=== PATIENT | male | born 1960 | race Caucasian/White ===

== ENCOUNTER 2017-03-15 17:45 | Inpatient (IN) | payer MEDICARE, MEDICAID ==
--- NOTE | 2017-03-15 18:29 | ED Physician Chart ---
ED Chief Complaint/HPI - Patient Information Date Seen:: 03/15/17 Time Seen:: 17:50 Chief Complaint:: abdominal pain History of Present Illness:: onset x one day of intermittent, diffuse, crampy, Abdominal Pain; no report of H /As, neck pain, C/P, SOB, cough, A/N/V/D/c, fever, chills, or urinary s/s Allergies:: Allergies Allergy/AdvReac Type Severity Reaction Status Date / Time No Known Allergies Allergy Verified 03/15/17 17:56 Vitals:: Vital Signs - 8 hr 03/15/17 03/15/17 17:57 18:03 Temp 97.9 F 97.7 F HR 78 87 RR 16 16 BP 101/72 150/86 O2 Sat % 99 100 Historian:: Patient, EMS Review:: Nurse's Note Reviewed, EMS run form Reviewed ED Review of Systems - Review of Systems General/Constitutional: No fever, No chills, No weight loss, No weakness, No diaphoresis, No edema, No loss of appetite Skin: No skin lesions, No rash, No bruising Head: No headache, No light-headedness Eyes: No loss of vision, No pain, No diplopia ENT: No earache, No nasal drainage, No sore throat, No tinnitus Neck: No neck pain, No swelling, No thyromegaly, No stiffness, No mass noted Cardio Vascular: No chest pain, No palpitations, PND, orthopnea, No edema Pulmonary: SOB, Cough, No sputum, No wheezing GI: Nausea, Vomiting, Diarrhea, Pain, No melena, No hematochezia, No constipation, No hematemesis G/U: No dysuria, No frequency, No hematuria, No nacturia Musculoskeletal: No bone or joint pain, No back pain, No muscle pain Endocrine: No polyuria, No polydipsia Psychiatric: No prior psych history, No depression, No anxiety, No suicidal ideation, No homicidal ideation, No auditory hallucination, No visual hallucination Hematopoietic: No bruising, No lymphadenopathy Allergic/Immuno: No urticaria, No angioedema Neurological: No syncope, No focal symptoms, No weakness, No paresthesia, No headache, No seizure, No dizziness, No confusion, No vertigo ED Past Medical History - Past Medical History Obtainable: Yes Past Medical History: HTN, CAD, CHF, ESRD, Seizures Family History: Diabetes Melitus, HTN Social History: Non Smoker, No Alcohol, No Drug Use, Single, Care Facility Surgical History: None Psychiatricy History: None Medication: Reviewed Family Medical History - Family Member Mother Hx Family Cancer: No Hx Family Congestive Heart Failure: No Hx Family Stroke: No Hx Family Diabetes: No Hx Family AIDS: No Hx Family HIV: No Hx Family Hepatitis: No ED Physical Exam - Physical Examination General/Constitutional: Awake, Well-developed, well-nourished, Alert, No distress, GCS 15, Non-toxic appearing, Ambulatory Head: Atraumatic Eyes: Lids, conjuctiva normal, PERRL, EOMI Skin: Nl inspection, No rash, No skin lesions, No ecchymosis, Well hydrated, No lymphadenopathy ENMT: External ears, nose nl, TM canals nl, Nasal exam nl, Lips, teeth, gums nl , Oropharynx nl, Tonsils nl Neck: Nontender, Full ROM w/o pain, No JVD, No nuchal rigidity, No bruit, No mass, No stridor Respiratory: Nl effort/Exclusion, Clear to Auscultation, No Wheeze/Rhonchi/Rales Cardio Vascular: RRR, No murmur, gallop, rubs, NL S1 S2, Carotid/Femoral/Distal pulses equal bilaterally GI: No tenderness/rebounding/guarding, No organomegaly, No hernia, Normal BS's, Nondistended, No mass/bruits, No McBurney tenderness : No CVA tenderness Extremities: No tenderness or effusion, Full ROM, normal strength in all extremities, No edema, Normal digits & nails Neuro/Psych: Alert/oriented, DTR's symmetric, Normal sensory exam, Normal motor strength, Judgement/insight normal, Mood normal, Normal gait, No focal deficits Misc: Normal back, No paraspinal tenderness ED Labs/Radiology/EKG Results - Lab Results Comments:: H/H: 9./; BUN: 50; Cr: 2.0 - EKG Interpretations EKG Time:: 20:20 Rate & Rhythm: 77; NSR Comments:: non-specific st-t changes ED Septic Shock - . Is Septic Shock (SBP<90, OR Lactate>4 mmol\L) present?: No - <6hrs of presentation: Vital Signs: Vital Signs - 8 hr 03/15/17 03/15/17 17:57 18:03 Temp 97.9 F 97.7 F HR 78 87 RR 16 16 BP 101/72 150/86 O2 Sat % 99 100 ED Reassessment (Disposition) - Reassessment Reassessment Condition:: Improved - Diagnosis Diagnosis:: Anemia; Abdominal Pain; AGE; Pre-Renal Azotemia; Renal Failure; Dehydration - Aftercare/Follow up Instructions Aftercare/Follow-Up Instructions:: Counseled pt regarding lab results/diagnosis & need follow up, Counseled pt & family regarding lab results/diagnosis & need follow up - Patient Disposition Discharge/Transfer:: Acute Care w/in this hosp Accepting Physician:: Dr. Lopez Time Called:: 1949 Time Responded:: 19:50 Admitted to:: Med/Surg Spoke to:: Dr. Lopez Admitting Medical Physician:: Dr. Lopez Condition at Disposition:: Stable, Improved
[2017-03-15] MEDS ORDERED: Sodium Chloride 0.9% 1,000 ML IV ONE (18:30)
[2017-03-15 19:19] LABS: % BASOPHILS 0.5 % (0.0-2.0); % EOSINOPHILS 2.5 % (0.0-5.0); % LYMPHOCYTES 29.3 % (20.0-50.0); % NEUTROPHILS 62.7 % (40.0-80.0); EOSINOPHILE ABSOLUTE 0.2 Th/cmm (0.1-0.4); HEMOGLOBIN 9.4 gm/dL (12-16); LYMPHOCYTE ABSOLUTE 1.8 Th/cmm (1.5-3.0); MEAN CORPUSCULAR HEMOGLOBIN 27.5 pg (26.0-30.0); MEAN CORPUSCULAR HGB CONC 32.3 pg (28.0-36.0); MONOCYTE ABSOLUTE 0.3 Th/cmm (0.3-1.0); NEUTROPHILE ABSOLUTE 3.7 Th/cmm (1.8-8.0); PLATELET COUNT 222 Th/cmm (150-400); RED BLOOD COUNT 3.41 Mil/cmm (4.30-5.70); RED CELL DISTRIBUTION WIDTH 15.8 % (11.5-20.0)
[2017-03-15 19:38] LABS: ALB/GLOB RATIO 0.8 (1.0-1.8); BILIRUBIN,TOTAL 0.2 mg/dL (0.3-1.0); CALCIUM SERUM 8.7 mg/dL (8.6-10.3); CARBON DIOXIDE 16.6 mEq/L (21.0-31.0); GFR NON AFRICAN-AMERICAN 37.2 ml/min; POTASSIUM SERUM 4.6 mEq/L (3.5-5.1); TOTAL PROTEIN,SERUM 6.8 gm/dL (6.0-8.3)
[2017-03-15 19:39] LABS: AMYLASE SERUM 39 U/L (29-103); LIPASE 34 U/L (11-82)
[2017-03-15 20:21] LABS: INR 1.01 (0.5-1.4); PROTHROMBIN TIME (TEST) 10.5 SECONDS (9.5-11.5)
[2017-03-15 21:36] LABS: URINE MICROSCOPIC INDICATED? YES; URINE SOURCE CLEAN C
[2017-03-15 21:37] LABS: URINE BILIRUBIN NEGATIVE (NEGATIVE); URINE BLOOD TRACE (NEGATIVE); URINE GLUCOSE (UA) 100 mg/dL (NEGATIVE); URINE KETONE NEGATIVE (NEGATIVE); URINE LEUKOCYTE ESTERASE NEGATIVE (NEGATIVE); URINE NITRATE NEGATIVE (NEGATIVE); URINE PROTEIN >=300 mg/dL (NEGATIVE); URINE UROBILINOGEN 0.2 E.U./dL (0.2 - 1.0)
[2017-03-15 21:41] LABS: URINE CLARITY CLOUDY (CLEAR); URINE COLOR YELLOW
[2017-03-15 21:42] LABS: URINE BACTERIA NONE SEEN /hpf (NONE SEEN); URINE EPITHELIAL CELLS NONE SEEN /lpf (FEW); URINE RBC 0-2 /hpf (0-5); URINE WBC NONE SEEN /hpf (0-5)
[2017-03-15 21:43] LABS: URINE AMORPHOUS SEDIMENT MANY URATES (NONE SEEN)
[2017-03-15 23:58] VITALS: BP 158/79
[2017-03-16] MEDS: D5-0.45NS w/20 mEq KCL 1,000 ML IV SCH ×2 (02:01→13:49)
[2017-03-16 07:27] LABS: % BASOPHILS 0.5 % (0.0-2.0); % EOSINOPHILS 2.1 % (0.0-5.0); % LYMPHOCYTES 31.6 % (20.0-50.0); % MONOCYTES 6.3 % (2.0-10.0); % NEUTROPHILS 59.5 % (40.0-80.0); EOSINOPHILE ABSOLUTE 0.1 Th/cmm (0.1-0.4); HEMATOCRIT 27.7 % (41.0-60); HEMOGLOBIN 9.2 gm/dL (12-16); LYMPHOCYTE ABSOLUTE 1.9 Th/cmm (1.5-3.0); MEAN CELL VOLUME 83.2 fl (80-99); MEAN CORPUSCULAR HEMOGLOBIN 27.7 pg (26.0-30.0); MEAN CORPUSCULAR HGB CONC 33.3 pg (28.0-36.0); MEAN PLATELET VOLUME 7.9 fl; MONOCYTE ABSOLUTE 0.4 Th/cmm (0.3-1.0); NEUTROPHILE ABSOLUTE 3.6 Th/cmm (1.8-8.0); PLATELET COUNT 201 Th/cmm (150-400); RED BLOOD COUNT 3.33 Mil/cmm (4.30-5.70); RED CELL DISTRIBUTION WIDTH 16.2 % (11.5-20.0)
[2017-03-16 07:44] LABS: ALB/GLOB RATIO 0.9 (1.0-1.8); ALBUMIN 2.8 gm/dL (4.2-5.5); ANION GAP 10.1 (7.0-16.0); BILIRUBIN,TOTAL 0.2 mg/dL (0.3-1.0); CALCIUM SERUM 8.3 mg/dL (8.6-10.3); CARBON DIOXIDE 18.4 mEq/L (21.0-31.0); CREATININE - SERUM 1.7 mg/dL (0.7-1.3); GFR AFRICAN-AMERICAN 54.3 ml/min (>90); GFR NON AFRICAN-AMERICAN 44.9 ml/min; POTASSIUM SERUM 4.5 mEq/L (3.5-5.1); TOTAL PROTEIN,SERUM 6.1 gm/dL (6.0-8.3)
--- NOTE | 2017-03-16 07:56 | Diagnostic Imaging Report ---
Portable chest x-ray Time: 1837 hours History: Chest pain Allowing for portable technique the heart size is normal. No focal pulmonary parenchymal processes. No hilar or mediastinal abnormalities. Impression: No acute abnormalities.
[2017-03-16] MEDS ORDERED: Magnesium Hydroxide (MOM) 30 mL UDC PO PRN (19:53)
--- NOTE | 2017-03-16 20:21 | History & Physical ---
ADMIT DATE: CHIEF COMPLAINT: Altered level of consciousness, confusion, possible urinary tract infection. HISTORY OF PRESENT ILLNESS: The patient is a 56-year-old male with long history of hypertension, seizure disorder, psychosis, degenerative joint disease, transferred from [facility] to the Emergency Room with altered level of consciousness, confusion. Initial workup sent for dehydration, acute kidney injury, possible urinary tract infection. The patient admitted to the hospital, started on IV fluid, antibiotic. The patient has pain on both knees and lower abdomen. No nausea, no vomiting. PAST MEDICAL HISTORY: Significant for hypertension, seizure disorder, chronic anemia, psychosis, coronary artery disease. PAST SURGICAL HISTORY: No recent surgery. ALLERGIES: None. MEDICATIONS: Follow admission reconciliation. SOCIAL HISTORY: No smoking, no alcohol, no drug. FAMILY HISTORY: Noncontributory. REVIEW OF SYSTEMS: RENAL SYSTEM: No history of chronic renal disorder. CARDIOVASCULAR SYSTEM: He has history of hypertension. ENDOCRINE SYSTEM: No diabetes or thyroid problem. GASTROINTESTINAL SYSTEM: No upper or lower gastrointestinal bleed. NEUROLOGICAL: He has history of seizure disorder with psychosis. MUSCULOSKELETAL SYSTEM: Degenerative joint disease. PHYSICAL EXAMINATION: GENERAL: He is awake, alert, mildly confused. VITAL SIGNS: Temperature is 98.2, heart rate 77, blood pressure 180/74. HEENT: Normocephalic. Pupils reacting to light and accommodation. Sclerae clear. NECK: Supple. Negative for lymphadenopathy, JVD or bruit. CHEST: Bilateral normal. No rhonchi or wheezing. HEART: S1, S2 normal. No murmur or gallop rhythm. ABDOMEN: Soft, bowel sounds positive. EXTREMITIES: No edema. NEUROLOGIC: He is awake, alert, mildly confused. He has mild weakness on the right side. LABORATORY DATA: Sodium is 141, potassium 4.5, BUN is 45, creatinine 0.7, glucose 141, albumin 2.8. White blood 6, hemoglobin 9.2, hematocrit 27.7, platelet 201. ASSESSMENT: 1. Dehydration. 2. Acute kidney injury. 3. Metabolic encephalopathy. 4. Hypertension. 5. Anemia. 6. Seizure disorder. 7. History of psychosis. 8. Possible urinary tract infection. The patient was admitted to the hospital under Dr. Lopez's service, IV fluid, antibiotic. Psych evaluation ordered. The CBC, CMP for tomorrow. Loman 5/325 one tablet q. 6 hours p.r.n. for pain ordered. JOB# [id number]
[2017-03-16] MEDS: Hydrocodone/APAP 5mg/325mg Tab PO PRN (21:21)
[2017-03-17] MEDS: D5-0.45NS w/20 mEq KCL 1,000 ML IV SCH (00:36)
[2017-03-17] MEDS: Hydrocodone/APAP 5mg/325mg Tab PO PRN ×3 (02:45→23:53)
[2017-03-17 08:25] LABS: % BASOPHILS 0.9 % (0.0-2.0); % EOSINOPHILS 3.3 % (0.0-5.0); % LYMPHOCYTES 27.8 % (20.0-50.0); % MONOCYTES 7.4 % (2.0-10.0); % NEUTROPHILS 60.6 % (40.0-80.0); BASOPHILE ABSOLUTE 0.1 Th/cumm (0-0.2); EOSINOPHILE ABSOLUTE 0.2 Th/cmm (0.1-0.4); HEMATOCRIT 28.3 % (41.0-60); HEMOGLOBIN 9.5 gm/dL (12-16); LYMPHOCYTE ABSOLUTE 1.8 Th/cmm (1.5-3.0); MEAN CELL VOLUME 84.3 fl (80-99); MEAN CORPUSCULAR HEMOGLOBIN 28.2 pg (26.0-30.0); MEAN CORPUSCULAR HGB CONC 33.5 pg (28.0-36.0); MEAN PLATELET VOLUME 8.4 fl; MONOCYTE ABSOLUTE 0.5 Th/cmm (0.3-1.0); NEUTROPHILE ABSOLUTE 3.8 Th/cmm (1.8-8.0); PLATELET COUNT 197 Th/cmm (150-400); RED BLOOD COUNT 3.35 Mil/cmm (4.30-5.70); RED CELL DISTRIBUTION WIDTH 15.7 % (11.5-20.0); WHITE BLOOD COUNT 6.4 Th/cmm (4.8-10.8)
[2017-03-17] MEDS: Ferrous Sulfate 325 MG TAB PO SCH (08:26)
[2017-03-17 08:35] LABS: ALB/GLOB RATIO 0.8 (1.0-1.8); ALBUMIN 2.7 gm/dL (4.2-5.5); ALKALINE PHOSPHATASE 48 U/L (34-104); ANION GAP 5.8 (7.0-16.0); BILIRUBIN,TOTAL 0.2 mg/dL (0.3-1.0); BUN - UREA NITROGEN 35 mg/dL (7-25); CALCIUM SERUM 8.3 mg/dL (8.6-10.3); CARBON DIOXIDE 18.8 mEq/L (21.0-31.0); CHLORIDE 116 mEq/L (98-107); CREATININE - SERUM 1.4 mg/dL (0.7-1.3); GFR AFRICAN-AMERICAN > 60.0 ml/min (>90); GFR NON AFRICAN-AMERICAN 56.1 ml/min; GLUCOSE 157 mg/dL (70-105); POTASSIUM SERUM 5.6 mEq/L (3.5-5.1); SGOT 15 U/L (13-39); SGPT/ALT 14 U/L (7-52); SODIUM SERUM 135 mEq/L (136-145)
[2017-03-17] MEDS ORDERED: D5-0.45NS 1,000 ML IV SCH (13:00)
--- NOTE | 2017-03-17 13:12 | Internal Medicine Prog Note ---
Internal Medicine Subjective - Subjective Service Date: 03/17/17 Patient seen and examined:: with staff Patient is:: awake, verbal, in bed Patient Complaints of:: other (HE HAS ABDOMINAL PAIN) Internal Medicine Objective - Results Result Diagrams: 03/17/17 07:45 03/17/17 07:45 Recent Labs: Laboratory Last Values WBC 6.4 Th/cmm (4.8-10.8) 03/17/17 07:45 RBC 3.35 Mil/cmm (4.30-5.70) L 03/17/17 07:45 Hgb 9.5 gm/dL (12-16) L 03/17/17 07:45 Hct 28.3 % (41.0-60) L 03/17/17 07:45 MCV 84.3 fl (80-99) 03/17/17 07:45 MCH 28.2 pg (26.0-30.0) 03/17/17 07:45 MCHC Differential 33.5 pg (28.0-36.0) 03/17/17 07:45 RDW 15.7 % (11.5-20.0) 03/17/17 07:45 Plt Count 197 Th/cmm (150-400) 03/17/17 07:45 MPV 8.4 fl 03/17/17 07:45 Neutrophils % 60.6 % (40.0-80.0) 03/17/17 07:45 Lymphocytes % 27.8 % (20.0-50.0) 03/17/17 07:45 Monocytes % 7.4 % (2.0-10.0) 03/17/17 07:45 Eosinophils % 3.3 % (0.0-5.0) 03/17/17 07:45 Basophils % 0.9 % (0.0-2.0) 03/17/17 07:45 PT 10.5 SECONDS (9.5-11.5) 03/15/17 19:55 INR 1.01 (0.5-1.4) 03/15/17 19:55 Sodium 135 mEq/L (136-145) L 03/17/17 07:45 Potassium 5.6 mEq/L (3.5-5.1) H 03/17/17 07:45 Chloride 116 mEq/L (98-107) H 03/17/17 07:45 Carbon Dioxide 18.8 mEq/L (21.0-31.0) L 03/17/17 07:45 Anion Gap 5.8 (7.0-16.0) L 03/17/17 07:45 BUN 35 mg/dL (7-25) H 03/17/17 07:45 Creatinine 1.4 mg/dL (0.7-1.3) H 03/17/17 07:45 Est GFR ( Amer) > 60.0 ml/min (>90) 03/17/17 07:45 Est GFR (Non-Af Amer) 56.1 ml/min 03/17/17 07:45 BUN/Creatinine Ratio 25.0 03/17/17 07:45 Glucose 157 mg/dL (70-105) H 03/17/17 07:45 Calcium 8.3 mg/dL (8.6-10.3) L 03/17/17 07:45 Total Bilirubin 0.2 mg/dL (0.3-1.0) L 03/17/17 07:45 AST 15 U/L (13-39) 03/17/17 07:45 ALT 14 U/L (7-52) 03/17/17 07:45 Alkaline Phosphatase 48 U/L (34-104) 03/17/17 07:45 Creatine Kinase 54 U/L (30-223) 03/15/17 19:10 Troponin I 0.01 ng/mL (0.01-0.05) 03/15/17 19:10 B-Natriuretic Peptide 43.3 pg/mL (5.0-100.0) 03/15/17 19:10 Total Protein 6.0 gm/dL (6.0-8.3) 03/17/17 07:45 Albumin 2.7 gm/dL (4.2-5.5) L 03/17/17 07:45 Globulin 3.3 gm/dL 03/17/17 07:45 Albumin/Globulin Ratio 0.8 (1.0-1.8) L 03/17/17 07:45 Triglycerides 262 mg/dL (<150) H 03/15/17 19:10 Cholesterol 211 mg/dL (<200) H 03/15/17 19:10 LDL Cholesterol Direct 138 mg/dL (75-193) 03/15/17 19:10 HDL Cholesterol 33 mg/dL (23-92) 03/15/17 19:10 Amylase 39 U/L (29-103) 03/15/17 19:10 Lipase 34 U/L (11-82) 03/15/17 19:10 Urine Source CLEAN C 03/15/17 20:55 Urine Color YELLOW 03/15/17 20:55 Urine Clarity CLOUDY (CLEAR) 03/15/17 20:55 Urine pH 6.0 (4.6 - 8.0) 03/15/17 20:55 Ur Specific [place] 1.020 (1.005-1.030) 03/15/17 20:55 Urine Protein >=300 mg/dL (NEGATIVE) 03/15/17 20:55 Urine Glucose (UA) 100 mg/dL (NEGATIVE) H 03/15/17 20:55 Urine Ketones NEGATIVE mg/dL (NEGATIVE) 03/15/17 20:55 Urine Blood TRACE (NEGATIVE) 03/15/17 20:55 Urine Nitrate NEGATIVE (NEGATIVE) 03/15/17 20:55 Urine Bilirubin NEGATIVE (NEGATIVE) 03/15/17 20:55 Urine Urobilinogen 0.2 E.U./dL (0.2 - 1.0) 03/15/17 20:55 Ur Leukocyte Esterase NEGATIVE (NEGATIVE) 03/15/17 20:55 Urine RBC 0-2 /hpf (0-5) H 03/15/17 20:55 Urine WBC NONE SEEN /hpf (0-5) 03/15/17 20:55 Ur Epithelial Cells NONE SEEN /lpf (FEW) 03/15/17 20:55 Amorphous Sediment MANY URATES (NONE SEEN) 03/15/17 20:55 Urine Bacteria NONE SEEN /hpf (NONE SEEN) 03/15/17 20:55 - Physical Exam Vitals and I&O: Vital Signs Temp 98.4 F 03/17/17 11:53 Pulse 69 03/17/17 11:53 Resp 17 03/17/17 11:53 BP 173/73 03/17/17 11:53 Pulse Ox 99 03/17/17 11:53 Intake & Output 03/16/17 03/17/17 03/17/17 18:59 06:59 18:59 Intake Total 572.5 1308.75 Output Total 0 Balance 572.5 1308.75 Weight (lbs) 74.389 kg 73.936 kg Intake: Intake, IV Amount 572.5 808.75 D5-0.45NS w/20 mEq KCL 1, 572.5 808.75 000 ml @ 75 mls/hr IV . [id number] [facility] Rx#:[id number] Oral 500 Output: Stool 0 Other: # Voids 3 # Bowel Movements 0 Stool Characteristics Soft Formed Active Medications: Current Medications Acetaminophen (Tylenol) 650 mg PO Q6HR PRN PRN Reason: Pain (Mild) Stop: 05/15/17 19:51 Last Admin: 03/17/17 06:02 Dose: 650 mg Acetaminophen/Hydrocodone Bitart (Prompton 5mg/325mg) 1 tab PO Q6H PRN PRN Reason: Pain (Severe) Stop: 05/15/17 20:02 Last Admin: 03/17/17 02:45 Dose: 1 tab Carbamazepine (Tegretol) 200 mg PO TID [facility] PRN Reason: Protocol Stop: 05/16/17 08:59 Last Admin: 03/17/17 08:26 Dose: 200 mg Docusate Sodium (Colace) 250 mg PO DAILY [facility] Stop: 05/16/17 08:59 Last Admin: 03/17/17 08:26 Dose: 250 mg Ferrous Sulfate (Iron) 325 mg PO DAILY [facility] Stop: 05/16/17 08:59 Last Admin: 03/17/17 08:26 Dose: 325 mg Gabapentin (Neurontin) 600 mg PO QID [facility] Stop: 05/16/17 08:59 Last Admin: 03/17/17 08:26 Dose: 600 mg Hydralazine HCl (Apresoline) 50 mg PO Q6HR PRN PRN Reason: BP MAINTENANCE (PER PROTOCOL) Stop: 05/15/17 19:52 Dextrose/Sodium Chloride (D5-0.45ns) 1,000 mls @ 75 mls/hr IV .[id number] [facility] Stop: 05/16/17 12:59 Isosorbide Mononitrate (Imdur) 30 mg PO DAILY [facility] Stop: 05/16/17 08:59 Last Admin: 03/17/17 08:26 Dose: 30 mg Levetiracetam (Keppra) 500 mg PO BID [facility] Stop: 05/15/17 19:59 Last Admin: 03/17/17 08:26 Dose: 500 mg Magnesium Hydroxide (Milk Of Magnesia) 30 ml PO DAILY PRN PRN Reason: Constipation Stop: 05/15/17 19:52 Metoprolol Tartrate (Lopressor) 100 mg PO BID [facility] Stop: 05/16/17 08:59 Last Admin: 03/17/17 08:27 Dose: 100 mg Minoxidil (Loniten) 2.5 mg PO BID [facility] Stop: 05/16/17 08:59 Last Admin: 03/17/17 08:26 Dose: 2.5 mg Valproate Sodium (Depakene) 250 mg PO QID [facility] PRN Reason: Protocol Stop: 05/16/17 08:59 Last Admin: 03/17/17 08:26 Dose: 250 mg General: weak, alert HEENT: NC/AT, PERRLA, EOMI, anicteric sclerae, throat clear Neck: Supple, No JVD, No thyromegaly, No LAD Lungs: CTAB Cardiovascular: Normal S1, Normal S2, without murmur Abdomen: tender, non-distended Extremities: clear Neurological: no change - Procedures Procedures: Procedures Procedure Code Date DRAINAGE OF SKIN ABSCESS 53917 08/15/03 ELECTROCARDIOGRAM 89.52 01/27/00 ELECTROCARDIOGRAM COMPLETE 00271 01/27/00 INSERT NON-TUNNEL CV CATH 08294 12/13/03 MAGNETIC RESONANCE IMAGING OF BRAIN AND BRAIN STEM 88.91 01/27/00 MRI BRAIN STEM W/O DYE 72412 01/27/00 OTHER SKIN & SUBQ I D 86.04 08/15/03 VENOUS CATHETERIZATION NEC 38.93 12/13/03 Internal Medicine Assmt/Plan - Assessment Assessment: 1.ACUTE ABDOMINAL PAIN. 2.POSSIBLE UTI. 3.DEHYDRATION. 4.ACUTE KIDNEY INJERY. - Plan Plan: GI CONSULTATION.CT OF ABDOMIN.
[2017-03-17] MEDS: Sodium Chloride 0.45% 1,000 ML IV SCH (13:33)
[2017-03-17] MEDS: INSULIN ASPART SLIDING SCALE 100 UNITS/ML UNIT SUBQ SCH ×2 (17:44→21:11)
--- NOTE | 2017-03-18 00:05 | Consultation ---
DATE OF CONSULTATION: 03/17/2017 Covering for: Dr. Lagunas. The patient was admitted on 03/15/2017. IDENTIFYING INFORMATION: The patient is a 56-year-old male. HISTORY OF PRESENT ILLNESS: I was asked to see this patient who has a history of psychosis. The patient himself was a poor historian, unable to participate in a meaningful conversation, make a safe plan for self-care. He does not know the date, where he is, why he is here, unable to tell me his age. 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 The patient was admitted with altered level of consciousness. Apparently, he has hypertension, seizure disorder, chronic anemia, and coronary artery disease. He was confused with multiple urinary tract infections, long history of hypertension, and degenerative joint disease. He came from [facility] Emergency Room with altered level of consciousness and confusion. The patient was somewhat confused when I talked to him, unable to tell me much about his symptoms, though he pointed to his leg and complained of abdominal pain, but when asked about depression, anxiety, and hallucination, he denied, but he is not a good historian. He denies any intent to harm himself or anyone. PAST PSYCHIATRIC HISTORY: Psychosis. The patient denies prior psychiatric treatment; however, he is a poor historian. MEDICAL HISTORY: Dehydration, acute kidney injury, metabolic encephalopathy, hypertension, anemia, seizure disorder, with a history of possible urinary tract infection. ALLERGIES: The patient has no known drug allergies. MEDICATIONS: He has been on Tegretol 200 mg 3 times a day. He is on iron, Neurontin 600 mg 4 times a day, hydralazine, hydrocodone as needed, insulin, Keppra, metoprolol, minoxidil, and Depakote 250 four times a day. FAMILY AND SOCIAL HISTORY: Unobtainable. The patient is unable to tell me much about his family history. When asked about prior psychosis, he denies. He does not know where he lives. He came from [facility], which is a [place] [facility]. MENTAL STATUS EXAMINATION: The patient is appropriately dressed in hospital gown. He spoke in an odd manner. He was alert, unable to tell me the date, where he is. He pointed to his leg and abdomen when asked if he has any complaint. He was unable to participate in a meaningful conversation or make a safe plan for self-care. Long and short term is poor, unable to tell me his age or date of . He denies any hallucinations or paranoia. Insight and judgment are impaired. IMPRESSION: AXIS I: Possible bipolar disorder. MEDICAL DIAGNOSES: As per Dr. Lopez. PLAN: I would recommend to continue his medication, Depakote would help with his symptoms and will follow up with the patient and adjust medication as needed. Thank you very much for allowing me to participate in the care of this most interesting gentleman. JOB# [id number]
[2017-03-18] MEDS: Sodium Chloride 0.45% 1,000 ML IV SCH ×2 (03:35→21:04)
[2017-03-18 05:41] LABS: % BASOPHILS 0.9 % (0.0-2.0); % EOSINOPHILS 3.2 % (0.0-5.0); % LYMPHOCYTES 20.8 % (20.0-50.0); % MONOCYTES 5.9 % (2.0-10.0); % NEUTROPHILS 69.2 % (40.0-80.0); BASOPHILE ABSOLUTE 0.1 Th/cumm (0-0.2); EOSINOPHILE ABSOLUTE 0.3 Th/cmm (0.1-0.4); HEMATOCRIT 28.8 % (41.0-60); HEMOGLOBIN 9.9 gm/dL (12-16); LYMPHOCYTE ABSOLUTE 2.1 Th/cmm (1.5-3.0); MEAN CELL VOLUME 82.8 fl (80-99); MEAN CORPUSCULAR HEMOGLOBIN 28.5 pg (26.0-30.0); MEAN CORPUSCULAR HGB CONC 34.4 pg (28.0-36.0); MEAN PLATELET VOLUME 7.9 fl; MONOCYTE ABSOLUTE 0.6 Th/cmm (0.3-1.0); NEUTROPHILE ABSOLUTE 6.8 Th/cmm (1.8-8.0); PLATELET COUNT 226 Th/cmm (150-400); RED BLOOD COUNT 3.48 Mil/cmm (4.30-5.70); RED CELL DISTRIBUTION WIDTH 15.4 % (11.5-20.0)
[2017-03-18 06:20] LABS: ALB/GLOB RATIO 0.8 (1.0-1.8); ALBUMIN 2.7 gm/dL (4.2-5.5); ALKALINE PHOSPHATASE 62 U/L (34-104); ANION GAP 8.5 (7.0-16.0); BILIRUBIN,TOTAL 0.2 mg/dL (0.3-1.0); BUN - UREA NITROGEN 30 mg/dL (7-25); CALCIUM SERUM 8.2 mg/dL (8.6-10.3); CHLORIDE 114 mEq/L (98-107); CREATININE - SERUM 1.3 mg/dL (0.7-1.3); GFR AFRICAN-AMERICAN > 60.0 ml/min (>90); GFR NON AFRICAN-AMERICAN > 60.0 ml/min; GLUCOSE 115 mg/dL (70-105); POTASSIUM SERUM 5.5 mEq/L (3.5-5.1); SGOT 18 U/L (13-39); SGPT/ALT 14 U/L (7-52); SODIUM SERUM 135 mEq/L (136-145)
[2017-03-18 06:24] LABS: WHITE BLOOD COUNT 9.9 Th/cmm (4.8-10.8)
[2017-03-18] MEDS: INSULIN ASPART SLIDING SCALE 100 UNITS/ML UNIT SUBQ SCH ×4 (06:36→22:18)
--- NOTE | 2017-03-18 09:43 | Diagnostic Imaging Report ---
Exam: KUB of the abdomen HISTORY: Abdominal pain Findings: Portable supine examination the abdomen was reviewed at 0851 hours. The study demonstrates nonspecific bowel gas pattern. Bony structures intact. No abnormal masses or calcifications are noted. IMPRESSION: Nonspecific bowel gas pattern.
[2017-03-18] MEDS: Ferrous Sulfate 325 MG TAB PO SCH (15:07)
[2017-03-18] MEDS: POLYETHYLENE GLYCOL 3350 17 GM PACK PO SCH (15:11)
[2017-03-18] MEDS ORDERED: Probiotic Screen MC PRN (15:25)
--- NOTE | 2017-03-18 15:37 | General Progress Note ---
Subjective - Review of Systems Service Date: 03/18/17 Subjective: resting in bed still c/o abdo pain Objective - Results Result Diagrams: 03/18/17 05:25 03/18/17 05:25 Recent Labs: Laboratory Last Values WBC 9.9 Th/cmm (4.8-10.8) D 03/18/17 05:25 RBC 3.48 Mil/cmm (4.30-5.70) L 03/18/17 05:25 Hgb 9.9 gm/dL (12-16) L 03/18/17 05:25 Hct 28.8 % (41.0-60) L 03/18/17 05:25 MCV 82.8 fl (80-99) 03/18/17 05:25 MCH 28.5 pg (26.0-30.0) 03/18/17 05:25 MCHC Differential 34.4 pg (28.0-36.0) 03/18/17 05:25 RDW 15.4 % (11.5-20.0) 03/18/17 05:25 Plt Count 226 Th/cmm (150-400) 03/18/17 05:25 MPV 7.9 fl 03/18/17 05:25 Neutrophils % 69.2 % (40.0-80.0) 03/18/17 05:25 Lymphocytes % 20.8 % (20.0-50.0) 03/18/17 05:25 Monocytes % 5.9 % (2.0-10.0) 03/18/17 05:25 Eosinophils % 3.2 % (0.0-5.0) 03/18/17 05:25 Basophils % 0.9 % (0.0-2.0) 03/18/17 05:25 PT 10.5 SECONDS (9.5-11.5) 03/15/17 19:55 INR 1.01 (0.5-1.4) 03/15/17 19:55 Sodium 135 mEq/L (136-145) L 03/18/17 05:25 Potassium 5.5 mEq/L (3.5-5.1) H 03/18/17 05:25 Chloride 114 mEq/L (98-107) H 03/18/17 05:25 Carbon Dioxide 18.0 mEq/L (21.0-31.0) L 03/18/17 05:25 Anion Gap 8.5 (7.0-16.0) 03/18/17 05:25 BUN 30 mg/dL (7-25) H 03/18/17 05:25 Creatinine 1.3 mg/dL (0.7-1.3) 03/18/17 05:25 Est GFR ( Amer) > 60.0 ml/min (>90) 03/18/17 05:25 Est GFR (Non-Af Amer) > 60.0 ml/min 03/18/17 05:25 BUN/Creatinine Ratio 23.1 03/18/17 05:25 Glucose 115 mg/dL (70-105) H 03/18/17 05:25 POC Glucose 111 MG/DL (70 - 105) H 03/18/17 12:12 Calcium 8.2 mg/dL (8.6-10.3) L 03/18/17 05:25 Total Bilirubin 0.2 mg/dL (0.3-1.0) L 03/18/17 05:25 AST 18 U/L (13-39) 03/18/17 05:25 ALT 14 U/L (7-52) 03/18/17 05:25 Alkaline Phosphatase 62 U/L (34-104) 03/18/17 05:25 Creatine Kinase 54 U/L (30-223) 03/15/17 19:10 Troponin I 0.01 ng/mL (0.01-0.05) 03/15/17 19:10 B-Natriuretic Peptide 43.3 pg/mL (5.0-100.0) 03/15/17 19:10 Total Protein 6.0 gm/dL (6.0-8.3) 03/18/17 05:25 Albumin 2.7 gm/dL (4.2-5.5) L 03/18/17 05:25 Globulin 3.3 gm/dL 03/18/17 05:25 Albumin/Globulin Ratio 0.8 (1.0-1.8) L 03/18/17 05:25 Triglycerides 262 mg/dL (<150) H 03/15/17 19:10 Cholesterol 211 mg/dL (<200) H 03/15/17 19:10 LDL Cholesterol Direct 138 mg/dL (75-193) 03/15/17 19:10 HDL Cholesterol 33 mg/dL (23-92) 03/15/17 19:10 Amylase 39 U/L (29-103) 03/15/17 19:10 Lipase 34 U/L (11-82) 03/15/17 19:10 Urine Source CLEAN C 03/15/17 20:55 Urine Color YELLOW 03/15/17 20:55 Urine Clarity CLOUDY (CLEAR) 03/15/17 20:55 Urine pH 6.0 (4.6 - 8.0) 03/15/17 20:55 Ur Specific [place] 1.020 (1.005-1.030) 03/15/17 20:55 Urine Protein >=300 mg/dL (NEGATIVE) 03/15/17 20:55 Urine Glucose (UA) 100 mg/dL (NEGATIVE) H 03/15/17 20:55 Urine Ketones NEGATIVE mg/dL (NEGATIVE) 03/15/17 20:55 Urine Blood TRACE (NEGATIVE) 03/15/17 20:55 Urine Nitrate NEGATIVE (NEGATIVE) 03/15/17 20:55 Urine Bilirubin NEGATIVE (NEGATIVE) 03/15/17 20:55 Urine Urobilinogen 0.2 E.U./dL (0.2 - 1.0) 03/15/17 20:55 Ur Leukocyte Esterase NEGATIVE (NEGATIVE) 03/15/17 20:55 Urine RBC 0-2 /hpf (0-5) H 03/15/17 20:55 Urine WBC NONE SEEN /hpf (0-5) 03/15/17 20:55 Ur Epithelial Cells NONE SEEN /lpf (FEW) 03/15/17 20:55 Amorphous Sediment MANY URATES (NONE SEEN) 03/15/17 20:55 Urine Bacteria NONE SEEN /hpf (NONE SEEN) 03/15/17 20:55 - Physical Exam Vitals and I&O: Vital Signs Temp 97.7 F 03/18/17 15:23 Pulse 86 03/18/17 15:23 Resp 20 03/18/17 15:23 BP 170/87 03/18/17 15:23 Pulse Ox 99 03/18/17 15:23 Intake & Output 03/17/17 03/18/17 03/18/17 18:59 06:59 18:59 Intake Total 450 1400 Output Total 0 Balance 450 1400 Weight (lbs) 73.936 kg 73.936 kg Intake: Intake, IV Amount 1000 Sodium Chloride 0.45% 1, 1000 000 ml @ 75 mls/hr IV . [id number] [facility] Rx#:[id number] Oral 450 400 Output: Stool 0 Other: # Voids 3 3 # Bowel Movements 1 0 Stool Characteristics Soft Soft Formed Formed Active Medications: Current Medications Acetaminophen (Tylenol) 650 mg PO Q6HR PRN PRN Reason: Pain (Mild) Stop: 05/15/17 19:51 Last Admin: 03/17/17 06:02 Dose: 650 mg Acetaminophen/Hydrocodone Bitart ([place] 5mg/325mg) 1 tab PO Q6H PRN PRN Reason: Pain (Severe) Stop: 05/15/17 20:02 Last Admin: 03/17/17 23:53 Dose: 1 tab Carbamazepine (Tegretol) 200 mg PO TID [facility] PRN Reason: Protocol Stop: 05/16/17 08:59 Last Admin: 03/18/17 15:10 Dose: Not Given Docusate Sodium (Colace) 250 mg PO DAILY [facility] Stop: 05/16/17 08:59 Last Admin: 03/18/17 15:07 Dose: Not Given Ferrous Sulfate (Iron) 325 mg PO DAILY [facility] Stop: 05/16/17 08:59 Last Admin: 03/18/17 15:07 Dose: Not Given Gabapentin (Neurontin) 600 mg PO QID [facility] Stop: 05/16/17 08:59 Last Admin: 03/18/17 15:08 Dose: 600 mg Hydralazine HCl (Apresoline) 50 mg PO Q6HR PRN PRN Reason: BP MAINTENANCE (PER PROTOCOL) Stop: 05/15/17 19:52 Last Admin: 03/18/17 07:57 Dose: 50 mg Sodium Chloride (Nacl 0.45%) 1,000 mls @ 75 mls/hr IV .[id number] [facility] Stop: 05/16/17 13:29 Last Admin: 03/18/17 03:35 Dose: 75 mls/hr Insulin Aspart (Novolog Insulin Sliding Scale) 0 units SUBQ ACHS [facility] PRN Reason: Protocol Stop: 05/16/17 16:29 Last Admin: 03/18/17 15:11 Dose: Not Given Isosorbide Mononitrate (Imdur) 30 mg PO DAILY [facility] Stop: 05/16/17 08:59 Last Admin: 03/18/17 15:10 Dose: Not Given Lactobacillus Rhamnosus (Culturelle 15b) 1 each PO DAILY [facility] Stop: 05/18/17 08:59 Levetiracetam (Keppra) 500 mg PO BID [facility] Stop: 05/15/17 19:59 Last Admin: 03/18/17 15:10 Dose: Not Given Magnesium Hydroxide (Milk Of Magnesia) 30 ml PO DAILY PRN PRN Reason: Constipation Stop: 05/15/17 19:52 Metoprolol Tartrate (Lopressor) 100 mg PO BID [facility] Stop: 05/16/17 08:59 Last Admin: 03/18/17 15:10 Dose: Not Given Minoxidil (Loniten) 2.5 mg PO BID [facility] Stop: 05/16/17 08:59 Last Admin: 03/18/17 15:11 Dose: Not Given Miscellaneous (Probiotic Screen) 1 ea PRN PRN PRN Reason: PROTOCOL Stop: 05/17/17 15:24 Polyethylene Glycol (Miralax) 17 gm PO DAILY [facility] Stop: 05/17/17 08:59 Last Admin: 03/18/17 15:11 Dose: Not Given Valproate Sodium (Depakene) 250 mg PO QID [facility] PRN Reason: Protocol Stop: 05/16/17 08:59 Last Admin: 03/18/17 15:11 Dose: Not Given General: Alert, No acute distress HEENT: Atraumatic, EOMI Neck: Supple, JVD Cardiovascular: Regular rate, Normal S1, Normal S2 Lungs: Clear to auscultation Abdomen: Bowel sounds, Soft - Procedures Procedures: Procedures Procedure Code Date DRAINAGE OF SKIN ABSCESS 92277 08/15/03 ELECTROCARDIOGRAM 89.52 01/27/00 ELECTROCARDIOGRAM COMPLETE 56023 01/27/00 INSERT NON-TUNNEL CV CATH 54762 12/13/03 MAGNETIC RESONANCE IMAGING OF BRAIN AND BRAIN STEM 88.91 01/27/00 MRI BRAIN STEM W/O DYE 64495 01/27/00 OTHER SKIN & SUBQ I D 86.04 08/15/03 VENOUS CATHETERIZATION NEC 38.93 12/13/03 Assessment/Plan - Assessment Assessment: 1.ACUTE ABDOMINAL PAIN. 2.POSSIBLE UTI. 3.DEHYDRATION. 4.ACUTE KIDNEY INJURY - Plan Plan: continue current treatment GI w/o in progress
--- NOTE | 2017-03-18 19:32 | Consultation ---
DATE OF CONSULTATION: 03/18/2017 INPATIENT GASTROINTESTINAL CONSULTATION CONSULTING PHYSICIAN: Dr. Lopez. REASON FOR CONSULTATION: Abdominal pain. HISTORY OF PRESENT ILLNESS: The patient is a 56-year-old male with a past medical history significant for hypertension, seizure disorder, psychosis, degenerative joint disease. He is a permanent resident at [facility], who was transferred to the Emergency Room with altered level of consciousness. Initial workup in the ER showed acute kidney injury, possible urinary tract infection and the patient did complain of generalized abdominal pain, since the admission, the patient has been receiving antibiotics as well as fluid hydration. His acute kidney injury has improved. The patient, however, still reports that he has abdominal pain whenever he is asked if he has any issues and points to his entire stomach. He is unable to say for certain if he has ever had an endoscopic examination before as he is still somewhat altered. PAST MEDICAL HISTORY: Hypertension, seizure disorder, psychosis, anemia, coronary artery disease. PAST SURGICAL HISTORY: There is no history of abdominal surgeries. FAMILY HISTORY: Noncontributory. SOCIAL HISTORY: No documented history of smoking or illicit drug use. REVIEW OF SYSTEMS: Twelve point review of systems performed with the patient and is negative other than the pertinent positives mentioned in history of present illness. Specifically, the patient denies any melena, hematochezia, hematemesis or vomiting. CURRENT MEDICATIONS: Include Tylenol, [place], carbamazepine, Colace, iron, gabapentin, hydralazine, insulin sliding scale, Imdur, Keppra, milk of magnesia, Lopressor, minoxidil, Depakote. PHYSICAL EXAMINATION: VITAL SIGNS: Blood pressure is 194/95, respiratory rate is 18, pulse 77, temperature 97.4, 100% oxygenation on room air. GENERAL: The patient is sitting upright in bed. He was comfortably sleeping before examination, in no apparent distress. HEAD, EARS, EYES, NOSE AND THROAT: Normocephalic, atraumatic appearing head. He does have an odd affect. Pupils are equal and reactive. Extraocular muscles are intact. Moist mucous membranes. NECK: Supple, no JVD, no thyromegaly, no lymphadenopathy. CHEST: Clear to auscultation bilaterally. CARDIOVASCULAR: S1, S2 are present, regular rate and rhythm. ABDOMEN: Soft on palpation. There is no tenderness as per the patient on palpation. No guarding, no rebound, no distention. EXTREMITIES: 1+ pitting edema is noted. No obvious cyanosis. Pulses are present. SKIN: No obvious jaundice. LABORATORY DATA: White blood cell count 9.9, hemoglobin 9.9, platelet count 226. Sodium 135, potassium 5.5, BUN is 30, creatinine 1.3, which is improved from 1.7 on admission, total bilirubin 0.288, AST is 18, ALT is 14, INR 1.01. IMAGING: There is no abdominal imaging performed. IMPRESSION: This is a 56-year-old male with history of psychosis, seizure disorder who is a permanent resident of a nursing facility. He was admitted to the hospital with confusion, dehydration, acute kidney injury, and abdominal pain. 1. Abdominal pain. 2. Acute kidney injury. 3. Acute on chronic confusion. 4. History of seizure disorder. 5. History of coronary artery disease. DISCUSSION: It is difficult to ascertain whether this patient is truly in pain or whether or how to characterize his abdominal pain as the patient is only able to endorse that he has generalized pain and unable to give any further details. An abdominal ultrasound is already ordered, which can help us find if there is any biliary or gallbladder pathology. A contrast CT scan would be useful, although his kidney injury is not all the way improved and thus this may be able to wait for another day. The kidney injury is further improved. We can get a KUB to look for any evidence of constipation, which may be playing into his pain syndrome, less likely possibilities include colon cancer, gastric cancer or peptic ulcer disease. If the patient's pain is not improved with laxative therapy and the imaging studies are nonrevealing, we can consider the prospect of doing upper and lower endoscopy to rule out other causes. RECOMMENDATIONS: 1. We will get a KUB. 2. We will follow up the abdominal ultrasound. 3. If the kidney function continues to improve tomorrow, we can consider getting a contrast CT scan. 4. We will start the patient on MiraLax as several of his home medications can induce constipation and he has no record of bowel movements here. 5. If all fails and continues to have pain, we can consider doing upper and lower endoscopy. Thank you for allowing me to participate in this patient's care. I will continue to follow. Please call with any further questions. JOB# [id number]
[2017-03-18] MEDS: Hydrocodone/APAP 5mg/325mg Tab PO PRN (20:57)
--- NOTE | 2017-03-18 21:30 | Progress Notes ---
DATE: 03/18/2017 Case was discussed with the patient, reviewed records. The patient continues to be unable to give information. The patient continues to have poor insight, continues to be unable to take care of himself or make safe plan for self-care. The patient is unpredictable and impulsive. He was dehydrated with kidney injury, metabolic encephalopathy. He has been compliant with the medication with no side effects, no sedation, no nausea. So far, he seems to be more on the sedated side that he probably is also suffering from delirium because of his metabolic encephalopathy, dehydration and infection. No side effects with the medication, no sedation or nausea. Thank you very much for allowing me to participate in the care of this most interesting patient. JOB# [id number]
[2017-03-19] MEDS: Hydrocodone/APAP 5mg/325mg Tab PO PRN ×3 (02:56→20:40)
[2017-03-19 06:15] LABS: ALB/GLOB RATIO 0.8 (1.0-1.8); ALBUMIN 2.4 gm/dL (4.2-5.5); ALKALINE PHOSPHATASE 67 U/L (34-104); BILIRUBIN,TOTAL 0.3 mg/dL (0.3-1.0); BUN - UREA NITROGEN 28 mg/dL (7-25); CALCIUM SERUM 7.8 mg/dL (8.6-10.3); CARBON DIOXIDE 13.6 mEq/L (21.0-31.0); CHLORIDE 116 mEq/L (98-107); CREATININE - SERUM 1.3 mg/dL (0.7-1.3); GFR AFRICAN-AMERICAN > 60.0 ml/min (>90); GFR NON AFRICAN-AMERICAN > 60.0 ml/min; GLUCOSE 117 mg/dL (70-105); POTASSIUM SERUM 4.6 mEq/L (3.5-5.1); SGOT 17 U/L (13-39); SGPT/ALT 16 U/L (7-52); SODIUM SERUM 136 mEq/L (136-145); TOTAL PROTEIN,SERUM 5.4 gm/dL (6.0-8.3)
[2017-03-19] MEDS: INSULIN ASPART SLIDING SCALE 100 UNITS/ML UNIT SUBQ SCH ×5 (06:51→22:02)
--- NOTE | 2017-03-19 08:46 | GI Progress Note ---
Subjective - Review of Systems Service Date: 03/19/17 Subjective: Sleeping, but when awoken first complains of feet pain, then abdominal pain. Unable to specify where in abdomen. Objective - Results Result Diagrams: 03/18/17 05:25 03/19/17 05:20 Recent Labs: Laboratory Last Values WBC 9.9 Th/cmm (4.8-10.8) D 03/18/17 05:25 RBC 3.48 Mil/cmm (4.30-5.70) L 03/18/17 05:25 Hgb 9.9 gm/dL (12-16) L 03/18/17 05:25 Hct 28.8 % (41.0-60) L 03/18/17 05:25 MCV 82.8 fl (80-99) 03/18/17 05:25 MCH 28.5 pg (26.0-30.0) 03/18/17 05:25 MCHC Differential 34.4 pg (28.0-36.0) 03/18/17 05:25 RDW 15.4 % (11.5-20.0) 03/18/17 05:25 Plt Count 226 Th/cmm (150-400) 03/18/17 05:25 MPV 7.9 fl 03/18/17 05:25 Neutrophils % 69.2 % (40.0-80.0) 03/18/17 05:25 Lymphocytes % 20.8 % (20.0-50.0) 03/18/17 05:25 Monocytes % 5.9 % (2.0-10.0) 03/18/17 05:25 Eosinophils % 3.2 % (0.0-5.0) 03/18/17 05:25 Basophils % 0.9 % (0.0-2.0) 03/18/17 05:25 PT 10.5 SECONDS (9.5-11.5) 03/15/17 19:55 INR 1.01 (0.5-1.4) 03/15/17 19:55 Sodium 136 mEq/L (136-145) 03/19/17 05:20 Potassium 4.6 mEq/L (3.5-5.1) 03/19/17 05:20 Chloride 116 mEq/L (98-107) H 03/19/17 05:20 Carbon Dioxide 13.6 mEq/L (21.0-31.0) L 03/19/17 05:20 Anion Gap 11.0 (7.0-16.0) 03/19/17 05:20 BUN 28 mg/dL (7-25) H 03/19/17 05:20 Creatinine 1.3 mg/dL (0.7-1.3) 03/19/17 05:20 Est GFR ( Amer) > 60.0 ml/min (>90) 03/19/17 05:20 Est GFR (Non-Af Amer) > 60.0 ml/min 03/19/17 05:20 BUN/Creatinine Ratio 21.5 03/19/17 05:20 Glucose 117 mg/dL (70-105) H 03/19/17 05:20 POC Glucose 103 MG/DL (70 - 105) 03/19/17 06:08 Calcium 7.8 mg/dL (8.6-10.3) L 03/19/17 05:20 Total Bilirubin 0.3 mg/dL (0.3-1.0) 03/19/17 05:20 AST 17 U/L (13-39) 03/19/17 05:20 ALT 16 U/L (7-52) 03/19/17 05:20 Alkaline Phosphatase 67 U/L (34-104) 03/19/17 05:20 Creatine Kinase 54 U/L (30-223) 03/15/17 19:10 Troponin I 0.01 ng/mL (0.01-0.05) 03/15/17 19:10 B-Natriuretic Peptide 43.3 pg/mL (5.0-100.0) 03/15/17 19:10 Total Protein 5.4 gm/dL (6.0-8.3) L 03/19/17 05:20 Albumin 2.4 gm/dL (4.2-5.5) L 03/19/17 05:20 Globulin 3.0 gm/dL 03/19/17 05:20 Albumin/Globulin Ratio 0.8 (1.0-1.8) L 03/19/17 05:20 Triglycerides 262 mg/dL (<150) H 03/15/17 19:10 Cholesterol 211 mg/dL (<200) H 03/15/17 19:10 LDL Cholesterol Direct 138 mg/dL (75-193) 03/15/17 19:10 HDL Cholesterol 33 mg/dL (23-92) 03/15/17 19:10 Amylase 39 U/L (29-103) 03/15/17 19:10 Lipase 34 U/L (11-82) 03/15/17 19:10 Urine Source CLEAN C 03/15/17 20:55 Urine Color YELLOW 03/15/17 20:55 Urine Clarity CLOUDY (CLEAR) 03/15/17 20:55 Urine pH 6.0 (4.6 - 8.0) 03/15/17 20:55 Ur Specific [place] 1.020 (1.005-1.030) 03/15/17 20:55 Urine Protein >=300 mg/dL (NEGATIVE) 03/15/17 20:55 Urine Glucose (UA) 100 mg/dL (NEGATIVE) H 03/15/17 20:55 Urine Ketones NEGATIVE mg/dL (NEGATIVE) 03/15/17 20:55 Urine Blood TRACE (NEGATIVE) 03/15/17 20:55 Urine Nitrate NEGATIVE (NEGATIVE) 03/15/17 20:55 Urine Bilirubin NEGATIVE (NEGATIVE) 03/15/17 20:55 Urine Urobilinogen 0.2 E.U./dL (0.2 - 1.0) 03/15/17 20:55 Ur Leukocyte Esterase NEGATIVE (NEGATIVE) 03/15/17 20:55 Urine RBC 0-2 /hpf (0-5) H 03/15/17 20:55 Urine WBC NONE SEEN /hpf (0-5) 03/15/17 20:55 Ur Epithelial Cells NONE SEEN /lpf (FEW) 03/15/17 20:55 Amorphous Sediment MANY URATES (NONE SEEN) 03/15/17 20:55 Urine Bacteria NONE SEEN /hpf (NONE SEEN) 03/15/17 20:55 - Physical Exam Vitals and I&O: Vital Signs Temp 98.8 F 03/19/17 07:53 Pulse 92 03/19/17 07:53 Resp 20 03/19/17 07:53 BP 156/68 03/19/17 07:53 Pulse Ox 100 03/19/17 07:53 Intake & Output 03/18/17 03/19/17 03/19/17 18:59 06:59 18:59 Intake Total 1000 825 Balance 1000 825 Weight (lbs) 73.482 kg Intake: Intake, IV Amount 1000 Sodium Chloride 0.45% 1, 1000 000 ml @ 75 mls/hr IV . [id number] [facility] Rx#:[id number] Oral 825 Other: # Voids 3 # Bowel Movements 2 Stool Characteristics Soft Formed Active Medications: Current Medications Acetaminophen (Tylenol) 650 mg PO Q6HR PRN PRN Reason: Pain (Mild) Stop: 05/15/17 19:51 Last Admin: 03/17/17 06:02 Dose: 650 mg Acetaminophen/Hydrocodone Bitart ([place] 5mg/325mg) 1 tab PO Q6H PRN PRN Reason: Pain (Severe) Stop: 05/15/17 20:02 Last Admin: 03/19/17 02:56 Dose: 1 tab Carbamazepine (Tegretol) 200 mg PO TID [facility] PRN Reason: Protocol Stop: 05/16/17 08:59 Last Admin: 03/18/17 20:57 Dose: 200 mg Docusate Sodium (Colace) 250 mg PO DAILY [facility] Stop: 05/16/17 08:59 Last Admin: 03/18/17 15:07 Dose: Not Given Ferrous Sulfate (Iron) 325 mg PO DAILY [facility] Stop: 05/16/17 08:59 Last Admin: 03/18/17 15:07 Dose: Not Given Gabapentin (Neurontin) 600 mg PO QID [facility] Stop: 05/16/17 08:59 Last Admin: 03/18/17 20:58 Dose: 600 mg Hydralazine HCl (Apresoline) 50 mg PO Q6HR PRN PRN Reason: BP MAINTENANCE (PER PROTOCOL) Stop: 05/15/17 19:52 Last Admin: 03/19/17 00:49 Dose: 50 mg Sodium Chloride (Nacl 0.45%) 1,000 mls @ 75 mls/hr IV .[id number] [facility] Stop: 05/16/17 13:29 Last Admin: 03/18/17 21:04 Dose: 75 mls/hr Insulin Aspart (Novolog Insulin Sliding Scale) 0 units SUBQ ACHS [facility] PRN Reason: Protocol Stop: 05/16/17 16:29 Last Admin: 03/19/17 06:51 Dose: Not Given Isosorbide Mononitrate (Imdur) 30 mg PO DAILY [facility] Stop: 05/16/17 08:59 Last Admin: 03/18/17 15:10 Dose: Not Given Lactobacillus Rhamnosus (Culturelle 15b) 1 each PO DAILY [facility] Stop: 05/18/17 08:59 Levetiracetam (Keppra) 500 mg PO BID [facility] Stop: 05/15/17 19:59 Last Admin: 03/18/17 17:00 Dose: 500 mg Magnesium Hydroxide (Milk Of Magnesia) 30 ml PO DAILY PRN PRN Reason: Constipation Stop: 05/15/17 19:52 Metoprolol Tartrate (Lopressor) 100 mg PO BID [facility] Stop: 05/16/17 08:59 Last Admin: 03/18/17 17:00 Dose: 100 mg Minoxidil (Loniten) 2.5 mg PO BID [facility] Stop: 05/16/17 08:59 Last Admin: 03/18/17 17:00 Dose: 2.5 mg Miscellaneous (Probiotic Screen) 1 ea [facility] PRN PRN PRN Reason: PROTOCOL Stop: 05/17/17 15:24 Polyethylene Glycol (Miralax) 17 gm PO DAILY [facility] Stop: 05/17/17 08:59 Last Admin: 03/18/17 15:11 Dose: Not Given Valproate Sodium (Depakene) 250 mg PO QID [facility] PRN Reason: Protocol Stop: 05/16/17 08:59 Last Admin: 03/18/17 20:57 Dose: 250 mg General: Alert, No acute distress HEENT: Atraumatic, EOMI Neck: Supple, JVD Cardiovascular: Regular rate, Normal S1, Normal S2 Lungs: Clear to auscultation Abdomen: Bowel sounds, Soft, Other (no guard or rebound) - Procedures Procedures: Procedures Procedure Code Date DRAINAGE OF SKIN ABSCESS 29882 08/15/03 ELECTROCARDIOGRAM 89.52 01/27/00 ELECTROCARDIOGRAM COMPLETE 41287 01/27/00 INSERT NON-TUNNEL CV CATH 99296 12/13/03 MAGNETIC RESONANCE IMAGING OF BRAIN AND BRAIN STEM 88.91 01/27/00 MRI BRAIN STEM W/O DYE 63409 01/27/00 OTHER SKIN & SUBQ I D 86.04 08/15/03 VENOUS CATHETERIZATION NEC 38.93 12/13/03 Assessment/Plan - Assessment Assessment: # Abdominal pain # UTI # CISCO # Intellectual disability # Anemia Difficult to discern any characterization of his abdominal pain. Thus far, US was normal (prelim) and KUB is normal. CT not performed given CISCO thus far. Pt unable to report if he has ever had endoscopic exam Plan: - non con CT today. If no acute findings, will plan for EGD and colonoscopy (to examine for both pain and anemia) with bowel prep tonight. May need NG if he cannot tolerate the bowel prep
[2017-03-19] MEDS: Lactobacillus Rhamnosus GG 15 Billion CFU CAP.SPRINK PO SCH (08:47)
[2017-03-19] MEDS: Ferrous Sulfate 325 MG TAB PO SCH (08:47)
[2017-03-19] MEDS: POLYETHYLENE GLYCOL 3350 17 GM PACK PO SCH ×2 (08:48→17:05)
--- NOTE | 2017-03-19 09:39 | Diagnostic Imaging Report ---
Exam: Ultrasound summation abdomen. HISTORY: Abdominal pain. Findings: Real-time ultrasound examination abdomen performed multiple planes. The study demonstrates normal echogenicity liver parenchyma. Gallbladder free of calculi. The common bile duct measures 4 mm. Pancreas not visualized. There is no evidence of obstructive uropathy or nephrolithiasis. Spleen is normal. No free fluid is noted. IMPRESSION normalization of the abdomen.
--- NOTE | 2017-03-19 10:33 | Diagnostic Imaging Report ---
Exam: CT examination abdomen pelvis. HISTORY: Abdominal pain Total DLP equals 497 CTDI equals 9.0 Multiple contiguous thin section abdomen pelvis obtained from lower thorax to pubic symphysis without the administration of intravenous contrast material, no prior studies available comparison. The study demonstrates normal aeration of lung parenchyma the bases. The liver and spleen are normal. The pancreas is intact. The gallbladder is distended. The kidneys demonstrate no evidence of obstructive uropathy or nephrolithiasis. Residual contrast material in the colon appreciated from prior examination. Mildly distended small bowel loops consistent with mild ileus. The urinary bladder demonstrates thickening reviewed in a bladder wall clinical correlation recommended. Calcification of the seminal vesicles appreciated. IMPRESSION: Distended gallbladder. Clinical correlation ultrasound summation of the helpful. Urinary bladder wall thickening Mild ileus, otherwise unremarkable examination of the abdomen pelvis.
--- NOTE | 2017-03-19 14:01 | General Progress Note ---
Subjective - Review of Systems Service Date: 03/19/17 Subjective: resting in bed c/o left knee pain Objective - Results Result Diagrams: 03/18/17 05:25 03/19/17 05:20 Recent Labs: Laboratory Last Values WBC 9.9 Th/cmm (4.8-10.8) D 03/18/17 05:25 RBC 3.48 Mil/cmm (4.30-5.70) L 03/18/17 05:25 Hgb 9.9 gm/dL (12-16) L 03/18/17 05:25 Hct 28.8 % (41.0-60) L 03/18/17 05:25 MCV 82.8 fl (80-99) 03/18/17 05:25 MCH 28.5 pg (26.0-30.0) 03/18/17 05:25 MCHC Differential 34.4 pg (28.0-36.0) 03/18/17 05:25 RDW 15.4 % (11.5-20.0) 03/18/17 05:25 Plt Count 226 Th/cmm (150-400) 03/18/17 05:25 MPV 7.9 fl 03/18/17 05:25 Neutrophils % 69.2 % (40.0-80.0) 03/18/17 05:25 Lymphocytes % 20.8 % (20.0-50.0) 03/18/17 05:25 Monocytes % 5.9 % (2.0-10.0) 03/18/17 05:25 Eosinophils % 3.2 % (0.0-5.0) 03/18/17 05:25 Basophils % 0.9 % (0.0-2.0) 03/18/17 05:25 PT 10.5 SECONDS (9.5-11.5) 03/15/17 19:55 INR 1.01 (0.5-1.4) 03/15/17 19:55 Sodium 136 mEq/L (136-145) 03/19/17 05:20 Potassium 4.6 mEq/L (3.5-5.1) 03/19/17 05:20 Chloride 116 mEq/L (98-107) H 03/19/17 05:20 Carbon Dioxide 13.6 mEq/L (21.0-31.0) L 03/19/17 05:20 Anion Gap 11.0 (7.0-16.0) 03/19/17 05:20 BUN 28 mg/dL (7-25) H 03/19/17 05:20 Creatinine 1.3 mg/dL (0.7-1.3) 03/19/17 05:20 Est GFR ( Amer) > 60.0 ml/min (>90) 03/19/17 05:20 Est GFR (Non-Af Amer) > 60.0 ml/min 03/19/17 05:20 BUN/Creatinine Ratio 21.5 03/19/17 05:20 Glucose 117 mg/dL (70-105) H 03/19/17 05:20 POC Glucose 102 MG/DL (70 - 105) 03/19/17 11:54 Calcium 7.8 mg/dL (8.6-10.3) L 03/19/17 05:20 Total Bilirubin 0.3 mg/dL (0.3-1.0) 03/19/17 05:20 AST 17 U/L (13-39) 03/19/17 05:20 ALT 16 U/L (7-52) 03/19/17 05:20 Alkaline Phosphatase 67 U/L (34-104) 03/19/17 05:20 Creatine Kinase 54 U/L (30-223) 03/15/17 19:10 Troponin I 0.01 ng/mL (0.01-0.05) 03/15/17 19:10 B-Natriuretic Peptide 43.3 pg/mL (5.0-100.0) 03/15/17 19:10 Total Protein 5.4 gm/dL (6.0-8.3) L 03/19/17 05:20 Albumin 2.4 gm/dL (4.2-5.5) L 03/19/17 05:20 Globulin 3.0 gm/dL 03/19/17 05:20 Albumin/Globulin Ratio 0.8 (1.0-1.8) L 03/19/17 05:20 Triglycerides 262 mg/dL (<150) H 03/15/17 19:10 Cholesterol 211 mg/dL (<200) H 03/15/17 19:10 LDL Cholesterol Direct 138 mg/dL (75-193) 01/17/18 19:10 HDL Cholesterol 33 mg/dL (23-92) 03/15/17 19:10 Amylase 39 U/L (29-103) 03/15/17 19:10 Lipase 34 U/L (11-82) 03/15/17 19:10 Urine Source CLEAN C 03/15/17 20:55 Urine Color YELLOW 03/15/17 20:55 Urine Clarity CLOUDY (CLEAR) 03/15/17 20:55 Urine pH 6.0 (4.6 - 8.0) 03/15/17 20:55 Ur Specific [place] 1.020 (1.005-1.030) 03/15/17 20:55 Urine Protein >=300 mg/dL (NEGATIVE) 03/15/17 20:55 Urine Glucose (UA) 100 mg/dL (NEGATIVE) H 03/15/17 20:55 Urine Ketones NEGATIVE mg/dL (NEGATIVE) 03/15/17 20:55 Urine Blood TRACE (NEGATIVE) 03/15/17 20:55 Urine Nitrate NEGATIVE (NEGATIVE) 03/15/17 20:55 Urine Bilirubin NEGATIVE (NEGATIVE) 03/15/17 20:55 Urine Urobilinogen 0.2 E.U./dL (0.2 - 1.0) 03/15/17 20:55 Ur Leukocyte Esterase NEGATIVE (NEGATIVE) 03/15/17 20:55 Urine RBC 0-2 /hpf (0-5) H 03/15/17 20:55 Urine WBC NONE SEEN /hpf (0-5) 03/15/17 20:55 Ur Epithelial Cells NONE SEEN /lpf (FEW) 03/15/17 20:55 Amorphous Sediment MANY URATES (NONE SEEN) 03/15/17 20:55 Urine Bacteria NONE SEEN /hpf (NONE SEEN) 03/15/17 20:55 - Physical Exam Vitals and I&O: Vital Signs Temp 98.4 F 03/19/17 08:00 Pulse 92 03/19/17 08:49 Resp 20 03/19/17 08:00 BP 156/68 03/19/17 08:49 Pulse Ox 100 03/19/17 08:00 Intake & Output 03/18/17 03/19/17 03/19/17 18:59 06:59 18:59 Intake Total 1000 825 Balance 1000 825 Weight (lbs) 73.482 kg Intake: Intake, IV Amount 1000 Sodium Chloride 0.45% 1, 1000 000 ml @ 75 mls/hr IV . [id number] [facility] Rx#:[id number] Oral 825 Other: # Voids 3 # Bowel Movements 2 Stool Characteristics Soft Formed Active Medications: Current Medications Acetaminophen (Tylenol) 650 mg PO Q6HR PRN PRN Reason: Pain (Mild) Stop: 05/15/17 19:51 Last Admin: 03/17/17 06:02 Dose: 650 mg Acetaminophen/Hydrocodone Bitart ([place] 5mg/325mg) 1 tab PO Q6H PRN PRN Reason: Pain (Severe) Stop: 05/15/17 20:02 Last Admin: 03/19/17 02:56 Dose: 1 tab Carbamazepine (Tegretol) 200 mg PO TID [facility] PRN Reason: Protocol Stop: 05/16/17 08:59 Last Admin: 03/19/17 08:47 Dose: 200 mg Docusate Sodium (Colace) 250 mg PO DAILY [facility] Stop: 05/16/17 08:59 Last Admin: 03/19/17 08:46 Dose: 250 mg Ferrous Sulfate (Iron) 325 mg PO DAILY [facility] Stop: 05/16/17 08:59 Last Admin: 03/19/17 08:47 Dose: 325 mg Gabapentin (Neurontin) 600 mg PO QID [facility] Stop: 05/16/17 08:59 Last Admin: 03/19/17 08:47 Dose: 600 mg Hydralazine HCl (Apresoline) 50 mg PO Q6HR PRN PRN Reason: BP MAINTENANCE (PER PROTOCOL) Stop: 05/15/17 19:52 Last Admin: 03/19/17 00:49 Dose: 50 mg Sodium Chloride (Nacl 0.45%) 1,000 mls @ 75 mls/hr IV .[id number] [facility] Stop: 05/16/17 13:29 Last Admin: 03/18/17 21:04 Dose: 75 mls/hr Insulin Aspart (Novolog Insulin Sliding Scale) 0 units SUBQ ACHS [facility] PRN Reason: Protocol Stop: 05/16/17 16:29 Last Admin: 03/19/17 12:06 Dose: Not Given Isosorbide Mononitrate (Imdur) 30 mg PO DAILY [facility] Stop: 05/16/17 08:59 Last Admin: 03/19/17 08:49 Dose: 30 mg Lactobacillus Rhamnosus (Culturelle 15b) 1 each PO DAILY [facility] Stop: 05/18/17 08:59 Last Admin: 03/19/17 08:47 Dose: 1 each Levetiracetam (Keppra) 500 mg PO BID CHARO Stop: 05/15/17 19:59 Last Admin: 03/19/17 08:48 Dose: 500 mg Magnesium Hydroxide (Milk Of Magnesia) 30 ml PO DAILY PRN PRN Reason: Constipation Stop: 05/15/17 19:52 Metoprolol Tartrate (Lopressor) 100 mg PO BID [facility] Stop: 05/16/17 08:59 Last Admin: 03/19/17 08:49 Dose: 100 mg Minoxidil (Loniten) 2.5 mg PO BID [facility] Stop: 05/16/17 08:59 Last Admin: 03/19/17 08:48 Dose: 2.5 mg Miscellaneous (Probiotic Screen) 1 ea PRN PRN PRN Reason: PROTOCOL Stop: 05/17/17 15:24 Polyethylene Glycol (Miralax) 17 gm PO DAILY CHARO Stop: 05/17/17 08:59 Last Admin: 03/19/17 08:48 Dose: 17 gm Polyethylene Glycol (Miralax) 17 gm PO BID [facility] Stop: 05/18/17 16:59 Valproate Sodium (Depakene) 250 mg PO QID [facility]O PRN Reason: Protocol Stop: 05/16/17 08:59 Last Admin: 03/19/17 08:47 Dose: 250 mg General: Alert, No acute distress HEENT: Atraumatic, EOMI Neck: Supple, JVD Cardiovascular: Regular rate, Normal S1, Normal S2 Lungs: Clear to auscultation Abdomen: Bowel sounds, Soft, Other (no guard or rebound) - Procedures Procedures: Procedures Procedure Code Date DRAINAGE OF SKIN ABSCESS 62922 08/15/03 ELECTROCARDIOGRAM 89.52 01/27/00 ELECTROCARDIOGRAM COMPLETE 98368 01/27/00 INSERT NON-TUNNEL CV CATH 79959 12/13/03 MAGNETIC RESONANCE IMAGING OF BRAIN AND BRAIN STEM 88.91 01/27/00 MRI BRAIN STEM W/O DYE 75766 01/27/00 OTHER SKIN & SUBQ I D 86.04 08/15/03 VENOUS CATHETERIZATION NEC 38.93 12/13/03 Assessment/Plan - Assessment Assessment: 1.ACUTE ABDOMINAL PAIN. 2.POSSIBLE UTI. 3.DEHYDRATION. 4.ACUTE KIDNEY INJURY - Plan Plan: continue current treatment GI w/o in progress xray left knee
--- NOTE | 2017-03-19 19:43 | Progress Notes ---
DATE: 03/19/2017 Case was discussed with staff of the patient, reviewed records. The patient continues to be unpredictable, impulsive, continues to have poor insight. Continues to be a very poor historian, unable to make safe plan for self-care, sleeping well and eating well. No side effects from the medication, no sedation, no nausea. The patient needs follow up with the psychiatrist upon discharge and Dr. Lagunas will be taking care of him as of tomorrow. Thank you very much for allowing me to participate in the care of this most interesting gentleman. JOB# [id number]
[2017-03-19] MEDS: Sodium Chloride 0.45% 1,000 ML IV SCH (21:40)
[2017-03-20] MEDS: Hydrocodone/APAP 5mg/325mg Tab PO PRN ×2 (02:13→12:30)
[2017-03-20] MEDS: INSULIN ASPART SLIDING SCALE 100 UNITS/ML UNIT SUBQ SCH ×3 (06:38→16:55)
--- NOTE | 2017-03-20 08:06 | Diagnostic Imaging Report ---
Left knee (2 views) HISTORY: Pain No acute bony abnormalities. No fractures. Joint spaces are maintained. Spur formation extends off the anterior superior margin of the patella. Extensive vascular calcification noted. IMPRESSION: 1. No acute bony abnormalities 2. Extensive vascular calcification
--- NOTE | 2017-03-20 09:23 | GI Progress Note ---
Subjective - Review of Systems Service Date: 03/20/17 Subjective: Multiple complaints, one of which is abdominal pain. Objective - Results Result Diagrams: 03/18/17 05:25 03/19/17 05:20 Recent Labs: Laboratory Last Values WBC 9.9 Th/cmm (4.8-10.8) D 03/18/17 05:25 RBC 3.48 Mil/cmm (4.30-5.70) L 03/18/17 05:25 Hgb 9.9 gm/dL (12-16) L 03/18/17 05:25 Hct 28.8 % (41.0-60) L 03/18/17 05:25 MCV 82.8 fl (80-99) 03/18/17 05:25 MCH 28.5 pg (26.0-30.0) 03/18/17 05:25 MCHC Differential 34.4 pg (28.0-36.0) 03/18/17 05:25 RDW 15.4 % (11.5-20.0) 03/18/17 05:25 Plt Count 226 Th/cmm (150-400) 03/18/17 05:25 MPV 7.9 fl 03/18/17 05:25 Neutrophils % 69.2 % (40.0-80.0) 03/18/17 05:25 Lymphocytes % 20.8 % (20.0-50.0) 03/18/17 05:25 Monocytes % 5.9 % (2.0-10.0) 03/18/17 05:25 Eosinophils % 3.2 % (0.0-5.0) 03/18/17 05:25 Basophils % 0.9 % (0.0-2.0) 03/18/17 05:25 PT 10.5 SECONDS (9.5-11.5) 03/15/17 19:55 INR 1.01 (0.5-1.4) 03/15/17 19:55 Sodium 136 mEq/L (136-145) 03/19/17 05:20 Potassium 4.6 mEq/L (3.5-5.1) 03/19/17 05:20 Chloride 116 mEq/L (98-107) H 03/19/17 05:20 Carbon Dioxide 13.6 mEq/L (21.0-31.0) L 03/19/17 05:20 Anion Gap 11.0 (7.0-16.0) 03/19/17 05:20 BUN 28 mg/dL (7-25) H 03/19/17 05:20 Creatinine 1.3 mg/dL (0.7-1.3) 03/19/17 05:20 Est GFR ( Amer) > 60.0 ml/min (>90) 03/19/17 05:20 Est GFR (Non-Af Amer) > 60.0 ml/min 03/19/17 05:20 BUN/Creatinine Ratio 21.5 03/19/17 05:20 Glucose 117 mg/dL (70-105) H 03/19/17 05:20 POC Glucose 101 MG/DL (70 - 105) 03/20/17 05:48 Calcium 7.8 mg/dL (8.6-10.3) L 03/19/17 05:20 Total Bilirubin 0.3 mg/dL (0.3-1.0) 03/19/17 05:20 AST 17 U/L (13-39) 03/19/17 05:20 ALT 16 U/L (7-52) 03/19/17 05:20 Alkaline Phosphatase 67 U/L (34-104) 03/19/17 05:20 Creatine Kinase 54 U/L (30-223) 03/15/17 19:10 Troponin I 0.01 ng/mL (0.01-0.05) 03/15/17 19:10 B-Natriuretic Peptide 43.3 pg/mL (5.0-100.0) 03/15/17 19:10 Total Protein 5.4 gm/dL (6.0-8.3) L 03/19/17 05:20 Albumin 2.4 gm/dL (4.2-5.5) L 03/19/17 05:20 Globulin 3.0 gm/dL 03/19/17 05:20 Albumin/Globulin Ratio 0.8 (1.0-1.8) L 03/19/17 05:20 Triglycerides 262 mg/dL (<150) H 03/15/17 19:10 Cholesterol 211 mg/dL (<200) H 03/15/17 19:10 LDL Cholesterol Direct 138 mg/dL (75-193) 03/15/17 19:10 HDL Cholesterol 33 mg/dL (23-92) 03/15/17 19:10 Amylase 39 U/L (29-103) 03/15/17 19:10 Lipase 34 U/L (11-82) 03/15/17 19:10 Urine Source CLEAN C 03/15/17 20:55 Urine Color YELLOW 03/15/17 20:55 Urine Clarity CLOUDY (CLEAR) 03/15/17 20:55 Urine pH 6.0 (4.6 - 8.0) 03/15/17 20:55 Ur Specific [place] 1.020 (1.005-1.030) 03/15/17 20:55 Urine Protein >=300 mg/dL (NEGATIVE) 03/15/17 20:55 Urine Glucose (UA) 100 mg/dL (NEGATIVE) H 03/15/17 20:55 Urine Ketones NEGATIVE mg/dL (NEGATIVE) 03/15/17 20:55 Urine Blood TRACE (NEGATIVE) 03/15/17 20:55 Urine Nitrate NEGATIVE (NEGATIVE) 03/15/17 20:55 Urine Bilirubin NEGATIVE (NEGATIVE) 03/15/17 20:55 Urine Urobilinogen 0.2 E.U./dL (0.2 - 1.0) 03/15/17 20:55 Ur Leukocyte Esterase NEGATIVE (NEGATIVE) 03/15/17 20:55 Urine RBC 0-2 /hpf (0-5) H 03/15/17 20:55 Urine WBC NONE SEEN /hpf (0-5) 03/15/17 20:55 Ur Epithelial Cells NONE SEEN /lpf (FEW) 03/15/17 20:55 Amorphous Sediment MANY URATES (NONE SEEN) 03/15/17 20:55 Urine Bacteria NONE SEEN /hpf (NONE SEEN) 03/15/17 20:55 - Physical Exam Vitals and I&O: Vital Signs Temp 98.6 F 03/20/17 04:07 Pulse 87 03/20/17 04:07 Resp 20 03/20/17 04:07 BP 131/66 03/20/17 04:07 Pulse Ox 99 03/20/17 04:07 Intake & Output 03/19/17 03/20/17 03/20/17 18:59 06:59 18:59 Intake Total 1500 50 Balance 1500 50 Weight (lbs) 73.482 kg 81.647 kg Intake: Intake, IV Amount 1000 Sodium Chloride 0.45% 1, 1000 000 ml @ 75 mls/hr IV . [id number] [facility] Rx#:[id number] Oral 500 50 Other: # Voids 4 3 # Bowel Movements 1 0 Active Medications: Current Medications Acetaminophen (Tylenol) 650 mg PO Q6HR PRN PRN Reason: Pain (Mild) Stop: 05/15/17 19:51 Last Admin: 03/17/17 06:02 Dose: 650 mg Acetaminophen/Hydrocodone Bitart ([place] 5mg/325mg) 1 tab PO Q6H PRN PRN Reason: Pain (Severe) Stop: 05/15/17 20:02 Last Admin: 03/20/17 02:13 Dose: 1 tab Carbamazepine (Tegretol) 200 mg PO TID [facility] PRN Reason: Protocol Stop: 05/16/17 08:59 Last Admin: 03/19/17 21:40 Dose: 200 mg Docusate Sodium (Colace) 250 mg PO DAILY [facility] Stop: 05/16/17 08:59 Last Admin: 03/19/17 08:46 Dose: 250 mg Ferrous Sulfate (Iron) 325 mg PO DAILY [facility] Stop: 05/16/17 08:59 Last Admin: 03/19/17 08:47 Dose: 325 mg Gabapentin (Neurontin) 600 mg PO QID [facility] Stop: 05/16/17 08:59 Last Admin: 03/19/17 21:40 Dose: 600 mg Hydralazine HCl (Apresoline) 50 mg PO Q6HR PRN PRN Reason: BP MAINTENANCE (PER PROTOCOL) Stop: 05/15/17 19:52 Last Admin: 03/19/17 00:49 Dose: 50 mg Sodium Chloride (Nacl 0.45%) 1,000 mls @ 75 mls/hr IV .[id number] [facility] Stop: 05/16/17 13:29 Last Admin: 03/19/17 21:40 Dose: 75 mls/hr Insulin Aspart (Novolog Insulin Sliding Scale) 0 units SUBQ ACHS [facility] PRN Reason: Protocol Stop: 05/16/17 16:29 Last Admin: 03/20/17 06:38 Dose: Not Given Isosorbide Mononitrate (Imdur) 30 mg PO DAILY [facility] Stop: 05/16/17 08:59 Last Admin: 01/21/18 08:49 Dose: 30 mg Lactobacillus Rhamnosus (Culturelle 15b) 1 each PO DAILY [facility] Stop: 05/18/17 08:59 Last Admin: 03/19/17 08:47 Dose: 1 each Levetiracetam (Keppra) 500 mg PO BID [facility]O Stop: 05/15/17 19:59 Last Admin: 03/19/17 17:12 Dose: 500 mg Magnesium Hydroxide (Milk Of Magnesia) 30 ml PO DAILY PRN PRN Reason: Constipation Stop: 05/15/17 19:52 Metoprolol Tartrate (Lopressor) 100 mg PO BID [facility]O Stop: 05/16/17 08:59 Last Admin: 03/19/17 17:05 Dose: 100 mg Minoxidil (Loniten) 2.5 mg PO BID [facility] Stop: 05/16/17 08:59 Last Admin: 03/19/17 17:04 Dose: 2.5 mg Miscellaneous (Probiotic Screen) 1 ea PRN PRN PRN Reason: PROTOCOL Stop: 05/17/17 15:24 Polyethylene Glycol (Miralax) 17 gm PO DAILY [facility]O Stop: 05/17/17 08:59 Last Admin: 03/19/17 08:48 Dose: 17 gm Polyethylene Glycol (Miralax) 17 gm PO BID [facility] Stop: 05/18/17 16:59 Last Admin: 03/19/17 17:05 Dose: 17 gm Valproate Sodium (Depakene) 250 mg PO QID [facility] PRN Reason: Protocol Stop: 05/16/17 08:59 Last Admin: 03/19/17 21:40 Dose: 250 mg General: Alert, No acute distress HEENT: Atraumatic, EOMI Neck: Supple, JVD Cardiovascular: Regular rate, Normal S1, Normal S2 Lungs: Clear to auscultation Abdomen: Bowel sounds, Soft, Other (no guard or rebound) - Procedures Procedures: Procedures Procedure Code Date DRAINAGE OF SKIN ABSCESS 93288 08/15/03 ELECTROCARDIOGRAM 89.52 01/27/00 ELECTROCARDIOGRAM COMPLETE 53081 01/27/00 INSERT NON-TUNNEL CV CATH 70038 12/13/03 MAGNETIC RESONANCE IMAGING OF BRAIN AND BRAIN STEM 88.91 01/27/00 MRI BRAIN STEM W/O DYE 64510 01/27/00 OTHER SKIN & SUBQ I D 86.04 08/15/03 VENOUS CATHETERIZATION NEC 38.93 12/13/03 Assessment/Plan - Assessment Assessment: # Abdominal pain # UTI # CISCO # Intellectual disability # Anemia Difficult to discern any characterization of his abdominal pain. Thus far, US was normal (prelim) and KUB is normal. Non con CT shows possible bladder thickening and distended GB, although US shows no evidence of cholecystitis. Pt unable to report if he has ever had endoscopic exam Plan: - Plan for EGD/colo tomorrow to eval abd pain further. Bowel prep tonight, may need NG inserted for bowel prep - clears today, NPO midnight
[2017-03-20] MEDS: POLYETHYLENE GLYCOL 3350 17 GM PACK PO SCH ×2 (10:25→16:57)
[2017-03-20] MEDS: Lactobacillus Rhamnosus GG 15 Billion CFU CAP.SPRINK PO SCH (10:27)
[2017-03-20] MEDS: Ferrous Sulfate 325 MG TAB PO SCH (10:28)
[2017-03-20] MEDS: Sodium Chloride 0.45% 1,000 ML IV SCH (12:34)
== END 2017-03-20 17:10 | disposition home or self-care (01) | DRG 682 ==
LOC: ER 17:45 → MSI 21:20
PROVIDERS: ADMIT Family Medicine; ATTEND Family Medicine
DX: N17.9 Acute kidney failure, unspecified (principal); G93.41 Metabolic encephalopathy; I13.2 Hypertensive heart and chronic kidney disease with heart failure and with stage 5 chronic kidney disease, or end stage renal disease; N39.0 Urinary tract infection, site not specified; E86.0 Dehydration; D64.9 Anemia, unspecified; G40.909 Epilepsy, unspecified, not intractable, without status epilepticus; F29 Unspecified psychosis not due to a substance or known physiological condition; M19.90 Unspecified osteoarthritis, unspecified site; I25.10 Atherosclerotic heart disease of native coronary artery without angina pectoris; N18.6 End stage renal disease; I50.9 Heart failure, unspecified; K52.9 Noninfective gastroenteritis and colitis, unspecified; F79 Unspecified intellectual disabilities; K82.8 Other specified diseases of gallbladder; Z82.49 Family history of ischemic heart disease and other diseases of the circulatory system; Z83.3 Family history of diabetes mellitus
CPT/HCPCS: 36415-UA; 71045-TC; 73560-TC-LT; 74000-TC; 76700-TC; 80053-TC; 80061-TC; 81001-TC; 82150-TC; 82550-TC; 82948-90; 83690-TC; 83880-TC; 84484-TC; 85025-TC; 85610-TC; 90784; 93005; 94760; J1815; J7030; Z7610

== ENCOUNTER 2017-05-01 23:20 | Inpatient (IN) | payer MEDICARE, MEDICAID ==
[2017-05-02 01:19] VITALS: BP 131/69
--- NOTE | 2017-05-02 02:58 | History & Physical ---
ADMIT DATE: 05/01/2017 CHIEF COMPLAINT: Severe anemia, dehydration, acute kidney injury. HISTORY OF PRESENT ILLNESS: The patient is a 56-year-old male with long history of CVA, seizure disorder, chronic kidney disease, resident of [facility], admitted to [facility] medical floor with severe anemia, acute kidney injury, dehydration. There is no nausea, no vomiting, no fever, no chills. The patient had a fall a week ago and sustained acute fracture to his right clavicle bone. PAST MEDICAL HISTORY: Significant for CVA, seizure disorder, dementia, psychosis. PAST SURGICAL HISTORY: No recent surgery. ALLERGIES: DILANTIN. SOCIAL HISTORY: No smoking, no alcohol, no drug. FAMILY HISTORY: Noncontributory. MEDICATIONS: Follow admission reconciliation. REVIEW OF SYSTEMS: RENAL SYSTEM: No history of chronic renal disorder. CARDIOVASCULAR SYSTEM: No coronary artery disease. ENDOCRINE SYSTEM: No diabetes or thyroid problem. GASTROINTESTINAL SYSTEM: No upper or lower gastrointestinal bleed. NEUROLOGICAL SYSTEM: Has history of stroke, seizure disorder. MUSCULOSKELETAL SYSTEM: He has acute fracture of the clavicle bone. HEMATOLOGICAL SYSTEM: He has anemia. GENITOURINARY SYSTEM: He has chronic kidney disease. PHYSICAL EXAMINATION: GENERAL: He is awake, alert, mildly confused. VITAL SIGNS: Temperature is 98, heart rate 88, blood pressure 132/68. HEENT: Normocephalic. Pupils reactive to light and accommodation. Sclerae clear. NECK: Supple. Negative for lymphadenopathy, JVD or bruit. CHEST: Bilaterally normal. No rhonchi or wheezing. HEART: S1, S2 normal. No murmur, gallop, or rub. ABDOMEN: Soft, bowel sounds positive. EXTREMITIES: No edema. NEUROLOGIC: He is awake, alert, mildly confused. ASSESSMENT: 1. Severe anemia. 2. Dehydration. 3. Acute kidney injury. 4. History of cerebrovascular accident. 5. Seizure disorder. 6. Dementia. PLAN: The patient admitted in the hospital under Dr. Lopez's service. Start him on IV fluid. The patient will resume his medication and diet. CBC, CMP for tomorrow. Dr. Cole, grinder outside diameter and Dr. Lay, nephrology consult on the case. The patient is a full code. PICC line is ____ ordered. JOB# [id number]
[2017-05-02 06:27] LABS: % BASOPHILS 0.1 % (0.0-2.0); % LYMPHOCYTES 11.9 % (20.0-50.0); % MONOCYTES 5.9 % (2.0-10.0); % NEUTROPHILS 80.1 % (40.0-80.0); EOSINOPHILE ABSOLUTE 0.2 Th/cmm (0.1-0.4); MEAN CELL VOLUME 88.5 fl (80-99); MEAN CORPUSCULAR HEMOGLOBIN 29.6 pg (26.0-30.0); MEAN CORPUSCULAR HGB CONC 33.4 pg (28.0-36.0); MEAN PLATELET VOLUME 8.4 fl; MONOCYTE ABSOLUTE 0.5 Th/cmm (0.3-1.0); NEUTROPHILE ABSOLUTE 6.9 Th/cmm (1.8-8.0); PLATELET COUNT 283 Th/cmm (150-400); RED BLOOD COUNT 2.36 Mil/cmm (4.30-5.70); RED CELL DISTRIBUTION WIDTH 14.3 % (11.5-20.0); WHITE BLOOD COUNT 8.6 Th/cmm (4.8-10.8)
[2017-05-02 06:30] LABS: ALB/GLOB RATIO 0.7 (1.0-1.8); ALBUMIN 2.5 gm/dL (4.2-5.5); ANION GAP 9.6 (7.0-16.0); BILIRUBIN,TOTAL 0.2 mg/dL (0.3-1.0); CALCIUM SERUM 8.9 mg/dL (8.6-10.3); CARBON DIOXIDE 17.6 mEq/L (21.0-31.0); CREATININE - SERUM 2.5 mg/dL (0.7-1.3); GFR AFRICAN-AMERICAN 34.8 ml/min (>90); GFR NON AFRICAN-AMERICAN 28.7 ml/min; POTASSIUM SERUM 4.2 mEq/L (3.5-5.1); TOTAL PROTEIN,SERUM 6.3 gm/dL (6.0-8.3)
[2017-05-02] MEDS: Pantoprazole 40 mg EC Tab PO SCH ×2 (06:36→09:46)
[2017-05-02 06:45] LABS: HEMATOCRIT 20.9 % (41.0-60)
[2017-05-02 07:26] LABS: INR 1.01 (0.5-1.4); PROTHROMBIN TIME (TEST) 10.5 SECONDS (9.5-11.5)
[2017-05-02] MEDS ORDERED: Pantoprazole 40 mg EC Tab PO SCH ×2 (07:30)
--- NOTE | 2017-05-02 11:57 | Internal Medicine Prog Note ---
Internal Medicine Subjective - Subjective Service Date: 05/02/17 Patient seen and examined:: with staff Patient is:: awake, verbal, confused Per staff patient has:: no adverse event Internal Medicine Objective - Results Result Diagrams: 05/02/17 06:00 05/02/17 06:00 Recent Labs: Laboratory Last Values WBC 8.6 Th/cmm (4.8-10.8) 05/02/17 06:00 RBC 2.36 Mil/cmm (4.30-5.70) L 05/02/17 06:00 Hgb 7.0 gm/dL (12-16) L* 05/02/17 06:00 Hct 20.9 % (41.0-60) L* 05/02/17 06:00 MCV 88.5 fl (80-99) 05/02/17 06:00 MCH 29.6 pg (26.0-30.0) 05/02/17 06:00 MCHC Differential 33.4 pg (28.0-36.0) 05/02/17 06:00 RDW 14.3 % (11.5-20.0) 05/02/17 06:00 Plt Count 283 Th/cmm (150-400) 05/02/17 06:00 MPV 8.4 fl 05/02/17 06:00 Neutrophils % 80.1 % (40.0-80.0) H 05/02/17 06:00 Lymphocytes % 11.9 % (20.0-50.0) L 05/02/17 06:00 Monocytes % 5.9 % (2.0-10.0) 05/02/17 06:00 Eosinophils % 2.0 % (0.0-5.0) 05/02/17 06:00 Basophils % 0.1 % (0.0-2.0) 05/02/17 06:00 PT 10.5 SECONDS (9.5-11.5) 05/02/17 06:00 INR 1.01 (0.5-1.4) 05/02/17 06:00 Sodium 141 mEq/L (136-145) 05/02/17 06:00 Potassium 4.2 mEq/L (3.5-5.1) 05/02/17 06:00 Chloride 118 mEq/L (98-107) H 05/02/17 06:00 Carbon Dioxide 17.6 mEq/L (21.0-31.0) L 05/02/17 06:00 Anion Gap 9.6 (7.0-16.0) 05/02/17 06:00 BUN 91 mg/dL (7-25) H* 05/02/17 06:00 Creatinine 2.5 mg/dL (0.7-1.3) H 05/02/17 06:00 Est GFR ( Amer) 34.8 ml/min (>90) 05/02/17 06:00 Est GFR (Non-Af Amer) 28.7 ml/min 05/02/17 06:00 BUN/Creatinine Ratio 36.4 05/02/17 06:00 Glucose 180 mg/dL (70-105) H 05/02/17 06:00 POC Glucose 215 MG/DL (70 - 105) H 05/02/17 01:25 Calcium 8.9 mg/dL (8.6-10.3) 05/02/17 06:00 Total Bilirubin 0.2 mg/dL (0.3-1.0) L 05/02/17 06:00 AST 11 U/L (13-39) L 05/02/17 06:00 ALT 12 U/L (7-52) 05/02/17 06:00 Alkaline Phosphatase 62 U/L (34-104) 05/02/17 06:00 Total Protein 6.3 gm/dL (6.0-8.3) 05/02/17 06:00 Albumin 2.5 gm/dL (4.2-5.5) L 05/02/17 06:00 Globulin 3.8 gm/dL 05/02/17 06:00 Albumin/Globulin Ratio 0.7 (1.0-1.8) L 05/02/17 06:00 Blood Type O POSITIVE 05/02/17 09:20 Antibody Screen NEGATIVE 05/02/17 09:20 Crossmatch See Detail 05/02/17 09:20 - Physical Exam Vitals and I&O: Vital Signs Temp 97.8 F 05/02/17 04:00 Pulse 100 05/02/17 10:37 Resp 18 05/02/17 04:00 BP 142/67 05/02/17 10:37 Pulse Ox 100 05/02/17 04:00 Intake & Output 05/01/17 05/02/17 05/02/17 18:59 06:59 18:59 Weight (lbs) 78.199 kg Other: # Voids 1 # Bowel Movements 0 Active Medications: Current Medications Acetaminophen (Tylenol) 500 mg PO Q6H PRN PRN Reason: Pain (Moderate) Stop: 07/01/17 02:48 Carbamazepine (Tegretol) 200 mg PO TID CHARO PRN Reason: Protocol Stop: 07/01/17 08:59 Last Admin: 05/02/17 10:36 Dose: 200 mg Dextrose/Sodium Chloride (D5-0.45ns) 1,000 mls @ 75 mls/hr IV .[id number] [facility] Stop: 07/01/17 01:44 Levetiracetam (Keppra) 500 mg PO BID [facility] Stop: 07/01/17 08:59 Last Admin: 05/02/17 10:36 Dose: 500 mg Metoprolol Tartrate (Lopressor) 100 mg PO BID [facility] Stop: 07/01/17 08:59 Last Admin: 05/02/17 10:37 Dose: 100 mg Miscellaneous (Clinical Monitoring) 1 ea MC PRN PRN PRN Reason: RENAL Stop: 07/01/17 09:53 Pantoprazole Sodium (Protonix) 40 mg PO DAILY [facility] Stop: 07/01/17 07:29 Last Admin: 05/02/17 09:46 Dose: Not Given General: demented HEENT: NC/AT, PERRLA, EOMI, anicteric sclerae, throat clear Neck: Supple, No JVD, No thyromegaly, +2 carotid pulse wo bruit, No LAD Lungs: CTAB Cardiovascular: RRR, Normal S1, Normal S2, without murmur Abdomen: soft, non-tender, non-distended Extremities: clear Neurological: no change - Procedures Procedures: Procedures Procedure Code Date DRAINAGE OF SKIN ABSCESS 48696 08/15/03 ELECTROCARDIOGRAM 89.52 01/27/00 ELECTROCARDIOGRAM COMPLETE 69386 01/27/00 INSERT NON-TUNNEL CV CATH 72822 12/13/03 MAGNETIC RESONANCE IMAGING OF BRAIN AND BRAIN STEM 88.91 01/27/00 MRI BRAIN STEM W/O DYE 77541 01/27/00 OTHER SKIN & SUBQ I D 86.04 08/15/03 VENOUS CATHETERIZATION NEC 38.93 12/13/03 Internal Medicine Assmt/Plan - Assessment Assessment: 1.SEVER ANEMIA. 2.DEHYDRATION. 3.CISCO. 4.CVA - Plan Plan: CBC AND CMP IN AM.PICC LINE CARL.
--- NOTE | 2017-05-02 12:19 | Diagnostic Imaging Report ---
Exam: Ultrasound examination kidneys. HISTORY: Acute kidney injury. Findings: Real-time ultrasound summation kidneys performed multiple planes. The study demonstrates a no evidence of obstructive uropathy or nephrolithiasis The right kidney measures 11.9 x 5.6 x 5.7 cm Left kidney measures 11.6 x 6.1 x 6 cm. Urinary bladder is intact. IMPRESSION: Unremarkable examination of the kidneys.
--- NOTE | 2017-05-02 17:09 | Consultation ---
DATE OF CONSULTATION: 05/02/2017 REFERRING PHYSICIAN: Dr. Lopez. REASON FOR CONSULTATION: Severe anemia. HISTORY OF PRESENT ILLNESS: The patient is a 56-year-old male who was admitted with hemoglobin of 7 grams. He is a resident of nursing facility with history of chronic kidney disease and acute kidney injury, seizure disorder and CVA. There is no reported bleeding. There is a recent fall and a fracture of the right clavicle. PAST MEDICAL HISTORY: CVA, seizure disorder, dementia, psychosis. PAST SURGICAL HISTORY: None. MEDICATIONS: Reviewed. PHYSICAL EXAMINATION: GENERAL: The patient is awake, alert. VITAL SIGNS: Afebrile, blood pressure is stable. HEENT: Fair complexion. NECK: No lymphadenopathy. CHEST: Good air entry. ABDOMEN: Obese, soft. EXTREMITIES: No edema. LABORATORY DATA: Creatinine 2.5, hemoglobin 7, MCV 88, white count and platelets are normal. ASSESSMENT: 1. Severe normocytic anemia. The patient will need comprehensive anemia workup with iron studies, B12, folic acid and stool occult blood. 2. Acute kidney injury on top of chronic kidney disease. 3. Dementia. 4. History of cerebrovascular accident and seizure disorder. The patient is undergoing transfusion at this time. Thank you, Dr. Lopez, for the opportunity to participate in the care of this interesting case. JOB# [id number]
[2017-05-02 18:28] LABS: A1C % 5.6 % (4.0-6.0)
[2017-05-03] MEDS: D5-0.45NS 1,000 ML IV SCH ×2 (00:35→09:24)
--- NOTE | 2017-05-03 00:43 | Consultation ---
DATE OF CONSULTATION: 05/02/2017 RENAL CONSULTATION REASON FOR CONSULTATION: Acute renal failure and chronic kidney disease. HISTORY OF PRESENT ILLNESS: The patient is a 56-year-old male with a long history of CVA, seizure disorder, chronic kidney disease, resident of [facility]. He was admitted to the hospital because of severe anemia, acute renal failure, dehydration. The patient did not have any nausea or vomiting, no fever, no chills. The patient had a fall about a week ago and sustained an acute fracture of his right hip. PAST MEDICAL HISTORY: Significant for CVA, seizure disorder, dementia, and psychosis. PAST SURGICAL HISTORY: He has no surgical history. ALLERGIES: DILANTIN. SOCIAL HISTORY: Negative for smoking, alcohol or drugs. FAMILY HISTORY: Noncontributory. MEDICATIONS: As listed in chart. REVIEW OF SYSTEMS: GENITOURINARY: The patient has history of chronic kidney disease. CARDIOVASCULAR: The patient has no coronary artery disease. ENDOCRINE SYSTEM: He has no history of diabetes. GASTROINTESTINAL: The patient has no recent episodes of GI bleed. NEUROLOGIC: There is a history of stroke and seizure disorder. HEMATOLOGIC: He has anemia. GENITOURINARY: The patient has chronic kidney disease. LABORATORY DATA: Shows his white count is 8.6. H and H is and 20.9, platelets are 283. Coags: INR is 1.01. His BUN is 91, creatinine is 2.5. PHYSICAL EXAMINATION: VITAL SIGNS: Blood pressure is 132/67, heart rate 98, temperature 98.0. HEENT: Anicteric sclerae. NECK: Supple. No JVD. LUNGS: Clear to auscultation bilaterally. CARDIOVASCULAR: Regular rate and rhythm. ABDOMEN: Soft, nontender. EXTREMITIES: No edema, but he has evidence of chronic venous stasis. He is a poor historian. ASSESSMENT: 1. Severe anemia. 2. Dehydration. 3. Acute kidney failure secondary to acute tubular necrosis secondary to severe anemia. 4. History of cerebrovascular accident, seizure disorder. 5. Dementia. PLAN: I agree with continuation of current management. The patient requires blood transfusion. GI workup at this time is pending and Dr. Cole is seeing the patient for hematology. We will continue to monitor the renal function. Obtain imaging studies of the kidneys and continue gentle hydration for the patient. We will follow the patient closely. JOB# [id number]
[2017-05-03 05:59] LABS: % BASOPHILS 0.3 % (0.0-2.0); % EOSINOPHILS 2.5 % (0.0-5.0); % MONOCYTES 8.3 % (2.0-10.0); % NEUTROPHILS 72.9 % (40.0-80.0); EOSINOPHILE ABSOLUTE 0.2 Th/cmm (0.1-0.4); LYMPHOCYTE ABSOLUTE 1.4 Th/cmm (1.5-3.0); MEAN CELL VOLUME 88.1 fl (80-99); MEAN CORPUSCULAR HEMOGLOBIN 29.8 pg (26.0-30.0); MEAN CORPUSCULAR HGB CONC 33.8 pg (28.0-36.0); MEAN PLATELET VOLUME 8.2 fl; MONOCYTE ABSOLUTE 0.7 Th/cmm (0.3-1.0); NEUTROPHILE ABSOLUTE 6.5 Th/cmm (1.8-8.0); PLATELET COUNT 270 Th/cmm (150-400); RED BLOOD COUNT 3.43 Mil/cmm (4.30-5.70); RED CELL DISTRIBUTION WIDTH 13.7 % (11.5-20.0); WHITE BLOOD COUNT 8.8 Th/cmm (4.8-10.8)
[2017-05-03 06:04] LABS: HEMATOCRIT 30.2 % (41.0-60); HEMOGLOBIN 10.2 gm/dL (12-16)
[2017-05-03 06:13] LABS: ALB/GLOB RATIO 0.6 (1.0-1.8); ALBUMIN 2.4 gm/dL (4.2-5.5); ANION GAP 10.5 (7.0-16.0); BILIRUBIN,TOTAL 0.2 mg/dL (0.3-1.0); CALCIUM SERUM 8.7 mg/dL (8.6-10.3); CARBON DIOXIDE 15.4 mEq/L (21.0-31.0); GFR NON AFRICAN-AMERICAN 37.2 ml/min; POTASSIUM SERUM 3.9 mEq/L (3.5-5.1); TOTAL PROTEIN,SERUM 6.3 gm/dL (6.0-8.3)
[2017-05-03] MEDS: Pantoprazole 40 mg EC Tab PO SCH (09:22)
--- NOTE | 2017-05-03 11:28 | General Progress Note ---
Subjective - Review of Systems Service Date: 05/03/17 Subjective: pt seen and examined BP on and off high pt confused in bed no distress Objective - Results Result Diagrams: 05/03/17 05:20 05/03/17 05:20 Recent Labs: Laboratory Last Values WBC 8.8 Th/cmm (4.8-10.8) 05/03/17 05:20 RBC 3.43 Mil/cmm (4.30-5.70) L 05/03/17 05:20 Hgb 10.2 gm/dL (12-16) L D 05/03/17 05:20 Hct 30.2 % (41.0-60) L D 05/03/17 05:20 MCV 88.1 fl (80-99) 05/03/17 05:20 MCH 29.8 pg (26.0-30.0) 05/03/17 05:20 MCHC Differential 33.8 pg (28.0-36.0) 05/03/17 05:20 RDW 13.7 % (11.5-20.0) 05/03/17 05:20 Plt Count 270 Th/cmm (150-400) 05/03/17 05:20 MPV 8.2 fl 05/03/17 05:20 Neutrophils % 72.9 % (40.0-80.0) 05/03/17 05:20 Lymphocytes % 16.0 % (20.0-50.0) L 05/03/17 05:20 Monocytes % 8.3 % (2.0-10.0) 05/03/17 05:20 Eosinophils % 2.5 % (0.0-5.0) 05/03/17 05:20 Basophils % 0.3 % (0.0-2.0) 05/03/17 05:20 PT 10.5 SECONDS (9.5-11.5) 05/02/17 06:00 INR 1.01 (0.5-1.4) 05/02/17 06:00 Sodium 143 mEq/L (136-145) 05/03/17 05:20 Potassium 3.9 mEq/L (3.5-5.1) 05/03/17 05:20 Chloride 121 mEq/L (98-107) H 05/03/17 05:20 Carbon Dioxide 15.4 mEq/L (21.0-31.0) L 05/03/17 05:20 Anion Gap 10.5 (7.0-16.0) 05/03/17 05:20 BUN 74 mg/dL (7-25) H 05/03/17 05:20 Creatinine 2.0 mg/dL (0.7-1.3) H 05/03/17 05:20 Est GFR ( Amer) 45.0 ml/min (>90) 05/03/17 05:20 Est GFR (Non-Af Amer) 37.2 ml/min 05/03/17 05:20 BUN/Creatinine Ratio 37.0 05/03/17 05:20 Glucose 146 mg/dL (70-105) H 05/03/17 05:20 POC Glucose 215 MG/DL (70 - 105) H 05/02/17 01:25 Hemoglobin A1c % 5.6 % (4.0-6.0) 05/02/17 06:00 Calcium 8.7 mg/dL (8.6-10.3) 05/03/17 05:20 Total Bilirubin 0.2 mg/dL (0.3-1.0) L 05/03/17 05:20 AST 12 U/L (13-39) L 05/03/17 05:20 ALT 10 U/L (7-52) 05/03/17 05:20 Alkaline Phosphatase 65 U/L (34-104) 05/03/17 05:20 Total Protein 6.3 gm/dL (6.0-8.3) 05/03/17 05:20 Albumin 2.4 gm/dL (4.2-5.5) L 05/03/17 05:20 Globulin 3.9 gm/dL 05/03/17 05:20 Albumin/Globulin Ratio 0.6 (1.0-1.8) L 05/03/17 05:20 Blood Type O POSITIVE 05/02/17 09:20 Antibody Screen NEGATIVE 05/02/17 09:20 Crossmatch See Detail 05/02/17 09:20 - Physical Exam Vitals and I&O: Vital Signs Temp 98.1 F 05/03/17 08:00 Pulse 99 05/03/17 09:22 Resp 18 05/03/17 08:00 BP 160/82 05/03/17 09:22 Pulse Ox 97 05/03/17 08:00 Intake & Output 05/02/17 05/03/17 05/03/17 18:59 06:59 18:59 Intake Total 650 800 661.25 Balance 650 800 661.25 Weight (lbs) 78.018 kg 76.884 kg Intake: Intake, IV Amount 661.25 D5-0.45NS 1,000 ml @ 75 661.25 mls/hr IV .[id number] [facility] Rx #:[id number] Oral 400 500 Blood Product 250 300 Other: # Voids 3 2 # Bowel Movements 0 Active Medications: Current Medications Acetaminophen (Tylenol) 500 mg PO Q6H PRN PRN Reason: Pain (Moderate) Stop: 07/01/17 02:48 Carbamazepine (Tegretol) 200 mg PO TID CHARO PRN Reason: Protocol Stop: 07/01/17 08:59 Last Admin: 05/03/17 09:22 Dose: 200 mg Dextrose/Sodium Chloride (D5-0.45ns) 1,000 mls @ 75 mls/hr IV .[id number] [facility] Stop: 07/01/17 01:44 Last Admin: 05/03/17 09:24 Dose: 75 mls/hr Levetiracetam (Keppra) 500 mg PO BID [facility] Stop: 07/01/17 08:59 Last Admin: 05/03/17 09:22 Dose: 500 mg Metoprolol Tartrate (Lopressor) 100 mg PO BID [facility] Stop: 07/01/17 08:59 Last Admin: 05/03/17 09:22 Dose: 100 mg Miscellaneous (Clinical Monitoring) 1 ea [facility] PRN PRN PRN Reason: RENAL Stop: 07/01/17 09:53 Pantoprazole Sodium (Protonix) 40 mg PO DAILY [facility] Stop: 07/01/17 07:29 Last Admin: 05/03/17 09:22 Dose: 40 mg General: No acute distress Cardiovascular: Regular rate, Normal S1, Normal S2 Lungs: Clear to auscultation Abdomen: Bowel sounds Extremities: Cyanosis - Procedures Procedures: Procedures Procedure Code Date DRAINAGE OF SKIN ABSCESS 33658 08/15/03 ELECTROCARDIOGRAM 89.52 01/27/00 ELECTROCARDIOGRAM COMPLETE 74833 01/27/00 INSERT NON-TUNNEL CV CATH 67607 12/13/03 MAGNETIC RESONANCE IMAGING OF BRAIN AND BRAIN STEM 88.91 11/30/00 MRI BRAIN STEM W/O DYE 21467 01/27/00 OTHER SKIN & SUBQ I D 86.04 08/15/03 VENOUS CATHETERIZATION NEC 38.93 12/13/03 Assessment/Plan - Assessment Assessment: ACUTE ANEMIA ACUTE RENAL FAILURE ACUTE TUBULAR NECROSIS CVA SEIZURE PSYCHOSIS DEMENTIA - Plan Plan: BP NEEDS BETTER CONTROL RENAL FUNCTION IMPROVING Nutritional Asmnt/Malnutr-PDOC - Dietary Evaluation Malnutrition Findings (Please click <Entered> for more info): Nutritional Asmnt/Malnutrition Start: 05/02/17 15: 58 Text: Status: Complete Freq: Document 05/02/17 15:58 [facility] (Rec: 05/02/17 16:14 [facility] [email or web address]) Nutritional Asmnt/Malnutrition Patient General Information Nutritional Screening High Risk Consult Diagnosis severe anemia, dehydration, CISCO Pertinent Medical Hx/Surgical Hx CVA, seizure disorder, dementia, psychosis, CKD Subjective Information Consult received for BS 215 at adm and wound. Pt seen lying in bed at time of visit, awake and alert at time of visit. Hard to understand pt. Pt said no when dietitian asked about food related questions. Per nurse notes, pt refused lunch althought RN and MANAGER FORMS tried multiple times. Current Diet Order/ Nutrition Support Renal, mech soft chopped Pertinent Medications D5-0.45ns, protonix Pertinent Labs 05/02 Na 141, K 4.2, Cl 118, BUN 91, Cr 2.5, Glucose 180, POC 215, AST 11, Alb 2.5 Nutritional Hx/Data Height 1.57 m Height (Calculated Centimeters) 157.5 Current Weight (lbs) 78.018 kg Weight (Calculated Kilograms) 78.0 Weight (Calculated Grams) 51244.9 [place] Body Weight 118 Body Mass Index (BMI) 31.4 Weight Status Obese GI Symptoms GI Symptoms None Last BM none Difficult in: None Skin Integrity/Comment: per wound care note: Distal aspect of Gluteal Sulcus - Moisture lesion, present on admission. reddened to sacrum, potential skin problem to bilateral legs Estimated Nutritional Goals BEE in Kcals: Adj wt of IBW Calories/Kcals/Kg 25-30 Kcals Calculated 6555-6081 Protein: Adj wt of IBW Protein g/k-1.2 Protein Calculated 60-72 Fluid: ml 1500-1800ml (1ml/kcal) or per MD Nutritional Problem 1. Problem Problem altered nutrition related lab values Etiology hx of CKD, dx of CISCO, endocrine dysfunction Signs/Symptoms: BUN 91, Cr 2.5, Glucose 180, POC 215 Malnutrition Alert Protein-Calorie Malnutrition N/A Is there a minimum of two criteria No selected? Query Text:Check all the applicable criteria. A minimum of two criteria are recommended for diagnosis of either severe or non-severe malnutrition. Intervention/Recommendation Comments 1. Monitor glucose and check a1c level. If glucose continue high, will consider adding CCHO diet for optimal glycemic control 2. Monitor PO intake, wt, labs and skin integrity 3. F/U as high risk in 2-3 days, 05/04-05/05 Expected Outcomes/Goals Expected Outcomes/Goals 1. PO intake to meet at least 75% of nutritional needs. 2. Wt stability, skin to remain intact, labs to approach WNL.
--- NOTE | 2017-05-03 12:29 | General Progress Note ---
Subjective - Review of Systems Service Date: 05/03/17 Objective - Results Result Diagrams: 05/03/17 05:20 05/03/17 05:20 Recent Labs: Laboratory Last Values WBC 8.8 Th/cmm (4.8-10.8) 05/03/17 05:20 RBC 3.43 Mil/cmm (4.30-5.70) L 05/03/17 05:20 Hgb 10.2 gm/dL (12-16) L D 05/03/17 05:20 Hct 30.2 % (41.0-60) L D 05/03/17 05:20 MCV 88.1 fl (80-99) 05/03/17 05:20 MCH 29.8 pg (26.0-30.0) 05/03/17 05:20 MCHC Differential 33.8 pg (28.0-36.0) 05/03/17 05:20 RDW 13.7 % (11.5-20.0) 05/03/17 05:20 Plt Count 270 Th/cmm (150-400) 05/03/17 05:20 MPV 8.2 fl 05/03/17 05:20 Neutrophils % 72.9 % (40.0-80.0) 05/03/17 05:20 Lymphocytes % 16.0 % (20.0-50.0) L 05/03/17 05:20 Monocytes % 8.3 % (2.0-10.0) 05/03/17 05:20 Eosinophils % 2.5 % (0.0-5.0) 05/03/17 05:20 Basophils % 0.3 % (0.0-2.0) 05/03/17 05:20 PT 10.5 SECONDS (9.5-11.5) 05/02/17 06:00 INR 1.01 (0.5-1.4) 05/02/17 06:00 Sodium 143 mEq/L (136-145) 05/03/17 05:20 Potassium 3.9 mEq/L (3.5-5.1) 05/03/17 05:20 Chloride 121 mEq/L (98-107) H 05/03/17 05:20 Carbon Dioxide 15.4 mEq/L (21.0-31.0) L 03/07/18 05:20 Anion Gap 10.5 (7.0-16.0) 05/03/17 05:20 BUN 74 mg/dL (7-25) H 05/03/17 05:20 Creatinine 2.0 mg/dL (0.7-1.3) H 05/03/17 05:20 Est GFR ( Amer) 45.0 ml/min (>90) 05/03/17 05:20 Est GFR (Non-Af Amer) 37.2 ml/min 05/03/17 05:20 BUN/Creatinine Ratio 37.0 05/03/17 05:20 Glucose 146 mg/dL (70-105) H 05/03/17 05:20 POC Glucose 215 MG/DL (70 - 105) H 05/02/17 01:25 Hemoglobin A1c % 5.6 % (4.0-6.0) 05/02/17 06:00 Calcium 8.7 mg/dL (8.6-10.3) 05/03/17 05:20 Total Bilirubin 0.2 mg/dL (0.3-1.0) L 05/03/17 05:20 AST 12 U/L (13-39) L 05/03/17 05:20 ALT 10 U/L (7-52) 05/03/17 05:20 Alkaline Phosphatase 65 U/L (34-104) 05/03/17 05:20 Total Protein 6.3 gm/dL (6.0-8.3) 05/03/17 05:20 Albumin 2.4 gm/dL (4.2-5.5) L 05/03/17 05:20 Globulin 3.9 gm/dL 05/03/17 05:20 Albumin/Globulin Ratio 0.6 (1.0-1.8) L 05/03/17 05:20 Blood Type O POSITIVE 05/02/17 09:20 Antibody Screen NEGATIVE 05/02/17 09:20 Crossmatch See Detail 05/02/17 09:20 - Physical Exam Vitals and I&O: Vital Signs Temp 97.4 F 05/03/17 11:54 Pulse 83 05/03/17 11:54 Resp 18 05/03/17 11:54 BP 169/76 05/03/17 11:54 Pulse Ox 98 05/03/17 11:54 Intake & Output 05/02/17 05/03/17 05/03/17 18:59 06:59 18:59 Intake Total 650 800 661.25 Balance 650 800 661.25 Weight (lbs) 78.018 kg 76.884 kg Intake: Intake, IV Amount 661.25 D5-0.45NS 1,000 ml @ 75 661.25 mls/hr IV .[id number] [facility] Rx #:[id number] Oral 400 500 Blood Product 250 300 Other: # Voids 3 2 # Bowel Movements 0 Active Medications: Current Medications Acetaminophen (Tylenol) 500 mg PO Q6H PRN PRN Reason: Pain (Moderate) Stop: 07/01/17 02:48 Amlodipine Besylate (Norvasc) 5 mg PO DAILY [facility] Stop: 07/03/17 08:59 Carbamazepine (Tegretol) 200 mg PO TID [facility] PRN Reason: Protocol Stop: 07/01/17 08:59 Last Admin: 05/03/17 09:22 Dose: 200 mg Dextrose/Sodium Chloride (D5-0.45ns) 1,000 mls @ 75 mls/hr IV .[id number] [facility] Stop: 07/01/17 01:44 Last Admin: 05/03/17 09:24 Dose: 75 mls/hr Levetiracetam (Keppra) 500 mg PO BID [facility] Stop: 07/01/17 08:59 Last Admin: 05/03/17 09:22 Dose: 500 mg Metoprolol Tartrate (Lopressor) 100 mg PO BID [facility] Stop: 07/01/17 08:59 Last Admin: 05/03/17 09:22 Dose: 100 mg Miscellaneous (Clinical Monitoring) 1 ea [facility] PRN PRN PRN Reason: RENAL Stop: 07/01/17 09:53 Pantoprazole Sodium (Protonix) 40 mg PO DAILY [facility] Stop: 07/01/17 07:29 Last Admin: 05/03/17 09:22 Dose: 40 mg General: No acute distress Cardiovascular: Regular rate, Normal S1, Normal S2 Lungs: Clear to auscultation Abdomen: Bowel sounds Extremities: Cyanosis - Procedures Procedures: Procedures Procedure Code Date DRAINAGE OF SKIN ABSCESS 31067 08/15/03 ELECTROCARDIOGRAM 89.52 01/27/00 ELECTROCARDIOGRAM COMPLETE 54652 01/27/00 INSERT NON-TUNNEL CV CATH 91583 12/13/03 MAGNETIC RESONANCE IMAGING OF BRAIN AND BRAIN STEM 88.91 01/27/00 MRI BRAIN STEM W/O DYE 06482 01/27/00 OTHER SKIN & SUBQ I D 86.04 08/15/03 VENOUS CATHETERIZATION NEC 38.93 12/13/03 Assessment/Plan - Assessment Assessment: * 3/7: hgb better after transfusion; follow anemia chauhan * 3/6: Severe normocytic anemia. The patient will need comprehensive anemia workup with iron studies, B12, folic acid and stool occult blood. 2. Acute kidney injury on top of chronic kidney disease. 3. Dementia. 4. History of cerebrovascular accident and seizure disorder. The patient is undergoing transfusion at this time. Nutritional Asmnt/Malnutr-PDOC - Dietary Evaluation Malnutrition Findings (Please click <Entered> for more info): Nutritional Asmnt/Malnutrition Start: 05/02/17 15: 58 Text: Status: Complete Freq: Document 05/02/17 15:58 [facility] (Rec: 05/02/17 16:14 ALLISONG [email or web address]) Nutritional Asmnt/Malnutrition Patient General Information Nutritional Screening High Risk Consult Diagnosis severe anemia, dehydration, CISCO Pertinent Medical Hx/Surgical Hx CVA, seizure disorder, dementia, psychosis, CKD Subjective Information Consult received for BS 215 at adm and wound. Pt seen lying in bed at time of visit, awake and alert at time of visit. Hard to understand pt. Pt said no when dietitian asked about food related questions. Per nurse notes, pt refused lunch althought RN and LOAN REPRESENTATIVE tried multiple times. Current Diet Order/ Nutrition Support Renal, mech soft chopped Pertinent Medications D5-0.45ns, protonix Pertinent Labs 05/02 Na 141, K 4.2, Cl 118, BUN 91, Cr 2.5, Glucose 180, POC 215, AST 11, Alb 2.5 Nutritional Hx/Data Height 1.57 m Height (Calculated Centimeters) 157.5 Current Weight (lbs) 78.018 kg Weight (Calculated Kilograms) 78.0 Weight (Calculated Grams) 43458.9 [place] Body Weight 118 Body Mass Index (BMI) 31.4 Weight Status Obese GI Symptoms GI Symptoms None Last BM none Difficult in: None Skin Integrity/Comment: per wound care note: Distal aspect of Gluteal Sulcus - Moisture lesion, present on admission. reddened to sacrum, potential skin problem to bilateral legs Estimated Nutritional Goals BEE in Kcals: Adj wt of IBW Calories/Kcals/Kg 25-30 Kcals Calculated 7006-8464 Protein: Adj wt of IBW Protein g/k-1.2 Protein Calculated 60-72 Fluid: ml 1500-1800ml (1ml/kcal) or per MD Nutritional Problem 1. Problem Problem altered nutrition related lab values Etiology hx of CKD, dx of CISCO, endocrine dysfunction Signs/Symptoms: BUN 91, Cr 2.5, Glucose 180, POC 215 Malnutrition Alert Protein-Calorie Malnutrition N/A Is there a minimum of two criteria No selected? Query Text:Check all the applicable criteria. A minimum of two criteria are recommended for diagnosis of either severe or non-severe malnutrition. Intervention/Recommendation Comments 1. Monitor glucose and check a1c level. If glucose continue high, will consider adding CCHO diet for optimal glycemic control 2. Monitor PO intake, wt, labs and skin integrity 3. F/U as high risk in 2-3 days, 05/04-05/05 Expected Outcomes/Goals Expected Outcomes/Goals 1. PO intake to meet at least 75% of nutritional needs. 2. Wt stability, skin to remain intact, labs to approach WNL.
--- NOTE | 2017-05-03 19:58 | Internal Medicine Prog Note ---
Internal Medicine Subjective - Subjective Service Date: 05/03/17 Patient seen and examined:: with staff Patient is:: awake, verbal, confused Per staff patient has:: no adverse event Internal Medicine Objective - Results Result Diagrams: 05/03/17 05:20 05/03/17 05:20 Recent Labs: Laboratory Last Values WBC 8.8 Th/cmm (4.8-10.8) 05/03/17 05:20 RBC 3.43 Mil/cmm (4.30-5.70) L 05/03/17 05:20 Hgb 10.2 gm/dL (12-16) L D 05/03/17 05:20 Hct 30.2 % (41.0-60) L D 05/03/17 05:20 MCV 88.1 fl (80-99) 05/03/17 05:20 MCH 29.8 pg (26.0-30.0) 05/03/17 05:20 MCHC Differential 33.8 pg (28.0-36.0) 05/03/17 05:20 RDW 13.7 % (11.5-20.0) 05/03/17 05:20 Plt Count 270 Th/cmm (150-400) 05/03/17 05:20 MPV 8.2 fl 05/03/17 05:20 Neutrophils % 72.9 % (40.0-80.0) 05/03/17 05:20 Lymphocytes % 16.0 % (20.0-50.0) L 05/03/17 05:20 Monocytes % 8.3 % (2.0-10.0) 05/03/17 05:20 Eosinophils % 2.5 % (0.0-5.0) 05/03/17 05:20 Basophils % 0.3 % (0.0-2.0) 05/03/17 05:20 PT 10.5 SECONDS (9.5-11.5) 05/02/17 06:00 INR 1.01 (0.5-1.4) 05/02/17 06:00 Sodium 143 mEq/L (136-145) 05/03/17 05:20 Potassium 3.9 mEq/L (3.5-5.1) 05/03/17 05:20 Chloride 121 mEq/L (98-107) H 05/03/17 05:20 Carbon Dioxide 15.4 mEq/L (21.0-31.0) L 05/03/17 05:20 Anion Gap 10.5 (7.0-16.0) 05/03/17 05:20 BUN 74 mg/dL (7-25) H 05/03/17 05:20 Creatinine 2.0 mg/dL (0.7-1.3) H 05/03/17 05:20 Est GFR ( Amer) 45.0 ml/min (>90) 05/03/17 05:20 Est GFR (Non-Af Amer) 37.2 ml/min 05/03/17 05:20 BUN/Creatinine Ratio 37.0 05/03/17 05:20 Glucose 146 mg/dL (70-105) H 05/03/17 05:20 POC Glucose 215 MG/DL (70 - 105) H 05/02/17 01:25 Hemoglobin A1c % 5.6 % (4.0-6.0) 05/02/17 06:00 Calcium 8.7 mg/dL (8.6-10.3) 05/03/17 05:20 Total Bilirubin 0.2 mg/dL (0.3-1.0) L 05/03/17 05:20 AST 12 U/L (13-39) L 05/03/17 05:20 ALT 10 U/L (7-52) 05/03/17 05:20 Alkaline Phosphatase 65 U/L (34-104) 05/03/17 05:20 Total Protein 6.3 gm/dL (6.0-8.3) 05/03/17 05:20 Albumin 2.4 gm/dL (4.2-5.5) L 05/03/17 05:20 Globulin 3.9 gm/dL 05/03/17 05:20 Albumin/Globulin Ratio 0.6 (1.0-1.8) L 05/03/17 05:20 Blood Type O POSITIVE 05/02/17 09:20 Antibody Screen NEGATIVE 05/02/17 09:20 Crossmatch See Detail 05/02/17 09:20 - Physical Exam Vitals and I&O: Vital Signs Temp 97.7 F 05/03/17 16:00 Pulse 80 05/03/17 16:05 Resp 18 05/03/17 16:00 BP 165/73 05/03/17 16:05 Pulse Ox 98 05/03/17 16:00 Intake & Output 05/03/17 05/03/17 05/04/17 06:59 18:59 06:59 Intake Total 800 1161.25 Balance 800 1161.25 Weight (lbs) 76.884 kg 76.884 kg Intake: Intake, IV Amount 661.25 D5-0.45NS 1,000 ml @ 75 661.25 mls/hr IV .[id number] [facility] Rx #:[id number] Oral 500 500 Blood Product 300 Other: # Voids 2 3 Active Medications: Current Medications Acetaminophen (Tylenol) 500 mg PO Q6H PRN PRN Reason: Pain (Moderate) Stop: 07/01/17 02:48 Amlodipine Besylate (Norvasc) 5 mg PO DAILY [facility] Stop: 07/03/17 08:59 Carbamazepine (Tegretol) 200 mg PO TID CHARO PRN Reason: Protocol Stop: 07/01/17 08:59 Last Admin: 05/03/17 13:21 Dose: 200 mg Dextrose/Sodium Chloride (D5-0.45ns) 1,000 mls @ 75 mls/hr IV .[id number] [facility] Stop: 07/01/17 01:44 Last Admin: 05/03/17 09:24 Dose: 75 mls/hr Levetiracetam (Keppra) 500 mg PO BID [facility] Stop: 07/01/17 08:59 Last Admin: 05/03/17 16:05 Dose: 500 mg Metoprolol Tartrate (Lopressor) 100 mg PO BID [facility] Stop: 07/01/17 08:59 Last Admin: 05/03/17 16:05 Dose: 100 mg Miscellaneous (Clinical Monitoring) 1 ea MC PRN PRN PRN Reason: RENAL Stop: 07/01/17 09:53 Pantoprazole Sodium (Protonix) 40 mg PO DAILY [facility] Stop: 07/01/17 07:29 Last Admin: 05/03/17 09:22 Dose: 40 mg General: demented HEENT: NC/AT, PERRLA, EOMI, anicteric sclerae, throat clear Neck: Supple, No JVD, No thyromegaly, +2 carotid pulse wo bruit, No LAD Lungs: CTAB Cardiovascular: RRR, Normal S1, Normal S2, without murmur Abdomen: soft, non-tender, non-distended Extremities: clear Neurological: no change - Procedures Procedures: Procedures Procedure Code Date DRAINAGE OF SKIN ABSCESS 00380 08/15/03 ELECTROCARDIOGRAM 89.52 01/27/00 ELECTROCARDIOGRAM COMPLETE 36753 01/27/00 INSERT NON-TUNNEL CV CATH 45292 12/13/03 MAGNETIC RESONANCE IMAGING OF BRAIN AND BRAIN STEM 88.91 01/27/00 MRI BRAIN STEM W/O DYE 53452 01/27/00 OTHER SKIN & SUBQ I D 86.04 08/15/03 VENOUS CATHETERIZATION NEC 38.93 12/13/03 Internal Medicine Assmt/Plan - Assessment Assessment: 1.SEVER ANEMIA. 2.DEHYDRATION. 3.CISCO. 4.CVA - Plan Plan: CBC AND CMP IN AM Nutritional Asmnt/Malnutr-PDOC - Dietary Evaluation Malnutrition Findings (Please click <Entered> for more info): Nutritional Asmnt/Malnutrition Start: 05/02/17 15: 58 Text: Status: Complete Freq: Document 05/02/17 15:58 HEN (Rec: 05/02/17 16:14 LCHENG SILVANA-FN) Nutritional Asmnt/Malnutrition Patient General Information Nutritional Screening High Risk Consult Diagnosis severe anemia, dehydration, CISCO Pertinent Medical Hx/Surgical Hx CVA, seizure disorder, dementia, psychosis, CKD Subjective Information Consult received for BS 215 at adm and wound. Pt seen lying in bed at time of visit, awake and alert at time of visit. Hard to understand pt. Pt said no when dietitian asked about food related questions. Per nurse notes, pt refused lunch althought RN and OVEN UNLOADER tried multiple times. Current Diet Order/ Nutrition Support Renal, mech soft chopped Pertinent Medications D5-0.45ns, protonix Pertinent Labs 3/ Na 141, K 4.2, Cl 118, BUN 91, Cr 2.5, Glucose 180, POC 215, AST 11, Alb 2.5 Nutritional Hx/Data Height 1.57 m Height (Calculated Centimeters) 157.5 Current Weight (lbs) 78.018 kg Weight (Calculated Kilograms) 78.0 Weight (Calculated Grams) 24416.9 [place] Body Weight 118 Body Mass Index (BMI) 31.4 Weight Status Obese GI Symptoms GI Symptoms None Last BM none Difficult in: None Skin Integrity/Comment: per wound care note: Distal aspect of Gluteal Sulcus - Moisture lesion, present on admission. reddened to sacrum, potential skin problem to bilateral legs Estimated Nutritional Goals BEE in Kcals: Adj wt of IBW Calories/Kcals/Kg 25-30 Kcals Calculated 6725-0447 Protein: Adj wt of IBW Protein g/k-1.2 Protein Calculated 60-72 Fluid: ml 1500-1800ml (1ml/kcal) or per MD Nutritional Problem 1. Problem Problem altered nutrition related lab values Etiology hx of CKD, dx of CISCO, endocrine dysfunction Signs/Symptoms: BUN 91, Cr 2.5, Glucose 180, POC 215 Malnutrition Alert Protein-Calorie Malnutrition N/A Is there a minimum of two criteria No selected? Query Text:Check all the applicable criteria. A minimum of two criteria are recommended for diagnosis of either severe or non-severe malnutrition. Intervention/Recommendation Comments 1. Monitor glucose and check a1c level. If glucose continue high, will consider adding CCHO diet for optimal glycemic control 2. Monitor PO intake, wt, labs and skin integrity 3. F/U as high risk in 2-3 days, 05/04-05/05 Expected Outcomes/Goals Expected Outcomes/Goals 1. PO intake to meet at least 75% of nutritional needs. 2. Wt stability, skin to remain intact, labs to approach WNL.
[2017-05-04 06:58] LABS: % BASOPHILS 0.2 % (0.0-2.0); % EOSINOPHILS 5.5 % (0.0-5.0); % LYMPHOCYTES 18.8 % (20.0-50.0); % MONOCYTES 8.7 % (2.0-10.0); % NEUTROPHILS 66.8 % (40.0-80.0); EOSINOPHILE ABSOLUTE 0.4 Th/cmm (0.1-0.4); HEMATOCRIT 29.2 % (41.0-60); HEMOGLOBIN 9.9 gm/dL (12-16); LYMPHOCYTE ABSOLUTE 1.4 Th/cmm (1.5-3.0); MEAN CORPUSCULAR HEMOGLOBIN 29.5 pg (26.0-30.0); MEAN CORPUSCULAR HGB CONC 33.9 pg (28.0-36.0); MONOCYTE ABSOLUTE 0.6 Th/cmm (0.3-1.0); NEUTROPHILE ABSOLUTE 4.9 Th/cmm (1.8-8.0); PLATELET COUNT 265 Th/cmm (150-400); RED BLOOD COUNT 3.36 Mil/cmm (4.30-5.70); RED CELL DISTRIBUTION WIDTH 13.8 % (11.5-20.0); WHITE BLOOD COUNT 7.3 Th/cmm (4.8-10.8)
[2017-05-04 07:18] LABS: ALB/GLOB RATIO 0.6 (1.0-1.8); ALBUMIN 2.3 gm/dL (4.2-5.5); BILIRUBIN,TOTAL 0.2 mg/dL (0.3-1.0); CALCIUM SERUM 8.4 mg/dL (8.6-10.3); CARBON DIOXIDE 16.9 mEq/L (21.0-31.0); CREATININE - SERUM 1.6 mg/dL (0.7-1.3); GFR AFRICAN-AMERICAN 58.2 ml/min (>90); GFR NON AFRICAN-AMERICAN 48.1 ml/min; POTASSIUM SERUM 3.9 mEq/L (3.5-5.1)
[2017-05-04] MEDS: Pantoprazole 40 mg EC Tab PO SCH (09:27)
[2017-05-04] MEDS: D5-0.45NS 1,000 ML IV SCH (11:23)
--- NOTE | 2017-05-04 12:53 | General Progress Note ---
Subjective - Review of Systems Service Date: 05/04/17 Objective - Results Result Diagrams: 05/04/17 06:25 05/04/17 06:25 Recent Labs: Laboratory Last Values WBC 7.3 Th/cmm (4.8-10.8) 05/04/17 06:25 RBC 3.36 Mil/cmm (4.30-5.70) L 05/04/17 06:25 Hgb 9.9 gm/dL (12-16) L 05/04/17 06:25 Hct 29.2 % (41.0-60) L 05/04/17 06:25 MCV 87.0 fl (80-99) 05/04/17 06:25 MCH 29.5 pg (26.0-30.0) 05/04/17 06:25 MCHC Differential 33.9 pg (28.0-36.0) 05/04/17 06:25 RDW 13.8 % (11.5-20.0) 05/04/17 06:25 Plt Count 265 Th/cmm (150-400) 05/04/17 06:25 MPV 7.0 fl 05/04/17 06:25 Neutrophils % 66.8 % (40.0-80.0) 05/04/17 06:25 Lymphocytes % 18.8 % (20.0-50.0) L 05/04/17 06:25 Monocytes % 8.7 % (2.0-10.0) 05/04/17 06:25 Eosinophils % 5.5 % (0.0-5.0) H 05/04/17 06:25 Basophils % 0.2 % (0.0-2.0) 05/04/17 06:25 PT 10.5 SECONDS (9.5-11.5) 05/02/17 06:00 INR 1.01 (0.5-1.4) 05/02/17 06:00 Sodium 144 mEq/L (136-145) 05/04/17 06:25 Potassium 3.9 mEq/L (3.5-5.1) 05/04/17 06:25 Chloride 124 mEq/L (98-107) H 05/04/17 06:25 Carbon Dioxide 16.9 mEq/L (21.0-31.0) L 05/04/17 06:25 Anion Gap 7.0 (7.0-16.0) 05/04/17 06:25 BUN 62 mg/dL (7-25) H 05/04/17 06:25 Creatinine 1.6 mg/dL (0.7-1.3) H 05/04/17 06:25 Est GFR ( Amer) 58.2 ml/min (>90) 05/04/17 06:25 Est GFR (Non-Af Amer) 48.1 ml/min 05/04/17 06:25 BUN/Creatinine Ratio 38.8 05/04/17 06:25 Glucose 163 mg/dL (70-105) H 05/04/17 06:25 POC Glucose 215 MG/DL (70 - 105) H 05/02/17 01:25 Hemoglobin A1c % 5.6 % (4.0-6.0) 05/02/17 06:00 Calcium 8.4 mg/dL (8.6-10.3) L 05/04/17 06:25 Total Bilirubin 0.2 mg/dL (0.3-1.0) L 05/04/17 06:25 AST 13 U/L (13-39) 05/04/17 06:25 ALT 10 U/L (7-52) 05/04/17 06:25 Alkaline Phosphatase 64 U/L (34-104) 05/04/17 06:25 Total Protein 6.0 gm/dL (6.0-8.3) 05/04/17 06:25 Albumin 2.3 gm/dL (4.2-5.5) L 05/04/17 06:25 Globulin 3.7 gm/dL 05/04/17 06:25 Albumin/Globulin Ratio 0.6 (1.0-1.8) L 05/04/17 06:25 Blood Type O POSITIVE 05/02/17 09:20 Antibody Screen NEGATIVE 05/02/17 09:20 Crossmatch See Detail 05/02/17 09:20 - Physical Exam Vitals and I&O: Vital Signs Temp 97.7 F 05/04/17 04:00 Pulse 78 05/04/17 09:26 Resp 18 05/04/17 04:00 BP 169/73 05/04/17 09:26 Pulse Ox 99 05/04/17 04:00 Intake & Output 05/03/17 05/04/17 05/04/17 18:59 06:59 18:59 Intake Total 1161.25 1000 100 Balance 1161.25 1000 100 Weight (lbs) 76.884 kg 87.044 kg 86.636 kg Intake: Intake, IV Amount 661.25 1000 D5-0.45NS 1,000 ml @ 75 661.25 1000 mls/hr IV .[id number] [facility] Rx #:[id number] Oral 500 100 Other: # Voids 3 2 2 # Bowel Movements 0 0 Active Medications: Current Medications Acetaminophen (Tylenol) 500 mg PO Q6H PRN PRN Reason: Pain (Moderate) Stop: 07/01/17 02:48 Last Admin: 05/03/17 23:30 Dose: 500 mg Amlodipine Besylate (Norvasc) 5 mg PO DAILY [facility] Stop: 07/03/17 08:59 Last Admin: 05/04/17 09:26 Dose: 5 mg Carbamazepine (Tegretol) 200 mg PO TID CHARO PRN Reason: Protocol Stop: 07/01/17 08:59 Last Admin: 05/04/17 09:27 Dose: 200 mg Dextrose/Sodium Chloride (D5-0.45ns) 1,000 mls @ 75 mls/hr IV .[id number] [facility] Stop: 07/01/17 01:44 Last Admin: 05/04/17 11:23 Dose: 75 mls/hr Levetiracetam (Keppra) 500 mg PO BID [facility] Stop: 07/01/17 08:59 Last Admin: 05/04/17 09:26 Dose: 500 mg Metoprolol Tartrate (Lopressor) 100 mg PO BID [facility] Stop: 07/01/17 08:59 Last Admin: 05/04/17 09:26 Dose: 100 mg Miscellaneous (Clinical Monitoring) 1 ea MC PRN PRN PRN Reason: RENAL Stop: 07/01/17 09:53 Pantoprazole Sodium (Protonix) 40 mg PO DAILY [facility] Stop: 07/01/17 07:29 Last Admin: 05/04/17 09:27 Dose: 40 mg General: No acute distress Cardiovascular: Regular rate, Normal S1, Normal S2 Lungs: Clear to auscultation Abdomen: Bowel sounds Extremities: Cyanosis - Procedures Procedures: Procedures Procedure Code Date DRAINAGE OF SKIN ABSCESS 06151 08/15/03 ELECTROCARDIOGRAM 89.52 01/27/00 ELECTROCARDIOGRAM COMPLETE 22477 01/27/00 INSERT NON-TUNNEL CV CATH 37364 12/13/03 MAGNETIC RESONANCE IMAGING OF BRAIN AND BRAIN STEM 88.91 01/27/00 MRI BRAIN STEM W/O DYE 72439 01/27/00 OTHER SKIN & SUBQ I D 86.04 08/15/03 VENOUS CATHETERIZATION NEC 38.93 12/13/03 Assessment/Plan - Assessment Assessment: * 05/04: hgb stable; follow anemia chauhan results and cbc * 05/03: hgb better after transfusion; follow anemia chauhan * 05/02: Severe normocytic anemia. The patient will need comprehensive anemia workup with iron studies, B12, folic acid and stool occult blood. 2. Acute kidney injury on top of chronic kidney disease. 3. Dementia. 4. History of cerebrovascular accident and seizure disorder. The patient is undergoing transfusion at this time. Nutritional Asmnt/Malnutr-PDOC - Dietary Evaluation Malnutrition Findings (Please click <Entered> for more info): Nutritional Asmnt/Malnutrition Start: 05/02/17 15: 58 Text: Status: Complete Freq: Document 05/02/17 15:58 HENG (Rec: 05/02/17 16:14 LCHENG [email or web address]) Nutritional Asmnt/Malnutrition Patient General Information Nutritional Screening High Risk Consult Diagnosis severe anemia, dehydration, CISCO Pertinent Medical Hx/Surgical Hx CVA, seizure disorder, dementia, psychosis, CKD Subjective Information Consult received for BS 215 at adm and wound. Pt seen lying in bed at time of visit, awake and alert at time of visit. Hard to understand pt. Pt said no when dietitian asked about food related questions. Per nurse notes, pt refused lunch althought RN and [employer] tried multiple times. Current Diet Order/ Nutrition Support Renal, mech soft chopped Pertinent Medications D5-0.45ns, protonix Pertinent Labs 05/02 Na 141, K 4.2, Cl 118, BUN 91, Cr 2.5, Glucose 180, POC 215, AST 11, Alb 2.5 Nutritional Hx/Data Height 1.57 m Height (Calculated Centimeters) 157.5 Current Weight (lbs) 78.018 kg Weight (Calculated Kilograms) 78.0 Weight (Calculated Grams) 39329.9 [place] Body Weight 118 Body Mass Index (BMI) 31.4 Weight Status Obese GI Symptoms GI Symptoms None Last BM none Difficult in: None Skin Integrity/Comment: per wound care note: Distal aspect of Gluteal Sulcus - Moisture lesion, present on admission. reddened to sacrum, potential skin problem to bilateral legs Estimated Nutritional Goals BEE in Kcals: Adj wt of IBW Calories/Kcals/Kg 25-30 Kcals Calculated 6534-3833 Protein: Adj wt of IBW Protein g/k-1.2 Protein Calculated 60-72 Fluid: ml 1500-1800ml (1ml/kcal) or per MD Nutritional Problem 1. Problem Problem altered nutrition related lab values Etiology hx of CKD, dx of CISCO, endocrine dysfunction Signs/Symptoms: BUN 91, Cr 2.5, Glucose 180, POC 215 Malnutrition Alert Protein-Calorie Malnutrition N/A Is there a minimum of two criteria No selected? Query Text:Check all the applicable criteria. A minimum of two criteria are recommended for diagnosis of either severe or non-severe malnutrition. Intervention/Recommendation Comments 1. Monitor glucose and check a1c level. If glucose continue high, will consider adding CCHO diet for optimal glycemic control 2. Monitor PO intake, wt, labs and skin integrity 3. F/U as high risk in 2-3 days, 05/04-05/05 Expected Outcomes/Goals Expected Outcomes/Goals 1. PO intake to meet at least 75% of nutritional needs. 2. Wt stability, skin to remain intact, labs to approach WNL.
--- NOTE | 2017-05-04 12:56 | General Progress Note ---
Subjective - Review of Systems Service Date: 05/04/17 Subjective: pt seen and examined BP on and off high pt confused in bed no distress Objective - Results Result Diagrams: 05/04/17 06:25 05/04/17 06:25 Recent Labs: Laboratory Last Values WBC 7.3 Th/cmm (4.8-10.8) 05/04/17 06:25 RBC 3.36 Mil/cmm (4.30-5.70) L 05/04/17 06:25 Hgb 9.9 gm/dL (12-16) L 05/04/17 06:25 Hct 29.2 % (41.0-60) L 05/04/17 06:25 MCV 87.0 fl (80-99) 05/04/17 06:25 MCH 29.5 pg (26.0-30.0) 05/04/17 06:25 MCHC Differential 33.9 pg (28.0-36.0) 05/04/17 06:25 RDW 13.8 % (11.5-20.0) 05/04/17 06:25 Plt Count 265 Th/cmm (150-400) 05/04/17 06:25 MPV 7.0 fl 05/04/17 06:25 Neutrophils % 66.8 % (40.0-80.0) 05/04/17 06:25 Lymphocytes % 18.8 % (20.0-50.0) L 05/04/17 06:25 Monocytes % 8.7 % (2.0-10.0) 05/04/17 06:25 Eosinophils % 5.5 % (0.0-5.0) H 05/04/17 06:25 Basophils % 0.2 % (0.0-2.0) 05/04/17 06:25 PT 10.5 SECONDS (9.5-11.5) 05/02/17 06:00 INR 1.01 (0.5-1.4) 05/02/17 06:00 Sodium 144 mEq/L (136-145) 05/04/17 06:25 Potassium 3.9 mEq/L (3.5-5.1) 05/04/17 06:25 Chloride 124 mEq/L (98-107) H 05/04/17 06:25 Carbon Dioxide 16.9 mEq/L (21.0-31.0) L 05/04/17 06:25 Anion Gap 7.0 (7.0-16.0) 05/04/17 06:25 BUN 62 mg/dL (7-25) H 05/04/17 06:25 Creatinine 1.6 mg/dL (0.7-1.3) H 05/04/17 06:25 Est GFR ( Amer) 58.2 ml/min (>90) 05/04/17 06:25 Est GFR (Non-Af Amer) 48.1 ml/min 05/04/17 06:25 BUN/Creatinine Ratio 38.8 05/04/17 06:25 Glucose 163 mg/dL (70-105) H 05/04/17 06:25 POC Glucose 215 MG/DL (70 - 105) H 05/02/17 01:25 Hemoglobin A1c % 5.6 % (4.0-6.0) 05/02/17 06:00 Calcium 8.4 mg/dL (8.6-10.3) L 05/04/17 06:25 Total Bilirubin 0.2 mg/dL (0.3-1.0) L 05/04/17 06:25 AST 13 U/L (13-39) 05/04/17 06:25 ALT 10 U/L (7-52) 05/04/17 06:25 Alkaline Phosphatase 64 U/L (34-104) 05/04/17 06:25 Total Protein 6.0 gm/dL (6.0-8.3) 05/04/17 06:25 Albumin 2.3 gm/dL (4.2-5.5) L 05/04/17 06:25 Globulin 3.7 gm/dL 05/04/17 06:25 Albumin/Globulin Ratio 0.6 (1.0-1.8) L 05/04/17 06:25 Blood Type O POSITIVE 05/02/17 09:20 Antibody Screen NEGATIVE 05/02/17 09:20 Crossmatch See Detail 05/02/17 09:20 - Physical Exam Vitals and I&O: Vital Signs Temp 97.7 F 05/04/17 04:00 Pulse 78 05/04/17 09:26 Resp 18 05/04/17 04:00 BP 169/73 05/04/17 09:26 Pulse Ox 99 05/04/17 04:00 Intake & Output 05/03/17 05/04/17 05/04/17 18:59 06:59 18:59 Intake Total 1161.25 1000 100 Balance 1161.25 1000 100 Weight (lbs) 76.884 kg 87.044 kg 86.636 kg Intake: Intake, IV Amount 661.25 1000 D5-0.45NS 1,000 ml @ 75 661.25 1000 mls/hr IV .[id number] [facility] Rx #:[id number] Oral 500 100 Other: # Voids 3 2 2 # Bowel Movements 0 0 Active Medications: Current Medications Acetaminophen (Tylenol) 500 mg PO Q6H PRN PRN Reason: Pain (Moderate) Stop: 07/01/17 02:48 Last Admin: 05/03/17 23:30 Dose: 500 mg Amlodipine Besylate (Norvasc) 5 mg PO DAILY [facility] Stop: 07/03/17 08:59 Last Admin: 05/04/17 09:26 Dose: 5 mg Carbamazepine (Tegretol) 200 mg PO TID CHARO PRN Reason: Protocol Stop: 07/01/17 08:59 Last Admin: 05/04/17 09:27 Dose: 200 mg Dextrose/Sodium Chloride (D5-0.45ns) 1,000 mls @ 75 mls/hr IV .[id number] [facility] Stop: 07/01/17 01:44 Last Admin: 05/04/17 11:23 Dose: 75 mls/hr Levetiracetam (Keppra) 500 mg PO BID [facility] Stop: 07/01/17 08:59 Last Admin: 05/04/17 09:26 Dose: 500 mg Metoprolol Tartrate (Lopressor) 100 mg PO BID [facility] Stop: 07/01/17 08:59 Last Admin: 05/04/17 09:26 Dose: 100 mg Miscellaneous (Clinical Monitoring) 1 ea MC PRN PRN PRN Reason: RENAL Stop: 07/01/17 09:53 Pantoprazole Sodium (Protonix) 40 mg PO DAILY [facility] Stop: 07/01/17 07:29 Last Admin: 05/04/17 09:27 Dose: 40 mg General: Cooperative, No acute distress HEENT: Atraumatic Neck: Supple Cardiovascular: Regular rate, Normal S1, Normal S2 Lungs: Clear to auscultation Abdomen: Bowel sounds Extremities: Cyanosis - Procedures Procedures: Procedures Procedure Code Date DRAINAGE OF SKIN ABSCESS 19155 08/15/03 ELECTROCARDIOGRAM 89.52 01/27/00 ELECTROCARDIOGRAM COMPLETE 04793 01/27/00 INSERT NON-TUNNEL CV CATH 57157 12/13/03 MAGNETIC RESONANCE IMAGING OF BRAIN AND BRAIN STEM 88.91 01/27/00 MRI BRAIN STEM W/O DYE 56897 01/27/00 OTHER SKIN & SUBQ I D 86.04 08/15/03 VENOUS CATHETERIZATION NEC 38.93 12/13/03 Assessment/Plan - Assessment Assessment: ACUTE ANEMIA ACUTE RENAL FAILURE SECONDARY TO ATN SECONDARY TO SEVERE ANEMIA ACUTE TUBULAR NECROSIS CVA SEIZURE PSYCHOSIS DEMENTIA - Plan Plan: BP NEEDS BETTER CONTROL RENAL FUNCTION IMPROVING Nutritional Asmnt/Malnutr-PDOC - Dietary Evaluation Malnutrition Findings (Please click <Entered> for more info): Nutritional Asmnt/Malnutrition Start: 05/02/17 15: 58 Text: Status: Complete Freq: Document 05/02/17 15:58 BERRY (Rec: 05/02/17 16:14 [facility] Nutritional Asmnt/Malnutrition Patient General Information Nutritional Screening High Risk Consult Diagnosis severe anemia, dehydration, CISCO Pertinent Medical Hx/Surgical Hx CVA, seizure disorder, dementia, psychosis, CKD Subjective Information Consult received for BS 215 at adm and wound. Pt seen lying in bed at time of visit, awake and alert at time of visit. Hard to understand pt. Pt said no when dietitian asked about food related questions. Per nurse notes, pt refused lunch althought RN and [employer] tried multiple times. Current Diet Order/ Nutrition Support Renal, mech soft chopped Pertinent Medications D5-0.45ns, protonix Pertinent Labs 3/ Na 141, K 4.2, Cl 118, BUN 91, Cr 2.5, Glucose 180, POC 215, AST 11, Alb 2.5 Nutritional Hx/Data Height 1.57 m Height (Calculated Centimeters) 157.5 Current Weight (lbs) 78.018 kg Weight (Calculated Kilograms) 78.0 Weight (Calculated Grams) 82875.9 [place] Body Weight 118 Body Mass Index (BMI) 31.4 Weight Status Obese GI Symptoms GI Symptoms None Last BM none Difficult in: None Skin Integrity/Comment: per wound care note: Distal aspect of Gluteal Sulcus - Moisture lesion, present on admission. reddened to sacrum, potential skin problem to bilateral legs Estimated Nutritional Goals BEE in Kcals: Adj wt of IBW Calories/Kcals/Kg 25-30 Kcals Calculated 6196-4501 Protein: Adj wt of IBW Protein g/k-1.2 Protein Calculated 60-72 Fluid: ml 1500-1800ml (1ml/kcal) or per MD Nutritional Problem 1. Problem Problem altered nutrition related lab values Etiology hx of CKD, dx of CISCO, endocrine dysfunction Signs/Symptoms: BUN 91, Cr 2.5, Glucose 180, POC 215 Malnutrition Alert Protein-Calorie Malnutrition N/A Is there a minimum of two criteria No selected? Query Text:Check all the applicable criteria. A minimum of two criteria are recommended for diagnosis of either severe or non-severe malnutrition. Intervention/Recommendation Comments 1. Monitor glucose and check a1c level. If glucose continue high, will consider adding CCHO diet for optimal glycemic control 2. Monitor PO intake, wt, labs and skin integrity 3. F/U as high risk in 2-3 days, 05/04-05/05 Expected Outcomes/Goals Expected Outcomes/Goals 1. PO intake to meet at least 75% of nutritional needs. 2. Wt stability, skin to remain intact, labs to approach WNL.
[2017-05-04 14:23] LABS: FERRITIN 488 ng/mL (30-400); FOLIC ACID 13.3 ng/mL (>3.0); IRON LC 21 ug/dL (38-169); TIBC (LC) 155 ug/dL (250-450); UIBC 134 ug/dL (111-343)
--- NOTE | 2017-05-04 19:53 | Internal Medicine Prog Note ---
Internal Medicine Subjective - Subjective Service Date: 05/04/17 Patient seen and examined:: with staff (THE PATIENT HAS ABDOMINAL PAIN AND HIS BP STILL HIGH) Patient is:: awake, verbal, confused Per staff patient has:: no adverse event Internal Medicine Objective - Results Result Diagrams: 05/04/17 06:25 05/04/17 06:25 Recent Labs: Laboratory Last Values WBC 7.3 Th/cmm (4.8-10.8) 05/04/17 06:25 RBC 3.36 Mil/cmm (4.30-5.70) L 05/04/17 06:25 Hgb 9.9 gm/dL (12-16) L 05/04/17 06:25 Hct 29.2 % (41.0-60) L 05/04/17 06:25 MCV 87.0 fl (80-99) 05/04/17 06:25 MCH 29.5 pg (26.0-30.0) 05/04/17 06:25 MCHC Differential 33.9 pg (28.0-36.0) 05/04/17 06:25 RDW 13.8 % (11.5-20.0) 05/04/17 06:25 Plt Count 265 Th/cmm (150-400) 05/04/17 06:25 MPV 7.0 fl 05/04/17 06:25 Neutrophils % 66.8 % (40.0-80.0) 05/04/17 06:25 Lymphocytes % 18.8 % (20.0-50.0) L 05/04/17 06:25 Monocytes % 8.7 % (2.0-10.0) 05/04/17 06:25 Eosinophils % 5.5 % (0.0-5.0) H 05/04/17 06:25 Basophils % 0.2 % (0.0-2.0) 05/04/17 06:25 PT 10.5 SECONDS (9.5-11.5) 05/02/17 06:00 INR 1.01 (0.5-1.4) 05/02/17 06:00 Sodium 144 mEq/L (136-145) 05/04/17 06:25 Potassium 3.9 mEq/L (3.5-5.1) 05/04/17 06:25 Chloride 124 mEq/L (98-107) H 05/04/17 06:25 Carbon Dioxide 16.9 mEq/L (21.0-31.0) L 05/04/17 06:25 Anion Gap 7.0 (7.0-16.0) 05/04/17 06:25 BUN 62 mg/dL (7-25) H 05/04/17 06:25 Creatinine 1.6 mg/dL (0.7-1.3) H 05/04/17 06:25 Est GFR ( Amer) 58.2 ml/min (>90) 05/04/17 06:25 Est GFR (Non-Af Amer) 48.1 ml/min 05/04/17 06:25 BUN/Creatinine Ratio 38.8 05/04/17 06:25 Glucose 163 mg/dL (70-105) H 05/04/17 06:25 POC Glucose 215 MG/DL (70 - 105) H 05/02/17 01:25 Hemoglobin A1c % 5.6 % (4.0-6.0) 05/02/17 06:00 Calcium 8.4 mg/dL (8.6-10.3) L 05/04/17 06:25 Iron 21 ug/dL (38-169) L 05/03/17 05:20 TIBC 155 ug/dL (250-450) L 05/03/17 05:20 Iron Saturation 14 % (15-55) L 05/03/17 05:20 Unsaturated IBC 134 ug/dL (111-343) 05/03/17 05:20 Ferritin 488 ng/mL (30-400) H 05/03/17 05:20 Total Bilirubin 0.2 mg/dL (0.3-1.0) L 05/04/17 06:25 AST 13 U/L (13-39) 05/04/17 06:25 ALT 10 U/L (7-52) 05/04/17 06:25 Alkaline Phosphatase 64 U/L (34-104) 05/04/17 06:25 Total Protein 6.0 gm/dL (6.0-8.3) 05/04/17 06:25 Albumin 2.3 gm/dL (4.2-5.5) L 05/04/17 06:25 Globulin 3.7 gm/dL 05/04/17 06:25 Albumin/Globulin Ratio 0.6 (1.0-1.8) L 05/04/17 06:25 Vitamin B12 1438 pg/mL (232-1245) H 05/03/17 05:20 Folic Acid 13.3 ng/mL (>3.0) 05/03/17 05:20 Blood Type O POSITIVE 05/02/17 09:20 Antibody Screen NEGATIVE 05/02/17 09:20 Crossmatch See Detail 05/02/17 09:20 - Physical Exam Vitals and I&O: Vital Signs Temp 97.9 F 05/04/17 12:00 Pulse 82 05/04/17 17:26 Resp 18 05/04/17 12:00 BP 161/77 05/04/17 17:26 Pulse Ox 98 05/04/17 12:00 Intake & Output 05/04/17 05/04/17 05/05/17 06:59 18:59 06:59 Intake Total 1000 100 Balance 1000 100 Weight (lbs) 87.044 kg 86.636 kg Intake: Intake, IV Amount 1000 D5-0.45NS 1,000 ml @ 75 1000 mls/hr IV .[id number] [facility] Rx #:[id number] Oral 100 Other: # Voids 2 2 # Bowel Movements 0 0 Active Medications: Current Medications Acetaminophen (Tylenol) 500 mg PO Q6H PRN PRN Reason: Pain (Moderate) Stop: 07/01/17 02:48 Last Admin: 05/04/17 17:26 Dose: 500 mg Amlodipine Besylate (Norvasc) 10 mg PO DAILY [facility] Stop: 07/04/17 08:59 Carbamazepine (Tegretol) 200 mg PO TID [facility] PRN Reason: Protocol Stop: 07/01/17 08:59 Last Admin: 05/04/17 13:59 Dose: 200 mg Hydralazine HCl (Apresoline) 25 mg PO TID [facility] Stop: 07/03/17 20:59 Dextrose/Sodium Chloride (D5-0.45ns) 1,000 mls @ 75 mls/hr IV .[id number] [facility] Stop: 07/01/17 01:44 Last Admin: 05/04/17 11:23 Dose: 75 mls/hr Levetiracetam (Keppra) 500 mg PO BID [facility] Stop: 07/01/17 08:59 Last Admin: 05/04/17 17:25 Dose: 500 mg Metoprolol Tartrate (Lopressor) 100 mg PO BID [facility] Stop: 07/01/17 08:59 Last Admin: 05/04/17 17:26 Dose: 100 mg Miscellaneous (Clinical Monitoring) 1 ea MC PRN PRN PRN Reason: RENAL Stop: 07/01/17 09:53 Pantoprazole Sodium (Protonix) 40 mg PO DAILY [facility] Stop: 07/01/17 07:29 Last Admin: 05/04/17 09:27 Dose: 40 mg General: demented HEENT: NC/AT, PERRLA, EOMI, anicteric sclerae, throat clear Neck: Supple, No JVD, No thyromegaly, +2 carotid pulse wo bruit, No LAD Lungs: CTAB Cardiovascular: RRR, Normal S1, Normal S2, without murmur Abdomen: soft, tender, non-distended Extremities: clear Neurological: no change - Procedures Procedures: Procedures Procedure Code Date BLOOD TRANSFUSION SERVICE 46784 05/01/17 DRAINAGE OF SKIN ABSCESS 28906 08/15/03 ELECTROCARDIOGRAM 89.52 01/27/00 ELECTROCARDIOGRAM COMPLETE 99449 01/27/00 INSERT NON-TUNNEL CV CATH 84777 12/13/03 MAGNETIC RESONANCE IMAGING OF BRAIN AND BRAIN STEM 88.91 01/27/00 MRI BRAIN STEM W/O DYE 52724 01/27/00 OTHER SKIN & SUBQ I D 86.04 08/15/03 TRANSFUSE NONAUT RED BLOOD CELLS IN PERIPH VEIN, PERC 06286A2 05/01/17 VENOUS CATHETERIZATION NEC 38.93 12/13/03 Internal Medicine Assmt/Plan - Assessment Assessment: 1.SEVER ANEMIA. 2.DEHYDRATION. 3.CISCO. 4.CVA 5.ACUTE ABDONINAL PAIN. 6.UNCONTROLLED HTN. - Plan Plan: CBC AND CMP IN AM.CONSULT ,GI.HYDRALAZINE 25 MG PO TID. Nutritional Asmnt/Malnutr-PDOC - Dietary Evaluation Malnutrition Findings (Please click <Entered> for more info): Nutritional Asmnt/Malnutrition Start: 05/02/17 15: 58 Text: Status: Complete Freq: Document 05/02/17 15:58 BERRY (Rec: 05/02/17 16:14 LCRUBIN SILVANA-[email or web address]) Nutritional Asmnt/Malnutrition Patient General Information Nutritional Screening High Risk Consult Diagnosis severe anemia, dehydration, CISCO Pertinent Medical Hx/Surgical Hx CVA, seizure disorder, dementia, psychosis, CKD Subjective Information Consult received for BS 215 at adm and wound. Pt seen lying in bed at time of visit, awake and alert at time of visit. Hard to understand pt. Pt said no when dietitian asked about food related questions. Per nurse notes, pt refused lunch althought RN and [employer] tried multiple times. Current Diet Order/ Nutrition Support Renal, mech soft chopped Pertinent Medications D5-0.45ns, protonix Pertinent Labs 05/02 Na 141, K 4.2, Cl 118, BUN 91, Cr 2.5, Glucose 180, POC 215, AST 11, Alb 2.5 Nutritional Hx/Data Height 1.57 m Height (Calculated Centimeters) 157.5 Current Weight (lbs) 78.018 kg Weight (Calculated Kilograms) 78.0 Weight (Calculated Grams) 66679.9 [place] Body Weight 118 Body Mass Index (BMI) 31.4 Weight Status Obese GI Symptoms GI Symptoms None Last BM none Difficult in: None Skin Integrity/Comment: per wound care note: Distal aspect of Gluteal Sulcus - Moisture lesion, present on admission. reddened to sacrum, potential skin problem to bilateral legs Estimated Nutritional Goals BEE in Kcals: Adj wt of IBW Calories/Kcals/Kg 25-30 Kcals Calculated 4072-8221 Protein: Adj wt of IBW Protein g/k-1.2 Protein Calculated 60-72 Fluid: ml 1500-1800ml (1ml/kcal) or per MD Nutritional Problem 1. Problem Problem altered nutrition related lab values Etiology hx of CKD, dx of CISCO, endocrine dysfunction Signs/Symptoms: BUN 91, Cr 2.5, Glucose 180, POC 215 Malnutrition Alert Protein-Calorie Malnutrition N/A Is there a minimum of two criteria No selected? Query Text:Check all the applicable criteria. A minimum of two criteria are recommended for diagnosis of either severe or non-severe malnutrition. Intervention/Recommendation Comments 1. Monitor glucose and check a1c level. If glucose continue high, will consider adding CCHO diet for optimal glycemic control 2. Monitor PO intake, wt, labs and skin integrity 3. F/U as high risk in 2-3 days, 05/04-05/05 Expected Outcomes/Goals Expected Outcomes/Goals 1. PO intake to meet at least 75% of nutritional needs. 2. Wt stability, skin to remain intact, labs to approach WNL.
[2017-05-05] MEDS: D5-0.45NS 1,000 ML IV SCH ×3 (00:27→13:58)
[2017-05-05] MEDS ORDERED: Haloperidol Lactate 5 mg/mL 1mL Vial IM ONE (03:02)
[2017-05-05 06:42] LABS: % BASOPHILS 0.4 % (0.0-2.0); % EOSINOPHILS 4.4 % (0.0-5.0); % LYMPHOCYTES 20.1 % (20.0-50.0); % MONOCYTES 9.7 % (2.0-10.0); % NEUTROPHILS 65.4 % (40.0-80.0); EOSINOPHILE ABSOLUTE 0.4 Th/cmm (0.1-0.4); HEMATOCRIT 27.8 % (41.0-60); HEMOGLOBIN 9.6 gm/dL (12-16); LYMPHOCYTE ABSOLUTE 1.8 Th/cmm (1.5-3.0); MEAN CELL VOLUME 86.8 fl (80-99); MEAN CORPUSCULAR HEMOGLOBIN 29.8 pg (26.0-30.0); MEAN CORPUSCULAR HGB CONC 34.4 pg (28.0-36.0); MEAN PLATELET VOLUME 6.8 fl; MONOCYTE ABSOLUTE 0.9 Th/cmm (0.3-1.0); NEUTROPHILE ABSOLUTE 5.9 Th/cmm (1.8-8.0); PLATELET COUNT 303 Th/cmm (150-400)
[2017-05-05 07:17] LABS: ALB/GLOB RATIO 0.6 (1.0-1.8); ALBUMIN 2.3 gm/dL (4.2-5.5); ALKALINE PHOSPHATASE 66 U/L (34-104); BILIRUBIN,TOTAL 0.2 mg/dL (0.3-1.0); BUN - UREA NITROGEN 53 mg/dL (7-25); CALCIUM SERUM 8.4 mg/dL (8.6-10.3); CARBON DIOXIDE 14.9 mEq/L (21.0-31.0); CHLORIDE 123 mEq/L (98-107); CREATININE - SERUM 1.5 mg/dL (0.7-1.3); GFR AFRICAN-AMERICAN > 60.0 ml/min (>90); GFR NON AFRICAN-AMERICAN 51.8 ml/min; GLUCOSE 139 mg/dL (70-105); POTASSIUM SERUM 3.9 mEq/L (3.5-5.1); SGOT 13 U/L (13-39); SGPT/ALT 10 U/L (7-52); SODIUM SERUM 140 mEq/L (136-145); TOTAL PROTEIN,SERUM 5.9 gm/dL (6.0-8.3)
[2017-05-05] MEDS: Pantoprazole 40 mg EC Tab PO SCH (09:12)
--- NOTE | 2017-05-05 13:12 | General Progress Note ---
Subjective - Review of Systems Service Date: 05/05/17 Subjective: pt seen and examined BP on and off high pt confused in bed no distress Objective - Results Result Diagrams: 05/05/17 06:31 05/05/17 06:31 Recent Labs: Laboratory Last Values WBC 9.0 Th/cmm (4.8-10.8) 05/05/17 06:31 RBC 3.20 Mil/cmm (4.30-5.70) L 05/05/17 06:31 Hgb 9.6 gm/dL (12-16) L 05/05/17 06:31 Hct 27.8 % (41.0-60) L 05/05/17 06:31 MCV 86.8 fl (80-99) 05/05/17 06:31 MCH 29.8 pg (26.0-30.0) 05/05/17 06:31 MCHC Differential 34.4 pg (28.0-36.0) 05/05/17 06:31 RDW 14.0 % (11.5-20.0) 05/05/17 06:31 Plt Count 303 Th/cmm (150-400) 05/05/17 06:31 MPV 6.8 fl 05/05/17 06:31 Neutrophils % 65.4 % (40.0-80.0) 05/05/17 06:31 Lymphocytes % 20.1 % (20.0-50.0) 05/05/17 06:31 Monocytes % 9.7 % (2.0-10.0) 05/05/17 06:31 Eosinophils % 4.4 % (0.0-5.0) 05/05/17 06:31 Basophils % 0.4 % (0.0-2.0) 05/05/17 06:31 PT 10.5 SECONDS (9.5-11.5) 05/02/17 06:00 INR 1.01 (0.5-1.4) 05/02/17 06:00 Sodium 140 mEq/L (136-145) 05/05/17 06:31 Potassium 3.9 mEq/L (3.5-5.1) 05/05/17 06:31 Chloride 123 mEq/L (98-107) H 05/05/17 06:31 Carbon Dioxide 14.9 mEq/L (21.0-31.0) L 05/05/17 06:31 Anion Gap 6.0 (7.0-16.0) L 05/05/17 06:31 BUN 53 mg/dL (7-25) H 05/05/17 06:31 Creatinine 1.5 mg/dL (0.7-1.3) H 05/05/17 06:31 Est GFR ( Amer) > 60.0 ml/min (>90) 05/05/17 06:31 Est GFR (Non-Af Amer) 51.8 ml/min 05/05/17 06:31 BUN/Creatinine Ratio 35.3 05/05/17 06:31 Glucose 139 mg/dL (70-105) H 05/05/17 06:31 POC Glucose 215 MG/DL (70 - 105) H 05/02/17 01:25 Hemoglobin A1c % 5.6 % (4.0-6.0) 05/02/17 06:00 Calcium 8.4 mg/dL (8.6-10.3) L 05/05/17 06:31 Iron 21 ug/dL (38-169) L 05/03/17 05:20 TIBC 155 ug/dL (250-450) L 05/03/17 05:20 Iron Saturation 14 % (15-55) L 05/03/17 05:20 Unsaturated IBC 134 ug/dL (111-343) 05/03/17 05:20 Ferritin 488 ng/mL (30-400) H 05/03/17 05:20 Total Bilirubin 0.2 mg/dL (0.3-1.0) L 05/05/17 06:31 AST 13 U/L (13-39) 05/05/17 06:31 ALT 10 U/L (7-52) 05/05/17 06:31 Alkaline Phosphatase 66 U/L (34-104) 05/05/17 06:31 Total Protein 5.9 gm/dL (6.0-8.3) L 05/05/17 06:31 Albumin 2.3 gm/dL (4.2-5.5) L 05/05/17 06:31 Globulin 3.6 gm/dL 05/05/17 06:31 Albumin/Globulin Ratio 0.6 (1.0-1.8) L 05/05/17 06:31 Vitamin B12 1438 pg/mL (232-1245) H 05/03/17 05:20 Folic Acid 13.3 ng/mL (>3.0) 05/03/17 05:20 Stool Occult Blood NEGATIVE (NEGATIVE) 05/05/17 02:15 Blood Type O POSITIVE 05/02/17 09:20 Antibody Screen NEGATIVE 05/02/17 09:20 Crossmatch See Detail 05/02/17 09:20 - Physical Exam Vitals and I&O: Vital Signs Temp 98.1 F 05/05/17 12:00 Pulse 71 05/05/17 12:00 Resp 17 05/05/17 12:00 BP 119/53 05/05/17 12:00 Pulse Ox 99 05/05/17 12:00 Intake & Output 05/04/17 05/05/17 05/05/17 18:59 06:59 18:59 Intake Total 400 1425 100 Balance 400 1425 100 Weight (lbs) 86.636 kg 86.636 kg Intake: Intake, IV Amount 1425 D5-0.45NS 1,000 ml @ 75 1425 mls/hr IV .[id number] [facility] Rx #:[id number] Oral 400 100 Other: # Voids 3 # Bowel Movements 0 1 Active Medications: Current Medications Acetaminophen (Tylenol) 500 mg PO Q6H PRN PRN Reason: Pain (Moderate) Stop: 07/01/17 02:48 Last Admin: 05/04/17 17:26 Dose: 500 mg Amlodipine Besylate (Norvasc) 10 mg PO DAILY [facility] Stop: 07/04/17 08:59 Last Admin: 05/05/17 09:11 Dose: 10 mg Bisacodyl (Dulcolax 10 Mg Supp) 10 mg RC DAILY PRN PRN Reason: constipation Stop: 07/03/17 23:58 Last Admin: 05/05/17 00:20 Dose: 10 mg Carbamazepine (Tegretol) 200 mg PO TID [facility] PRN Reason: Protocol Stop: 07/01/17 08:59 Last Admin: 05/05/17 09:11 Dose: 200 mg Hydralazine HCl (Apresoline) 25 mg PO TID [facility] Stop: 07/03/17 20:59 Last Admin: 05/05/17 09:12 Dose: 25 mg Dextrose/Sodium Chloride (D5-0.45ns) 1,000 mls @ 75 mls/hr IV .[id number] [facility] Stop: 07/01/17 01:44 Last Admin: 05/05/17 06:23 Dose: 75 mls/hr Levetiracetam (Keppra) 500 mg PO BID [facility] Stop: 07/01/17 08:59 Last Admin: 05/05/17 09:11 Dose: 500 mg Metoprolol Tartrate (Lopressor) 100 mg PO BID [facility] Stop: 07/01/17 08:59 Last Admin: 05/05/17 09:12 Dose: 100 mg Miscellaneous (Clinical Monitoring) 1 ea MC PRN PRN PRN Reason: RENAL Stop: 07/01/17 09:53 Pantoprazole Sodium (Protonix) 40 mg PO DAILY [facility] Stop: 07/01/17 07:29 Last Admin: 05/05/17 09:12 Dose: 40 mg Senna (Senna) 8.6 mg PO DAILY [facility] Stop: 07/04/17 08:59 Last Admin: 05/05/17 09:11 Dose: 8.6 mg Temazepam (Restoril) 15 mg PO HS PRN; Protocol PRN Reason: Insomnia Stop: 07/03/17 23:57 Last Admin: 05/05/17 00:20 Dose: 15 mg General: Cooperative, No acute distress HEENT: Atraumatic Neck: Supple Cardiovascular: Regular rate, Normal S1, Normal S2 Lungs: Clear to auscultation Abdomen: Bowel sounds Extremities: Cyanosis - Procedures Procedures: Procedures Procedure Code Date BLOOD TRANSFUSION SERVICE 38215 05/01/17 DRAINAGE OF SKIN ABSCESS 44506 08/15/03 ELECTROCARDIOGRAM 89.52 01/27/00 ELECTROCARDIOGRAM COMPLETE 93164 01/27/00 INSERT NON-TUNNEL CV CATH 34808 12/13/03 MAGNETIC RESONANCE IMAGING OF BRAIN AND BRAIN STEM 88.91 01/27/00 MRI BRAIN STEM W/O DYE 81654 01/27/00 OTHER SKIN & SUBQ I D 86.04 08/15/03 TRANSFUSE NONAUT RED BLOOD CELLS IN PERIPH VEIN, PERC 78142P1 05/01/17 VENOUS CATHETERIZATION NEC 38.93 12/13/03 Assessment/Plan - Assessment Assessment: ACUTE ANEMIA ACUTE RENAL FAILURE SECONDARY TO ATN SECONDARY TO SEVERE ANEMIA ACUTE TUBULAR NECROSIS CVA SEIZURE PSYCHOSIS DEMENTIA - Plan Plan: BP NEEDS BETTER CONTROL RENAL FUNCTION IMPROVING HGB stable Nutritional Asmnt/Malnutr-PDOC - Dietary Evaluation Malnutrition Findings (Please click <Entered> for more info): Nutritional Asmnt/Malnutrition Start: 05/02/17 15: 58 Text: Status: Complete Freq: Document 05/02/17 15:58 LCALLISONG (Rec: 05/02/17 16:14 ALLISONG [email or web address]) Nutritional Asmnt/Malnutrition Patient General Information Nutritional Screening High Risk Consult Diagnosis severe anemia, dehydration, CISCO Pertinent Medical Hx/Surgical Hx CVA, seizure disorder, dementia, psychosis, CKD Subjective Information Consult received for BS 215 at adm and wound. Pt seen lying in bed at time of visit, awake and alert at time of visit. Hard to understand pt. Pt said no when dietitian asked about food related questions. Per nurse notes, pt refused lunch althought RN and [employer] tried multiple times. Current Diet Order/ Nutrition Support Renal, mech soft chopped Pertinent Medications D5-0.45ns, protonix Pertinent Labs 05/02 Na 141, K 4.2, Cl 118, BUN 91, Cr 2.5, Glucose 180, POC 215, AST 11, Alb 2.5 Nutritional Hx/Data Height 1.57 m Height (Calculated Centimeters) 157.5 Current Weight (lbs) 78.018 kg Weight (Calculated Kilograms) 78.0 Weight (Calculated Grams) 61688.9 [place] Body Weight 118 Body Mass Index (BMI) 31.4 Weight Status Obese GI Symptoms GI Symptoms None Last BM none Difficult in: None Skin Integrity/Comment: per wound care note: Distal aspect of Gluteal Sulcus - Moisture lesion, present on admission. reddened to sacrum, potential skin problem to bilateral legs Estimated Nutritional Goals BEE in Kcals: Adj wt of IBW Calories/Kcals/Kg 25-30 Kcals Calculated 0403-5905 Protein: Adj wt of IBW Protein g/k-1.2 Protein Calculated 60-72 Fluid: ml 1500-1800ml (1ml/kcal) or per MD Nutritional Problem 1. Problem Problem altered nutrition related lab values Etiology hx of CKD, dx of CISCO, endocrine dysfunction Signs/Symptoms: BUN 91, Cr 2.5, Glucose 180, POC 215 Malnutrition Alert Protein-Calorie Malnutrition N/A Is there a minimum of two criteria No selected? Query Text:Check all the applicable criteria. A minimum of two criteria are recommended for diagnosis of either severe or non-severe malnutrition. Intervention/Recommendation Comments 1. Monitor glucose and check a1c level. If glucose continue high, will consider adding CCHO diet for optimal glycemic control 2. Monitor PO intake, wt, labs and skin integrity 3. F/U as high risk in 2-3 days, 05/04-05/05 Expected Outcomes/Goals Expected Outcomes/Goals 1. PO intake to meet at least 75% of nutritional needs. 2. Wt stability, skin to remain intact, labs to approach WNL.
--- NOTE | 2017-05-05 16:04 | General Progress Note ---
Subjective - Review of Systems Service Date: 05/05/17 Objective - Results Result Diagrams: 05/05/17 06:31 05/05/17 06:31 Recent Labs: Laboratory Last Values WBC 9.0 Th/cmm (4.8-10.8) 05/05/17 06:31 RBC 3.20 Mil/cmm (4.30-5.70) L 05/05/17 06:31 Hgb 9.6 gm/dL (12-16) L 05/05/17 06:31 Hct 27.8 % (41.0-60) L 05/05/17 06:31 MCV 86.8 fl (80-99) 05/05/17 06:31 MCH 29.8 pg (26.0-30.0) 05/05/17 06:31 MCHC Differential 34.4 pg (28.0-36.0) 05/05/17 06:31 RDW 14.0 % (11.5-20.0) 05/05/17 06:31 Plt Count 303 Th/cmm (150-400) 05/05/17 06:31 MPV 6.8 fl 05/05/17 06:31 Neutrophils % 65.4 % (40.0-80.0) 05/05/17 06:31 Lymphocytes % 20.1 % (20.0-50.0) 05/05/17 06:31 Monocytes % 9.7 % (2.0-10.0) 05/05/17 06:31 Eosinophils % 4.4 % (0.0-5.0) 05/05/17 06:31 Basophils % 0.4 % (0.0-2.0) 05/05/17 06:31 PT 10.5 SECONDS (9.5-11.5) 05/02/17 06:00 INR 1.01 (0.5-1.4) 05/02/17 06:00 Sodium 140 mEq/L (136-145) 05/05/17 06:31 Potassium 3.9 mEq/L (3.5-5.1) 05/05/17 06:31 Chloride 123 mEq/L (98-107) H 05/05/17 06:31 Carbon Dioxide 14.9 mEq/L (21.0-31.0) L 05/05/17 06:31 Anion Gap 6.0 (7.0-16.0) L 05/05/17 06:31 BUN 53 mg/dL (7-25) H 05/05/17 06:31 Creatinine 1.5 mg/dL (0.7-1.3) H 05/05/17 06:31 Est GFR ( Amer) > 60.0 ml/min (>90) 05/05/17 06:31 Est GFR (Non-Af Amer) 51.8 ml/min 05/05/17 06:31 BUN/Creatinine Ratio 35.3 05/05/17 06:31 Glucose 139 mg/dL (70-105) H 05/05/17 06:31 POC Glucose 215 MG/DL (70 - 105) H 05/02/17 01:25 Hemoglobin A1c % 5.6 % (4.0-6.0) 05/02/17 06:00 Calcium 8.4 mg/dL (8.6-10.3) L 05/05/17 06:31 Iron 21 ug/dL (38-169) L 05/03/17 05:20 TIBC 155 ug/dL (250-450) L 05/03/17 05:20 Iron Saturation 14 % (15-55) L 05/03/17 05:20 Unsaturated IBC 134 ug/dL (111-343) 05/03/17 05:20 Ferritin 488 ng/mL (30-400) H 05/03/17 05:20 Total Bilirubin 0.2 mg/dL (0.3-1.0) L 05/05/17 06:31 AST 13 U/L (13-39) 05/05/17 06:31 ALT 10 U/L (7-52) 05/05/17 06:31 Alkaline Phosphatase 66 U/L (34-104) 05/05/17 06:31 Total Protein 5.9 gm/dL (6.0-8.3) L 05/05/17 06:31 Albumin 2.3 gm/dL (4.2-5.5) L 05/05/17 06:31 Globulin 3.6 gm/dL 05/05/17 06:31 Albumin/Globulin Ratio 0.6 (1.0-1.8) L 05/05/17 06:31 Vitamin B12 1438 pg/mL (232-1245) H 05/03/17 05:20 Folic Acid 13.3 ng/mL (>3.0) 05/03/17 05:20 Stool Occult Blood NEGATIVE (NEGATIVE) 05/05/17 02:15 Blood Type O POSITIVE 05/02/17 09:20 Antibody Screen NEGATIVE 05/02/17 09:20 Crossmatch See Detail 05/02/17 09:20 - Physical Exam Vitals and I&O: Vital Signs Temp 98.1 F 05/05/17 12:00 Pulse 71 05/05/17 13:58 Resp 17 05/05/17 12:00 BP 119/53 05/05/17 13:58 Pulse Ox 99 05/05/17 12:00 Intake & Output 05/04/17 05/05/17 05/05/17 18:59 06:59 18:59 Intake Total 400 1425 668.75 Balance 400 1425 668.75 Weight (lbs) 86.636 kg 86.636 kg Intake: Intake, IV Amount 1425 568.75 D5-0.45NS 1,000 ml @ 75 1425 568.75 mls/hr IV .[id number] [facility] Rx #:[id number] Oral 400 100 Other: # Voids 3 # Bowel Movements 0 1 Active Medications: Current Medications Acetaminophen (Tylenol) 500 mg PO Q6H PRN PRN Reason: Pain (Moderate) Stop: 07/01/17 02:48 Last Admin: 05/04/17 17:26 Dose: 500 mg Amlodipine Besylate (Norvasc) 10 mg PO DAILY [facility] [place] Stop: 07/04/17 08:59 Last Admin: 05/05/17 09:11 Dose: 10 mg Bisacodyl (Dulcolax 10 Mg Supp) 10 mg RC DAILY PRN PRN Reason: constipation Stop: 07/03/17 23:58 Last Admin: 05/05/17 00:20 Dose: 10 mg Carbamazepine (Tegretol) 200 mg PO TID [facility] [place] PRN Reason: Protocol Stop: 07/01/17 08:59 Last Admin: 05/05/17 13:59 Dose: 200 mg Hydralazine HCl (Apresoline) 25 mg PO TID [facility] [place] Stop: 07/03/17 20:59 Last Admin: 05/05/17 13:58 Dose: 25 mg Dextrose/Sodium Chloride (D5-0.45ns) 1,000 mls @ 75 mls/hr IV .[id number] [facility] [place] Stop: 07/01/17 01:44 Last Admin: 05/05/17 13:58 Dose: 75 mls/hr Levetiracetam (Keppra) 500 mg PO BID [facility] [place] Stop: 07/01/17 08:59 Last Admin: 05/05/17 09:11 Dose: 500 mg Metoprolol Tartrate (Lopressor) 100 mg PO BID [facility] [place] Stop: 07/01/17 08:59 Last Admin: 05/05/17 09:12 Dose: 100 mg Miscellaneous (Clinical Monitoring) 1 ea MC PRN PRN PRN Reason: RENAL Stop: 07/01/17 09:53 Pantoprazole Sodium (Protonix) 40 mg PO DAILY [facility] [place] Stop: 07/01/17 07:29 Last Admin: 05/05/17 09:12 Dose: 40 mg Senna (Senna) 8.6 mg PO DAILY [facility] [place] Stop: 07/04/17 08:59 Last Admin: 05/05/17 09:11 Dose: 8.6 mg Temazepam (Restoril) 15 mg PO HS PRN; Protocol PRN Reason: Insomnia Stop: 07/03/17 23:57 Last Admin: 05/05/17 00:20 Dose: 15 mg General: Cooperative, No acute distress HEENT: Atraumatic Neck: Supple Cardiovascular: Regular rate, Normal S1, Normal S2 Lungs: Clear to auscultation Abdomen: Bowel sounds Extremities: Cyanosis - Procedures Procedures: Procedures Procedure Code Date BLOOD TRANSFUSION SERVICE 44090 05/01/17 DRAINAGE OF SKIN ABSCESS 76823 08/15/03 ELECTROCARDIOGRAM 89.52 01/27/00 ELECTROCARDIOGRAM COMPLETE 26557 01/27/00 INSERT NON-TUNNEL CV CATH 72560 12/13/03 MAGNETIC RESONANCE IMAGING OF BRAIN AND BRAIN STEM 88.91 01/27/00 MRI BRAIN STEM W/O DYE 33529 01/27/00 OTHER SKIN & SUBQ I D 86.04 08/15/03 TRANSFUSE NONAUT RED BLOOD CELLS IN PERIPH VEIN, PERC 04289H5 05/01/17 VENOUS CATHETERIZATION NEC 38.93 12/13/03 Assessment/Plan - Assessment Assessment: 05/05: Hgb remains stable, continue monitoring; Anemia chauhan is consistent with anemia of CKD * 05/04: hgb stable; follow anemia chauhan results and cbc * 3/7: hgb better after transfusion; follow anemia chauhan * 3/6: Severe normocytic anemia. The patient will need comprehensive anemia workup with iron studies, B12, folic acid and stool occult blood. 2. Acute kidney injury on top of chronic kidney disease. 3. Dementia. 4. History of cerebrovascular accident and seizure disorder. Nutritional Asmnt/Malnutr-PDOC - Dietary Evaluation Malnutrition Findings (Please click <Entered> for more info): Nutritional Asmnt/Malnutrition Start: 05/02/17 15: 58 Text: Status: Complete Freq: Document 05/02/17 15:58 [facility] (Rec: 05/02/17 16:14 HEN SILVANA-[email or web address]) Nutritional Asmnt/Malnutrition Patient General Information Nutritional Screening High Risk Consult Diagnosis severe anemia, dehydration, CISCO Pertinent Medical Hx/Surgical Hx CVA, seizure disorder, dementia, psychosis, CKD Subjective Information Consult received for BS 215 at adm and wound. Pt seen lying in bed at time of visit, awake and alert at time of visit. Hard to understand pt. Pt said no when dietitian asked about food related questions. Per nurse notes, pt refused lunch althought RN and CHILD PROTECTION SPECIALIST tried multiple times. Current Diet Order/ Nutrition Support Renal, mech soft chopped Pertinent Medications D5-0.45ns, protonix Pertinent Labs 3 Na 141, K 4.2, Cl 118, BUN 91, Cr 2.5, Glucose 180, POC 215, AST 11, Alb 2.5 Nutritional Hx/Data Height 1.57 m Height (Calculated Centimeters) 157.5 Current Weight (lbs) 78.018 kg Weight (Calculated Kilograms) 78.0 Weight (Calculated Grams) 97021.9 [place] Body Weight 118 Body Mass Index (BMI) 31.4 Weight Status Obese GI Symptoms GI Symptoms None Last BM none Difficult in: None Skin Integrity/Comment: per wound care note: Distal aspect of Gluteal Sulcus - Moisture lesion, present on admission. reddened to sacrum, potential skin problem to bilateral legs Estimated Nutritional Goals BEE in Kcals: Adj wt of IBW Calories/Kcals/Kg 25-30 Kcals Calculated 5902-9854 Protein: Adj wt of IBW Protein g/k-1.2 Protein Calculated 60-72 Fluid: ml 1500-1800ml (1ml/kcal) or per MD Nutritional Problem 1. Problem Problem altered nutrition related lab values Etiology hx of CKD, dx of CISCO, endocrine dysfunction Signs/Symptoms: BUN 91, Cr 2.5, Glucose 180, POC 215 Malnutrition Alert Protein-Calorie Malnutrition N/A Is there a minimum of two criteria No selected? Query Text:Check all the applicable criteria. A minimum of two criteria are recommended for diagnosis of either severe or non-severe malnutrition. Intervention/Recommendation Comments 1. Monitor glucose and check a1c level. If glucose continue high, will consider adding CCHO diet for optimal glycemic control 2. Monitor PO intake, wt, labs and skin integrity 3. F/U as high risk in 2-3 days, 05/04-05/05 Expected Outcomes/Goals Expected Outcomes/Goals 1. PO intake to meet at least 75% of nutritional needs. 2. Wt stability, skin to remain intact, labs to approach WNL.
--- NOTE | 2017-05-05 18:42 | Internal Medicine Prog Note ---
Internal Medicine Subjective - Subjective Service Date: 05/05/17 Patient seen and examined:: with staff (THE PATIENT HAS BEEN VERY AGITATED AND FEFUSING FOOD) Patient is:: awake, verbal, confused Per staff patient has:: no adverse event Internal Medicine Objective - Results Result Diagrams: 05/05/17 06:31 05/05/17 06:31 Recent Labs: Laboratory Last Values WBC 9.0 Th/cmm (4.8-10.8) 05/05/17 06:31 RBC 3.20 Mil/cmm (4.30-5.70) L 05/05/17 06:31 Hgb 9.6 gm/dL (12-16) L 05/05/17 06:31 Hct 27.8 % (41.0-60) L 05/05/17 06:31 MCV 86.8 fl (80-99) 05/05/17 06:31 MCH 29.8 pg (26.0-30.0) 05/05/17 06:31 MCHC Differential 34.4 pg (28.0-36.0) 05/05/17 06:31 RDW 14.0 % (11.5-20.0) 05/05/17 06:31 Plt Count 303 Th/cmm (150-400) 05/05/17 06:31 MPV 6.8 fl 05/05/17 06:31 Neutrophils % 65.4 % (40.0-80.0) 05/05/17 06:31 Lymphocytes % 20.1 % (20.0-50.0) 05/05/17 06:31 Monocytes % 9.7 % (2.0-10.0) 05/05/17 06:31 Eosinophils % 4.4 % (0.0-5.0) 05/05/17 06:31 Basophils % 0.4 % (0.0-2.0) 05/05/17 06:31 PT 10.5 SECONDS (9.5-11.5) 05/02/17 06:00 INR 1.01 (0.5-1.4) 05/02/17 06:00 Sodium 140 mEq/L (136-145) 05/05/17 06:31 Potassium 3.9 mEq/L (3.5-5.1) 05/05/17 06:31 Chloride 123 mEq/L (98-107) H 05/05/17 06:31 Carbon Dioxide 14.9 mEq/L (21.0-31.0) L 05/05/17 06:31 Anion Gap 6.0 (7.0-16.0) L 05/05/17 06:31 BUN 53 mg/dL (7-25) H 05/05/17 06:31 Creatinine 1.5 mg/dL (0.7-1.3) H 05/05/17 06:31 Est GFR ( Amer) > 60.0 ml/min (>90) 05/05/17 06:31 Est GFR (Non-Af Amer) 51.8 ml/min 05/05/17 06:31 BUN/Creatinine Ratio 35.3 05/05/17 06:31 Glucose 139 mg/dL (70-105) H 05/05/17 06:31 POC Glucose 215 MG/DL (70 - 105) H 05/02/17 01:25 Hemoglobin A1c % 5.6 % (4.0-6.0) 05/02/17 06:00 Calcium 8.4 mg/dL (8.6-10.3) L 05/05/17 06:31 Iron 21 ug/dL (38-169) L 05/03/17 05:20 TIBC 155 ug/dL (250-450) L 05/03/17 05:20 Iron Saturation 14 % (15-55) L 05/03/17 05:20 Unsaturated IBC 134 ug/dL (111-343) 05/03/17 05:20 Ferritin 488 ng/mL (30-400) H 05/03/17 05:20 Total Bilirubin 0.2 mg/dL (0.3-1.0) L 05/05/17 06:31 AST 13 U/L (13-39) 05/05/17 06:31 ALT 10 U/L (7-52) 05/05/17 06:31 Alkaline Phosphatase 66 U/L (34-104) 05/05/17 06:31 Total Protein 5.9 gm/dL (6.0-8.3) L 05/05/17 06:31 Albumin 2.3 gm/dL (4.2-5.5) L 05/05/17 06:31 Globulin 3.6 gm/dL 05/05/17 06:31 Albumin/Globulin Ratio 0.6 (1.0-1.8) L 05/05/17 06:31 Vitamin B12 1438 pg/mL (232-1245) H 05/03/17 05:20 Folic Acid 13.3 ng/mL (>3.0) 05/03/17 05:20 Stool Occult Blood NEGATIVE (NEGATIVE) 05/05/17 02:15 Blood Type O POSITIVE 05/02/17 09:20 Antibody Screen NEGATIVE 05/02/17 09:20 Crossmatch See Detail 05/02/17 09:20 - Physical Exam Vitals and I&O: Vital Signs Temp 98.3 F 05/05/17 16:00 Pulse 87 05/05/17 16:32 Resp 20 05/05/17 16:00 BP 159/72 05/05/17 16:32 Pulse Ox 99 05/05/17 16:00 Intake & Output 05/04/17 05/05/17 05/05/17 18:59 06:59 18:59 Intake Total 400 1425 1068.75 Balance 400 1425 1068.75 Weight (lbs) 86.636 kg 87.09 kg Intake: Intake, IV Amount 1425 568.75 D5-0.45NS 1,000 ml @ 75 1425 568.75 mls/hr IV .[id number] [facility] Rx #:[id number] Oral 400 500 Other: # Voids 3 3 # Bowel Movements 0 1 Active Medications: Current Medications Acetaminophen (Tylenol) 500 mg PO Q6H PRN PRN Reason: Pain (Moderate) Stop: 07/01/17 02:48 Last Admin: 05/05/17 16:33 Dose: 500 mg Amlodipine Besylate (Norvasc) 10 mg PO DAILY [facility] Stop: 07/04/17 08:59 Last Admin: 05/05/17 09:11 Dose: 10 mg Bisacodyl (Dulcolax 10 Mg Supp) 10 mg RC DAILY PRN PRN Reason: constipation Stop: 07/03/17 23:58 Last Admin: 05/05/17 00:20 Dose: 10 mg Carbamazepine (Tegretol) 200 mg PO TID [facility] PRN Reason: Protocol Stop: 07/01/17 08:59 Last Admin: 05/05/17 13:59 Dose: 200 mg Hydralazine HCl (Apresoline) 25 mg PO TID [facility] Stop: 07/03/17 20:59 Last Admin: 05/05/17 13:58 Dose: 25 mg Dextrose/Sodium Chloride (D5-0.45ns) 1,000 mls @ 75 mls/hr IV .[id number] [facility] Stop: 07/01/17 01:44 Last Admin: 05/05/17 13:58 Dose: 75 mls/hr Levetiracetam (Keppra) 500 mg PO BID [facility] Stop: 07/01/17 08:59 Last Admin: 05/05/17 16:32 Dose: 500 mg Metoprolol Tartrate (Lopressor) 100 mg PO BID [facility] Stop: 07/01/17 08:59 Last Admin: 05/05/17 16:32 Dose: 100 mg Miscellaneous (Clinical Monitoring) 1 ea MC PRN PRN PRN Reason: RENAL Stop: 07/01/17 09:53 Pantoprazole Sodium (Protonix) 40 mg PO DAILY [facility] Stop: 07/01/17 07:29 Last Admin: 05/05/17 09:12 Dose: 40 mg Senna (Senna) 8.6 mg PO DAILY [facility] Stop: 07/04/17 08:59 Last Admin: 05/05/17 09:11 Dose: 8.6 mg Temazepam (Restoril) 15 mg PO HS PRN; Protocol PRN Reason: Insomnia Stop: 07/03/17 23:57 Last Admin: 05/05/17 00:20 Dose: 15 mg General: demented HEENT: NC/AT, PERRLA, EOMI, anicteric sclerae, throat clear Neck: Supple, No JVD, No thyromegaly, +2 carotid pulse wo bruit, No LAD Lungs: CTAB Cardiovascular: RRR, Normal S1, Normal S2, without murmur Abdomen: soft, tender, non-distended Extremities: clear Neurological: no change - Procedures Procedures: Procedures Procedure Code Date BLOOD TRANSFUSION SERVICE 58637 05/01/17 DRAINAGE OF SKIN ABSCESS 88481 08/15/03 ELECTROCARDIOGRAM 89.52 01/27/00 ELECTROCARDIOGRAM COMPLETE 10411 01/27/00 INSERT NON-TUNNEL CV CATH 65649 12/13/03 MAGNETIC RESONANCE IMAGING OF BRAIN AND BRAIN STEM 88.91 01/27/00 MRI BRAIN STEM W/O DYE 47669 01/27/00 OTHER SKIN & SUBQ I D 86.04 08/15/03 TRANSFUSE NONAUT RED BLOOD CELLS IN PERIPH VEIN, PERC 12351Z6 05/01/17 VENOUS CATHETERIZATION NEC 38.93 12/13/03 Internal Medicine Assmt/Plan - Assessment Assessment: 1.SEVER ANEMIA. 2.DEHYDRATION. 3.CISCO. 4.CVA 5.ACUTE ABDONINAL PAIN. 6.UNCONTROLLED HTN. 7.SEVER EPISODES OF AGITATION. - Plan Plan: CONSULT Nutritional Asmnt/Malnutr-PDOC - Dietary Evaluation Malnutrition Findings (Please click <Entered> for more info): Nutritional Asmnt/Malnutrition Start: 05/02/17 15: 58 Text: Status: Complete Freq: Document 05/02/17 15:58 BERRY (Rec: 05/02/17 16:14 LCRUBIN SILVANA-[email or web address]) Nutritional Asmnt/Malnutrition Patient General Information Nutritional Screening High Risk Consult Diagnosis severe anemia, dehydration, CISCO Pertinent Medical Hx/Surgical Hx CVA, seizure disorder, dementia, psychosis, CKD Subjective Information Consult received for BS 215 at adm and wound. Pt seen lying in bed at time of visit, awake and alert at time of visit. Hard to understand pt. Pt said no when dietitian asked about food related questions. Per nurse notes, pt refused lunch althought RN and PHOTOGRAPHIC EQUIPMENT TECHNICIAN tried multiple times. Current Diet Order/ Nutrition Support Renal, mech soft chopped Pertinent Medications D5-0.45ns, protonix Pertinent Labs / Na 141, K 4.2, Cl 118, BUN 91, Cr 2.5, Glucose 180, POC 215, AST 11, Alb 2.5 Nutritional Hx/Data Height 1.57 m Height (Calculated Centimeters) 157.5 Current Weight (lbs) 78.018 kg Weight (Calculated Kilograms) 78.0 Weight (Calculated Grams) 64026.9 [place] Body Weight 118 Body Mass Index (BMI) 31.4 Weight Status Obese GI Symptoms GI Symptoms None Last BM none Difficult in: None Skin Integrity/Comment: per wound care note: Distal aspect of Gluteal Sulcus - Moisture lesion, present on admission. reddened to sacrum, potential skin problem to bilateral legs Estimated Nutritional Goals BEE in Kcals: Adj wt of IBW Calories/Kcals/Kg 25-30 Kcals Calculated 4781-2525 Protein: Adj wt of IBW Protein g/k-1.2 Protein Calculated 60-72 Fluid: ml 1500-1800ml (1ml/kcal) or per MD Nutritional Problem 1. Problem Problem altered nutrition related lab values Etiology hx of CKD, dx of CISCO, endocrine dysfunction Signs/Symptoms: BUN 91, Cr 2.5, Glucose 180, POC 215 Malnutrition Alert Protein-Calorie Malnutrition N/A Is there a minimum of two criteria No selected? Query Text:Check all the applicable criteria. A minimum of two criteria are recommended for diagnosis of either severe or non-severe malnutrition. Intervention/Recommendation Comments 1. Monitor glucose and check a1c level. If glucose continue high, will consider adding CCHO diet for optimal glycemic control 2. Monitor PO intake, wt, labs and skin integrity 3. F/U as high risk in 2-3 days, 05/04-05/05 Expected Outcomes/Goals Expected Outcomes/Goals 1. PO intake to meet at least 75% of nutritional needs. 2. Wt stability, skin to remain intact, labs to approach WNL.
--- NOTE | 2017-05-06 00:16 | Consultation ---
DATE OF CONSULTATION: 05/05/2017 INPATIENT GASTROINTESTINAL CONSULTATION REFERRING PHYSICIAN: Dr. Lopez. REASON FOR CONSULTATION: Abdominal pain. HISTORY OF PRESENT ILLNESS: This is a 56-year-old male who was admitted to the hospital with dehydration, kidney injury, and anemia. The patient is a poor historian from a skilled facility. There was a report of the patient was having some abdominal pain, but this cannot be confirmed. In discussing the ____ with the patient, he is a poor historian. The staff also did not notice any abdominal pain. Also, there was no mention or evidence of nausea, vomiting. No evidence of or complaints of GI bleeding. PAST MEDICAL HISTORY: Stroke, seizure disorder, dementia, and psychosis. PAST SURGICAL HISTORY: None to add recently. FAMILY HISTORY: Noncontributory. SOCIAL HISTORY: Denies tobacco, alcohol, or IV drug usage. ALLERGIES: DILANTIN. CURRENT MEDICATIONS: Tylenol, Norvasc, Dulcolax, Tegretol, Apresoline, Keppra, Lopressor, Protonix, senna, and Restoril. REVIEW OF SYSTEMS: Unobtainable. PHYSICAL EXAMINATION: VITAL SIGNS: Temperature 97.1, breathing 21, pulse is 79, blood pressure 150/78, and satting 98%. GENERAL: No apparent distress. Eyes are anicteric. Normal conjunctivae. HEENT: Normocephalic and atraumatic. Moist mucous membranes. NECK: Soft and supple. CHEST: Clear. No effort. CARDIOVASCULAR: Regular rate and rhythm. ABDOMEN: Soft, nontender, and nondistended. SKIN: Warm and dry. EXTREMITIES: Revealed no cyanosis. LABORATORY DATA: Labs show white count 9, hemoglobin 9.6, MCV of 86, and platelets 303. INR is 1.01. BUN 53 and creatinine 1.5. Iron saturation 14%, ferritin 488, TIBC 155. B12 1438. Folic acid 13.3. Stool OB is negative. IMPRESSION: A 56-year-old male with abdominal pain that is vague and has not been corroborated. Imaging studies can be starting point to see if there are any abnormal findings. The patient also has anemia likely of chronic disease. Stool OB was negative. No overt signs of GI bleeding. The iron levels do not indicate iron deficiency. The B12 and folic acid levels are not diminished either. PLAN: 1. Check a CT abdomen and pelvis. 2. Based on CT scan results, additional workup can be done. 3. Follow H and H. Transfuse as needed. 4. Would reserve endoscopic workup if the patient develops any GI bleeding. Thank you for allowing me to participate. Please call me if you have any questions. JOB# [id number]
[2017-05-06] MEDS: D5-0.45NS 1,000 ML IV SCH (03:39)
[2017-05-06] MEDS ORDERED: Morphine Sulfate 4 mg/mL 1mL Syr IVP STA (04:35)
[2017-05-06] MEDS: Pantoprazole 40 mg EC Tab PO SCH (09:59)
--- NOTE | 2017-05-06 10:36 | General Progress Note ---
Subjective - Review of Systems Service Date: 05/06/17 Objective - Results Result Diagrams: 05/05/17 06:31 05/05/17 06:31 Recent Labs: Laboratory Last Values WBC 9.0 Th/cmm (4.8-10.8) 05/05/17 06:31 RBC 3.20 Mil/cmm (4.30-5.70) L 05/05/17 06:31 Hgb 9.6 gm/dL (12-16) L 05/05/17 06:31 Hct 27.8 % (41.0-60) L 05/05/17 06:31 MCV 86.8 fl (80-99) 05/05/17 06:31 MCH 29.8 pg (26.0-30.0) 05/05/17 06:31 MCHC Differential 34.4 pg (28.0-36.0) 05/05/17 06:31 RDW 14.0 % (11.5-20.0) 05/05/17 06:31 Plt Count 303 Th/cmm (150-400) 05/05/17 06:31 MPV 6.8 fl 05/05/17 06:31 Neutrophils % 65.4 % (40.0-80.0) 05/05/17 06:31 Lymphocytes % 20.1 % (20.0-50.0) 05/05/17 06:31 Monocytes % 9.7 % (2.0-10.0) 05/05/17 06:31 Eosinophils % 4.4 % (0.0-5.0) 05/05/17 06:31 Basophils % 0.4 % (0.0-2.0) 05/05/17 06:31 PT 10.5 SECONDS (9.5-11.5) 05/02/17 06:00 INR 1.01 (0.5-1.4) 05/02/17 06:00 Sodium 140 mEq/L (136-145) 05/05/17 06:31 Potassium 3.9 mEq/L (3.5-5.1) 05/05/17 06:31 Chloride 123 mEq/L (98-107) H 05/05/17 06:31 Carbon Dioxide 14.9 mEq/L (21.0-31.0) L 05/05/17 06:31 Anion Gap 6.0 (7.0-16.0) L 05/05/17 06:31 BUN 53 mg/dL (7-25) H 05/05/17 06:31 Creatinine 1.5 mg/dL (0.7-1.3) H 05/05/17 06:31 Est GFR ( Amer) > 60.0 ml/min (>90) 05/05/17 06:31 Est GFR (Non-Af Amer) 51.8 ml/min 05/05/17 06:31 BUN/Creatinine Ratio 35.3 05/05/17 06:31 Glucose 139 mg/dL (70-105) H 05/05/17 06:31 POC Glucose 215 MG/DL (70 - 105) H 05/02/17 01:25 Hemoglobin A1c % 5.6 % (4.0-6.0) 05/02/17 06:00 Calcium 8.4 mg/dL (8.6-10.3) L 05/05/17 06:31 Iron 21 ug/dL (38-169) L 05/03/17 05:20 TIBC 155 ug/dL (250-450) L 05/03/17 05:20 Iron Saturation 14 % (15-55) L 05/03/17 05:20 Unsaturated IBC 134 ug/dL (111-343) 05/03/17 05:20 Ferritin 488 ng/mL (30-400) H 05/03/17 05:20 Total Bilirubin 0.2 mg/dL (0.3-1.0) L 05/05/17 06:31 AST 13 U/L (13-39) 05/05/17 06:31 ALT 10 U/L (7-52) 05/05/17 06:31 Alkaline Phosphatase 66 U/L (34-104) 05/05/17 06:31 Total Protein 5.9 gm/dL (6.0-8.3) L 05/05/17 06:31 Albumin 2.3 gm/dL (4.2-5.5) L 05/05/17 06:31 Globulin 3.6 gm/dL 05/05/17 06:31 Albumin/Globulin Ratio 0.6 (1.0-1.8) L 05/05/17 06:31 Vitamin B12 1438 pg/mL (232-1245) H 05/03/17 05:20 Folic Acid 13.3 ng/mL (>3.0) 05/03/17 05:20 Stool Occult Blood NEGATIVE (NEGATIVE) 05/05/17 02:15 Blood Type O POSITIVE 05/02/17 09:20 Antibody Screen NEGATIVE 05/02/17 09:20 Crossmatch See Detail 05/02/17 09:20 - Physical Exam Vitals and I&O: Vital Signs Temp 98.4 F 05/06/17 00:00 Pulse 86 05/06/17 09:59 Resp 18 05/06/17 01:00 BP 178/65 05/06/17 09:59 Pulse Ox 98 05/06/17 01:00 Intake & Output 05/05/17 05/06/17 05/06/17 18:59 06:59 18:59 Intake Total 1068.75 1000 Balance 1068.75 1000 Weight (lbs) 87.09 kg Intake: Intake, IV Amount 568.75 1000 D5-0.45NS 1,000 ml @ 75 568.75 1000 mls/hr IV .[id number] [facility] Rx #:[id number] Oral 500 Other: # Voids 3 # Bowel Movements 1 Active Medications: Current Medications Acetaminophen (Tylenol) 500 mg PO Q6H PRN PRN Reason: Pain (Moderate) Stop: 07/01/17 02:48 Last Admin: 05/05/17 22:57 Dose: 500 mg Amlodipine Besylate (Norvasc) 10 mg PO DAILY [facility] Stop: 07/04/17 08:59 Last Admin: 05/06/17 09:59 Dose: 10 mg Bisacodyl (Dulcolax 10 Mg Supp) 10 mg RC DAILY PRN PRN Reason: constipation Stop: 07/03/17 23:58 Last Admin: 05/05/17 00:20 Dose: 10 mg Carbamazepine (Tegretol) 200 mg PO TID [facility] PRN Reason: Protocol Stop: 07/01/17 08:59 Last Admin: 05/06/17 09:59 Dose: 200 mg Hydralazine HCl (Apresoline) 25 mg PO TID [facility] Stop: 07/03/17 20:59 Last Admin: 05/06/17 09:58 Dose: 25 mg Dextrose/Sodium Chloride (D5-0.45ns) 1,000 mls @ 75 mls/hr IV .[id number] [facility] Stop: 07/01/17 01:44 Last Admin: 05/06/17 03:39 Dose: 75 mls/hr Levetiracetam (Keppra) 500 mg PO BID [facility] Stop: 07/01/17 08:59 Last Admin: 05/06/17 09:59 Dose: 500 mg Metoprolol Tartrate (Lopressor) 100 mg PO BID [facility] Stop: 07/01/17 08:59 Last Admin: 05/06/17 09:58 Dose: 100 mg Miscellaneous (Clinical Monitoring) 1 ea MC PRN PRN PRN Reason: RENAL Stop: 07/01/17 09:53 Pantoprazole Sodium (Protonix) 40 mg PO DAILY [facility] Stop: 07/01/17 07:29 Last Admin: 05/06/17 09:59 Dose: 40 mg Senna (Senna) 8.6 mg PO DAILY [facility] Stop: 07/04/17 08:59 Last Admin: 05/06/17 09:59 Dose: 8.6 mg Temazepam (Restoril) 15 mg PO HS PRN; Protocol PRN Reason: Insomnia Stop: 07/03/17 23:57 Last Admin: 05/05/17 21:38 Dose: 15 mg General: Cooperative, No acute distress HEENT: Atraumatic Neck: Supple Cardiovascular: Regular rate, Normal S1, Normal S2 Lungs: Clear to auscultation Abdomen: Bowel sounds Extremities: Cyanosis - Procedures Procedures: Procedures Procedure Code Date BLOOD TRANSFUSION SERVICE 31648 05/01/17 DRAINAGE OF SKIN ABSCESS 97818 08/15/03 ELECTROCARDIOGRAM 89.52 01/27/00 ELECTROCARDIOGRAM COMPLETE 70635 01/27/00 INSERT NON-TUNNEL CV CATH 48553 12/13/03 MAGNETIC RESONANCE IMAGING OF BRAIN AND BRAIN STEM 88.91 01/27/00 MRI BRAIN STEM W/O DYE 17164 01/27/00 OTHER SKIN & SUBQ I D 86.04 08/15/03 TRANSFUSE NONAUT RED BLOOD CELLS IN PERIPH VEIN, PERC [id number] 05/01/17 VENOUS CATHETERIZATION NEC 38.93 12/13/03 Assessment/Plan - Assessment Assessment: 05/06: No clinical bleeding. Anemia of chronic kidney disease 05/05: Hgb remains stable, continue monitoring; Anemia chauhan is consistent with anemia of CKD * 05/04: hgb stable; follow anemia chauhan results and cbc * 05/03: hgb better after transfusion; follow anemia chauhan * 3/6: Severe normocytic anemia. The patient will need comprehensive anemia workup with iron studies, B12, folic acid and stool occult blood. 2. Acute kidney injury on top of chronic kidney disease. 3. Dementia. 4. History of cerebrovascular accident and seizure disorder. Nutritional Asmnt/Malnutr-PDOC - Dietary Evaluation Malnutrition Findings (Please click <Entered> for more info): Nutritional Asmnt/Malnutrition Start: 05/02/17 15: 58 Text: Status: Complete Freq: Document 05/02/17 15:58 [facility] (Rec: 05/02/17 16:14 [facility] SILVANA-[id number]) Nutritional Asmnt/Malnutrition Patient General Information Nutritional Screening High Risk Consult Diagnosis severe anemia, dehydration, CISCO Pertinent Medical Hx/Surgical Hx CVA, seizure disorder, dementia, psychosis, CKD Subjective Information Consult received for BS 215 at adm and wound. Pt seen lying in bed at time of visit, awake and alert at time of visit. Hard to understand pt. Pt said no when dietitian asked about food related questions. Per nurse notes, pt refused lunch althought RN and CANAL TENDER tried multiple times. Current Diet Order/ Nutrition Support Renal, mech soft chopped Pertinent Medications D5-0.45ns, protonix Pertinent Labs 3 Na 141, K 4.2, Cl 118, BUN 91, Cr 2.5, Glucose 180, POC 215, AST 11, Alb 2.5 Nutritional Hx/Data Height 1.57 m Height (Calculated Centimeters) 157.5 Current Weight (lbs) 78.018 kg Weight (Calculated Kilograms) 78.0 Weight (Calculated Grams) 61699.9 [place] Body Weight 118 Body Mass Index (BMI) 31.4 Weight Status Obese GI Symptoms GI Symptoms None Last BM none Difficult in: None Skin Integrity/Comment: per wound care note: Distal aspect of Gluteal Sulcus - Moisture lesion, present on admission. reddened to sacrum, potential skin problem to bilateral legs Estimated Nutritional Goals BEE in Kcals: Adj wt of IBW Calories/Kcals/Kg 25-30 Kcals Calculated 3919-7560 Protein: Adj wt of IBW Protein g/k-1.2 Protein Calculated 60-72 Fluid: ml 1500-1800ml (1ml/kcal) or per MD Nutritional Problem 1. Problem Problem altered nutrition related lab values Etiology hx of CKD, dx of CISCO, endocrine dysfunction Signs/Symptoms: BUN 91, Cr 2.5, Glucose 180, POC 215 Malnutrition Alert Protein-Calorie Malnutrition N/A Is there a minimum of two criteria No selected? Query Text:Check all the applicable criteria. A minimum of two criteria are recommended for diagnosis of either severe or non-severe malnutrition. Intervention/Recommendation Comments 1. Monitor glucose and check a1c level. If glucose continue high, will consider adding CCHO diet for optimal glycemic control 2. Monitor PO intake, wt, labs and skin integrity 3. F/U as high risk in 2-3 days, 05/04-05/05 Expected Outcomes/Goals Expected Outcomes/Goals 1. PO intake to meet at least 75% of nutritional needs. 2. Wt stability, skin to remain intact, labs to approach WNL.
--- NOTE | 2017-05-06 11:38 | General Progress Note ---
Subjective - Review of Systems Service Date: 05/06/17 Subjective: pt seen and examined BP on and off high pt confused in bed no distress Objective - Results Result Diagrams: 05/05/17 06:31 05/05/17 06:31 Recent Labs: Laboratory Last Values WBC 9.0 Th/cmm (4.8-10.8) 05/05/17 06:31 RBC 3.20 Mil/cmm (4.30-5.70) L 05/05/17 06:31 Hgb 9.6 gm/dL (12-16) L 05/05/17 06:31 Hct 27.8 % (41.0-60) L 05/05/17 06:31 MCV 86.8 fl (80-99) 05/05/17 06:31 MCH 29.8 pg (26.0-30.0) 05/05/17 06:31 MCHC Differential 34.4 pg (28.0-36.0) 05/05/17 06:31 RDW 14.0 % (11.5-20.0) 05/05/17 06:31 Plt Count 303 Th/cmm (150-400) 05/05/17 06:31 MPV 6.8 fl 05/05/17 06:31 Neutrophils % 65.4 % (40.0-80.0) 05/05/17 06:31 Lymphocytes % 20.1 % (20.0-50.0) 05/05/17 06:31 Monocytes % 9.7 % (2.0-10.0) 05/05/17 06:31 Eosinophils % 4.4 % (0.0-5.0) 05/05/17 06:31 Basophils % 0.4 % (0.0-2.0) 05/05/17 06:31 PT 10.5 SECONDS (9.5-11.5) 05/02/17 06:00 INR 1.01 (0.5-1.4) 05/02/17 06:00 Sodium 140 mEq/L (136-145) 05/05/17 06:31 Potassium 3.9 mEq/L (3.5-5.1) 05/05/17 06:31 Chloride 123 mEq/L (98-107) H 05/05/17 06:31 Carbon Dioxide 14.9 mEq/L (21.0-31.0) L 05/05/17 06:31 Anion Gap 6.0 (7.0-16.0) L 05/05/17 06:31 BUN 53 mg/dL (7-25) H 05/05/17 06:31 Creatinine 1.5 mg/dL (0.7-1.3) H 05/05/17 06:31 Est GFR ( Amer) > 60.0 ml/min (>90) 05/05/17 06:31 Est GFR (Non-Af Amer) 51.8 ml/min 05/05/17 06:31 BUN/Creatinine Ratio 35.3 05/05/17 06:31 Glucose 139 mg/dL (70-105) H 05/05/17 06:31 POC Glucose 215 MG/DL (70 - 105) H 05/02/17 01:25 Hemoglobin A1c % 5.6 % (4.0-6.0) 05/02/17 06:00 Calcium 8.4 mg/dL (8.6-10.3) L 05/05/17 06:31 Iron 21 ug/dL (38-169) L 05/03/17 05:20 TIBC 155 ug/dL (250-450) L 05/03/17 05:20 Iron Saturation 14 % (15-55) L 05/03/17 05:20 Unsaturated IBC 134 ug/dL (111-343) 05/03/17 05:20 Ferritin 488 ng/mL (30-400) H 05/03/17 05:20 Total Bilirubin 0.2 mg/dL (0.3-1.0) L 05/05/17 06:31 AST 13 U/L (13-39) 05/05/17 06:31 ALT 10 U/L (7-52) 05/05/17 06:31 Alkaline Phosphatase 66 U/L (34-104) 05/05/17 06:31 Total Protein 5.9 gm/dL (6.0-8.3) L 05/05/17 06:31 Albumin 2.3 gm/dL (4.2-5.5) L 05/05/17 06:31 Globulin 3.6 gm/dL 05/05/17 06:31 Albumin/Globulin Ratio 0.6 (1.0-1.8) L 05/05/17 06:31 Vitamin B12 1438 pg/mL (232-1245) H 05/03/17 05:20 Folic Acid 13.3 ng/mL (>3.0) 05/03/17 05:20 Stool Occult Blood NEGATIVE (NEGATIVE) 05/05/17 02:15 Blood Type O POSITIVE 05/02/17 09:20 Antibody Screen NEGATIVE 05/02/17 09:20 Crossmatch See Detail 05/02/17 09:20 - Physical Exam Vitals and I&O: Vital Signs Temp 98.4 F 05/06/17 00:00 Pulse 86 05/06/17 09:59 Resp 18 05/06/17 01:00 BP 178/65 05/06/17 09:59 Pulse Ox 98 05/06/17 01:00 Intake & Output 05/05/17 05/06/17 05/06/17 18:59 06:59 18:59 Intake Total 1068.75 1000 Balance 1068.75 1000 Weight (lbs) 87.09 kg Intake: Intake, IV Amount 568.75 1000 D5-0.45NS 1,000 ml @ 75 568.75 1000 mls/hr IV .[id number] [facility] Rx #:[id number] Oral 500 Other: # Voids 3 # Bowel Movements 1 Active Medications: Current Medications Acetaminophen (Tylenol) 500 mg PO Q6H PRN PRN Reason: Pain (Moderate) Stop: 07/01/17 02:48 Last Admin: 05/05/17 22:57 Dose: 500 mg Amlodipine Besylate (Norvasc) 10 mg PO DAILY [facility] Stop: 07/04/17 08:59 Last Admin: 05/06/17 09:59 Dose: 10 mg Bisacodyl (Dulcolax 10 Mg Supp) 10 mg RC DAILY PRN PRN Reason: constipation Stop: 07/03/17 23:58 Last Admin: 05/05/17 00:20 Dose: 10 mg Carbamazepine (Tegretol) 200 mg PO TID [facility] PRN Reason: Protocol Stop: 07/01/17 08:59 Last Admin: 05/06/17 09:59 Dose: 200 mg Hydralazine HCl (Apresoline) 25 mg PO TID [facility] Stop: 07/03/17 20:59 Last Admin: 05/06/17 09:58 Dose: 25 mg Dextrose/Sodium Chloride (D5-0.45ns) 1,000 mls @ 75 mls/hr IV .[id number] [facility] Stop: 07/01/17 01:44 Last Admin: 05/06/17 03:39 Dose: 75 mls/hr Levetiracetam (Keppra) 500 mg PO BID [facility] Stop: 07/01/17 08:59 Last Admin: 05/06/17 09:59 Dose: 500 mg Metoprolol Tartrate (Lopressor) 100 mg PO BID [facility] Stop: 07/01/17 08:59 Last Admin: 05/06/17 09:58 Dose: 100 mg Miscellaneous (Clinical Monitoring) 1 ea MC PRN PRN PRN Reason: RENAL Stop: 07/01/17 09:53 Pantoprazole Sodium (Protonix) 40 mg PO DAILY [facility] Stop: 07/01/17 07:29 Last Admin: 05/06/17 09:59 Dose: 40 mg Senna (Senna) 8.6 mg PO DAILY [facility] Stop: 07/04/17 08:59 Last Admin: 05/06/17 09:59 Dose: 8.6 mg Temazepam (Restoril) 15 mg PO HS PRN; Protocol PRN Reason: Insomnia Stop: 07/03/17 23:57 Last Admin: 05/05/17 21:38 Dose: 15 mg General: Cooperative, No acute distress HEENT: Atraumatic Neck: Supple Cardiovascular: Regular rate, Normal S1, Normal S2 Lungs: Clear to auscultation Abdomen: Bowel sounds Extremities: Cyanosis - Procedures Procedures: Procedures Procedure Code Date BLOOD TRANSFUSION SERVICE 03016 05/01/17 DRAINAGE OF SKIN ABSCESS 57061 08/15/03 ELECTROCARDIOGRAM 89.52 01/27/00 ELECTROCARDIOGRAM COMPLETE 72229 01/27/00 INSERT NON-TUNNEL CV CATH 21507 12/13/03 MAGNETIC RESONANCE IMAGING OF BRAIN AND BRAIN STEM 88.91 01/27/00 MRI BRAIN STEM W/O DYE 11243 01/27/00 OTHER SKIN & SUBQ I D 86.04 08/15/03 TRANSFUSE NONAUT RED BLOOD CELLS IN PERIPH VEIN, PERC 50128Y9 05/01/17 VENOUS CATHETERIZATION NEC 38.93 12/13/03 Assessment/Plan - Assessment Assessment: ACUTE ANEMIA ACUTE RENAL FAILURE SECONDARY TO ATN SECONDARY TO SEVERE ANEMIA ACUTE TUBULAR NECROSIS CVA SEIZURE PSYCHOSIS DEMENTIA - Plan Plan: BP NEEDS BETTER CONTROL RENAL FUNCTION IMPROVING HGB stable add bicarb Nutritional Asmnt/Malnutr-PDOC - Dietary Evaluation Malnutrition Findings (Please click <Entered> for more info): Nutritional Asmnt/Malnutrition Start: 05/02/17 15: 58 Text: Status: Complete Freq: Document 05/02/17 15:58 [facility] (Rec: 05/02/17 16:14 [facility] SILVANA-[email or web address]) Nutritional Asmnt/Malnutrition Patient General Information Nutritional Screening High Risk Consult Diagnosis severe anemia, dehydration, CISCO Pertinent Medical Hx/Surgical Hx CVA, seizure disorder, dementia, psychosis, CKD Subjective Information Consult received for BS 215 at adm and wound. Pt seen lying in bed at time of visit, awake and alert at time of visit. Hard to understand pt. Pt said no when dietitian asked about food related questions. Per nurse notes, pt refused lunch althought RN and LINEN AIDE tried multiple times. Current Diet Order/ Nutrition Support Renal, mech soft chopped Pertinent Medications D5-0.45ns, protonix Pertinent Labs 05/02 Na 141, K 4.2, Cl 118, BUN 91, Cr 2.5, Glucose 180, POC 215, AST 11, Alb 2.5 Nutritional Hx/Data Height 1.57 m Height (Calculated Centimeters) 157.5 Current Weight (lbs) 78.018 kg Weight (Calculated Kilograms) 78.0 Weight (Calculated Grams) 39098.9 [place] Body Weight 118 Body Mass Index (BMI) 31.4 Weight Status Obese GI Symptoms GI Symptoms None Last BM none Difficult in: None Skin Integrity/Comment: per wound care note: Distal aspect of Gluteal Sulcus - Moisture lesion, present on admission. reddened to sacrum, potential skin problem to bilateral legs Estimated Nutritional Goals BEE in Kcals: Adj wt of IBW Calories/Kcals/Kg 25-30 Kcals Calculated 8944-0087 Protein: Adj wt of IBW Protein g/k-1.2 Protein Calculated 60-72 Fluid: ml 1500-1800ml (1ml/kcal) or per MD Nutritional Problem 1. Problem Problem altered nutrition related lab values Etiology hx of CKD, dx of CISCO, endocrine dysfunction Signs/Symptoms: BUN 91, Cr 2.5, Glucose 180, POC 215 Malnutrition Alert Protein-Calorie Malnutrition N/A Is there a minimum of two criteria No selected? Query Text:Check all the applicable criteria. A minimum of two criteria are recommended for diagnosis of either severe or non-severe malnutrition. Intervention/Recommendation Comments 1. Monitor glucose and check a1c level. If glucose continue high, will consider adding CCHO diet for optimal glycemic control 2. Monitor PO intake, wt, labs and skin integrity 3. F/U as high risk in 2-3 days, 05/04-05/05 Expected Outcomes/Goals Expected Outcomes/Goals 1. PO intake to meet at least 75% of nutritional needs. 2. Wt stability, skin to remain intact, labs to approach WNL.
[2017-05-06] MEDS: Dextrose 5% 1,000 ML IV SCH (15:36)
--- NOTE | 2017-05-06 19:10 | Internal Medicine Prog Note ---
Internal Medicine Subjective - Subjective Service Date: 05/06/17 Patient seen and examined:: with staff (HE IS STILL NOT EATING WELL.AGITATED.) Patient is:: awake, verbal, confused Per staff patient has:: no adverse event Internal Medicine Objective - Results Result Diagrams: 05/05/17 06:31 05/05/17 06:31 Recent Labs: Laboratory Last Values WBC 9.0 Th/cmm (4.8-10.8) 05/05/17 06:31 RBC 3.20 Mil/cmm (4.30-5.70) L 05/05/17 06:31 Hgb 9.6 gm/dL (12-16) L 05/05/17 06:31 Hct 27.8 % (41.0-60) L 05/05/17 06:31 MCV 86.8 fl (80-99) 05/05/17 06:31 MCH 29.8 pg (26.0-30.0) 05/05/17 06:31 MCHC Differential 34.4 pg (28.0-36.0) 05/05/17 06:31 RDW 14.0 % (11.5-20.0) 05/05/17 06:31 Plt Count 303 Th/cmm (150-400) 05/05/17 06:31 MPV 6.8 fl 05/05/17 06:31 Neutrophils % 65.4 % (40.0-80.0) 05/05/17 06:31 Lymphocytes % 20.1 % (20.0-50.0) 05/05/17 06:31 Monocytes % 9.7 % (2.0-10.0) 05/05/17 06:31 Eosinophils % 4.4 % (0.0-5.0) 05/05/17 06:31 Basophils % 0.4 % (0.0-2.0) 05/05/17 06:31 PT 10.5 SECONDS (9.5-11.5) 05/02/17 06:00 INR 1.01 (0.5-1.4) 05/02/17 06:00 Sodium 140 mEq/L (136-145) 05/05/17 06:31 Potassium 3.9 mEq/L (3.5-5.1) 05/05/17 06:31 Chloride 123 mEq/L (98-107) H 05/05/17 06:31 Carbon Dioxide 14.9 mEq/L (21.0-31.0) L 05/05/17 06:31 Anion Gap 6.0 (7.0-16.0) L 05/05/17 06:31 BUN 53 mg/dL (7-25) H 05/05/17 06:31 Creatinine 1.5 mg/dL (0.7-1.3) H 05/05/17 06:31 Est GFR ( Amer) > 60.0 ml/min (>90) 05/05/17 06:31 Est GFR (Non-Af Amer) 51.8 ml/min 05/05/17 06:31 BUN/Creatinine Ratio 35.3 05/05/17 06:31 Glucose 139 mg/dL (70-105) H 05/05/17 06:31 POC Glucose 215 MG/DL (70 - 105) H 05/02/17 01:25 Hemoglobin A1c % 5.6 % (4.0-6.0) 05/02/17 06:00 Calcium 8.4 mg/dL (8.6-10.3) L 05/05/17 06:31 Iron 21 ug/dL (38-169) L 05/03/17 05:20 TIBC 155 ug/dL (250-450) L 05/03/17 05:20 Iron Saturation 14 % (15-55) L 05/03/17 05:20 Unsaturated IBC 134 ug/dL (111-343) 05/03/17 05:20 Ferritin 488 ng/mL (30-400) H 05/03/17 05:20 Total Bilirubin 0.2 mg/dL (0.3-1.0) L 05/05/17 06:31 AST 13 U/L (13-39) 05/05/17 06:31 ALT 10 U/L (7-52) 05/05/17 06:31 Alkaline Phosphatase 66 U/L (34-104) 05/05/17 06:31 Total Protein 5.9 gm/dL (6.0-8.3) L 05/05/17 06:31 Albumin 2.3 gm/dL (4.2-5.5) L 05/05/17 06:31 Globulin 3.6 gm/dL 05/05/17 06:31 Albumin/Globulin Ratio 0.6 (1.0-1.8) L 05/05/17 06:31 Vitamin B12 1438 pg/mL (232-1245) H 05/03/17 05:20 Folic Acid 13.3 ng/mL (>3.0) 05/03/17 05:20 Stool Occult Blood NEGATIVE (NEGATIVE) 05/05/17 02:15 Blood Type O POSITIVE 05/02/17 09:20 Antibody Screen NEGATIVE 05/02/17 09:20 Crossmatch See Detail 05/02/17 09:20 - Physical Exam Vitals and I&O: Vital Signs Temp 97.9 F 05/06/17 17:00 Pulse 97 05/06/17 17:12 Resp 18 05/06/17 17:00 BP 158/75 05/06/17 17:12 Pulse Ox 96 05/06/17 17:00 Intake & Output 05/06/17 05/06/17 05/07/17 06:59 18:59 07:59 Intake Total 1000 Balance 1000 Intake: Intake, IV Amount 1000 D5-0.45NS 1,000 ml @ 75 1000 mls/hr IV .[id number] [facility] Rx #:[id number] Other: Stool Characteristics Soft Formed Active Medications: Current Medications Acetaminophen (Tylenol) 500 mg PO Q6H PRN PRN Reason: Pain (Moderate) Stop: 07/01/17 02:48 Last Admin: 05/06/17 15:37 Dose: 500 mg Amlodipine Besylate (Norvasc) 10 mg PO DAILY [facility] Stop: 07/04/17 08:59 Last Admin: 05/06/17 09:59 Dose: 10 mg Bisacodyl (Dulcolax 10 Mg Supp) 10 mg RC DAILY PRN PRN Reason: constipation Stop: 07/03/17 23:58 Last Admin: 05/05/17 00:20 Dose: 10 mg Carbamazepine (Tegretol) 200 mg PO TID [facility] PRN Reason: Protocol Stop: 07/01/17 08:59 Last Admin: 05/06/17 13:29 Dose: 200 mg Hydralazine HCl (Apresoline) 50 mg PO QID [facility] Stop: 07/05/17 12:59 Last Admin: 05/06/17 17:12 Dose: 50 mg Dextrose (D5w) 1,000 mls @ 50 mls/hr IV .Q20H [facility] Stop: 07/05/17 11:44 Last Admin: 05/06/17 15:36 Dose: 50 mls/hr Levetiracetam (Keppra) 500 mg PO BID [facility] Stop: 07/01/17 08:59 Last Admin: 05/06/17 17:13 Dose: 500 mg Metoprolol Tartrate (Lopressor) 100 mg PO BID [facility] Stop: 07/01/17 08:59 Last Admin: 05/06/17 17:12 Dose: 100 mg Miscellaneous (Clinical Monitoring) 1 ea MC PRN PRN PRN Reason: RENAL Stop: 07/01/17 09:53 Pantoprazole Sodium (Protonix) 40 mg PO DAILY [facility] Stop: 07/01/17 07:29 Last Admin: 05/06/17 09:59 Dose: 40 mg Senna (Senna) 8.6 mg PO DAILY [facility] Stop: 07/04/17 08:59 Last Admin: 05/06/17 09:59 Dose: 8.6 mg Sodium Bicarbonate (Sodium Bicarbonate) 650 mg PO BID [facility] PRN Reason: Protocol Stop: 07/05/17 16:59 Last Admin: 05/06/17 17:12 Dose: 650 mg Temazepam (Restoril) 15 mg PO HS PRN; Protocol PRN Reason: Insomnia Stop: 07/03/17 23:57 Last Admin: 05/05/17 21:38 Dose: 15 mg General: demented HEENT: NC/AT, PERRLA, EOMI, anicteric sclerae, throat clear Neck: Supple, No JVD, No thyromegaly, +2 carotid pulse wo bruit, No LAD Lungs: CTAB Cardiovascular: RRR, Normal S1, Normal S2, without murmur Abdomen: soft, tender, non-distended Extremities: clear Neurological: no change - Procedures Procedures: Procedures Procedure Code Date BLOOD TRANSFUSION SERVICE 82515 05/01/17 DRAINAGE OF SKIN ABSCESS 40327 08/15/03 ELECTROCARDIOGRAM 89.52 01/27/00 ELECTROCARDIOGRAM COMPLETE 00950 01/27/00 INSERT NON-TUNNEL CV CATH 00029 12/13/03 MAGNETIC RESONANCE IMAGING OF BRAIN AND BRAIN STEM 88.91 01/27/00 MRI BRAIN STEM W/O DYE 72105 01/27/00 OTHER SKIN & SUBQ I D 86.04 08/15/03 TRANSFUSE NONAUT RED BLOOD CELLS IN PERIPH VEIN, PERC 94050R4 05/01/17 VENOUS CATHETERIZATION NEC 38.93 12/13/03 Internal Medicine Assmt/Plan - Assessment Assessment: 1.SEVER ANEMIA. 2.DEHYDRATION. 3.CISCO. 4.CVA 5.ACUTE ABDONINAL PAIN. 6.UNCONTROLLED HTN. 7.SEVER EPISODES OF AGITATION. - Plan Plan: CONTINUE ON CURRENT MEDICATION AND DIET.WAITING FOR PSYCH EVALUATION. Nutritional Asmnt/Malnutr-PDOC - Dietary Evaluation Malnutrition Findings (Please click <Entered> for more info): Nutritional Asmnt/Malnutrition Start: 05/02/17 15: 58 Text: Status: Complete Freq: Document 05/02/17 15:58 [facility] (Rec: 05/02/17 16:14 [email or web address]) Nutritional Asmnt/Malnutrition Patient General Information Nutritional Screening High Risk Consult Diagnosis severe anemia, dehydration, CISCO Pertinent Medical Hx/Surgical Hx CVA, seizure disorder, dementia, psychosis, CKD Subjective Information Consult received for BS 215 at adm and wound. Pt seen lying in bed at time of visit, awake and alert at time of visit. Hard to understand pt. Pt said no when dietitian asked about food related questions. Per nurse notes, pt refused lunch althought RN and [employer] tried multiple times. Current Diet Order/ Nutrition Support Renal, mech soft chopped Pertinent Medications D5-0.45ns, protonix Pertinent Labs 3/6 Na 141, K 4.2, Cl 118, BUN 91, Cr 2.5, Glucose 180, POC 215, AST 11, Alb 2.5 Nutritional Hx/Data Height 1.57 m Height (Calculated Centimeters) 157.5 Current Weight (lbs) 78.018 kg Weight (Calculated Kilograms) 78.0 Weight (Calculated Grams) 68730.9 [place] Body Weight 118 Body Mass Index (BMI) 31.4 Weight Status Obese GI Symptoms GI Symptoms None Last BM none Difficult in: None Skin Integrity/Comment: per wound care note: Distal aspect of Gluteal Sulcus - Moisture lesion, present on admission. reddened to sacrum, potential skin problem to bilateral legs Estimated Nutritional Goals BEE in Kcals: Adj wt of IBW Calories/Kcals/Kg 25-30 Kcals Calculated 6468-8078 Protein: Adj wt of IBW Protein g/k-1.2 Protein Calculated 60-72 Fluid: ml 1500-1800ml (1ml/kcal) or per MD Nutritional Problem 1. Problem Problem altered nutrition related lab values Etiology hx of CKD, dx of CISCO, endocrine dysfunction Signs/Symptoms: BUN 91, Cr 2.5, Glucose 180, POC 215 Malnutrition Alert Protein-Calorie Malnutrition N/A Is there a minimum of two criteria No selected? Query Text:Check all the applicable criteria. A minimum of two criteria are recommended for diagnosis of either severe or non-severe malnutrition. Intervention/Recommendation Comments 1. Monitor glucose and check a1c level. If glucose continue high, will consider adding CCHO diet for optimal glycemic control 2. Monitor PO intake, wt, labs and skin integrity 3. F/U as high risk in 2-3 days, 05/04-05/05 Expected Outcomes/Goals Expected Outcomes/Goals 1. PO intake to meet at least 75% of nutritional needs. 2. Wt stability, skin to remain intact, labs to approach WNL.
[2017-05-07] MEDS ORDERED: Haloperidol Lactate 5 mg/mL 1mL Vial IM STA (00:24)
[2017-05-07 07:12] LABS: % BASOPHILS 0.6 % (0.0-2.0); % EOSINOPHILS 3.5 % (0.0-5.0); % LYMPHOCYTES 19.8 % (20.0-50.0); % NEUTROPHILS 69.1 % (40.0-80.0); BASOPHILE ABSOLUTE 0.1 Th/cumm (0-0.2); EOSINOPHILE ABSOLUTE 0.3 Th/cmm (0.1-0.4); HEMATOCRIT 30.9 % (41.0-60); HEMOGLOBIN 10.2 gm/dL (12-16); LYMPHOCYTE ABSOLUTE 1.7 Th/cmm (1.5-3.0); MEAN PLATELET VOLUME 6.6 fl; MONOCYTE ABSOLUTE 0.6 Th/cmm (0.3-1.0); PLATELET COUNT 359 Th/cmm (150-400); RED BLOOD COUNT 3.51 Mil/cmm (4.30-5.70); RED CELL DISTRIBUTION WIDTH 13.6 % (11.5-20.0); WHITE BLOOD COUNT 8.7 Th/cmm (4.8-10.8)
[2017-05-07 07:34] LABS: ALB/GLOB RATIO 0.6 (1.0-1.8); ALBUMIN 2.2 gm/dL (4.2-5.5); ANION GAP 7.6 (7.0-16.0); BILIRUBIN,TOTAL 0.2 mg/dL (0.3-1.0); CALCIUM SERUM 8.4 mg/dL (8.6-10.3); CARBON DIOXIDE 15.5 mEq/L (21.0-31.0); CREATININE - SERUM 1.6 mg/dL (0.7-1.3); GFR AFRICAN-AMERICAN 58.2 ml/min (>90); GFR NON AFRICAN-AMERICAN 48.1 ml/min; POTASSIUM SERUM 4.1 mEq/L (3.5-5.1); TOTAL PROTEIN,SERUM 5.8 gm/dL (6.0-8.3)
[2017-05-07] MEDS: Pantoprazole 40 mg EC Tab PO SCH (09:11)
[2017-05-07] MEDS: Dextrose 5% 1,000 ML IV SCH (14:00)
--- NOTE | 2017-05-07 14:53 | General Progress Note ---
Subjective - Review of Systems Service Date: 05/07/17 Objective - Results Result Diagrams: 05/07/17 06:36 05/07/17 05:00 Recent Labs: Laboratory Last Values WBC 8.7 Th/cmm (4.8-10.8) 05/07/17 06:36 RBC 3.51 Mil/cmm (4.30-5.70) L 05/07/17 06:36 Hgb 10.2 gm/dL (12-16) L 05/07/17 06:36 Hct 30.9 % (41.0-60) L 05/07/17 06:36 MCV 88.0 fl (80-99) 05/07/17 06:36 MCH 29.0 pg (26.0-30.0) 05/07/17 06:36 MCHC Differential 33.0 pg (28.0-36.0) 05/07/17 06:36 RDW 13.6 % (11.5-20.0) 05/07/17 06:36 Plt Count 359 Th/cmm (150-400) 05/07/17 06:36 MPV 6.6 fl 05/07/17 06:36 Neutrophils % 69.1 % (40.0-80.0) 05/07/17 06:36 Lymphocytes % 19.8 % (20.0-50.0) L 05/07/17 06:36 Monocytes % 7.0 % (2.0-10.0) 05/07/17 06:36 Eosinophils % 3.5 % (0.0-5.0) 05/07/17 06:36 Basophils % 0.6 % (0.0-2.0) 05/07/17 06:36 PT 10.5 SECONDS (9.5-11.5) 05/02/17 06:00 INR 1.01 (0.5-1.4) 05/02/17 06:00 Sodium 138 mEq/L (136-145) 05/07/17 05:00 Potassium 4.1 mEq/L (3.5-5.1) 05/07/17 05:00 Chloride 119 mEq/L (98-107) H 05/07/17 05:00 Carbon Dioxide 15.5 mEq/L (21.0-31.0) L 05/07/17 05:00 Anion Gap 7.6 (7.0-16.0) 05/07/17 05:00 BUN 42 mg/dL (7-25) H 05/07/17 05:00 Creatinine 1.6 mg/dL (0.7-1.3) H 05/07/17 05:00 Est GFR ( Amer) 58.2 ml/min (>90) 05/07/17 05:00 Est GFR (Non-Af Amer) 48.1 ml/min 05/07/17 05:00 BUN/Creatinine Ratio 26.3 05/07/17 05:00 Glucose 112 mg/dL (70-105) H 05/07/17 05:00 POC Glucose 215 MG/DL (70 - 105) H 05/02/17 01:25 Hemoglobin A1c % 5.6 % (4.0-6.0) 05/02/17 06:00 Calcium 8.4 mg/dL (8.6-10.3) L 05/07/17 05:00 Iron 21 ug/dL (38-169) L 05/03/17 05:20 TIBC 155 ug/dL (250-450) L 05/03/17 05:20 Iron Saturation 14 % (15-55) L 05/03/17 05:20 Unsaturated IBC 134 ug/dL (111-343) 05/03/17 05:20 Ferritin 488 ng/mL (30-400) H 05/03/17 05:20 Total Bilirubin 0.2 mg/dL (0.3-1.0) L 05/07/17 05:00 AST 16 U/L (13-39) 05/07/17 05:00 ALT 10 U/L (7-52) 05/07/17 05:00 Alkaline Phosphatase 71 U/L (34-104) 05/07/17 05:00 Total Protein 5.8 gm/dL (6.0-8.3) L 05/07/17 05:00 Albumin 2.2 gm/dL (4.2-5.5) L 05/07/17 05:00 Globulin 3.6 gm/dL 05/07/17 05:00 Albumin/Globulin Ratio 0.6 (1.0-1.8) L 05/07/17 05:00 Vitamin B12 1438 pg/mL (232-1245) H 05/03/17 05:20 Folic Acid 13.3 ng/mL (>3.0) 05/03/17 05:20 Stool Occult Blood NEGATIVE (NEGATIVE) 05/07/17 10:00 Blood Type O POSITIVE 05/02/17 09:20 Antibody Screen NEGATIVE 05/02/17 09:20 Crossmatch See Detail 05/02/17 09:20 - Physical Exam Vitals and I&O: Vital Signs Temp 98.6 F 05/07/17 14:00 Pulse 73 05/07/17 14:00 Resp 18 05/07/17 14:00 BP 151/65 05/07/17 14:00 Pulse Ox 96 05/07/17 14:00 Intake & Output 05/06/17 05/07/17 05/07/17 17:59 06:59 18:59 Intake Total Balance Weight (lbs) Intake: Oral Other: Stool Characteristics Formed [place] Active Medications: Current Medications Acetaminophen (Tylenol) 500 mg PO Q6H PRN PRN Reason: Pain (Moderate) Stop: 07/01/17 02:48 Last Admin: 05/07/17 09:10 Dose: 500 mg Amlodipine Besylate (Norvasc) 10 mg PO DAILY [facility] Stop: 07/04/17 08:59 Last Admin: 05/07/17 09:10 Dose: 10 mg Bisacodyl (Dulcolax 10 Mg Supp) 10 mg RC DAILY PRN PRN Reason: constipation Stop: 07/03/17 23:58 Last Admin: 05/05/17 00:20 Dose: 10 mg Carbamazepine (Tegretol) 200 mg PO TID [facility] PRN Reason: Protocol Stop: 07/01/17 08:59 Last Admin: 05/07/17 13:34 Dose: 200 mg Hydralazine HCl (Apresoline) 50 mg PO QID [facility] Stop: 07/05/17 12:59 Last Admin: 05/07/17 13:33 Dose: 50 mg Dextrose (D5w) 1,000 mls @ 50 mls/hr IV .Q20H [facility] Stop: 07/05/17 11:44 Last Admin: 05/06/17 15:36 Dose: 50 mls/hr Levetiracetam (Keppra) 500 mg PO BID [facility] Stop: 07/01/17 08:59 Last Admin: 05/07/17 09:11 Dose: 500 mg Metoprolol Tartrate (Lopressor) 100 mg PO BID [facility] Stop: 07/01/17 08:59 Last Admin: 05/07/17 09:11 Dose: 100 mg Miscellaneous (Clinical Monitoring) 1 ea MC PRN PRN PRN Reason: RENAL Stop: 07/01/17 09:53 Pantoprazole Sodium (Protonix) 40 mg PO DAILY [facility] Stop: 07/01/17 07:29 Last Admin: 05/07/17 09:11 Dose: 40 mg Senna (Senna) 8.6 mg PO DAILY [facility] Stop: 07/04/17 08:59 Last Admin: 05/07/17 09:11 Dose: 8.6 mg Sodium Bicarbonate (Sodium Bicarbonate) 650 mg PO BID [facility] PRN Reason: Protocol Stop: 07/05/17 16:59 Last Admin: 05/07/17 09:10 Dose: 650 mg Temazepam (Restoril) 15 mg PO HS PRN; Protocol PRN Reason: Insomnia Stop: 07/03/17 23:57 Last Admin: 05/06/17 22:11 Dose: 15 mg General: Cooperative, No acute distress HEENT: Atraumatic Neck: Supple Cardiovascular: Regular rate, Normal S1, Normal S2 Lungs: Clear to auscultation Abdomen: Bowel sounds Extremities: Cyanosis - Procedures Procedures: Procedures Procedure Code Date BLOOD TRANSFUSION SERVICE 95921 05/01/17 DRAINAGE OF SKIN ABSCESS 23674 08/15/03 ELECTROCARDIOGRAM 89.52 01/27/00 ELECTROCARDIOGRAM COMPLETE 54547 01/27/00 INSERT NON-TUNNEL CV CATH 63642 12/13/03 MAGNETIC RESONANCE IMAGING OF BRAIN AND BRAIN STEM 88.91 01/27/00 MRI BRAIN STEM W/O DYE 59561 01/27/00 OTHER SKIN & SUBQ I D 86.04 08/15/03 TRANSFUSE NONAUT RED BLOOD CELLS IN PERIPH VEIN, PERC 45838W6 05/01/17 VENOUS CATHETERIZATION NEC 38.93 12/13/03 Assessment/Plan - Assessment Assessment: 05/07: hgb is stable. Anemia of chronic kidney disease 05/06:No clinical bleeding. Anemia of chronic kidney disease 05/05: Hgb remains stable, continue monitoring; Anemia chauhan is consistent with anemia of CKD * 05/04: hgb stable; follow anemia chauhan results and cbc * 05/03: hgb better after transfusion; follow anemia chauhan * 3/6: Severe normocytic anemia. The patient will need comprehensive anemia workup with iron studies, B12, folic acid and stool occult blood. 2. Acute kidney injury on top of chronic kidney disease. 3. Dementia. 4. History of cerebrovascular accident and seizure disorder. Nutritional Asmnt/Malnutr-PDOC - Dietary Evaluation Malnutrition Findings (Please click <Entered> for more info): Nutritional Asmnt/Malnutrition Start: 05/02/17 15: 58 Text: Status: Complete Freq: Document 05/02/17 15:58 [facility] (Rec: 05/02/17 16:14 [email or web address] Nutritional Asmnt/Malnutrition Patient General Information Nutritional Screening High Risk Consult Diagnosis severe anemia, dehydration, CISCO Pertinent Medical Hx/Surgical Hx CVA, seizure disorder, dementia, psychosis, CKD Subjective Information Consult received for BS 215 at adm and wound. Pt seen lying in bed at time of visit, awake and alert at time of visit. Hard to understand pt. Pt said no when dietitian asked about food related questions. Per nurse notes, pt refused lunch althought RN and MEDIC TECHNICIAN tried multiple times. Current Diet Order/ Nutrition Support Renal, mech soft chopped Pertinent Medications D5-0.45ns, protonix Pertinent Labs / Na 141, K 4.2, Cl 118, BUN 91, Cr 2.5, Glucose 180, POC 215, AST 11, Alb 2.5 Nutritional Hx/Data Height 1.57 m Height (Calculated Centimeters) 157.5 Current Weight (lbs) 78.018 kg Weight (Calculated Kilograms) 78.0 Weight (Calculated Grams) 70654.9 [place] Body Weight 118 Body Mass Index (BMI) 31.4 Weight Status Obese GI Symptoms GI Symptoms None Last BM none Difficult in: None Skin Integrity/Comment: per wound care note: Distal aspect of Gluteal Sulcus - Moisture lesion, present on admission. reddened to sacrum, potential skin problem to bilateral legs Estimated Nutritional Goals BEE in Kcals: Adj wt of IBW Calories/Kcals/Kg 25-30 Kcals Calculated 2419-7462 Protein: Adj wt of IBW Protein g/k-1.2 Protein Calculated 60-72 Fluid: ml 1500-1800ml (1ml/kcal) or per MD Nutritional Problem 1. Problem Problem altered nutrition related lab values Etiology hx of CKD, dx of CISCO, endocrine dysfunction Signs/Symptoms: BUN 91, Cr 2.5, Glucose 180, POC 215 Malnutrition Alert Protein-Calorie Malnutrition N/A Is there a minimum of two criteria No selected? Query Text:Check all the applicable criteria. A minimum of two criteria are recommended for diagnosis of either severe or non-severe malnutrition. Intervention/Recommendation Comments 1. Monitor glucose and check a1c level. If glucose continue high, will consider adding CCHO diet for optimal glycemic control 2. Monitor PO intake, wt, labs and skin integrity 3. F/U as high risk in 2-3 days, 05/04-05/05 Expected Outcomes/Goals Expected Outcomes/Goals 1. PO intake to meet at least 75% of nutritional needs. 2. Wt stability, skin to remain intact, labs to approach WNL.
--- NOTE | 2017-05-07 17:31 | General Progress Note ---
Subjective - Review of Systems Service Date: 05/07/17 Subjective: pt seen and examined BP on and off high pt confused in bed no distress Objective - Results Result Diagrams: 05/07/17 06:36 05/07/17 05:00 Recent Labs: Laboratory Last Values WBC 8.7 Th/cmm (4.8-10.8) 05/07/17 06:36 RBC 3.51 Mil/cmm (4.30-5.70) L 05/07/17 06:36 Hgb 10.2 gm/dL (12-16) L 05/07/17 06:36 Hct 30.9 % (41.0-60) L 05/07/17 06:36 MCV 88.0 fl (80-99) 05/07/17 06:36 MCH 29.0 pg (26.0-30.0) 05/07/17 06:36 MCHC Differential 33.0 pg (28.0-36.0) 05/07/17 06:36 RDW 13.6 % (11.5-20.0) 05/07/17 06:36 Plt Count 359 Th/cmm (150-400) 05/07/17 06:36 MPV 6.6 fl 05/07/17 06:36 Neutrophils % 69.1 % (40.0-80.0) 05/07/17 06:36 Lymphocytes % 19.8 % (20.0-50.0) L 05/07/17 06:36 Monocytes % 7.0 % (2.0-10.0) 05/07/17 06:36 Eosinophils % 3.5 % (0.0-5.0) 05/07/17 06:36 Basophils % 0.6 % (0.0-2.0) 05/07/17 06:36 PT 10.5 SECONDS (9.5-11.5) 05/02/17 06:00 INR 1.01 (0.5-1.4) 05/02/17 06:00 Sodium 138 mEq/L (136-145) 05/07/17 05:00 Potassium 4.1 mEq/L (3.5-5.1) 05/07/17 05:00 Chloride 119 mEq/L (98-107) H 05/07/17 05:00 Carbon Dioxide 15.5 mEq/L (21.0-31.0) L 05/07/17 05:00 Anion Gap 7.6 (7.0-16.0) 05/07/17 05:00 BUN 42 mg/dL (7-25) H 05/07/17 05:00 Creatinine 1.6 mg/dL (0.7-1.3) H 05/07/17 05:00 Est GFR ( Amer) 58.2 ml/min (>90) 05/07/17 05:00 Est GFR (Non-Af Amer) 48.1 ml/min 05/07/17 05:00 BUN/Creatinine Ratio 26.3 05/07/17 05:00 Glucose 112 mg/dL (70-105) H 05/07/17 05:00 POC Glucose 215 MG/DL (70 - 105) H 05/02/17 01:25 Hemoglobin A1c % 5.6 % (4.0-6.0) 05/02/17 06:00 Calcium 8.4 mg/dL (8.6-10.3) L 05/07/17 05:00 Iron 21 ug/dL (38-169) L 05/03/17 05:20 TIBC 155 ug/dL (250-450) L 05/03/17 05:20 Iron Saturation 14 % (15-55) L 05/03/17 05:20 Unsaturated IBC 134 ug/dL (111-343) 05/03/17 05:20 Ferritin 488 ng/mL (30-400) H 05/03/17 05:20 Total Bilirubin 0.2 mg/dL (0.3-1.0) L 05/07/17 05:00 AST 16 U/L (13-39) 05/07/17 05:00 ALT 10 U/L (7-52) 05/07/17 05:00 Alkaline Phosphatase 71 U/L (34-104) 05/07/17 05:00 Total Protein 5.8 gm/dL (6.0-8.3) L 05/07/17 05:00 Albumin 2.2 gm/dL (4.2-5.5) L 05/07/17 05:00 Globulin 3.6 gm/dL 05/07/17 05:00 Albumin/Globulin Ratio 0.6 (1.0-1.8) L 03/11/18 05:00 Vitamin B12 1438 pg/mL (232-1245) H 05/03/17 05:20 Folic Acid 13.3 ng/mL (>3.0) 05/03/17 05:20 Stool Occult Blood NEGATIVE (NEGATIVE) 05/07/17 10:00 Blood Type O POSITIVE 05/02/17 09:20 Antibody Screen NEGATIVE 05/02/17 09:20 Crossmatch See Detail 05/02/17 09:20 - Physical Exam Vitals and I&O: Vital Signs Temp 98.6 F 05/07/17 14:00 Pulse 73 05/07/17 14:00 Resp 18 05/07/17 14:00 BP 151/65 05/07/17 14:00 Pulse Ox 96 05/07/17 14:00 Intake & Output 05/06/17 05/07/17 05/07/17 17:59 06:59 18:59 Intake Total Balance Weight (lbs) Intake: Oral Other: Stool Characteristics Formed Hard Brown Active Medications: Current Medications Acetaminophen (Tylenol) 500 mg PO Q6H PRN PRN Reason: Pain (Moderate) Stop: 07/01/17 02:48 Last Admin: 05/07/17 09:10 Dose: 500 mg Amlodipine Besylate (Norvasc) 10 mg PO DAILY [facility] Stop: 07/04/17 08:59 Last Admin: 05/07/17 09:10 Dose: 10 mg Bisacodyl (Dulcolax 10 Mg Supp) 10 mg RC DAILY PRN PRN Reason: constipation Stop: 07/03/17 23:58 Last Admin: 05/05/17 00:20 Dose: 10 mg Carbamazepine (Tegretol) 200 mg PO TID [facility]O PRN Reason: Protocol Stop: 07/01/17 08:59 Last Admin: 05/07/17 13:34 Dose: 200 mg Hydralazine HCl (Apresoline) 50 mg PO QID [facility] Stop: 07/05/17 12:59 Last Admin: 05/07/17 17:19 Dose: Not Given Dextrose (D5w) 1,000 mls @ 50 mls/hr IV .Q20H [facility] Stop: 07/05/17 11:44 Last Admin: 05/06/17 15:36 Dose: 50 mls/hr Levetiracetam (Keppra) 500 mg PO BID [facility]O Stop: 07/01/17 08:59 Last Admin: 05/07/17 17:20 Dose: Not Given Metoprolol Tartrate (Lopressor) 100 mg PO BID [facility] Stop: 07/01/17 08:59 Last Admin: 05/07/17 17:20 Dose: Not Given Miscellaneous (Clinical Monitoring) 1 ea MC PRN PRN PRN Reason: RENAL Stop: 07/01/17 09:53 Pantoprazole Sodium (Protonix) 40 mg PO DAILY [facility] Stop: 07/01/17 07:29 Last Admin: 05/07/17 09:11 Dose: 40 mg Senna (Senna) 8.6 mg PO DAILY [facility] Stop: 07/04/17 08:59 Last Admin: 05/07/17 09:11 Dose: 8.6 mg Sodium Bicarbonate (Sodium Bicarbonate) 650 mg PO BID [facility]O PRN Reason: Protocol Stop: 07/05/17 16:59 Last Admin: 05/07/17 17:20 Dose: Not Given Temazepam (Restoril) 15 mg PO HS PRN; Protocol PRN Reason: Insomnia Stop: 07/03/17 23:57 Last Admin: 05/06/17 22:11 Dose: 15 mg General: Cooperative, No acute distress HEENT: Atraumatic Neck: Supple Cardiovascular: Regular rate, Normal S1, Normal S2 Lungs: Clear to auscultation Abdomen: Bowel sounds Extremities: Cyanosis - Procedures Procedures: Procedures Procedure Code Date BLOOD TRANSFUSION SERVICE 48944 05/01/17 DRAINAGE OF SKIN ABSCESS 32139 08/15/03 ELECTROCARDIOGRAM 89.52 01/27/00 ELECTROCARDIOGRAM COMPLETE 93526 01/27/00 INSERT NON-TUNNEL CV CATH 46612 12/13/03 MAGNETIC RESONANCE IMAGING OF BRAIN AND BRAIN STEM 88.91 01/27/00 MRI BRAIN STEM W/O DYE 58346 01/27/00 OTHER SKIN & SUBQ I D 86.04 08/15/03 TRANSFUSE NONAUT RED BLOOD CELLS IN PERIPH VEIN, PERC 86281N3 05/01/17 VENOUS CATHETERIZATION NEC 38.93 12/13/03 Assessment/Plan - Assessment Assessment: ACUTE ANEMIA ACUTE RENAL FAILURE SECONDARY TO ATN SECONDARY TO SEVERE ANEMIA ACUTE TUBULAR NECROSIS CVA SEIZURE PSYCHOSIS DEMENTIA - Plan Plan: BP NEEDS BETTER CONTROL RENAL FUNCTION IMPROVING HGB stable add bicarb Nutritional Asmnt/Malnutr-PDOC - Dietary Evaluation Malnutrition Findings (Please click <Entered> for more info): Nutritional Asmnt/Malnutrition Start: 05/02/17 15: 58 Text: Status: Complete Freq: Document 05/02/17 15:58 [email or web address] (Rec: 05/02/17 16:14 BERRY [email or web address]) Nutritional Asmnt/Malnutrition Patient General Information Nutritional Screening High Risk Consult Diagnosis severe anemia, dehydration, CISCO Pertinent Medical Hx/Surgical Hx CVA, seizure disorder, dementia, psychosis, CKD Subjective Information Consult received for BS 215 at adm and wound. Pt seen lying in bed at time of visit, awake and alert at time of visit. Hard to understand pt. Pt said no when dietitian asked about food related questions. Per nurse notes, pt refused lunch althought RN and GASOLINE LOCOMOTIVE CRANE OPERATOR tried multiple times. Current Diet Order/ Nutrition Support Renal, mech soft chopped Pertinent Medications D5-0.45ns, protonix Pertinent Labs / Na 141, K 4.2, Cl 118, BUN 91, Cr 2.5, Glucose 180, POC 215, AST 11, Alb 2.5 Nutritional Hx/Data Height 1.57 m Height (Calculated Centimeters) 157.5 Current Weight (lbs) 78.018 kg Weight (Calculated Kilograms) 78.0 Weight (Calculated Grams) 03896.9 [place] Body Weight 118 Body Mass Index (BMI) 31.4 Weight Status Obese GI Symptoms GI Symptoms None Last BM none Difficult in: None Skin Integrity/Comment: per wound care note: Distal aspect of Gluteal Sulcus - Moisture lesion, present on admission. reddened to sacrum, potential skin problem to bilateral legs Estimated Nutritional Goals BEE in Kcals: Adj wt of IBW Calories/Kcals/Kg 25-30 Kcals Calculated 0787-1786 Protein: Adj wt of IBW Protein g/k-1.2 Protein Calculated 60-72 Fluid: ml 1500-1800ml (1ml/kcal) or per MD Nutritional Problem 1. Problem Problem altered nutrition related lab values Etiology hx of CKD, dx of CISCO, endocrine dysfunction Signs/Symptoms: BUN 91, Cr 2.5, Glucose 180, POC 215 Malnutrition Alert Protein-Calorie Malnutrition N/A Is there a minimum of two criteria No selected? Query Text:Check all the applicable criteria. A minimum of two criteria are recommended for diagnosis of either severe or non-severe malnutrition. Intervention/Recommendation Comments 1. Monitor glucose and check a1c level. If glucose continue high, will consider adding CCHO diet for optimal glycemic control 2. Monitor PO intake, wt, labs and skin integrity 3. F/U as high risk in 2-3 days, 05/04-05/05 Expected Outcomes/Goals Expected Outcomes/Goals 1. PO intake to meet at least 75% of nutritional needs. 2. Wt stability, skin to remain intact, labs to approach WNL.
--- NOTE | 2017-05-07 23:46 | Internal Medicine Prog Note ---
Internal Medicine Subjective - Subjective Service Date: 05/07/17 Patient seen and examined:: with staff (HE IS NOT EATING,AGITATED.) Patient is:: awake, verbal, confused Per staff patient has:: no adverse event Internal Medicine Objective - Results Result Diagrams: 05/07/17 06:36 05/07/17 05:00 Recent Labs: Laboratory Last Values WBC 8.7 Th/cmm (4.8-10.8) 05/07/17 06:36 RBC 3.51 Mil/cmm (4.30-5.70) L 05/07/17 06:36 Hgb 10.2 gm/dL (12-16) L 05/07/17 06:36 Hct 30.9 % (41.0-60) L 05/07/17 06:36 MCV 88.0 fl (80-99) 05/07/17 06:36 MCH 29.0 pg (26.0-30.0) 05/07/17 06:36 MCHC Differential 33.0 pg (28.0-36.0) 05/07/17 06:36 RDW 13.6 % (11.5-20.0) 05/07/17 06:36 Plt Count 359 Th/cmm (150-400) 05/07/17 06:36 MPV 6.6 fl 05/07/17 06:36 Neutrophils % 69.1 % (40.0-80.0) 05/07/17 06:36 Lymphocytes % 19.8 % (20.0-50.0) L 05/07/17 06:36 Monocytes % 7.0 % (2.0-10.0) 05/07/17 06:36 Eosinophils % 3.5 % (0.0-5.0) 05/07/17 06:36 Basophils % 0.6 % (0.0-2.0) 05/07/17 06:36 PT 10.5 SECONDS (9.5-11.5) 05/02/17 06:00 INR 1.01 (0.5-1.4) 05/02/17 06:00 Sodium 138 mEq/L (136-145) 05/07/17 05:00 Potassium 4.1 mEq/L (3.5-5.1) 05/07/17 05:00 Chloride 119 mEq/L (98-107) H 05/07/17 05:00 Carbon Dioxide 15.5 mEq/L (21.0-31.0) L 05/07/17 05:00 Anion Gap 7.6 (7.0-16.0) 05/07/17 05:00 BUN 42 mg/dL (7-25) H 05/07/17 05:00 Creatinine 1.6 mg/dL (0.7-1.3) H 05/07/17 05:00 Est GFR ( Amer) 58.2 ml/min (>90) 05/07/17 05:00 Est GFR (Non-Af Amer) 48.1 ml/min 05/07/17 05:00 BUN/Creatinine Ratio 26.3 05/07/17 05:00 Glucose 112 mg/dL (70-105) H 05/07/17 05:00 POC Glucose 215 MG/DL (70 - 105) H 05/02/17 01:25 Hemoglobin A1c % 5.6 % (4.0-6.0) 05/02/17 06:00 Calcium 8.4 mg/dL (8.6-10.3) L 05/07/17 05:00 Iron 21 ug/dL (38-169) L 05/03/17 05:20 TIBC 155 ug/dL (250-450) L 05/03/17 05:20 Iron Saturation 14 % (15-55) L 05/03/17 05:20 Unsaturated IBC 134 ug/dL (111-343) 05/03/17 05:20 Ferritin 488 ng/mL (30-400) H 05/03/17 05:20 Total Bilirubin 0.2 mg/dL (0.3-1.0) L 05/07/17 05:00 AST 16 U/L (13-39) 05/07/17 05:00 ALT 10 U/L (7-52) 05/07/17 05:00 Alkaline Phosphatase 71 U/L (34-104) 05/07/17 05:00 Total Protein 5.8 gm/dL (6.0-8.3) L 05/07/17 05:00 Albumin 2.2 gm/dL (4.2-5.5) L 05/07/17 05:00 Globulin 3.6 gm/dL 05/07/17 05:00 Albumin/Globulin Ratio 0.6 (1.0-1.8) L 05/07/17 05:00 Vitamin B12 1438 pg/mL (232-1245) H 05/03/17 05:20 Folic Acid 13.3 ng/mL (>3.0) 05/03/17 05:20 Stool Occult Blood NEGATIVE (NEGATIVE) 05/07/17 10:00 Blood Type O POSITIVE 05/02/17 09:20 Antibody Screen NEGATIVE 05/02/17 09:20 Crossmatch See Detail 05/02/17 09:20 - Physical Exam Vitals and I&O: Vital Signs Temp 97.6 F 05/07/17 22:48 Pulse 78 05/07/17 22:48 Resp 18 05/07/17 22:48 BP 157/79 05/07/17 22:48 Pulse Ox 98 05/07/17 22:48 Intake & Output 05/07/17 05/07/17 05/08/17 06:59 18:59 06:59 Intake Total 1100 Balance 1100 Weight (lbs) 86.682 kg Intake: Intake, IV Amount 1000 Dextrose 5% 1,000 ml @ 50 1000 mls/hr IV .Q20H [facility] Rx#: [id number] Oral 100 Other: # Voids 3 # Bowel Movements 3 Stool Characteristics Formed Formed Hard Hard Brown Brown Active Medications: Current Medications Acetaminophen (Tylenol) 500 mg PO Q6H PRN PRN Reason: Pain (Moderate) Stop: 07/01/17 02:48 Last Admin: 05/07/17 09:10 Dose: 500 mg Amlodipine Besylate (Norvasc) 10 mg PO DAILY [facility] Stop: 07/04/17 08:59 Last Admin: 05/07/17 09:10 Dose: 10 mg Bisacodyl (Dulcolax 10 Mg Supp) 10 mg RC DAILY PRN PRN Reason: constipation Stop: 07/03/17 23:58 Last Admin: 05/05/17 00:20 Dose: 10 mg Carbamazepine (Tegretol) 200 mg PO TID [facility] PRN Reason: Protocol Stop: 07/01/17 08:59 Last Admin: 05/07/17 21:16 Dose: 200 mg Hydralazine HCl (Apresoline) 50 mg PO QID [facility] Stop: 07/05/17 12:59 Last Admin: 05/07/17 21:14 Dose: 50 mg Hydralazine HCl (Apresoline 20 Mg/Ml) 10 mg IV Q6HR PRN PRN Reason: SBP ABOVE 160 Stop: 07/06/17 17:33 Dextrose (D5w) 1,000 mls @ 50 mls/hr IV .Q20H [facility] Stop: 07/05/17 11:44 Last Admin: 05/07/17 14:00 Dose: 50 mls/hr Levetiracetam (Keppra) 500 mg PO BID [facility] Stop: 07/01/17 08:59 Last Admin: 05/07/17 17:47 Dose: 500 mg Metoprolol Tartrate (Lopressor) 100 mg PO BID [facility] Stop: 07/01/17 08:59 Last Admin: 05/07/17 17:46 Dose: 100 mg Miscellaneous (Clinical Monitoring) 1 ea MC PRN PRN PRN Reason: RENAL Stop: 07/01/17 09:53 Pantoprazole Sodium (Protonix) 40 mg PO DAILY [facility] Stop: 07/01/17 07:29 Last Admin: 05/07/17 09:11 Dose: 40 mg Senna (Senna) 8.6 mg PO DAILY [facility] Stop: 07/04/17 08:59 Last Admin: 05/07/17 09:11 Dose: 8.6 mg Sodium Bicarbonate (Sodium Bicarbonate) 650 mg PO BID [facility] PRN Reason: Protocol Stop: 07/05/17 16:59 Last Admin: 05/07/17 17:47 Dose: 650 mg Temazepam (Restoril) 15 mg PO HS PRN; Protocol PRN Reason: Insomnia Stop: 07/03/17 23:57 Last Admin: 05/07/17 21:14 Dose: 15 mg General: demented HEENT: NC/AT, PERRLA, EOMI, anicteric sclerae, throat clear Neck: Supple, No JVD, No thyromegaly, +2 carotid pulse wo bruit, No LAD Lungs: CTAB Cardiovascular: RRR, Normal S1, Normal S2, without murmur Abdomen: soft, tender, non-distended Extremities: clear Neurological: no change - Procedures Procedures: Procedures Procedure Code Date BLOOD TRANSFUSION SERVICE 26196 05/01/17 DRAINAGE OF SKIN ABSCESS 58973 08/15/03 ELECTROCARDIOGRAM 89.52 01/27/00 ELECTROCARDIOGRAM COMPLETE 60278 01/27/00 INSERT NON-TUNNEL CV CATH 10050 12/13/03 MAGNETIC RESONANCE IMAGING OF BRAIN AND BRAIN STEM 88.91 01/27/00 MRI BRAIN STEM W/O DYE 63310 01/27/00 OTHER SKIN & SUBQ I D 86.04 08/15/03 TRANSFUSE NONAUT RED BLOOD CELLS IN PERIPH VEIN, PERC 37297R2 05/01/17 VENOUS CATHETERIZATION NEC 38.93 12/13/03 Internal Medicine Assmt/Plan - Assessment Assessment: 1.SEVER ANEMIA. 2.DEHYDRATION. 3.CISCO. 4.CVA 5.ACUTE ABDONINAL PAIN. 6.UNCONTROLLED HTN. 7.SEVER EPISODES OF AGITATION. - Plan Plan: CONTINUE ON CURRENT MEDICATION AND DIET.WAITING FOR PSYCH EVALUATION. Nutritional Asmnt/Malnutr-PDOC - Dietary Evaluation Malnutrition Findings (Please click <Entered> for more info): Nutritional Asmnt/Malnutrition Start: 05/02/17 15: 58 Text: Status: Complete Freq: Document 05/02/17 15:58 BERRY (Rec: 05/02/17 16:14 [email or web address]) Nutritional Asmnt/Malnutrition Patient General Information Nutritional Screening High Risk Consult Diagnosis severe anemia, dehydration, CISCO Pertinent Medical Hx/Surgical Hx CVA, seizure disorder, dementia, psychosis, CKD Subjective Information Consult received for BS 215 at adm and wound. Pt seen lying in bed at time of visit, awake and alert at time of visit. Hard to understand pt. Pt said no when dietitian asked about food related questions. Per nurse notes, pt refused lunch althought RN and OBSTETRICS TECHNICIAN tried multiple times. Current Diet Order/ Nutrition Support Renal, mech soft chopped Pertinent Medications D5-0.45ns, protonix Pertinent Labs 05/02 Na 141, K 4.2, Cl 118, BUN 91, Cr 2.5, Glucose 180, POC 215, AST 11, Alb 2.5 Nutritional Hx/Data Height 1.57 m Height (Calculated Centimeters) 157.5 Current Weight (lbs) 78.018 kg Weight (Calculated Kilograms) 78.0 Weight (Calculated Grams) 35318.9 [place] Body Weight 118 Body Mass Index (BMI) 31.4 Weight Status Obese GI Symptoms GI Symptoms None Last BM none Difficult in: None Skin Integrity/Comment: per wound care note: Distal aspect of Gluteal Sulcus - Moisture lesion, present on admission. reddened to sacrum, potential skin problem to bilateral legs Estimated Nutritional Goals BEE in Kcals: Adj wt of IBW Calories/Kcals/Kg 25-30 Kcals Calculated 9819-0073 Protein: Adj wt of IBW Protein g/k-1.2 Protein Calculated 60-72 Fluid: ml 1500-1800ml (1ml/kcal) or per MD Nutritional Problem 1. Problem Problem altered nutrition related lab values Etiology hx of CKD, dx of CISCO, endocrine dysfunction Signs/Symptoms: BUN 91, Cr 2.5, Glucose 180, POC 215 Malnutrition Alert Protein-Calorie Malnutrition N/A Is there a minimum of two criteria No selected? Query Text:Check all the applicable criteria. A minimum of two criteria are recommended for diagnosis of either severe or non-severe malnutrition. Intervention/Recommendation Comments 1. Monitor glucose and check a1c level. If glucose continue high, will consider adding CCHO diet for optimal glycemic control 2. Monitor PO intake, wt, labs and skin integrity 3. F/U as high risk in 2-3 days, 05/04-05/05 Expected Outcomes/Goals Expected Outcomes/Goals 1. PO intake to meet at least 75% of nutritional needs. 2. Wt stability, skin to remain intact, labs to approach WNL.
--- NOTE | 2017-05-08 08:07 | GI Progress Note ---
Subjective - Review of Systems Subjective: STILL HAS SOME ABD PAIN Objective - Results Result Diagrams: 05/07/17 06:36 05/07/17 05:00 Recent Labs: Laboratory Last Values WBC 8.7 Th/cmm (4.8-10.8) 05/07/17 06:36 RBC 3.51 Mil/cmm (4.30-5.70) L 05/07/17 06:36 Hgb 10.2 gm/dL (12-16) L 05/07/17 06:36 Hct 30.9 % (41.0-60) L 05/07/17 06:36 MCV 88.0 fl (80-99) 05/07/17 06:36 MCH 29.0 pg (26.0-30.0) 05/07/17 06:36 MCHC Differential 33.0 pg (28.0-36.0) 05/07/17 06:36 RDW 13.6 % (11.5-20.0) 05/07/17 06:36 Plt Count 359 Th/cmm (150-400) 05/07/17 06:36 MPV 6.6 fl 05/07/17 06:36 Neutrophils % 69.1 % (40.0-80.0) 05/07/17 06:36 Lymphocytes % 19.8 % (20.0-50.0) L 05/07/17 06:36 Monocytes % 7.0 % (2.0-10.0) 05/07/17 06:36 Eosinophils % 3.5 % (0.0-5.0) 05/07/17 06:36 Basophils % 0.6 % (0.0-2.0) 05/07/17 06:36 PT 10.5 SECONDS (9.5-11.5) 05/02/17 06:00 INR 1.01 (0.5-1.4) 05/02/17 06:00 Sodium 138 mEq/L (136-145) 05/07/17 05:00 Potassium 4.1 mEq/L (3.5-5.1) 05/07/17 05:00 Chloride 119 mEq/L (98-107) H 05/07/17 05:00 Carbon Dioxide 15.5 mEq/L (21.0-31.0) L 05/07/17 05:00 Anion Gap 7.6 (7.0-16.0) 05/07/17 05:00 BUN 42 mg/dL (7-25) H 05/07/17 05:00 Creatinine 1.6 mg/dL (0.7-1.3) H 05/07/17 05:00 Est GFR ( Amer) 58.2 ml/min (>90) 05/07/17 05:00 Est GFR (Non-Af Amer) 48.1 ml/min 05/07/17 05:00 BUN/Creatinine Ratio 26.3 05/07/17 05:00 Glucose 112 mg/dL (70-105) H 05/07/17 05:00 POC Glucose 215 MG/DL (70 - 105) H 05/02/17 01:25 Hemoglobin A1c % 5.6 % (4.0-6.0) 05/02/17 06:00 Calcium 8.4 mg/dL (8.6-10.3) L 05/07/17 05:00 Iron 21 ug/dL (38-169) L 05/03/17 05:20 TIBC 155 ug/dL (250-450) L 05/03/17 05:20 Iron Saturation 14 % (15-55) L 05/03/17 05:20 Unsaturated IBC 134 ug/dL (111-343) 05/03/17 05:20 Ferritin 488 ng/mL (30-400) H 05/03/17 05:20 Total Bilirubin 0.2 mg/dL (0.3-1.0) L 05/07/17 05:00 AST 16 U/L (13-39) 05/07/17 05:00 ALT 10 U/L (7-52) 05/07/17 05:00 Alkaline Phosphatase 71 U/L (34-104) 05/07/17 05:00 Total Protein 5.8 gm/dL (6.0-8.3) L 05/07/17 05:00 Albumin 2.2 gm/dL (4.2-5.5) L 05/07/17 05:00 Globulin 3.6 gm/dL 05/07/17 05:00 Albumin/Globulin Ratio 0.6 (1.0-1.8) L 05/07/17 05:00 Vitamin B12 1438 pg/mL (232-1245) H 05/03/17 05:20 Folic Acid 13.3 ng/mL (>3.0) 05/03/17 05:20 Stool Occult Blood NEGATIVE (NEGATIVE) 05/07/17 10:00 Blood Type O POSITIVE 05/02/17 09:20 Antibody Screen NEGATIVE 05/02/17 09:20 Crossmatch See Detail 05/02/17 09:20 - Physical Exam Vitals and I&O: Vital Signs Temp 98.2 F 05/08/17 05:35 Pulse 83 05/08/17 05:35 Resp 17 05/08/17 07:20 BP 154/83 05/08/17 05:35 Pulse Ox 97 05/08/17 05:35 Intake & Output 05/07/17 05/08/17 05/08/17 18:59 06:59 18:59 Intake Total 1100 782.5 Balance 1100 782.5 Weight (lbs) 86.682 kg Intake: Intake, IV Amount 1000 782.5 Dextrose 5% 1,000 ml @ 50 1000 782.5 mls/hr IV .Q20H [facility] Rx#: [id number] Oral 100 Other: # Voids 3 # Bowel Movements 3 Stool Characteristics Formed Formed Hard Hard Brown Brown Active Medications: Current Medications Acetaminophen (Tylenol) 500 mg PO Q6H PRN PRN Reason: Pain (Moderate) Stop: 07/01/17 02:48 Last Admin: 05/07/17 09:10 Dose: 500 mg Amlodipine Besylate (Norvasc) 10 mg PO DAILY [facility] Stop: 07/04/17 08:59 Last Admin: 05/07/17 09:10 Dose: 10 mg Bisacodyl (Dulcolax 10 Mg Supp) 10 mg RC DAILY PRN PRN Reason: constipation Stop: 07/03/17 23:58 Last Admin: 05/05/17 00:20 Dose: 10 mg Carbamazepine (Tegretol) 200 mg PO TID [facility] PRN Reason: Protocol Stop: 07/01/17 08:59 Last Admin: 05/07/17 21:16 Dose: 200 mg Hydralazine HCl (Apresoline) 50 mg PO QID [facility] Stop: 07/05/17 12:59 Last Admin: 05/07/17 21:14 Dose: 50 mg Hydralazine HCl (Apresoline 20 Mg/Ml) 10 mg IV Q6HR PRN PRN Reason: SBP ABOVE 160 Stop: 07/06/17 17:33 Dextrose (D5w) 1,000 mls @ 50 mls/hr IV .Q20H [facility] Stop: 07/05/17 11:44 Last Infusion: 05/08/17 05:39 Dose: 50 mls/hr Levetiracetam (Keppra) 500 mg PO BID [facility] Stop: 07/01/17 08:59 Last Admin: 05/07/17 17:47 Dose: 500 mg Metoprolol Tartrate (Lopressor) 100 mg PO BID [facility] Stop: 07/01/17 08:59 Last Admin: 05/07/17 17:46 Dose: 100 mg Miscellaneous (Clinical Monitoring) 1 ea MC PRN PRN PRN Reason: RENAL Stop: 07/01/17 09:53 Pantoprazole Sodium (Protonix) 40 mg PO DAILY [facility] Stop: 07/01/17 07:29 Last Admin: 05/07/17 09:11 Dose: 40 mg Senna (Senna) 8.6 mg PO DAILY [facility] Stop: 07/04/17 08:59 Last Admin: 05/07/17 09:11 Dose: 8.6 mg Sodium Bicarbonate (Sodium Bicarbonate) 650 mg PO BID CHARO PRN Reason: Protocol Stop: 07/05/17 16:59 Last Admin: 05/07/17 17:47 Dose: 650 mg Temazepam (Restoril) 15 mg PO HS PRN; Protocol PRN Reason: Insomnia Stop: 07/03/17 23:57 Last Admin: 05/07/17 21:14 Dose: 15 mg General: Cooperative, No acute distress HEENT: Atraumatic Neck: Supple Cardiovascular: Regular rate, Normal S1, Normal S2 Lungs: Clear to auscultation Abdomen: Bowel sounds Extremities: Cyanosis - Procedures Procedures: Procedures Procedure Code Date BLOOD TRANSFUSION SERVICE 56562 05/01/17 DRAINAGE OF SKIN ABSCESS 39761 08/15/03 ELECTROCARDIOGRAM 89.52 01/27/00 ELECTROCARDIOGRAM COMPLETE 13630 01/27/00 INSERT NON-TUNNEL CV CATH 27886 12/13/03 MAGNETIC RESONANCE IMAGING OF BRAIN AND BRAIN STEM 88.91 01/27/00 MRI BRAIN STEM W/O DYE 94536 01/27/00 OTHER SKIN & SUBQ I D 86.04 08/15/03 TRANSFUSE NONAUT RED BLOOD CELLS IN PERIPH VEIN, PERC 86374J5 05/01/17 VENOUS CATHETERIZATION NEC 38.93 12/13/03 Assessment/Plan - Assessment Assessment: 56 YO MALE WITH ABD PAIN LFTS NORMAL HAS ANEMIA LIKELY CHRONIC DZ STOOL OB NEG 1.CT ABD PELVIS PENDING 2.CHECK LIPASE 3.CONT SUPP CARE
--- NOTE | 2017-05-08 10:08 | General Progress Note ---
Subjective - Review of Systems Service Date: 05/08/17 Subjective: refusing to eat Objective - Results Result Diagrams: 05/07/17 06:36 05/07/17 05:00 Recent Labs: Laboratory Last Values WBC 8.7 Th/cmm (4.8-10.8) 05/07/17 06:36 RBC 3.51 Mil/cmm (4.30-5.70) L 05/07/17 06:36 Hgb 10.2 gm/dL (12-16) L 05/07/17 06:36 Hct 30.9 % (41.0-60) L 05/07/17 06:36 MCV 88.0 fl (80-99) 05/07/17 06:36 MCH 29.0 pg (26.0-30.0) 05/07/17 06:36 MCHC Differential 33.0 pg (28.0-36.0) 05/07/17 06:36 RDW 13.6 % (11.5-20.0) 05/07/17 06:36 Plt Count 359 Th/cmm (150-400) 05/07/17 06:36 MPV 6.6 fl 05/07/17 06:36 Neutrophils % 69.1 % (40.0-80.0) 05/07/17 06:36 Lymphocytes % 19.8 % (20.0-50.0) L 05/07/17 06:36 Monocytes % 7.0 % (2.0-10.0) 05/07/17 06:36 Eosinophils % 3.5 % (0.0-5.0) 05/07/17 06:36 Basophils % 0.6 % (0.0-2.0) 05/07/17 06:36 PT 10.5 SECONDS (9.5-11.5) 05/02/17 06:00 INR 1.01 (0.5-1.4) 05/02/17 06:00 Sodium 138 mEq/L (136-145) 05/07/17 05:00 Potassium 4.1 mEq/L (3.5-5.1) 05/07/17 05:00 Chloride 119 mEq/L (98-107) H 05/07/17 05:00 Carbon Dioxide 15.5 mEq/L (21.0-31.0) L 05/07/17 05:00 Anion Gap 7.6 (7.0-16.0) 05/07/17 05:00 BUN 42 mg/dL (7-25) H 05/07/17 05:00 Creatinine 1.6 mg/dL (0.7-1.3) H 05/07/17 05:00 Est GFR ( Amer) 58.2 ml/min (>90) 05/07/17 05:00 Est GFR (Non-Af Amer) 48.1 ml/min 05/07/17 05:00 BUN/Creatinine Ratio 26.3 05/07/17 05:00 Glucose 112 mg/dL (70-105) H 05/07/17 05:00 POC Glucose 215 MG/DL (70 - 105) H 05/02/17 01:25 Hemoglobin A1c % 5.6 % (4.0-6.0) 05/02/17 06:00 Calcium 8.4 mg/dL (8.6-10.3) L 05/07/17 05:00 Iron 21 ug/dL (38-169) L 05/03/17 05:20 TIBC 155 ug/dL (250-450) L 05/03/17 05:20 Iron Saturation 14 % (15-55) L 05/03/17 05:20 Unsaturated IBC 134 ug/dL (111-343) 05/03/17 05:20 Ferritin 488 ng/mL (30-400) H 05/03/17 05:20 Total Bilirubin 0.2 mg/dL (0.3-1.0) L 05/07/17 05:00 AST 16 U/L (13-39) 05/07/17 05:00 ALT 10 U/L (7-52) 05/07/17 05:00 Alkaline Phosphatase 71 U/L (34-104) 05/07/17 05:00 Total Protein 5.8 gm/dL (6.0-8.3) L 05/07/17 05:00 Albumin 2.2 gm/dL (4.2-5.5) L 05/07/17 05:00 Globulin 3.6 gm/dL 05/07/17 05:00 Albumin/Globulin Ratio 0.6 (1.0-1.8) L 05/07/17 05:00 Lipase 24 U/L (11-82) 05/08/17 08:40 Vitamin B12 1438 pg/mL (232-1245) H 05/03/17 05:20 Folic Acid 13.3 ng/mL (>3.0) 05/03/17 05:20 Stool Occult Blood NEGATIVE (NEGATIVE) 05/07/17 10:00 Blood Type O POSITIVE 05/02/17 09:20 Antibody Screen NEGATIVE 05/02/17 09:20 Crossmatch See Detail 05/02/17 09:20 - Physical Exam Vitals and I&O: Vital Signs Temp 98.2 F 05/08/17 05:35 Pulse 83 05/08/17 05:35 Resp 17 05/08/17 07:20 BP 154/83 05/08/17 05:35 Pulse Ox 97 05/08/17 05:35 Intake & Output 05/07/17 05/08/17 05/08/17 18:59 06:59 18:59 Intake Total 1100 782.5 Balance 1100 782.5 Weight (lbs) 86.682 kg Intake: Intake, IV Amount 1000 782.5 Dextrose 5% 1,000 ml @ 50 1000 782.5 mls/hr IV .Q20H [facility] Rx#: [id number] Oral 100 Other: # Voids 3 # Bowel Movements 3 Stool Characteristics Formed Formed Hard Hard Brown Brown Active Medications: Current Medications Acetaminophen (Tylenol) 500 mg PO Q6H PRN PRN Reason: Pain (Moderate) Stop: 07/01/17 02:48 Last Admin: 05/07/17 09:10 Dose: 500 mg Amlodipine Besylate (Norvasc) 10 mg PO DAILY [facility] Stop: 07/04/17 08:59 Last Admin: 05/07/17 09:10 Dose: 10 mg Bisacodyl (Dulcolax 10 Mg Supp) 10 mg RC DAILY PRN PRN Reason: constipation Stop: 07/03/17 23:58 Last Admin: 05/05/17 00:20 Dose: 10 mg Carbamazepine (Tegretol) 200 mg PO TID [facility]O PRN Reason: Protocol Stop: 07/01/17 08:59 Last Admin: 05/07/17 21:16 Dose: 200 mg Hydralazine HCl (Apresoline) 50 mg PO QID [facility] Stop: 07/05/17 12:59 Last Admin: 03/11/18 21:14 Dose: 50 mg Hydralazine HCl (Apresoline 20 Mg/Ml) 10 mg IV Q6HR PRN PRN Reason: SBP ABOVE 160 Stop: 07/06/17 17:33 Dextrose (D5w) 1,000 mls @ 50 mls/hr IV .Q20H [facility] Stop: 07/05/17 11:44 Last Infusion: 05/08/17 05:39 Dose: 50 mls/hr Levetiracetam (Keppra) 500 mg PO BID [facility] Stop: 07/01/17 08:59 Last Admin: 05/07/17 17:47 Dose: 500 mg Metoprolol Tartrate (Lopressor) 100 mg PO BID [facility] Stop: 07/01/17 08:59 Last Admin: 05/07/17 17:46 Dose: 100 mg Miscellaneous (Clinical Monitoring) 1 ea MC PRN PRN PRN Reason: RENAL Stop: 07/01/17 09:53 Pantoprazole Sodium (Protonix) 40 mg PO DAILY [facility] Stop: 07/01/17 07:29 Last Admin: 05/07/17 09:11 Dose: 40 mg Senna (Senna) 8.6 mg PO DAILY [facility] Stop: 07/04/17 08:59 Last Admin: 05/07/17 09:11 Dose: 8.6 mg Sodium Bicarbonate (Sodium Bicarbonate) 650 mg PO BID [facility]O PRN Reason: Protocol Stop: 07/05/17 16:59 Last Admin: 05/07/17 17:47 Dose: 650 mg Temazepam (Restoril) 15 mg PO HS PRN; Protocol PRN Reason: Insomnia Stop: 07/03/17 23:57 Last Admin: 05/07/17 21:14 Dose: 15 mg General: Cooperative, No acute distress HEENT: Atraumatic Neck: Supple Cardiovascular: Regular rate, Normal S1, Normal S2 Lungs: Clear to auscultation Abdomen: Bowel sounds Extremities: Cyanosis - Procedures Procedures: Procedures Procedure Code Date BLOOD TRANSFUSION SERVICE 39228 05/01/17 DRAINAGE OF SKIN ABSCESS 53751 08/15/03 ELECTROCARDIOGRAM 89.52 01/27/00 ELECTROCARDIOGRAM COMPLETE 28213 01/27/00 INSERT NON-TUNNEL CV CATH 31230 12/13/03 MAGNETIC RESONANCE IMAGING OF BRAIN AND BRAIN STEM 88.91 01/27/00 MRI BRAIN STEM W/O DYE 89807 11/30/00 OTHER SKIN & SUBQ I D 86.04 08/15/03 TRANSFUSE NONAUT RED BLOOD CELLS IN PERIPH VEIN, PERC 11126R7 05/01/17 VENOUS CATHETERIZATION NEC 38.93 12/13/03 Assessment/Plan - Assessment Assessment: 05/08: poor intake, Anemia of chronic disease. awaiting CT ABD 05/07: hgb is stable. Anemia of chronic kidney disease 05/06:No clinical bleeding. Anemia of chronic kidney disease 05/05: Hgb remains stable, continue monitoring; Anemia chauhan is consistent with anemia of CKD * 05/04: hgb stable; follow anemia chauhan results and cbc * 05/03: hgb better after transfusion; follow anemia chauhan * 05/02: Severe normocytic anemia. The patient will need comprehensive anemia workup with iron studies, B12, folic acid and stool occult blood. 2. Acute kidney injury on top of chronic kidney disease. 3. Dementia. 4. History of cerebrovascular accident and seizure disorder. Nutritional Asmnt/Malnutr-PDOC - Dietary Evaluation Malnutrition Findings (Please click <Entered> for more info): Nutritional Asmnt/Malnutrition Start: 05/02/17 15: 58 Text: Status: Complete Freq: Document 05/02/17 15:58 [facility] (Rec: 05/02/17 16:14 [facility] [email or web address]) Nutritional Asmnt/Malnutrition Patient General Information Nutritional Screening High Risk Consult Diagnosis severe anemia, dehydration, CISCO Pertinent Medical Hx/Surgical Hx CVA, seizure disorder, dementia, psychosis, CKD Subjective Information Consult received for BS 215 at adm and wound. Pt seen lying in bed at time of visit, awake and alert at time of visit. Hard to understand pt. Pt said no when dietitian asked about food related questions. Per nurse notes, pt refused lunch althought RN and KEY PERSON tried multiple times. Current Diet Order/ Nutrition Support Renal, mech soft chopped Pertinent Medications D5-0.45ns, protonix Pertinent Labs 05/02 Na 141, K 4.2, Cl 118, BUN 91, Cr 2.5, Glucose 180, POC 215, AST 11, Alb 2.5 Nutritional Hx/Data Height 1.57 m Height (Calculated Centimeters) 157.5 Current Weight (lbs) 78.018 kg Weight (Calculated Kilograms) 78.0 Weight (Calculated Grams) 34065.9 [place] Body Weight 118 Body Mass Index (BMI) 31.4 Weight Status Obese GI Symptoms GI Symptoms None Last BM none Difficult in: None Skin Integrity/Comment: per wound care note: Distal aspect of Gluteal Sulcus - Moisture lesion, present on admission. reddened to sacrum, potential skin problem to bilateral legs Estimated Nutritional Goals BEE in Kcals: Adj wt of IBW Calories/Kcals/Kg 25-30 Kcals Calculated 8276-2355 Protein: Adj wt of IBW Protein g/k-1.2 Protein Calculated 60-72 Fluid: ml 1500-1800ml (1ml/kcal) or per MD Nutritional Problem 1. Problem Problem altered nutrition related lab values Etiology hx of CKD, dx of CISCO, endocrine dysfunction Signs/Symptoms: BUN 91, Cr 2.5, Glucose 180, POC 215 Malnutrition Alert Protein-Calorie Malnutrition N/A Is there a minimum of two criteria No selected? Query Text:Check all the applicable criteria. A minimum of two criteria are recommended for diagnosis of either severe or non-severe malnutrition. Intervention/Recommendation Comments 1. Monitor glucose and check a1c level. If glucose continue high, will consider adding CCHO diet for optimal glycemic control 2. Monitor PO intake, wt, labs and skin integrity 3. F/U as high risk in 2-3 days, 05/04-05/05 Expected Outcomes/Goals Expected Outcomes/Goals 1. PO intake to meet at least 75% of nutritional needs. 2. Wt stability, skin to remain intact, labs to approach WNL.
[2017-05-08] MEDS: Pantoprazole 40 mg EC Tab PO SCH (10:57)
--- NOTE | 2017-05-08 10:59 | Diagnostic Imaging Report ---
CT abdomen and pelvis without intravenous contrast Indication: Abdominal pain Comparison: CT abdomen and pelvis on 03/19/2017 Technique: Axial images were obtained from the lung bases to the bilateral proximal femurs without IV contrast. Coronal reconstructions were made. total DLP: 661, CTDI13.2 FINDINGS: Moderate to large partially visualized right and moderate left effusion is seen with bibasal passive atelectatic changes. Assessment of the solid organs is limited due to lack of IV contrast. Small pericardial effusion is noted. No evidence of focal hepatic, lesions. Limited assessment of the spleen demonstrates no obvious focal lesions. Limited assessment of the pancreas also demonstrates no focal regions. There is suboptimal evaluation left adrenal gland. No focal right adrenal lesions. No evidence of hydronephrosis or renal stones. Mild nonspecific perinephric inflammatory changes are noted. There is thickening of the urinary bladder wall. Nonspecific gas-filled loops of bowel are noted. High density seen within the appendix which may be due to previous oral contrast administration. No evidence of surrounding inflammatory changes. Small amount of fluid and trace fluid inflammatory changes seen tracking along the bilateral retroperitoneal regions into the pelvis. Small fat-containing bilateral inguinal hernias are noted. Degenerative changes of the spine are noted with multilevel Schmorl's node formation. Anasarca is noted. Mild atherosclerosis is noted. IMPRESSION: Generalized gas-filled loops of bowel, nonspecific and may represent a mild ileus. High density appendix probably related previous enteric contrast administration and retained enteric contrast in the appendix. No evidence of appendicitis. Urinary bladder wall thickening which may be due to chronic infectious or inflammatory process Mild nonspecific perinephric inflammatory change and trace free fluid and inflammatory changes tracking down the retroperitoneum inferiorly into the pelvis. Anasarca. Moderate to large right effusion and moderate left effusion with bibasilar passive atelectatic and consolidative changes. Atherosclerotic vascular disease.
[2017-05-08] MEDS: Dextrose 5% 1,000 ML IV SCH (12:54)
--- NOTE | 2017-05-08 16:43 | General Progress Note ---
Subjective - Review of Systems Service Date: 05/08/17 Subjective: pt seen and examined BP on and off high pt confused in bed no distress Objective - Results Result Diagrams: 05/07/17 06:36 05/07/17 05:00 Recent Labs: Laboratory Last Values WBC 8.7 Th/cmm (4.8-10.8) 05/07/17 06:36 RBC 3.51 Mil/cmm (4.30-5.70) L 05/07/17 06:36 Hgb 10.2 gm/dL (12-16) L 05/07/17 06:36 Hct 30.9 % (41.0-60) L 05/07/17 06:36 MCV 88.0 fl (80-99) 05/07/17 06:36 MCH 29.0 pg (26.0-30.0) 05/07/17 06:36 MCHC Differential 33.0 pg (28.0-36.0) 05/07/17 06:36 RDW 13.6 % (11.5-20.0) 05/07/17 06:36 Plt Count 359 Th/cmm (150-400) 05/07/17 06:36 MPV 6.6 fl 05/07/17 06:36 Neutrophils % 69.1 % (40.0-80.0) 05/07/17 06:36 Lymphocytes % 19.8 % (20.0-50.0) L 05/07/17 06:36 Monocytes % 7.0 % (2.0-10.0) 05/07/17 06:36 Eosinophils % 3.5 % (0.0-5.0) 05/07/17 06:36 Basophils % 0.6 % (0.0-2.0) 05/07/17 06:36 PT 10.5 SECONDS (9.5-11.5) 05/02/17 06:00 INR 1.01 (0.5-1.4) 05/02/17 06:00 Sodium 138 mEq/L (136-145) 05/07/17 05:00 Potassium 4.1 mEq/L (3.5-5.1) 05/07/17 05:00 Chloride 119 mEq/L (98-107) H 05/07/17 05:00 Carbon Dioxide 15.5 mEq/L (21.0-31.0) L 05/07/17 05:00 Anion Gap 7.6 (7.0-16.0) 05/07/17 05:00 BUN 42 mg/dL (7-25) H 05/07/17 05:00 Creatinine 1.6 mg/dL (0.7-1.3) H 05/07/17 05:00 Est GFR ( Amer) 58.2 ml/min (>90) 05/07/17 05:00 Est GFR (Non-Af Amer) 48.1 ml/min 05/07/17 05:00 BUN/Creatinine Ratio 26.3 05/07/17 05:00 Glucose 112 mg/dL (70-105) H 05/07/17 05:00 POC Glucose 215 MG/DL (70 - 105) H 05/02/17 01:25 Hemoglobin A1c % 5.6 % (4.0-6.0) 05/02/17 06:00 Calcium 8.4 mg/dL (8.6-10.3) L 05/07/17 05:00 Iron 21 ug/dL (38-169) L 05/03/17 05:20 TIBC 155 ug/dL (250-450) L 05/03/17 05:20 Iron Saturation 14 % (15-55) L 05/03/17 05:20 Unsaturated IBC 134 ug/dL (111-343) 05/03/17 05:20 Ferritin 488 ng/mL (30-400) H 05/03/17 05:20 Total Bilirubin 0.2 mg/dL (0.3-1.0) L 05/07/17 05:00 AST 16 U/L (13-39) 05/07/17 05:00 ALT 10 U/L (7-52) 05/07/17 05:00 Alkaline Phosphatase 71 U/L (34-104) 05/07/17 05:00 Total Protein 5.8 gm/dL (6.0-8.3) L 05/07/17 05:00 Albumin 2.2 gm/dL (4.2-5.5) L 05/07/17 05:00 Globulin 3.6 gm/dL 05/07/17 05:00 Albumin/Globulin Ratio 0.6 (1.0-1.8) L 05/07/17 05:00 Lipase 24 U/L (11-82) 05/08/17 08:40 Vitamin B12 1438 pg/mL (232-1245) H 05/03/17 05:20 Folic Acid 13.3 ng/mL (>3.0) 05/03/17 05:20 Stool Occult Blood NEGATIVE (NEGATIVE) 05/07/17 10:00 Blood Type O POSITIVE 05/02/17 09:20 Antibody Screen NEGATIVE 05/02/17 09:20 Crossmatch See Detail 05/02/17 09:20 - Physical Exam Vitals and I&O: Vital Signs Temp 98.2 F 05/08/17 05:35 Pulse 83 05/08/17 15:57 Resp 17 05/08/17 07:20 BP 180/128 05/08/17 15:57 Pulse Ox 97 05/08/17 05:35 Intake & Output 05/07/17 05/08/17 05/08/17 18:59 06:59 18:59 Intake Total 1100 782.5 217.5 Balance 1100 782.5 217.5 Weight (lbs) 86.682 kg Intake: Intake, IV Amount 1000 782.5 217.5 Dextrose 5% 1,000 ml @ 50 1000 782.5 217.5 mls/hr IV .Q20H [facility] Rx#: [id number] Oral 100 Other: # Voids 3 # Bowel Movements 3 Stool Characteristics Formed Formed Hard Hard Brown Brown Active Medications: Current Medications Acetaminophen (Tylenol) 500 mg PO Q6H PRN PRN Reason: Pain (Moderate) Stop: 07/01/17 02:48 Last Admin: 05/08/17 11:00 Dose: 500 mg Amlodipine Besylate (Norvasc) 10 mg PO DAILY [facility] Stop: 07/04/17 08:59 Last Admin: 05/08/17 10:55 Dose: 10 mg Bisacodyl (Dulcolax 10 Mg Supp) 10 mg RC DAILY PRN PRN Reason: constipation Stop: 07/03/17 23:58 Last Admin: 05/05/17 00:20 Dose: 10 mg Carbamazepine (Tegretol) 200 mg PO TID [facility] PRN Reason: Protocol Stop: 07/01/17 08:59 Last Admin: 05/08/17 10:56 Dose: 200 mg Hydralazine HCl (Apresoline) 50 mg PO QID [facility] Stop: 07/05/17 12:59 Last Admin: 05/08/17 10:56 Dose: 50 mg Hydralazine HCl (Apresoline 20 Mg/Ml) 10 mg IV Q6HR PRN PRN Reason: SBP ABOVE 160 Stop: 07/06/17 17:33 Last Admin: 05/08/17 15:57 Dose: 10 mg Dextrose (D5w) 1,000 mls @ 50 mls/hr IV .Q20H [facility] Stop: 07/05/17 11:44 Last Admin: 05/08/17 12:54 Dose: 50 mls/hr Levetiracetam (Keppra) 500 mg PO BID [facility] Stop: 07/01/17 08:59 Last Admin: 05/08/17 10:57 Dose: 500 mg Lorazepam (Ativan) 0.5 mg IVP Q6HR PRN; Protocol PRN Reason: Agitation Stop: 07/07/17 16:10 Metoprolol Tartrate (Lopressor) 100 mg PO BID [facility] Stop: 07/01/17 08:59 Last Admin: 05/08/17 10:57 Dose: 100 mg Miscellaneous (Clinical Monitoring) 1 ea MC PRN PRN PRN Reason: RENAL Stop: 07/01/17 09:53 Pantoprazole Sodium (Protonix) 40 mg PO DAILY [facility] Stop: 07/01/17 07:29 Last Admin: 05/08/17 10:57 Dose: 40 mg Senna (Senna) 8.6 mg PO DAILY [facility] Stop: 07/04/17 08:59 Last Admin: 05/08/17 10:57 Dose: 8.6 mg Sodium Bicarbonate (Sodium Bicarbonate) 650 mg PO BID [facility]O PRN Reason: Protocol Stop: 07/05/17 16:59 Last Admin: 05/08/17 10:57 Dose: 650 mg Temazepam (Restoril) 15 mg PO HS PRN; Protocol PRN Reason: Insomnia Stop: 07/03/17 23:57 Last Admin: 05/07/17 21:14 Dose: 15 mg General: Cooperative, No acute distress HEENT: Atraumatic Neck: Supple Cardiovascular: Regular rate, Normal S1, Normal S2 Lungs: Clear to auscultation Abdomen: Bowel sounds Extremities: Cyanosis - Procedures Procedures: Procedures Procedure Code Date BLOOD TRANSFUSION SERVICE 02892 03/05/18 DRAINAGE OF SKIN ABSCESS 93595 08/15/03 ELECTROCARDIOGRAM 89.52 01/27/00 ELECTROCARDIOGRAM COMPLETE 49328 01/27/00 INSERT NON-TUNNEL CV CATH 00723 12/13/03 MAGNETIC RESONANCE IMAGING OF BRAIN AND BRAIN STEM 88.91 01/27/00 MRI BRAIN STEM W/O DYE 28616 01/27/00 OTHER SKIN & SUBQ I D 86.04 08/15/03 TRANSFUSE NONAUT RED BLOOD CELLS IN PERIPH VEIN, PERC 75453V8 05/01/17 VENOUS CATHETERIZATION NEC 38.93 12/13/03 Assessment/Plan - Assessment Assessment: ACUTE ANEMIA ACUTE RENAL FAILURE SECONDARY TO ATN SECONDARY TO SEVERE ANEMIA ACUTE TUBULAR NECROSIS CVA SEIZURE PSYCHOSIS DEMENTIA - Plan Plan: BP NEEDS BETTER CONTROL RENAL FUNCTION IMPROVING HGB stable add bicarb Nutritional Asmnt/Malnutr-PDOC - Dietary Evaluation Malnutrition Findings (Please click <Entered> for more info): Nutritional Asmnt/Malnutrition Start: 05/02/17 15: 58 Text: Status: Complete Freq: Document 05/02/17 15:58 [facility] (Rec: 05/02/17 16:14 LCHENG SILVANA-FN) Nutritional Asmnt/Malnutrition Patient General Information Nutritional Screening High Risk Consult Diagnosis severe anemia, dehydration, CISCO Pertinent Medical Hx/Surgical Hx CVA, seizure disorder, dementia, psychosis, CKD Subjective Information Consult received for BS 215 at adm and wound. Pt seen lying in bed at time of visit, awake and alert at time of visit. Hard to understand pt. Pt said no when dietitian asked about food related questions. Per nurse notes, pt refused lunch althought RN and FURNITURE RESTORER tried multiple times. Current Diet Order/ Nutrition Support Renal, mech soft chopped Pertinent Medications D5-0.45ns, protonix Pertinent Labs 3/ Na 141, K 4.2, Cl 118, BUN 91, Cr 2.5, Glucose 180, POC 215, AST 11, Alb 2.5 Nutritional Hx/Data Height 1.57 m Height (Calculated Centimeters) 157.5 Current Weight (lbs) 78.018 kg Weight (Calculated Kilograms) 78.0 Weight (Calculated Grams) 31511.9 [place] Body Weight 118 Body Mass Index (BMI) 31.4 Weight Status Obese GI Symptoms GI Symptoms None Last BM none Difficult in: None Skin Integrity/Comment: per wound care note: Distal aspect of Gluteal Sulcus - Moisture lesion, present on admission. reddened to sacrum, potential skin problem to bilateral legs Estimated Nutritional Goals BEE in Kcals: Adj wt of IBW Calories/Kcals/Kg 25-30 Kcals Calculated 3048-3932 Protein: Adj wt of IBW Protein g/k-1.2 Protein Calculated 60-72 Fluid: ml 1500-1800ml (1ml/kcal) or per MD Nutritional Problem 1. Problem Problem altered nutrition related lab values Etiology hx of CKD, dx of CISCO, endocrine dysfunction Signs/Symptoms: BUN 91, Cr 2.5, Glucose 180, POC 215 Malnutrition Alert Protein-Calorie Malnutrition N/A Is there a minimum of two criteria No selected? Query Text:Check all the applicable criteria. A minimum of two criteria are recommended for diagnosis of either severe or non-severe malnutrition. Intervention/Recommendation Comments 1. Monitor glucose and check a1c level. If glucose continue high, will consider adding CCHO diet for optimal glycemic control 2. Monitor PO intake, wt, labs and skin integrity 3. F/U as high risk in 2-3 days, 05/04-05/05 Expected Outcomes/Goals Expected Outcomes/Goals 1. PO intake to meet at least 75% of nutritional needs. 2. Wt stability, skin to remain intact, labs to approach WNL.
--- NOTE | 2017-05-08 19:24 | Internal Medicine Prog Note ---
Internal Medicine Subjective - Subjective Service Date: 05/08/17 Patient seen and examined:: with staff (HE STILL HAS ABDOMINAL PAIN.NO EATING.) , without staff Patient is:: awake, verbal, confused Per staff patient has:: no adverse event Internal Medicine Objective - Results Result Diagrams: 05/07/17 06:36 05/07/17 05:00 Recent Labs: Laboratory Last Values WBC 8.7 Th/cmm (4.8-10.8) 05/07/17 06:36 RBC 3.51 Mil/cmm (4.30-5.70) L 05/07/17 06:36 Hgb 10.2 gm/dL (12-16) L 05/07/17 06:36 Hct 30.9 % (41.0-60) L 05/07/17 06:36 MCV 88.0 fl (80-99) 05/07/17 06:36 MCH 29.0 pg (26.0-30.0) 05/07/17 06:36 MCHC Differential 33.0 pg (28.0-36.0) 05/07/17 06:36 RDW 13.6 % (11.5-20.0) 05/07/17 06:36 Plt Count 359 Th/cmm (150-400) 05/07/17 06:36 MPV 6.6 fl 05/07/17 06:36 Neutrophils % 69.1 % (40.0-80.0) 05/07/17 06:36 Lymphocytes % 19.8 % (20.0-50.0) L 05/07/17 06:36 Monocytes % 7.0 % (2.0-10.0) 05/07/17 06:36 Eosinophils % 3.5 % (0.0-5.0) 05/07/17 06:36 Basophils % 0.6 % (0.0-2.0) 05/07/17 06:36 PT 10.5 SECONDS (9.5-11.5) 05/02/17 06:00 INR 1.01 (0.5-1.4) 05/02/17 06:00 Sodium 138 mEq/L (136-145) 05/07/17 05:00 Potassium 4.1 mEq/L (3.5-5.1) 05/07/17 05:00 Chloride 119 mEq/L (98-107) H 05/07/17 05:00 Carbon Dioxide 15.5 mEq/L (21.0-31.0) L 05/07/17 05:00 Anion Gap 7.6 (7.0-16.0) 05/07/17 05:00 BUN 42 mg/dL (7-25) H 05/07/17 05:00 Creatinine 1.6 mg/dL (0.7-1.3) H 05/07/17 05:00 Est GFR ( Amer) 58.2 ml/min (>90) 05/07/17 05:00 Est GFR (Non-Af Amer) 48.1 ml/min 05/07/17 05:00 BUN/Creatinine Ratio 26.3 05/07/17 05:00 Glucose 112 mg/dL (70-105) H 05/07/17 05:00 POC Glucose 215 MG/DL (70 - 105) H 05/02/17 01:25 Hemoglobin A1c % 5.6 % (4.0-6.0) 05/02/17 06:00 Calcium 8.4 mg/dL (8.6-10.3) L 05/07/17 05:00 Iron 21 ug/dL (38-169) L 05/03/17 05:20 TIBC 155 ug/dL (250-450) L 05/03/17 05:20 Iron Saturation 14 % (15-55) L 05/03/17 05:20 Unsaturated IBC 134 ug/dL (111-343) 05/03/17 05:20 Ferritin 488 ng/mL (30-400) H 05/03/17 05:20 Total Bilirubin 0.2 mg/dL (0.3-1.0) L 05/07/17 05:00 AST 16 U/L (13-39) 05/07/17 05:00 ALT 10 U/L (7-52) 05/07/17 05:00 Alkaline Phosphatase 71 U/L (34-104) 05/07/17 05:00 Total Protein 5.8 gm/dL (6.0-8.3) L 05/07/17 05:00 Albumin 2.2 gm/dL (4.2-5.5) L 05/07/17 05:00 Globulin 3.6 gm/dL 05/07/17 05:00 Albumin/Globulin Ratio 0.6 (1.0-1.8) L 05/07/17 05:00 Lipase 24 U/L (11-82) 05/08/17 08:40 Vitamin B12 1438 pg/mL (232-1245) H 05/03/17 05:20 Folic Acid 13.3 ng/mL (>3.0) 05/03/17 05:20 Stool Occult Blood NEGATIVE (NEGATIVE) 05/07/17 10:00 Blood Type O POSITIVE 05/02/17 09:20 Antibody Screen NEGATIVE 05/02/17 09:20 Crossmatch See Detail 05/02/17 09:20 - Physical Exam Vitals and I&O: Vital Signs Temp 98.2 F 05/08/17 05:35 Pulse 85 05/08/17 17:36 Resp 17 05/08/17 07:20 BP 159/88 05/08/17 17:36 Pulse Ox 97 05/08/17 05:35 Intake & Output 05/08/17 05/08/17 05/09/17 06:59 18:59 06:59 Intake Total 782.5 217.5 Balance 782.5 217.5 Intake: Intake, IV Amount 782.5 217.5 Dextrose 5% 1,000 ml @ 50 782.5 217.5 mls/hr IV .Q20H [facility] Rx#: [id number] Other: Stool Characteristics Formed [place] Active Medications: Current Medications Acetaminophen (Tylenol) 500 mg PO Q6H PRN PRN Reason: Pain (Moderate) Stop: 07/01/17 02:48 Last Admin: 05/08/17 11:00 Dose: 500 mg Amlodipine Besylate (Norvasc) 10 mg PO DAILY [facility] Stop: 07/04/17 08:59 Last Admin: 05/08/17 10:55 Dose: 10 mg Bisacodyl (Dulcolax 10 Mg Supp) 10 mg RC DAILY PRN PRN Reason: constipation Stop: 07/03/17 23:58 Last Admin: 05/05/17 00:20 Dose: 10 mg Bisacodyl (Dulcolax 5 Mg Ec Tab) 30 mg PO X1 ONE Stop: 05/08/17 19:13 Carbamazepine (Tegretol) 200 mg PO TID [facility] PRN Reason: Protocol Stop: 07/01/17 08:59 Last Admin: 05/08/17 14:25 Dose: Not Given Hydralazine HCl (Apresoline) 50 mg PO QID [facility] Stop: 07/05/17 12:59 Last Admin: 05/08/17 17:36 Dose: Not Given Hydralazine HCl (Apresoline 20 Mg/Ml) 10 mg IV Q6HR PRN PRN Reason: SBP ABOVE 160 Stop: 07/06/17 17:33 Last Admin: 05/08/17 15:57 Dose: 10 mg Dextrose (D5w) 1,000 mls @ 50 mls/hr IV .Q20H [facility] Stop: 07/05/17 11:44 Last Admin: 05/08/17 12:54 Dose: 50 mls/hr Levetiracetam (Keppra) 500 mg PO BID [facility] Stop: 07/01/17 08:59 Last Admin: 05/08/17 17:37 Dose: Not Given Lorazepam (Ativan) 0.5 mg IVP Q6HR PRN; Protocol PRN Reason: Agitation Stop: 07/07/17 16:10 Metoprolol Tartrate (Lopressor) 100 mg PO BID [facility] Stop: 07/01/17 08:59 Last Admin: 05/08/17 17:36 Dose: Not Given Miscellaneous (Clinical Monitoring) 1 ea MC PRN PRN PRN Reason: RENAL Stop: 07/01/17 09:53 Pantoprazole Sodium (Protonix) 40 mg PO DAILY [facility] Stop: 07/01/17 07:29 Last Admin: 05/08/17 10:57 Dose: 40 mg Polyethylene Glycol/Electrolytes (Golytely) 4,000 ml PO X1 ONE Stop: 05/08/17 19:11 Senna (Senna) 8.6 mg PO DAILY [facility] Stop: 07/04/17 08:59 Last Admin: 05/08/17 10:57 Dose: 8.6 mg Sodium Bicarbonate (Sodium Bicarbonate) 650 mg PO BID [facility] PRN Reason: Protocol Stop: 07/05/17 16:59 Last Admin: 05/08/17 17:38 Dose: Not Given Temazepam (Restoril) 15 mg PO HS PRN; Protocol PRN Reason: Insomnia Stop: 07/03/17 23:57 Last Admin: 05/07/17 21:14 Dose: 15 mg General: demented HEENT: NC/AT, PERRLA, EOMI, anicteric sclerae, throat clear Neck: Supple, No JVD, No thyromegaly, +2 carotid pulse wo bruit, No LAD Lungs: CTAB Cardiovascular: RRR, Normal S1, Normal S2, without murmur Abdomen: soft, tender, non-distended Extremities: clear Neurological: no change - Procedures Procedures: Procedures Procedure Code Date BLOOD TRANSFUSION SERVICE 37224 05/01/17 DRAINAGE OF SKIN ABSCESS 41926 08/15/03 ELECTROCARDIOGRAM 89.52 01/27/00 ELECTROCARDIOGRAM COMPLETE 01894 01/27/00 INSERT NON-TUNNEL CV CATH 06590 12/13/03 MAGNETIC RESONANCE IMAGING OF BRAIN AND BRAIN STEM 88.91 01/27/00 MRI BRAIN STEM W/O DYE 96398 01/27/00 OTHER SKIN & SUBQ I D 86.04 08/15/03 TRANSFUSE NONAUT RED BLOOD CELLS IN PERIPH VEIN, PERC 90623J0 05/01/17 VENOUS CATHETERIZATION NEC 38.93 12/13/03 Internal Medicine Assmt/Plan - Assessment Assessment: 1.SEVER ANEMIA. 2.DEHYDRATION. 3.CISCO. 4.CVA 5.ACUTE ABDONINAL PAIN. 6.UNCONTROLLED HTN. 7.SEVER EPISODES OF AGITATION. - Plan Plan: CONTINUE ON CURRENT MEDICATION AND DIET.HE WAS SEEN BY PSYCHIATRIST AND GI.I TAIKED TO AND HE WILL SCHEDULE HIM FOR UPPER AND LOWER SCOP. Nutritional Asmnt/Malnutr-PDOC - Dietary Evaluation Malnutrition Findings (Please click <Entered> for more info): Nutritional Asmnt/Malnutrition Start: 05/02/17 15: 58 Text: Status: Complete Freq: Document 05/02/17 15:58 [facility] (Rec: 05/02/17 16:14 HEN [email or web address]) Nutritional Asmnt/Malnutrition Patient General Information Nutritional Screening High Risk Consult Diagnosis severe anemia, dehydration, CISCO Pertinent Medical Hx/Surgical Hx CVA, seizure disorder, dementia, psychosis, CKD Subjective Information Consult received for BS 215 at adm and wound. Pt seen lying in bed at time of visit, awake and alert at time of visit. Hard to understand pt. Pt said no when dietitian asked about food related questions. Per nurse notes, pt refused lunch althought RN and MANAGER PATHOLOGY tried multiple times. Current Diet Order/ Nutrition Support Renal, mech soft chopped Pertinent Medications D5-0.45ns, protonix Pertinent Labs / Na 141, K 4.2, Cl 118, BUN 91, Cr 2.5, Glucose 180, POC 215, AST 11, Alb 2.5 Nutritional Hx/Data Height 1.57 m Height (Calculated Centimeters) 157.5 Current Weight (lbs) 78.018 kg Weight (Calculated Kilograms) 78.0 Weight (Calculated Grams) 18865.9 [place] Body Weight 118 Body Mass Index (BMI) 31.4 Weight Status Obese GI Symptoms GI Symptoms None Last BM none Difficult in: None Skin Integrity/Comment: per wound care note: Distal aspect of Gluteal Sulcus - Moisture lesion, present on admission. reddened to sacrum, potential skin problem to bilateral legs Estimated Nutritional Goals BEE in Kcals: Adj wt of IBW Calories/Kcals/Kg 25-30 Kcals Calculated 3881-1180 Protein: Adj wt of IBW Protein g/k-1.2 Protein Calculated 60-72 Fluid: ml 1500-1800ml (1ml/kcal) or per MD Nutritional Problem 1. Problem Problem altered nutrition related lab values Etiology hx of CKD, dx of CISCO, endocrine dysfunction Signs/Symptoms: BUN 91, Cr 2.5, Glucose 180, POC 215 Malnutrition Alert Protein-Calorie Malnutrition N/A Is there a minimum of two criteria No selected? Query Text:Check all the applicable criteria. A minimum of two criteria are recommended for diagnosis of either severe or non-severe malnutrition. Intervention/Recommendation Comments 1. Monitor glucose and check a1c level. If glucose continue high, will consider adding CCHO diet for optimal glycemic control 2. Monitor PO intake, wt, labs and skin integrity 3. F/U as high risk in 2-3 days, 05/04-05/05 Expected Outcomes/Goals Expected Outcomes/Goals 1. PO intake to meet at least 75% of nutritional needs. 2. Wt stability, skin to remain intact, labs to approach WNL.
--- NOTE | 2017-05-08 23:30 | Consultation ---
DATE OF CONSULTATION: 05/08/2017 REASON FOR CONSULTATION: The patient is not eating. HISTORY OF PRESENT ILLNESS: A 56-year-old male with history of developmental disability, CVA, seizure disorder, chronic kidney disease, resides at [facility], admitted with severe anemia, acute kidney injury, dehydration, comes with abdominal pain. On [id number], the patient says he does not want to eat. He does not want to take any medications. When I asked him why, he says "I do not want to." He does allude to having pain and discomfort. When I asked him what depression or sadness. He does not answer any questions. I did contact the sister at [phone]. I spoke with her, she told me that he has a history of not eating in the past when his abdomen hurts, when the pain goes away he starts eating again. PAST PSYCHIATRIC HISTORY: Developmental disability. She denies any schizophrenia or bipolar diagnosis. No suicide history. FAMILY HISTORY: Noncontributory. SOCIAL HISTORY: Living at a prison. Sister is the primary decision maker. Unfortunately, the mom last year. MENTAL STATUS EXAMINATION: Stated age, fair eye contact. Speech slowed, limited. Thought processes were in progress. The patient denies he is trying to kill himself. No overt HI. No overt psychosis. Insight grossly limited. PROVISIONAL DIAGNOSIS: Anxiety, unspecified; mood, unspecified; also developmental disability. UNDER MEDICAL: Please see full H and P. RECOMMENDATIONS AND PLAN: Per the sister, historically, the patient has refused medication and food in the past when he has abdominal pain, would recommend treating underlying medical issues in order to address the abdominal pain. The sister knows that when the pain relives, he starts eating again. We will monitor and follow up. [facility]# [id number]
[2017-05-09 06:40] LABS: % BASOPHILS 0.4 % (0.0-2.0); % EOSINOPHILS 1.1 % (0.0-5.0); % LYMPHOCYTES 12.3 % (20.0-50.0); % MONOCYTES 5.5 % (2.0-10.0); % NEUTROPHILS 80.7 % (40.0-80.0); BASOPHILE ABSOLUTE 0.1 Th/cumm (0-0.2); EOSINOPHILE ABSOLUTE 0.2 Th/cmm (0.1-0.4); HEMATOCRIT 32.1 % (41.0-60); HEMOGLOBIN 10.8 gm/dL (12-16); LYMPHOCYTE ABSOLUTE 1.9 Th/cmm (1.5-3.0); MEAN CELL VOLUME 87.7 fl (80-99); MEAN CORPUSCULAR HEMOGLOBIN 29.5 pg (26.0-30.0); MEAN CORPUSCULAR HGB CONC 33.6 pg (28.0-36.0); MEAN PLATELET VOLUME 7.2 fl; MONOCYTE ABSOLUTE 0.8 Th/cmm (0.3-1.0); NEUTROPHILE ABSOLUTE 12.2 Th/cmm (1.8-8.0); PLATELET COUNT 512 Th/cmm (150-400); RED BLOOD COUNT 3.66 Mil/cmm (4.30-5.70); RED CELL DISTRIBUTION WIDTH 13.3 % (11.5-20.0)
[2017-05-09 06:51] LABS: WHITE BLOOD COUNT 15.2 Th/cmm (4.8-10.8)
[2017-05-09 06:56] LABS: INR 1.25 (0.5-1.4); PROTHROMBIN TIME (TEST) 13.2 SECONDS (9.5-11.5)
[2017-05-09 07:14] LABS: ALB/GLOB RATIO 0.6 (1.0-1.8); ALBUMIN 2.2 gm/dL (4.2-5.5); ANION GAP 14.8 (7.0-16.0); BILIRUBIN,TOTAL 0.2 mg/dL (0.3-1.0); CALCIUM SERUM 8.5 mg/dL (8.6-10.3); CREATININE - SERUM 1.9 mg/dL (0.7-1.3); GFR AFRICAN-AMERICAN 47.7 ml/min (>90); GFR NON AFRICAN-AMERICAN 39.5 ml/min; POTASSIUM SERUM 3.8 mEq/L (3.5-5.1)
--- NOTE | 2017-05-09 08:15 | Diagnostic Imaging Report ---
Portable chest x-ray HISTORY: Shortness of breath, nasogastric tube placement The overall heart size appears normal. Density noted in the right hemithorax consistent with a pleural effusion. No definite focal pulmonary parenchymal processes are seen. Nasogastric tube extends into the region of the stomach. IMPRESSION: 1. Nasogastric tube extending into the region of the stomach 2. Findings consistent with a right pleural effusion
[2017-05-09] MEDS: Pantoprazole 40 mg EC Tab PO SCH (09:11)
[2017-05-09] MEDS ORDERED: Lidocaine 2% Gel 5 mL TP ONE (11:45)
[2017-05-09] MEDS ORDERED: Propofol 10 mg/mL 20mL Vial **SURGERY USE ONLY IV ONE (11:45)
--- NOTE | 2017-05-09 13:45 | Operative Report ---
DATE OF SURGERY: 05/09/2017 INPATIENT GASTROINTESTINAL PROCEDURE PROCEDURE: EGD with biopsy. REFERRING PHYSICIAN: Dr. Lopez. REASON FOR PROCEDURE: Epigastric abdominal pain. CONSENT: Risks, benefits, alternatives, nature, indication, possible outcomes were discussed. Mentioned bleeding, infection, perforation, , disability, cardiopulmonary distress and arrest, missed lesion and cancers, need for surgery. The patient and family expressed understanding and provided informed consent. PREOPERATIVE DIAGNOSIS: Epigastric pain. POSTOPERATIVE DIAGNOSES: Gastritis, small hiatal hernia. MEDICATIONS: Provided by anesthesiologist. DESCRIPTION OF PROCEDURE: The patient was placed on the left side. Upper endoscope was advanced from the mouth and second portion of duodenum, which appeared to be normal. Scope was brought back into the stomach with retroflexion view of fundus, cardia, lesser curvature and NG tube. Biopsies were taken. Scope was slowly withdrawn through esophagus and removed. COMPLICATIONS: None. FINDINGS: 1. GE junction at 45 cm with a small hiatal hernia, otherwise normal esophagus. 2. Gastritis that is mild in the antrum, status post biopsy. 3. Normal duodenum. RECOMMENDATIONS: 1. Follow up on biopsy. 2. Provide the patient with a proton pump inhibitor. 3. Treat if H. pylori is positive. Thank you for allowing me to participate. Please call me if any questions. [facility]# [id number] [id number]
--- NOTE | 2017-05-09 16:09 | General Progress Note ---
Subjective - Review of Systems Service Date: 05/09/17 Subjective: refusing to eat Objective - Results Result Diagrams: 05/09/17 06:00 05/09/17 06:00 Recent Labs: Laboratory Last Values WBC 15.2 Th/cmm (4.8-10.8) H 05/09/17 06:00 RBC 3.66 Mil/cmm (4.30-5.70) L 05/09/17 06:00 Hgb 10.8 gm/dL (12-16) L 05/09/17 06:00 Hct 32.1 % (41.0-60) L 05/09/17 06:00 MCV 87.7 fl (80-99) 05/09/17 06:00 MCH 29.5 pg (26.0-30.0) 05/09/17 06:00 MCHC Differential 33.6 pg (28.0-36.0) 05/09/17 06:00 RDW 13.3 % (11.5-20.0) 05/09/17 06:00 Plt Count 512 Th/cmm (150-400) H 05/09/17 06:00 MPV 7.2 fl 05/09/17 06:00 Neutrophils % 80.7 % (40.0-80.0) H 05/09/17 06:00 Lymphocytes % 12.3 % (20.0-50.0) L 05/09/17 06:00 Monocytes % 5.5 % (2.0-10.0) 05/09/17 06:00 Eosinophils % 1.1 % (0.0-5.0) 05/09/17 06:00 Basophils % 0.4 % (0.0-2.0) 05/09/17 06:00 PT 13.2 SECONDS (9.5-11.5) H 05/09/17 06:00 INR 1.25 (0.5-1.4) 05/09/17 06:00 PTT (Actin FS) 36.0 SECONDS (26.0-38.0) 05/09/17 06:00 Sodium 135 mEq/L (136-145) L 05/09/17 06:00 Potassium 3.8 mEq/L (3.5-5.1) 05/09/17 06:00 Chloride 114 mEq/L (98-107) H 05/09/17 06:00 Carbon Dioxide 10.0 mEq/L (21.0-31.0) L 05/09/17 06:00 Anion Gap 14.8 (7.0-16.0) 05/09/17 06:00 BUN 39 mg/dL (7-25) H 05/09/17 06:00 Creatinine 1.9 mg/dL (0.7-1.3) H 05/09/17 06:00 Est GFR ( Amer) 47.7 ml/min (>90) 05/09/17 06:00 Est GFR (Non-Af Amer) 39.5 ml/min 05/09/17 06:00 BUN/Creatinine Ratio 20.5 05/09/17 06:00 Glucose 106 mg/dL (70-105) H 05/09/17 06:00 POC Glucose 215 MG/DL (70 - 105) H 05/02/17 01:25 Hemoglobin A1c % 5.6 % (4.0-6.0) 05/02/17 06:00 Calcium 8.5 mg/dL (8.6-10.3) L 05/09/17 06:00 Iron 21 ug/dL (38-169) L 05/03/17 05:20 TIBC 155 ug/dL (250-450) L 05/03/17 05:20 Iron Saturation 14 % (15-55) L 05/03/17 05:20 Unsaturated IBC 134 ug/dL (111-343) 05/03/17 05:20 Ferritin 488 ng/mL (30-400) H 05/03/17 05:20 Total Bilirubin 0.2 mg/dL (0.3-1.0) L 05/09/17 06:00 AST 13 U/L (13-39) 05/09/17 06:00 ALT 10 U/L (7-52) 05/09/17 06:00 Alkaline Phosphatase 80 U/L (34-104) 05/09/17 06:00 Total Protein 6.0 gm/dL (6.0-8.3) 05/09/17 06:00 Albumin 2.2 gm/dL (4.2-5.5) L 05/09/17 06:00 Globulin 3.8 gm/dL 05/09/17 06:00 Albumin/Globulin Ratio 0.6 (1.0-1.8) L 05/09/17 06:00 Lipase 24 U/L (11-82) 05/08/17 08:40 Vitamin B12 1438 pg/mL (232-1245) H 05/03/17 05:20 Folic Acid 13.3 ng/mL (>3.0) 05/03/17 05:20 Stool Occult Blood NEGATIVE (NEGATIVE) 05/07/17 10:00 Blood Type O POSITIVE 05/02/17 09:20 Antibody Screen NEGATIVE 05/02/17 09:20 Crossmatch See Detail 05/02/17 09:20 - Physical Exam Vitals and I&O: Vital Signs Temp 98.3 F 05/09/17 13:00 Pulse 95 05/09/17 15:53 Resp 30 05/09/17 15:53 BP 148/75 05/09/17 14:26 Pulse Ox 94 05/09/17 15:53 Intake & Output 05/08/17 05/09/17 05/09/17 18:59 06:59 18:59 Intake Total 217.5 1999 Balance 217.5 1999 Weight (lbs) 87.09 kg 87.09 kg Intake: Intake, IV Amount 217.5 Dextrose 5% 1,000 ml @ 50 217.5 mls/hr IV .Q20H [facility] Rx#: [id number] Other 1999 Other: # Voids 3 2 # Bowel Movements 3 2 Active Medications: Current Medications Acetaminophen (Tylenol) 500 mg PO Q6H PRN PRN Reason: Pain (Moderate) Stop: 07/01/17 02:48 Last Admin: 05/08/17 11:00 Dose: 500 mg Albuterol/Ipratropium (Duoneb Neb) 3 ml HHN Q6HRT [facility] Stop: 07/08/17 18:59 Amlodipine Besylate (Norvasc) 10 mg PO DAILY [facility] Stop: 07/04/17 08:59 Last Admin: 05/09/17 09:11 Dose: 10 mg Bisacodyl (Dulcolax 10 Mg Supp) 10 mg RC DAILY PRN PRN Reason: constipation Stop: 07/03/17 23:58 Last Admin: 05/05/17 00:20 Dose: 10 mg Carbamazepine (Tegretol) 200 mg PO TID [facility] PRN Reason: Protocol Stop: 07/01/17 08:59 Last Admin: 05/09/17 14:26 Dose: 200 mg Hydralazine HCl (Apresoline) 50 mg PO QID [facility] Stop: 07/05/17 12:59 Last Admin: 05/09/17 09:10 Dose: 50 mg Hydralazine HCl (Apresoline 20 Mg/Ml) 10 mg IV Q6HR PRN PRN Reason: SBP ABOVE 160 Stop: 07/06/17 17:33 Last Admin: 05/09/17 14:26 Dose: 10 mg Dextrose (D5w) 1,000 mls @ 50 mls/hr IV .Q20H [facility] Stop: 07/05/17 11:44 Last Admin: 05/08/17 12:54 Dose: 50 mls/hr Vancomycin HCl 1.25 gm/ Sodium (Chloride) 250 mls @ 165 mls/hr IV X1 ONE Stop: 05/09/17 17:30 Piperacillin Sod/Tazobactam (Sod 3.375 gm/ Sodium Chloride) 50 mls @ 100 mls/ hr IV Q6HR [facility] Stop: 07/08/17 17:59 Levetiracetam (Keppra) 500 mg PO BID [facility] Stop: 07/01/17 08:59 Last Admin: 05/09/17 09:11 Dose: 500 mg Lorazepam (Ativan) 0.5 mg IVP Q6HR PRN; Protocol PRN Reason: Agitation Stop: 07/07/17 16:10 Metoprolol Tartrate (Lopressor) 100 mg PO BID [facility] Stop: 07/01/17 08:59 Last Admin: 05/09/17 09:10 Dose: 100 mg Miscellaneous (Clinical Monitoring) 1 ea PRN PRN PRN Reason: RENAL Stop: 07/01/17 09:53 Miscellaneous (Vancomycin Iv Per Pharmacy) 1 ea PRN PRN PRN Reason: PROTOCOL Stop: 07/08/17 13:43 Pantoprazole Sodium (Protonix) 40 mg PO DAILY [facility] Stop: 07/01/17 07:29 Last Admin: 05/09/17 09:11 Dose: 40 mg Senna (Senna) 8.6 mg PO DAILY [facility] Stop: 07/04/17 08:59 Last Admin: 05/09/17 09:11 Dose: 8.6 mg Sodium Bicarbonate (Sodium Bicarbonate) 650 mg PO BID [facility] PRN Reason: Protocol Stop: 07/05/17 16:59 Last Admin: 05/09/17 09:09 Dose: 650 mg Temazepam (Restoril) 15 mg PO HS PRN; Protocol PRN Reason: Insomnia Stop: 07/03/17 23:57 Last Admin: 05/07/17 21:14 Dose: 15 mg General: Cooperative, No acute distress HEENT: Atraumatic Neck: Supple Cardiovascular: Regular rate, Normal S1, Normal S2 Lungs: Clear to auscultation Abdomen: Bowel sounds Extremities: Cyanosis - Procedures Procedures: Procedures Procedure Code Date BLOOD TRANSFUSION SERVICE 95735 05/01/17 DRAINAGE OF SKIN ABSCESS 99080 08/15/03 ELECTROCARDIOGRAM 89.52 01/27/00 ELECTROCARDIOGRAM COMPLETE 06203 01/27/00 INSERT NON-TUNNEL CV CATH 97568 12/13/03 MAGNETIC RESONANCE IMAGING OF BRAIN AND BRAIN STEM 88.91 01/27/00 MRI BRAIN STEM W/O DYE 23497 01/27/00 OTHER SKIN & SUBQ I D 86.04 08/15/03 TRANSFUSE NONAUT RED BLOOD CELLS IN PERIPH VEIN, PERC [id number] 05/01/17 VENOUS CATHETERIZATION NEC 38.93 12/13/03 Assessment/Plan - Assessment Assessment: 05/09: s/p EGD, gastritis; CT ABD noted; pleural effusion. hgb is stable 05/08: poor intake, Anemia of chronic disease. awaiting CT ABD 05/07: hgb is stable. Anemia of chronic kidney disease 05/06:No clinical bleeding. Anemia of chronic kidney disease 05/05: Hgb remains stable, continue monitoring; Anemia chauhan is consistent with anemia of CKD * 05/04: hgb stable; follow anemia chauhan results and cbc * 05/03: hgb better after transfusion; follow anemia chauhan * 05/02: Severe normocytic anemia. The patient will need comprehensive anemia workup with iron studies, B12, folic acid and stool occult blood. 2. Acute kidney injury on top of chronic kidney disease. 3. Dementia. 4. History of cerebrovascular accident and seizure disorder. Nutritional Asmnt/Malnutr-PDOC - Dietary Evaluation Malnutrition Findings (Please click <Entered> for more info): Nutritional Asmnt/Malnutrition Start: 05/02/17 15: 58 Text: Status: Complete Freq: Document 05/02/17 15:58 [facility] (Rec: 05/02/17 16:14 [facility]CH[facility] [email or web address]) Nutritional Asmnt/Malnutrition Patient General Information Nutritional Screening High Risk Consult Diagnosis severe anemia, dehydration, CISCO Pertinent Medical Hx/Surgical Hx CVA, seizure disorder, dementia, psychosis, CKD Subjective Information Consult received for BS 215 at adm and wound. Pt seen lying in bed at time of visit, awake and alert at time of visit. Hard to understand pt. Pt said no when dietitian asked about food related questions. Per nurse notes, pt refused lunch althought RN and [employer] tried multiple times. Current Diet Order/ Nutrition Support Renal, mech soft chopped Pertinent Medications D5-0.45ns, protonix Pertinent Labs 05/02 Na 141, K 4.2, Cl 118, BUN 91, Cr 2.5, Glucose 180, POC 215, AST 11, Alb 2.5 Nutritional Hx/Data Height 1.57 m Height (Calculated Centimeters) 157.5 Current Weight (lbs) 78.018 kg Weight (Calculated Kilograms) 78.0 Weight (Calculated Grams) 18503.9 [place] Body Weight 118 Body Mass Index (BMI) 31.4 Weight Status Obese GI Symptoms GI Symptoms None Last BM none Difficult in: None Skin Integrity/Comment: per wound care note: Distal aspect of Gluteal Sulcus - Moisture lesion, present on admission. reddened to sacrum, potential skin problem to bilateral legs Estimated Nutritional Goals BEE in Kcals: Adj wt of IBW Calories/Kcals/Kg 25-30 Kcals Calculated 2340-9708 Protein: Adj wt of IBW Protein g/k-1.2 Protein Calculated 60-72 Fluid: ml 1500-1800ml (1ml/kcal) or per MD Nutritional Problem 1. Problem Problem altered nutrition related lab values Etiology hx of CKD, dx of CISCO, endocrine dysfunction Signs/Symptoms: BUN 91, Cr 2.5, Glucose 180, POC 215 Malnutrition Alert Protein-Calorie Malnutrition N/A Is there a minimum of two criteria No selected? Query Text:Check all the applicable criteria. A minimum of two criteria are recommended for diagnosis of either severe or non-severe malnutrition. Intervention/Recommendation Comments 1. Monitor glucose and check a1c level. If glucose continue high, will consider adding CCHO diet for optimal glycemic control 2. Monitor PO intake, wt, labs and skin integrity 3. F/U as high risk in 2-3 days, 05/04-05/05 Expected Outcomes/Goals Expected Outcomes/Goals 1. PO intake to meet at least 75% of nutritional needs. 2. Wt stability, skin to remain intact, labs to approach WNL.
--- NOTE | 2017-05-09 18:17 | General Progress Note ---
Subjective - Review of Systems Service Date: 05/09/17 Subjective: pt seen and examined BP on and off high pt confused pt not eating Objective - Results Result Diagrams: 05/09/17 06:00 05/09/17 06:00 Recent Labs: Laboratory Last Values WBC 15.2 Th/cmm (4.8-10.8) H 05/09/17 06:00 RBC 3.66 Mil/cmm (4.30-5.70) L 05/09/17 06:00 Hgb 10.8 gm/dL (12-16) L 05/09/17 06:00 Hct 32.1 % (41.0-60) L 05/09/17 06:00 MCV 87.7 fl (80-99) 05/09/17 06:00 MCH 29.5 pg (26.0-30.0) 05/09/17 06:00 MCHC Differential 33.6 pg (28.0-36.0) 05/09/17 06:00 RDW 13.3 % (11.5-20.0) 05/09/17 06:00 Plt Count 512 Th/cmm (150-400) H 05/09/17 06:00 MPV 7.2 fl 05/09/17 06:00 Neutrophils % 80.7 % (40.0-80.0) H 05/09/17 06:00 Lymphocytes % 12.3 % (20.0-50.0) L 05/09/17 06:00 Monocytes % 5.5 % (2.0-10.0) 05/09/17 06:00 Eosinophils % 1.1 % (0.0-5.0) 05/09/17 06:00 Basophils % 0.4 % (0.0-2.0) 05/09/17 06:00 PT 13.2 SECONDS (9.5-11.5) H 05/09/17 06:00 INR 1.25 (0.5-1.4) 05/09/17 06:00 PTT (Actin FS) 36.0 SECONDS (26.0-38.0) 05/09/17 06:00 Sodium 135 mEq/L (136-145) L 05/09/17 06:00 Potassium 3.8 mEq/L (3.5-5.1) 05/09/17 06:00 Chloride 114 mEq/L (98-107) H 05/09/17 06:00 Carbon Dioxide 10.0 mEq/L (21.0-31.0) L 05/09/17 06:00 Anion Gap 14.8 (7.0-16.0) 05/09/17 06:00 BUN 39 mg/dL (7-25) H 05/09/17 06:00 Creatinine 1.9 mg/dL (0.7-1.3) H 05/09/17 06:00 Est GFR ( Amer) 47.7 ml/min (>90) 05/09/17 06:00 Est GFR (Non-Af Amer) 39.5 ml/min 05/09/17 06:00 BUN/Creatinine Ratio 20.5 05/09/17 06:00 Glucose 106 mg/dL (70-105) H 05/09/17 06:00 POC Glucose 215 MG/DL (70 - 105) H 05/02/17 01:25 Hemoglobin A1c % 5.6 % (4.0-6.0) 05/02/17 06:00 Calcium 8.5 mg/dL (8.6-10.3) L 05/09/17 06:00 Iron 21 ug/dL (38-169) L 05/03/17 05:20 TIBC 155 ug/dL (250-450) L 05/03/17 05:20 Iron Saturation 14 % (15-55) L 05/03/17 05:20 Unsaturated IBC 134 ug/dL (111-343) 05/03/17 05:20 Ferritin 488 ng/mL (30-400) H 05/03/17 05:20 Total Bilirubin 0.2 mg/dL (0.3-1.0) L 05/09/17 06:00 AST 13 U/L (13-39) 05/09/17 06:00 ALT 10 U/L (7-52) 05/09/17 06:00 Alkaline Phosphatase 80 U/L (34-104) 05/09/17 06:00 Total Protein 6.0 gm/dL (6.0-8.3) 05/09/17 06:00 Albumin 2.2 gm/dL (4.2-5.5) L 05/09/17 06:00 Globulin 3.8 gm/dL 05/09/17 06:00 Albumin/Globulin Ratio 0.6 (1.0-1.8) L 05/09/17 06:00 Lipase 24 U/L (11-82) 05/08/17 08:40 Vitamin B12 1438 pg/mL (232-1245) H 05/03/17 05:20 Folic Acid 13.3 ng/mL (>3.0) 05/03/17 05:20 Stool Occult Blood NEGATIVE (NEGATIVE) 05/07/17 10:00 Blood Type O POSITIVE 05/02/17 09:20 Antibody Screen NEGATIVE 05/02/17 09:20 Crossmatch See Detail 05/02/17 09:20 - Physical Exam Vitals and I&O: Vital Signs Temp 98.3 F 05/09/17 13:00 Pulse 92 05/09/17 17:46 Resp 30 05/09/17 15:53 BP 148/78 05/09/17 17:46 Pulse Ox 94 05/09/17 15:53 Intake & Output 05/08/17 05/09/17 05/09/17 18:59 06:59 18:59 Intake Total 217.5 1999 Balance 217.5 1999 Weight (lbs) 87.09 kg 87.09 kg Intake: Intake, IV Amount 217.5 Dextrose 5% 1,000 ml @ 50 217.5 mls/hr IV .Q20H [facility] Rx#: [id number] Other 1999 Other: # Voids 3 2 # Bowel Movements 3 2 Active Medications: Current Medications Acetaminophen (Tylenol) 500 mg PO Q6H PRN PRN Reason: Pain (Moderate) Stop: 07/01/17 02:48 Last Admin: 05/08/17 11:00 Dose: 500 mg Albuterol/Ipratropium (Duoneb Neb) 3 ml HHN Q6HRT [facility] Stop: 07/08/17 18:59 Amlodipine Besylate (Norvasc) 10 mg PO DAILY [facility] Stop: 07/04/17 08:59 Last Admin: 05/09/17 09:11 Dose: 10 mg Bisacodyl (Dulcolax 10 Mg Supp) 10 mg RC DAILY PRN PRN Reason: constipation Stop: 07/03/17 23:58 Last Admin: 05/05/17 00:20 Dose: 10 mg Carbamazepine (Tegretol) 200 mg PO TID [facility]O PRN Reason: Protocol Stop: 07/01/17 08:59 Last Admin: 05/09/17 14:26 Dose: 200 mg Hydralazine HCl (Apresoline) 50 mg PO QID [facility] Stop: 07/05/17 12:59 Last Admin: 05/09/17 17:46 Dose: 50 mg Hydralazine HCl (Apresoline 20 Mg/Ml) 10 mg IV Q6HR PRN PRN Reason: SBP ABOVE 160 Stop: 07/06/17 17:33 Last Admin: 05/09/17 14:26 Dose: 10 mg Dextrose (D5w) 1,000 mls @ 50 mls/hr IV .Q20H [facility] Stop: 07/05/17 11:44 Last Admin: 05/08/17 12:54 Dose: 50 mls/hr Piperacillin Sod/Tazobactam (Sod 3.375 gm/ Sodium Chloride) 50 mls @ 100 mls/ hr IV Q6HR [facility] Stop: 07/08/17 17:59 Last Admin: 05/09/17 17:52 Dose: 100 mls/hr Levetiracetam (Keppra) 500 mg PO BID [facility] Stop: 07/01/17 08:59 Last Admin: 05/09/17 17:44 Dose: 500 mg Lorazepam (Ativan) 0.5 mg IVP Q6HR PRN; Protocol PRN Reason: Agitation Stop: 07/07/17 16:10 Metoprolol Tartrate (Lopressor) 100 mg PO BID [facility] Stop: 07/01/17 08:59 Last Admin: 05/09/17 17:44 Dose: 100 mg Miscellaneous (Clinical Monitoring) 1 ea PRN PRN PRN Reason: RENAL Stop: 07/01/17 09:53 Miscellaneous (Vancomycin Iv Per Pharmacy) 1 ea PRN PRN PRN Reason: PROTOCOL Stop: 07/08/17 13:43 Pantoprazole Sodium (Protonix) 40 mg PO DAILY [facility] Stop: 07/01/17 07:29 Last Admin: 05/09/17 09:11 Dose: 40 mg Senna (Senna) 8.6 mg PO DAILY [facility] Stop: 07/04/17 08:59 Last Admin: 05/09/17 09:11 Dose: 8.6 mg Sodium Bicarbonate (Sodium Bicarbonate) 650 mg PO BID [facility] PRN Reason: Protocol Stop: 07/05/17 16:59 Last Admin: 05/09/17 17:45 Dose: 650 mg Temazepam (Restoril) 15 mg PO HS PRN; Protocol PRN Reason: Insomnia Stop: 07/03/17 23:57 Last Admin: 05/07/17 21:14 Dose: 15 mg General: Cooperative, No acute distress HEENT: Atraumatic Neck: Supple Cardiovascular: Regular rate, Normal S1, Normal S2 Lungs: Clear to auscultation Abdomen: Bowel sounds Extremities: Cyanosis - Procedures Procedures: Procedures Procedure Code Date BLOOD TRANSFUSION SERVICE 26987 05/01/17 DRAINAGE OF SKIN ABSCESS 14739 08/15/03 ELECTROCARDIOGRAM 89.52 01/27/00 ELECTROCARDIOGRAM COMPLETE 66684 01/27/00 INSERT NON-TUNNEL CV CATH 20787 12/13/03 MAGNETIC RESONANCE IMAGING OF BRAIN AND BRAIN STEM 88.91 01/27/00 MRI BRAIN STEM W/O DYE 97824 01/27/00 OTHER SKIN & SUBQ I D 86.04 08/15/03 TRANSFUSE NONAUT RED BLOOD CELLS IN PERIPH VEIN, PERC 74610Z5 05/01/17 VENOUS CATHETERIZATION NEC 38.93 12/13/03 Assessment/Plan - Assessment Assessment: ACUTE ANEMIA ACUTE RENAL FAILURE SECONDARY TO ATN SECONDARY TO SEVERE ANEMIA ACUTE TUBULAR NECROSIS CVA SEIZURE PSYCHOSIS DEMENTIA - Plan Plan: BP NEEDS BETTER CONTROL RENAL FUNCTION IMPROVING HGB stable add bicarb start IVF Nutritional Asmnt/Malnutr-PDOC - Dietary Evaluation Malnutrition Findings (Please click <Entered> for more info): Nutritional Asmnt/Malnutrition Start: 05/02/17 15: 58 Text: Status: Complete Freq: Document 05/02/17 15:58 [facility] (Rec[facility]02[facility]17 [facility] Nutritional Asmnt/Malnutrition Patient General Information Nutritional Screening High Risk Consult Diagnosis severe anemia, dehydration, CISCO Pertinent Medical Hx/Surgical Hx CVA, seizure disorder, dementia, psychosis, CKD Subjective Information Consult received for BS 215 at adm and wound. Pt seen lying in bed at time of visit, awake and alert at time of visit. Hard to understand pt. Pt said no when dietitian asked about food related questions. Per nurse notes, pt refused lunch althought RN and PLASTICS TECHNICIAN tried multiple times. Current Diet Order/ Nutrition Support Renal, mech soft chopped Pertinent Medications D5-0.45ns, protonix Pertinent Labs 3/6 Na 141, K 4.2, Cl 118, BUN 91, Cr 2.5, Glucose 180, POC 215, AST 11, Alb 2.5 Nutritional Hx/Data Height 1.57 m Height (Calculated Centimeters) 157.5 Current Weight (lbs) 78.018 kg Weight (Calculated Kilograms) 78.0 Weight (Calculated Grams) 01632.9 [facility] Body Weight 118 Body Mass Index (BMI) 31.4 Weight Status Obese GI Symptoms GI Symptoms None Last BM none Difficult in: None Skin Integrity/Comment: per wound care note: Distal aspect of Gluteal Sulcus - Moisture lesion, present on admission. reddened to sacrum, potential skin problem to bilateral legs Estimated Nutritional Goals BEE in Kcals: Adj wt of IBW Calories/Kcals/Kg 25-30 Kcals Calculated 9732-0796 Protein: Adj wt of IBW Protein g/k-1.2 Protein Calculated 60-72 Fluid: ml 1500-1800ml (1ml/kcal) or per MD Nutritional Problem 1. Problem Problem altered nutrition related lab values Etiology hx of CKD, dx of CISCO, endocrine dysfunction Signs/Symptoms: BUN 91, Cr 2.5, Glucose 180, POC 215 Malnutrition Alert Protein-Calorie Malnutrition N/A Is there a minimum of two criteria No selected? Query Text:Check all the applicable criteria. A minimum of two criteria are recommended for diagnosis of either severe or non-severe malnutrition. Intervention/Recommendation Comments 1. Monitor glucose and check a1c level. If glucose continue high, will consider adding CCHO diet for optimal glycemic control 2. Monitor PO intake, wt, labs and skin integrity 3. F/U as high risk in 2-3 days, 05/04-05/05 Expected Outcomes/Goals Expected Outcomes/Goals 1. PO intake to meet at least 75% of nutritional needs. 2. Wt stability, skin to remain intact, labs to approach WNL.
[2017-05-09] MEDS: Albuterol/Ipratropium Neb 3 ML AERS HHN SCH (19:18)
[2017-05-10] MEDS: Albuterol/Ipratropium Neb 3 ML AERS HHN SCH ×4 (00:50→19:00)
[2017-05-10 08:41] LABS: % EOSINOPHILS 1.5 % (0.0-5.0); % LYMPHOCYTES 15.7 % (20.0-50.0); % NEUTROPHILS 78.8 % (40.0-80.0); EOSINOPHILE ABSOLUTE 0.2 Th/cmm (0.1-0.4); HEMATOCRIT 30.9 % (41.0-60); HEMOGLOBIN 10.3 gm/dL (12-16); LYMPHOCYTE ABSOLUTE 2.2 Th/cmm (1.5-3.0); MEAN CELL VOLUME 87.2 fl (80-99); MEAN CORPUSCULAR HEMOGLOBIN 29.1 pg (26.0-30.0); MEAN CORPUSCULAR HGB CONC 33.4 pg (28.0-36.0); MEAN PLATELET VOLUME 7.8 fl; MONOCYTE ABSOLUTE 0.6 Th/cmm (0.3-1.0); NEUTROPHILE ABSOLUTE 11.1 Th/cmm (1.8-8.0); PLATELET COUNT 332 Th/cmm (150-400); RED BLOOD COUNT 3.54 Mil/cmm (4.30-5.70); RED CELL DISTRIBUTION WIDTH 13.4 % (11.5-20.0)
[2017-05-10 08:49] LABS: WHITE BLOOD COUNT 14.1 Th/cmm (4.8-10.8)
[2017-05-10 09:11] LABS: ANION GAP 10.9 (7.0-16.0); CALCIUM SERUM 8.6 mg/dL (8.6-10.3); CARBON DIOXIDE 10.8 mEq/L (21.0-31.0); CREATININE - SERUM 2.2 mg/dL (0.7-1.3); GFR AFRICAN-AMERICAN 40.3 ml/min (>90); GFR NON AFRICAN-AMERICAN 33.3 ml/min; POTASSIUM SERUM 3.7 mEq/L (3.5-5.1)
[2017-05-10] MEDS: Pantoprazole 40 mg EC Tab PO SCH (09:12)
--- NOTE | 2017-05-10 09:50 | General Progress Note ---
Subjective - Review of Systems Service Date: 05/10/17 Subjective: refusing to eat abd pain Objective - Results Result Diagrams: 05/10/17 08:30 05/10/17 08:30 Recent Labs: Laboratory Last Values WBC 14.1 Th/cmm (4.8-10.8) H 05/10/17 08:30 RBC 3.54 Mil/cmm (4.30-5.70) L 05/10/17 08:30 Hgb 10.3 gm/dL (12-16) L 05/10/17 08:30 Hct 30.9 % (41.0-60) L 05/10/17 08:30 MCV 87.2 fl (80-99) 05/10/17 08:30 MCH 29.1 pg (26.0-30.0) 05/10/17 08:30 MCHC Differential 33.4 pg (28.0-36.0) 05/10/17 08:30 RDW 13.4 % (11.5-20.0) 05/10/17 08:30 Plt Count 332 Th/cmm (150-400) 05/10/17 08:30 MPV 7.8 fl 05/10/17 08:30 Neutrophils % 78.8 % (40.0-80.0) 05/10/17 08:30 Lymphocytes % 15.7 % (20.0-50.0) L 05/10/17 08:30 Monocytes % 4.0 % (2.0-10.0) 05/10/17 08:30 Eosinophils % 1.5 % (0.0-5.0) 05/10/17 08:30 Basophils % 0.0 % (0.0-2.0) 05/10/17 08:30 PT 13.2 SECONDS (9.5-11.5) H 05/09/17 06:00 INR 1.25 (0.5-1.4) 05/09/17 06:00 PTT (Actin FS) 36.0 SECONDS (26.0-38.0) 05/09/17 06:00 Sodium 131 mEq/L (136-145) L 05/10/17 08:30 Potassium 3.7 mEq/L (3.5-5.1) 05/10/17 08:30 Chloride 113 mEq/L (98-107) H 05/10/17 08:30 Carbon Dioxide 10.8 mEq/L (21.0-31.0) L 05/10/17 08:30 Anion Gap 10.9 (7.0-16.0) 05/10/17 08:30 BUN 40 mg/dL (7-25) H 05/10/17 08:30 Creatinine 2.2 mg/dL (0.7-1.3) H 05/10/17 08:30 Est GFR ( Amer) 40.3 ml/min (>90) 05/10/17 08:30 Est GFR (Non-Af Amer) 33.3 ml/min 05/10/17 08:30 BUN/Creatinine Ratio 18.2 05/10/17 08:30 Glucose 159 mg/dL (70-105) H 05/10/17 08:30 POC Glucose 215 MG/DL (70 - 105) H 05/02/17 01:25 Hemoglobin A1c % 5.6 % (4.0-6.0) 05/02/17 06:00 Calcium 8.6 mg/dL (8.6-10.3) 05/10/17 08:30 Iron 21 ug/dL (38-169) L 05/03/17 05:20 TIBC 155 ug/dL (250-450) L 05/03/17 05:20 Iron Saturation 14 % (15-55) L 05/03/17 05:20 Unsaturated IBC 134 ug/dL (111-343) 05/03/17 05:20 Ferritin 488 ng/mL (30-400) H 05/03/17 05:20 Total Bilirubin 0.2 mg/dL (0.3-1.0) L 05/09/17 06:00 AST 13 U/L (13-39) 05/09/17 06:00 ALT 10 U/L (7-52) 05/09/17 06:00 Alkaline Phosphatase 80 U/L (34-104) 05/09/17 06:00 Total Protein 6.0 gm/dL (6.0-8.3) 05/09/17 06:00 Albumin 2.2 gm/dL (4.2-5.5) L 05/09/17 06:00 Globulin 3.8 gm/dL 05/09/17 06:00 Albumin/Globulin Ratio 0.6 (1.0-1.8) L 05/09/17 06:00 Lipase 24 U/L (11-82) 05/08/17 08:40 Vitamin B12 1438 pg/mL (232-1245) H 05/03/17 05:20 Folic Acid 13.3 ng/mL (>3.0) 05/03/17 05:20 Stool Occult Blood NEGATIVE (NEGATIVE) 05/07/17 10:00 Blood Type O POSITIVE 05/02/17 09:20 Antibody Screen NEGATIVE 05/02/17 09:20 Crossmatch See Detail 05/02/17 09:20 - Physical Exam Vitals and I&O: Vital Signs Temp 97.4 F 05/10/17 04:00 Pulse 103 05/10/17 09:12 Resp 22 05/10/17 07:33 BP 165/78 05/10/17 09:12 Pulse Ox 98 05/10/17 07:33 Intake & Output 05/09/17 05/10/17 05/10/17 18:59 06:59 18:59 Intake Total 50 50 Balance 50 50 Weight (lbs) 87.09 kg 87.09 kg Intake: Intake, IV Amount 50 50 Piperacillin Sodium/ 50 50 Tazobact 3.375 gm In Sodium Chloride 0.9% 50 ml @ 100 mls/hr IV Q6HR [facility] Rx#:[id number] Other: # Voids 2 3 # Bowel Movements 2 1 Active Medications: Current Medications Acetaminophen (Tylenol) 500 mg PO Q6H PRN PRN Reason: Pain (Moderate) Stop: 07/01/17 02:48 Last Admin: 05/08/17 11:00 Dose: 500 mg Albuterol/Ipratropium (Duoneb Neb) 3 ml HHN Q6HRT [facility] Stop: 07/08/17 18:59 Last Admin: 05/10/17 07:30 Dose: 3 ml Amlodipine Besylate (Norvasc) 10 mg PO DAILY [facility] Stop: 07/04/17 08:59 Last Admin: 05/10/17 09:12 Dose: 10 mg Bisacodyl (Dulcolax 10 Mg Supp) 10 mg RC DAILY PRN PRN Reason: constipation Stop: 07/03/17 23:58 Last Admin: 05/05/17 00:20 Dose: 10 mg Carbamazepine (Tegretol) 200 mg PO TID [facility] PRN Reason: Protocol Stop: 07/01/17 08:59 Last Admin: 05/10/17 09:11 Dose: 200 mg Hydralazine HCl (Apresoline) 50 mg PO QID [facility] Stop: 07/05/17 12:59 Last Admin: 05/10/17 09:12 Dose: 50 mg Hydralazine HCl (Apresoline 20 Mg/Ml) 10 mg IV Q6HR PRN PRN Reason: SBP ABOVE 160 Stop: 07/06/17 17:33 Last Admin: 05/09/17 14:26 Dose: 10 mg Dextrose (D5w) 1,000 mls @ 50 mls/hr IV .Q20H [facility] Stop: 07/05/17 11:44 Last Admin: 05/08/17 12:54 Dose: 50 mls/hr Piperacillin Sod/Tazobactam (Sod 3.375 gm/ Sodium Chloride) 50 mls @ 100 mls/ hr IV Q6HR [facility] Stop: 07/08/17 17:59 Last Admin: 05/10/17 05:51 Dose: 100 mls/hr Levetiracetam (Keppra) 500 mg PO BID [facility] Stop: 07/01/17 08:59 Last Admin: 05/10/17 09:12 Dose: 500 mg Lorazepam (Ativan) 0.5 mg IVP Q6HR PRN; Protocol PRN Reason: Agitation Stop: 07/07/17 16:10 Metoprolol Tartrate (Lopressor) 100 mg PO BID [facility] Stop: 07/01/17 08:59 Last Admin: 05/10/17 09:11 Dose: 100 mg Miscellaneous (Clinical Monitoring) 1 ea PRN PRN PRN Reason: RENAL Stop: 07/01/17 09:53 Miscellaneous (Vancomycin Iv Per Pharmacy) 1 ea PRN PRN PRN Reason: PROTOCOL Stop: 07/08/17 13:43 Pantoprazole Sodium (Protonix) 40 mg PO DAILY [facility] Stop: 07/01/17 07:29 Last Admin: 05/10/17 09:12 Dose: 40 mg Senna (Senna) 8.6 mg PO DAILY [facility] Stop: 07/04/17 08:59 Last Admin: 05/10/17 09:12 Dose: 8.6 mg Sodium Bicarbonate (Sodium Bicarbonate) 650 mg PO BID [facility] PRN Reason: Protocol Stop: 07/05/17 16:59 Last Admin: 05/10/17 09:11 Dose: 650 mg Temazepam (Restoril) 15 mg PO HS PRN; Protocol PRN Reason: Insomnia Stop: 07/03/17 23:57 Last Admin: 05/07/17 21:14 Dose: 15 mg General: Cooperative, No acute distress HEENT: Atraumatic Neck: Supple Cardiovascular: Regular rate, Normal S1, Normal S2 Lungs: Clear to auscultation Abdomen: Bowel sounds Extremities: Cyanosis - Procedures Procedures: Procedures Procedure Code Date BLOOD TRANSFUSION SERVICE 47631 05/01/17 DRAINAGE OF SKIN ABSCESS 04366 08/15/03 ELECTROCARDIOGRAM 89.52 01/27/00 ELECTROCARDIOGRAM COMPLETE 09072 01/27/00 INSERT NON-TUNNEL CV CATH 73704 12/13/03 MAGNETIC RESONANCE IMAGING OF BRAIN AND BRAIN STEM 88.91 01/27/00 MRI BRAIN STEM W/O DYE 48700 01/27/00 OTHER SKIN & SUBQ I D 86.04 08/15/03 TRANSFUSE NONAUT RED BLOOD CELLS IN PERIPH VEIN, PERC 51915N8 05/01/17 VENOUS CATHETERIZATION NEC 38.93 12/13/03 Assessment/Plan - Assessment Assessment: 05/10: Anemia of chronic kidney disease, monitor for now 05/09: s/p EGD, gastritis; CT ABD noted; pleural effusion. hgb is stable 05/08: poor intake, Anemia of chronic disease. awaiting CT ABD 05/07: hgb is stable. Anemia of chronic kidney disease 05/06:No clinical bleeding. Anemia of chronic kidney disease 05/05: Hgb remains stable, continue monitoring; Anemia chauhan is consistent with anemia of CKD * 05/04: hgb stable; follow anemia chauhan results and cbc * 05/03: hgb better after transfusion; follow anemia chauhan * 05/02: Severe normocytic anemia. The patient will need comprehensive anemia workup with iron studies, B12, folic acid and stool occult blood. 2. Acute kidney injury on top of chronic kidney disease. 3. Dementia. 4. History of cerebrovascular accident and seizure disorder. Nutritional Asmnt/Malnutr-PDOC - Dietary Evaluation Malnutrition Findings (Please click <Entered> for more info): Nutritional Asmnt/Malnutrition Start: 05/02/17 15: 58 Text: Status: Complete Freq: Document 05/02/17 15:58 LCHENG (Rec: 05/02/17 16:14 LCHENG [email or web address]) Nutritional Asmnt/Malnutrition Patient General Information Nutritional Screening High Risk Consult Diagnosis severe anemia, dehydration, CISCO Pertinent Medical Hx/Surgical Hx CVA, seizure disorder, dementia, psychosis, CKD Subjective Information Consult received for BS 215 at adm and wound. Pt seen lying in bed at time of visit, awake and alert at time of visit. Hard to understand pt. Pt said no when dietitian asked about food related questions. Per nurse notes, pt refused lunch althought RN and SUPERVISOR D[employer] tried multiple times. Current Diet Order/ Nutrition Support Renal, mech soft chopped Pertinent Medications D5-0.45ns, protonix Pertinent Labs 05/02 Na 141, K 4.2, Cl 118, BUN 91, Cr 2.5, Glucose 180, POC 215, AST 11, Alb 2.5 Nutritional Hx/Data Height 1.57 m Height (Calculated Centimeters) 157.5 Current Weight (lbs) 78.018 kg Weight (Calculated Kilograms) 78.0 Weight (Calculated Grams) 49018.9 [place] Body Weight 118 Body Mass Index (BMI) 31.4 Weight Status Obese GI Symptoms GI Symptoms None Last BM none Difficult in: None Skin Integrity/Comment: per wound care note: Distal aspect of Gluteal Sulcus - Moisture lesion, present on admission. reddened to sacrum, potential skin problem to bilateral legs Estimated Nutritional Goals BEE in Kcals: Adj wt of IBW Calories/Kcals/Kg 25-30 Kcals Calculated 3608-8062 Protein: Adj wt of IBW Protein g/k-1.2 Protein Calculated 60-72 Fluid: ml 1500-1800ml (1ml/kcal) or per MD Nutritional Problem 1. Problem Problem altered nutrition related lab values Etiology hx of CKD, dx of CISCO, endocrine dysfunction Signs/Symptoms: BUN 91, Cr 2.5, Glucose 180, POC 215 Malnutrition Alert Protein-Calorie Malnutrition N/A Is there a minimum of two criteria No selected? Query Text:Check all the applicable criteria. A minimum of two criteria are recommended for diagnosis of either severe or non-severe malnutrition. Intervention/Recommendation Comments 1. Monitor glucose and check a1c level. If glucose continue high, will consider adding CCHO diet for optimal glycemic control 2. Monitor PO intake, wt, labs and skin integrity 3. F/U as high risk in 2-3 days, 05/04-05/05 Expected Outcomes/Goals Expected Outcomes/Goals 1. PO intake to meet at least 75% of nutritional needs. 2. Wt stability, skin to remain intact, labs to approach WNL.
--- NOTE | 2017-05-10 12:51 | General Progress Note ---
Subjective - Review of Systems Service Date: 05/10/17 Subjective: pt seen and examined BP on and off high pt confused pt not eating Objective - Results Result Diagrams: 05/10/17 08:30 05/10/17 08:30 Recent Labs: Laboratory Last Values WBC 14.1 Th/cmm (4.8-10.8) H 05/10/17 08:30 RBC 3.54 Mil/cmm (4.30-5.70) L 05/10/17 08:30 Hgb 10.3 gm/dL (12-16) L 05/10/17 08:30 Hct 30.9 % (41.0-60) L 05/10/17 08:30 MCV 87.2 fl (80-99) 05/10/17 08:30 MCH 29.1 pg (26.0-30.0) 05/10/17 08:30 MCHC Differential 33.4 pg (28.0-36.0) 05/10/17 08:30 RDW 13.4 % (11.5-20.0) 05/10/17 08:30 Plt Count 332 Th/cmm (150-400) 05/10/17 08:30 MPV 7.8 fl 05/10/17 08:30 Neutrophils % 78.8 % (40.0-80.0) 05/10/17 08:30 Lymphocytes % 15.7 % (20.0-50.0) L 05/10/17 08:30 Monocytes % 4.0 % (2.0-10.0) 05/10/17 08:30 Eosinophils % 1.5 % (0.0-5.0) 05/10/17 08:30 Basophils % 0.0 % (0.0-2.0) 05/10/17 08:30 PT 13.2 SECONDS (9.5-11.5) H 05/09/17 06:00 INR 1.25 (0.5-1.4) 05/09/17 06:00 PTT (Actin FS) 36.0 SECONDS (26.0-38.0) 05/09/17 06:00 Sodium 131 mEq/L (136-145) L 05/10/17 08:30 Potassium 3.7 mEq/L (3.5-5.1) 05/10/17 08:30 Chloride 113 mEq/L (98-107) H 05/10/17 08:30 Carbon Dioxide 10.8 mEq/L (21.0-31.0) L 05/10/17 08:30 Anion Gap 10.9 (7.0-16.0) 05/10/17 08:30 BUN 40 mg/dL (7-25) H 05/10/17 08:30 Creatinine 2.2 mg/dL (0.7-1.3) H 05/10/17 08:30 Est GFR ( Amer) 40.3 ml/min (>90) 05/10/17 08:30 Est GFR (Non-Af Amer) 33.3 ml/min 05/10/17 08:30 BUN/Creatinine Ratio 18.2 05/10/17 08:30 Glucose 159 mg/dL (70-105) H 05/10/17 08:30 POC Glucose 215 MG/DL (70 - 105) H 05/02/17 01:25 Hemoglobin A1c % 5.6 % (4.0-6.0) 05/02/17 06:00 Calcium 8.6 mg/dL (8.6-10.3) 05/10/17 08:30 Iron 21 ug/dL (38-169) L 05/03/17 05:20 TIBC 155 ug/dL (250-450) L 05/03/17 05:20 Iron Saturation 14 % (15-55) L 05/03/17 05:20 Unsaturated IBC 134 ug/dL (111-343) 05/03/17 05:20 Ferritin 488 ng/mL (30-400) H 05/03/17 05:20 Total Bilirubin 0.2 mg/dL (0.3-1.0) L 05/09/17 06:00 AST 13 U/L (13-39) 05/09/17 06:00 ALT 10 U/L (7-52) 05/09/17 06:00 Alkaline Phosphatase 80 U/L (34-104) 05/09/17 06:00 Total Protein 6.0 gm/dL (6.0-8.3) 05/09/17 06:00 Albumin 2.2 gm/dL (4.2-5.5) L 05/09/17 06:00 Globulin 3.8 gm/dL 05/09/17 06:00 Albumin/Globulin Ratio 0.6 (1.0-1.8) L 05/09/17 06:00 Lipase 24 U/L (11-82) 05/08/17 08:40 Vitamin B12 1438 pg/mL (232-1245) H 05/03/17 05:20 Folic Acid 13.3 ng/mL (>3.0) 05/03/17 05:20 Stool Occult Blood NEGATIVE (NEGATIVE) 05/07/17 10:00 Blood Type O POSITIVE 05/02/17 09:20 Antibody Screen NEGATIVE 05/02/17 09:20 Crossmatch See Detail 05/02/17 09:20 - Physical Exam Vitals and I&O: Vital Signs Temp 97.4 F 05/10/17 04:00 Pulse 103 05/10/17 09:12 Resp 22 05/10/17 07:33 BP 165/78 05/10/17 09:12 Pulse Ox 98 05/10/17 07:33 Intake & Output 05/09/17 05/10/17 05/10/17 18:59 06:59 18:59 Intake Total 50 100 Balance 50 100 Weight (lbs) 87.09 kg 87.09 kg Intake: Intake, IV Amount 50 100 Piperacillin Sodium/ 50 100 Tazobact 3.375 gm In Sodium Chloride 0.9% 50 ml @ 100 mls/hr IV Q6HR [facility] Rx#:[id number] Other: # Voids 2 3 # Bowel Movements 2 1 Active Medications: Current Medications Acetaminophen (Tylenol) 500 mg PO Q6H PRN PRN Reason: Pain (Moderate) Stop: 07/01/17 02:48 Last Admin: 05/08/17 11:00 Dose: 500 mg Albuterol/Ipratropium (Duoneb Neb) 3 ml HHN Q6HRT [facility] Stop: 07/08/17 18:59 Last Admin: 05/10/17 07:30 Dose: 3 ml Amlodipine Besylate (Norvasc) 10 mg PO DAILY [facility] Stop: 07/04/17 08:59 Last Admin: 05/10/17 09:12 Dose: 10 mg Bisacodyl (Dulcolax 10 Mg Supp) 10 mg RC DAILY PRN PRN Reason: constipation Stop: 07/03/17 23:58 Last Admin: 05/05/17 00:20 Dose: 10 mg Carbamazepine (Tegretol) 200 mg PO TID CHARO PRN Reason: Protocol Stop: 07/01/17 08:59 Last Admin: 05/10/17 09:11 Dose: 200 mg Hydralazine HCl (Apresoline) 50 mg PO QID CHARO Stop: 07/05/17 12:59 Last Admin: 05/10/17 09:12 Dose: 50 mg Hydralazine HCl (Apresoline 20 Mg/Ml) 10 mg IV Q6HR PRN PRN Reason: SBP ABOVE 160 Stop: 07/06/17 17:33 Last Admin: 05/09/17 14:26 Dose: 10 mg Piperacillin Sod/Tazobactam (Sod 3.375 gm/ Sodium Chloride) 50 mls @ 100 mls/ hr IV Q6HR [facility]O Stop: 07/08/17 17:59 Last Admin: 05/10/17 11:33 Dose: 100 mls/hr Dextrose/Sodium Chloride (D5-0.9%Ns) 1,000 mls @ 100 mls/hr IV .Q10H [facility] Stop: 07/09/17 12:44 Levetiracetam (Keppra) 500 mg PO BID CHARO Stop: 07/01/17 08:59 Last Admin: 05/10/17 09:12 Dose: 500 mg Lorazepam (Ativan) 0.5 mg IVP Q6HR PRN; Protocol PRN Reason: Agitation Stop: 07/07/17 16:10 Metoprolol Tartrate (Lopressor) 100 mg PO BID [facility] Stop: 07/01/17 08:59 Last Admin: 05/10/17 09:11 Dose: 100 mg Miscellaneous (Clinical Monitoring) 1 ea PRN PRN PRN Reason: RENAL Stop: 07/01/17 09:53 Miscellaneous (Vancomycin Iv Per Pharmacy) 1 ea PRN PRN PRN Reason: PROTOCOL Stop: 07/08/17 13:43 Ondansetron HCl (Zofran) 4 mg IV Q8H PRN PRN Reason: Nausea / Vomiting Stop: 07/09/17 12:20 Pantoprazole Sodium (Protonix) 40 mg PO DAILY [facility] Stop: 07/01/17 07:29 Last Admin: 05/10/17 09:12 Dose: 40 mg Pantoprazole Sodium (Protonix) 40 mg IVP DAILY [facility] Stop: 07/10/17 08:59 Senna (Senna) 8.6 mg PO DAILY [facility] Stop: 07/04/17 08:59 Last Admin: 05/10/17 09:12 Dose: 8.6 mg Sodium Bicarbonate (Sodium Bicarbonate) 650 mg PO BID CHARO PRN Reason: Protocol Stop: 07/05/17 16:59 Last Admin: 05/10/17 09:11 Dose: 650 mg Temazepam (Restoril) 15 mg PO HS PRN; Protocol PRN Reason: Insomnia Stop: 07/03/17 23:57 Last Admin: 05/07/17 21:14 Dose: 15 mg General: Cooperative, No acute distress HEENT: Atraumatic Neck: Supple Cardiovascular: Regular rate, Normal S1, Normal S2 Lungs: Clear to auscultation Abdomen: Bowel sounds Extremities: Cyanosis - Procedures Procedures: Procedures Procedure Code Date BLOOD TRANSFUSION SERVICE 44033 05/01/17 DRAINAGE OF SKIN ABSCESS 45111 08/15/03 ELECTROCARDIOGRAM 89.52 01/27/00 ELECTROCARDIOGRAM COMPLETE 07086 01/27/00 INSERT NON-TUNNEL CV CATH 78939 12/13/03 MAGNETIC RESONANCE IMAGING OF BRAIN AND BRAIN STEM 88.91 01/27/00 MRI BRAIN STEM W/O DYE 51912 01/27/00 OTHER SKIN & SUBQ I D 86.04 08/15/03 TRANSFUSE NONAUT RED BLOOD CELLS IN PERIPH VEIN, PERC 56058V8 05/01/17 VENOUS CATHETERIZATION NEC 38.93 12/13/03 Assessment/Plan - Assessment Assessment: ACUTE ANEMIA ACUTE RENAL FAILURE SECONDARY TO ATN SECONDARY TO SEVERE ANEMIA ACUTE TUBULAR NECROSIS CVA SEIZURE PSYCHOSIS DEMENTIA - Plan Plan: BP NEEDS BETTER CONTROL RENAL FUNCTION IMPROVING HGB stable add bicarb start IVF pt wbc up creat up on vanco and zosyn check urine eosinophils Nutritional Asmnt/Malnutr-PDOC - Dietary Evaluation Malnutrition Findings (Please click <Entered> for more info): Nutritional Asmnt/Malnutrition Start: 05/02/17 15: 58 Text: Status: Complete Freq: Document 05/02/17 15:58 BERRY (Rec: 05/02/17 16:14 BERRY [email or web address]) Nutritional Asmnt/Malnutrition Patient General Information Nutritional Screening High Risk Consult Diagnosis severe anemia, dehydration, CISCO Pertinent Medical Hx/Surgical Hx CVA, seizure disorder, dementia, psychosis, CKD Subjective Information Consult received for BS 215 at adm and wound. Pt seen lying in bed at time of visit, awake and alert at time of visit. Hard to understand pt. Pt said no when dietitian asked about food related questions. 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 Current Diet Order/ Nutrition Support Renal, mech soft chopped Pertinent Medications D5-0.45ns, protonix Pertinent Labs 05/02 Na 141, K 4.2, Cl 118, BUN 91, Cr 2.5, Glucose 180, POC 215, AST 11, Alb 2.5 Nutritional Hx/Data Height 1.57 m Height (Calculated Centimeters) 157.5 Current Weight (lbs) 78.018 kg Weight (Calculated Kilograms) 78.0 Weight (Calculated Grams) 01819.9 [place] Body Weight 118 Body Mass Index (BMI) 31.4 Weight Status Obese GI Symptoms GI Symptoms None Last BM none Difficult in: None Skin Integrity/Comment: per wound care note: Distal aspect of Gluteal Sulcus - Moisture lesion, present on admission. reddened to sacrum, potential skin problem to bilateral legs Estimated Nutritional Goals BEE in Kcals: Adj wt of IBW Calories/Kcals/Kg 25-30 Kcals Calculated 4871-2168 Protein: Adj wt of IBW Protein g/k-1.2 Protein Calculated 60-72 Fluid: ml 1500-1800ml (1ml/kcal) or per MD Nutritional Problem 1. Problem Problem altered nutrition related lab values Etiology hx of CKD, dx of CISCO, endocrine dysfunction Signs/Symptoms: BUN 91, Cr 2.5, Glucose 180, POC 215 Malnutrition Alert Protein-Calorie Malnutrition N/A Is there a minimum of two criteria No selected? Query Text:Check all the applicable criteria. A minimum of two criteria are recommended for diagnosis of either severe or non-severe malnutrition. Intervention/Recommendation Comments 1. Monitor glucose and check a1c level. If glucose continue high, will consider adding CCHO diet for optimal glycemic control 2. Monitor PO intake, wt, labs and skin integrity 3. F/U as high risk in 2-3 days, 05/04-05/05 Expected Outcomes/Goals Expected Outcomes/Goals 1. PO intake to meet at least 75% of nutritional needs. 2. Wt stability, skin to remain intact, labs to approach WNL.
--- NOTE | 2017-05-10 13:08 | Internal Medicine Prog Note ---
Internal Medicine Subjective - Subjective Service Date: 05/09/17 Patient seen and examined:: without staff (THE PATIENT WENT FOR EGD) Patient is:: awake, verbal, confused Per staff patient has:: no adverse event Internal Medicine Objective - Results Result Diagrams: 05/10/17 08:30 05/10/17 08:30 Recent Labs: Laboratory Last Values WBC 14.1 Th/cmm (4.8-10.8) H 05/10/17 08:30 RBC 3.54 Mil/cmm (4.30-5.70) L 05/10/17 08:30 Hgb 10.3 gm/dL (12-16) L 05/10/17 08:30 Hct 30.9 % (41.0-60) L 05/10/17 08:30 MCV 87.2 fl (80-99) 05/10/17 08:30 MCH 29.1 pg (26.0-30.0) 05/10/17 08:30 MCHC Differential 33.4 pg (28.0-36.0) 05/10/17 08:30 RDW 13.4 % (11.5-20.0) 05/10/17 08:30 Plt Count 332 Th/cmm (150-400) 05/10/17 08:30 MPV 7.8 fl 05/10/17 08:30 Neutrophils % 78.8 % (40.0-80.0) 05/10/17 08:30 Lymphocytes % 15.7 % (20.0-50.0) L 05/10/17 08:30 Monocytes % 4.0 % (2.0-10.0) 05/10/17 08:30 Eosinophils % 1.5 % (0.0-5.0) 05/10/17 08:30 Basophils % 0.0 % (0.0-2.0) 05/10/17 08:30 PT 13.2 SECONDS (9.5-11.5) H 05/09/17 06:00 INR 1.25 (0.5-1.4) 05/09/17 06:00 PTT (Actin FS) 36.0 SECONDS (26.0-38.0) 05/09/17 06:00 Sodium 131 mEq/L (136-145) L 05/10/17 08:30 Potassium 3.7 mEq/L (3.5-5.1) 05/10/17 08:30 Chloride 113 mEq/L (98-107) H 05/10/17 08:30 Carbon Dioxide 10.8 mEq/L (21.0-31.0) L 05/10/17 08:30 Anion Gap 10.9 (7.0-16.0) 05/10/17 08:30 BUN 40 mg/dL (7-25) H 05/10/17 08:30 Creatinine 2.2 mg/dL (0.7-1.3) H 05/10/17 08:30 Est GFR ( Amer) 40.3 ml/min (>90) 05/10/17 08:30 Est GFR (Non-Af Amer) 33.3 ml/min 05/10/17 08:30 BUN/Creatinine Ratio 18.2 05/10/17 08:30 Glucose 159 mg/dL (70-105) H 05/10/17 08:30 POC Glucose 215 MG/DL (70 - 105) H 05/02/17 01:25 Hemoglobin A1c % 5.6 % (4.0-6.0) 05/02/17 06:00 Calcium 8.6 mg/dL (8.6-10.3) 05/10/17 08:30 Iron 21 ug/dL (38-169) L 05/03/17 05:20 TIBC 155 ug/dL (250-450) L 05/03/17 05:20 Iron Saturation 14 % (15-55) L 05/03/17 05:20 Unsaturated IBC 134 ug/dL (111-343) 05/03/17 05:20 Ferritin 488 ng/mL (30-400) H 05/03/17 05:20 Total Bilirubin 0.2 mg/dL (0.3-1.0) L 05/09/17 06:00 AST 13 U/L (13-39) 05/09/17 06:00 ALT 10 U/L (7-52) 05/09/17 06:00 Alkaline Phosphatase 80 U/L (34-104) 05/09/17 06:00 Total Protein 6.0 gm/dL (6.0-8.3) 05/09/17 06:00 Albumin 2.2 gm/dL (4.2-5.5) L 05/09/17 06:00 Globulin 3.8 gm/dL 05/09/17 06:00 Albumin/Globulin Ratio 0.6 (1.0-1.8) L 05/09/17 06:00 Lipase 24 U/L (11-82) 05/08/17 08:40 Vitamin B12 1438 pg/mL (232-1245) H 05/03/17 05:20 Folic Acid 13.3 ng/mL (>3.0) 05/03/17 05:20 Stool Occult Blood NEGATIVE (NEGATIVE) 05/07/17 10:00 Blood Type O POSITIVE 05/02/17 09:20 Antibody Screen NEGATIVE 05/02/17 09:20 Crossmatch See Detail 05/02/17 09:20 - Physical Exam Vitals and I&O: Vital Signs Temp 97.4 F 05/10/17 04:00 Pulse 103 05/10/17 09:12 Resp 22 05/10/17 07:33 BP 165/78 05/10/17 09:12 Pulse Ox 98 05/10/17 07:33 Intake & Output 05/09/17 05/10/17 05/10/17 18:59 06:59 18:59 Intake Total 50 100 Balance 50 100 Weight (lbs) 87.09 kg 87.09 kg Intake: Intake, IV Amount 50 100 Piperacillin Sodium/ 50 100 Tazobact 3.375 gm In Sodium Chloride 0.9% 50 ml @ 100 mls/hr IV Q6HR [facility] Rx#:[id number] Other: # Voids 2 3 # Bowel Movements 2 1 Active Medications: Current Medications Acetaminophen (Tylenol) 500 mg PO Q6H PRN PRN Reason: Pain (Moderate) Stop: 07/01/17 02:48 Last Admin: 05/08/17 11:00 Dose: 500 mg Albuterol/Ipratropium (Duoneb Neb) 3 ml HHN Q6HRT [facility] Stop: 07/08/17 18:59 Last Admin: 05/10/17 07:30 Dose: 3 ml Amlodipine Besylate (Norvasc) 10 mg PO DAILY [facility] Stop: 07/04/17 08:59 Last Admin: 05/10/17 09:12 Dose: 10 mg Bisacodyl (Dulcolax 10 Mg Supp) 10 mg RC DAILY PRN PRN Reason: constipation Stop: 07/03/17 23:58 Last Admin: 05/05/17 00:20 Dose: 10 mg Carbamazepine (Tegretol) 200 mg PO TID CHARO PRN Reason: Protocol Stop: 07/01/17 08:59 Last Admin: 05/10/17 09:11 Dose: 200 mg Hydralazine HCl (Apresoline) 50 mg PO QID [facility] Stop: 07/05/17 12:59 Last Admin: 05/10/17 09:12 Dose: 50 mg Hydralazine HCl (Apresoline 20 Mg/Ml) 10 mg IV Q6HR PRN PRN Reason: SBP ABOVE 160 Stop: 07/06/17 17:33 Last Admin: 05/09/17 14:26 Dose: 10 mg Piperacillin Sod/Tazobactam (Sod 3.375 gm/ Sodium Chloride) 50 mls @ 100 mls/ hr IV Q6HR [facility] Stop: 07/08/17 17:59 Last Admin: 05/10/17 11:33 Dose: 100 mls/hr Dextrose/Sodium Chloride (D5-0.9%Ns) 1,000 mls @ 100 mls/hr IV .Q10H [facility] Stop: 07/09/17 12:44 Levetiracetam (Keppra) 500 mg PO BID [facility] Stop: 07/01/17 08:59 Last Admin: 05/10/17 09:12 Dose: 500 mg Lorazepam (Ativan) 0.5 mg IVP Q6HR PRN; Protocol PRN Reason: Agitation Stop: 07/07/17 16:10 Metoprolol Tartrate (Lopressor) 100 mg PO BID [facility] Stop: 07/01/17 08:59 Last Admin: 05/10/17 09:11 Dose: 100 mg Miscellaneous (Clinical Monitoring) 1 ea MC PRN PRN PRN Reason: RENAL Stop: 07/01/17 09:53 Miscellaneous (Vancomycin Iv Per Pharmacy) 1 ea MC PRN PRN PRN Reason: PROTOCOL Stop: 07/08/17 13:43 Ondansetron HCl (Zofran) 4 mg IV Q8H PRN PRN Reason: Nausea / Vomiting Stop: 07/09/17 12:20 Pantoprazole Sodium (Protonix) 40 mg PO DAILY [facility] Stop: 07/01/17 07:29 Last Admin: 05/10/17 09:12 Dose: 40 mg Pantoprazole Sodium (Protonix) 40 mg IVP DAILY [facility] Stop: 07/10/17 08:59 Senna (Senna) 8.6 mg PO DAILY [facility] Stop: 07/04/17 08:59 Last Admin: 05/10/17 09:12 Dose: 8.6 mg Sodium Bicarbonate (Sodium Bicarbonate) 650 mg PO BID CHARO PRN Reason: Protocol Stop: 07/05/17 16:59 Last Admin: 05/10/17 09:11 Dose: 650 mg Temazepam (Restoril) 15 mg PO HS PRN; Protocol PRN Reason: Insomnia Stop: 07/03/17 23:57 Last Admin: 05/07/17 21:14 Dose: 15 mg General: demented HEENT: NC/AT, PERRLA, EOMI, anicteric sclerae, throat clear Neck: Supple, No JVD, No thyromegaly, +2 carotid pulse wo bruit, No LAD Lungs: CTAB Cardiovascular: RRR, Normal S1, Normal S2, without murmur Abdomen: soft, tender, non-distended Extremities: clear Neurological: no change - Procedures Procedures: Procedures Procedure Code Date BLOOD TRANSFUSION SERVICE 55038 05/01/17 DRAINAGE OF SKIN ABSCESS 30048 08/15/03 ELECTROCARDIOGRAM 89.52 01/27/00 ELECTROCARDIOGRAM COMPLETE 02490 01/27/00 INSERT NON-TUNNEL CV CATH 15893 12/13/03 MAGNETIC RESONANCE IMAGING OF BRAIN AND BRAIN STEM 88.91 01/27/00 MRI BRAIN STEM W/O DYE 21655 01/27/00 OTHER SKIN & SUBQ I D 86.04 08/15/03 TRANSFUSE NONAUT RED BLOOD CELLS IN PERIPH VEIN, PERC 23749V3 05/01/17 VENOUS CATHETERIZATION NEC 38.93 12/13/03 Internal Medicine Assmt/Plan - Assessment Assessment: 1.SEVER ANEMIA. 2.DEHYDRATION. 3.CISCO. 4.CVA 5.ACUTE ABDONINAL PAIN. 6.UNCONTROLLED HTN. 7.SEVER EPISODES OF AGITATION. - Plan Plan: CONTINUE ON CURRENT MEDICATION AND DIET. Nutritional Asmnt/Malnutr-PDOC - Dietary Evaluation Malnutrition Findings (Please click <Entered> for more info): Nutritional Asmnt/Malnutrition Start: 05/02/17 15: 58 Text: Status: Complete Freq: Document 05/02/17 15:58 LCHENG (Rec: 05/02/17 16:14 LCALLISONG [email or web address]) Nutritional Asmnt/Malnutrition Patient General Information Nutritional Screening High Risk Consult Diagnosis severe anemia, dehydration, CISCO Pertinent Medical Hx/Surgical Hx CVA, seizure disorder, dementia, psychosis, CKD Subjective Information Consult received for BS 215 at adm and wound. Pt seen lying in bed at time of visit, awake and alert at time of visit. Hard to understand pt. Pt said no when dietitian asked about food related questions. Per nurse notes, pt refused lunch althought RN and COURT ADMINISTRATOR tried multiple times. Current Diet Order/ Nutrition Support Renal, mech soft chopped Pertinent Medications D5-0.45ns, protonix Pertinent Labs 05/02 Na 141, K 4.2, Cl 118, BUN 91, Cr 2.5, Glucose 180, POC 215, AST 11, Alb 2.5 Nutritional Hx/Data Height 1.57 m Height (Calculated Centimeters) 157.5 Current Weight (lbs) 78.018 kg Weight (Calculated Kilograms) 78.0 Weight (Calculated Grams) 98816.9 [place] Body Weight 118 Body Mass Index (BMI) 31.4 Weight Status Obese GI Symptoms GI Symptoms None Last BM none Difficult in: None Skin Integrity/Comment: per wound care note: Distal aspect of Gluteal Sulcus - Moisture lesion, present on admission. reddened to sacrum, potential skin problem to bilateral legs Estimated Nutritional Goals BEE in Kcals: Adj wt of IBW Calories/Kcals/Kg 25-30 Kcals Calculated 9233-3863 Protein: Adj wt of IBW Protein g/k-1.2 Protein Calculated 60-72 Fluid: ml 1500-1800ml (1ml/kcal) or per MD Nutritional Problem 1. Problem Problem altered nutrition related lab values Etiology hx of CKD, dx of CISCO, endocrine dysfunction Signs/Symptoms: BUN 91, Cr 2.5, Glucose 180, POC 215 Malnutrition Alert Protein-Calorie Malnutrition N/A Is there a minimum of two criteria No selected? Query Text:Check all the applicable criteria. A minimum of two criteria are recommended for diagnosis of either severe or non-severe malnutrition. Intervention/Recommendation Comments 1. Monitor glucose and check a1c level. If glucose continue high, will consider adding CCHO diet for optimal glycemic control 2. Monitor PO intake, wt, labs and skin integrity 3. F/U as high risk in 2-3 days, 05/04-05/05 Expected Outcomes/Goals Expected Outcomes/Goals 1. PO intake to meet at least 75% of nutritional needs. 2. Wt stability, skin to remain intact, labs to approach WNL.
--- NOTE | 2017-05-10 13:13 | Internal Medicine Prog Note ---
Internal Medicine Subjective - Subjective Service Date: 05/10/17 Patient seen and examined:: with staff (THE PATIENT HAD EGD ONLY BECAUSE HE PULLED HIS NGT AND THE COULD NOT GIVE HIM THE GOLITLY.HE IS STILL REFUSE TO EAT OR TAKING MEDICATION.) Patient is:: awake, verbal, confused Per staff patient has:: no adverse event Internal Medicine Objective - Results Result Diagrams: 05/10/17 08:30 05/10/17 08:30 Recent Labs: Laboratory Last Values WBC 14.1 Th/cmm (4.8-10.8) H 05/10/17 08:30 RBC 3.54 Mil/cmm (4.30-5.70) L 05/10/17 08:30 Hgb 10.3 gm/dL (12-16) L 05/10/17 08:30 Hct 30.9 % (41.0-60) L 05/10/17 08:30 MCV 87.2 fl (80-99) 05/10/17 08:30 MCH 29.1 pg (26.0-30.0) 05/10/17 08:30 MCHC Differential 33.4 pg (28.0-36.0) 05/10/17 08:30 RDW 13.4 % (11.5-20.0) 05/10/17 08:30 Plt Count 332 Th/cmm (150-400) 05/10/17 08:30 MPV 7.8 fl 05/10/17 08:30 Neutrophils % 78.8 % (40.0-80.0) 05/10/17 08:30 Lymphocytes % 15.7 % (20.0-50.0) L 05/10/17 08:30 Monocytes % 4.0 % (2.0-10.0) 05/10/17 08:30 Eosinophils % 1.5 % (0.0-5.0) 05/10/17 08:30 Basophils % 0.0 % (0.0-2.0) 05/10/17 08:30 PT 13.2 SECONDS (9.5-11.5) H 05/09/17 06:00 INR 1.25 (0.5-1.4) 05/09/17 06:00 PTT (Actin FS) 36.0 SECONDS (26.0-38.0) 05/09/17 06:00 Sodium 131 mEq/L (136-145) L 05/10/17 08:30 Potassium 3.7 mEq/L (3.5-5.1) 05/10/17 08:30 Chloride 113 mEq/L (98-107) H 05/10/17 08:30 Carbon Dioxide 10.8 mEq/L (21.0-31.0) L 05/10/17 08:30 Anion Gap 10.9 (7.0-16.0) 05/10/17 08:30 BUN 40 mg/dL (7-25) H 05/10/17 08:30 Creatinine 2.2 mg/dL (0.7-1.3) H 05/10/17 08:30 Est GFR ( Amer) 40.3 ml/min (>90) 05/10/17 08:30 Est GFR (Non-Af Amer) 33.3 ml/min 05/10/17 08:30 BUN/Creatinine Ratio 18.2 05/10/17 08:30 Glucose 159 mg/dL (70-105) H 05/10/17 08:30 POC Glucose 215 MG/DL (70 - 105) H 05/02/17 01:25 Hemoglobin A1c % 5.6 % (4.0-6.0) 05/02/17 06:00 Calcium 8.6 mg/dL (8.6-10.3) 05/10/17 08:30 Iron 21 ug/dL (38-169) L 05/03/17 05:20 TIBC 155 ug/dL (250-450) L 05/03/17 05:20 Iron Saturation 14 % (15-55) L 05/03/17 05:20 Unsaturated IBC 134 ug/dL (111-343) 05/03/17 05:20 Ferritin 488 ng/mL (30-400) H 05/03/17 05:20 Total Bilirubin 0.2 mg/dL (0.3-1.0) L 05/09/17 06:00 AST 13 U/L (13-39) 05/09/17 06:00 ALT 10 U/L (7-52) 05/09/17 06:00 Alkaline Phosphatase 80 U/L (34-104) 05/09/17 06:00 Total Protein 6.0 gm/dL (6.0-8.3) 05/09/17 06:00 Albumin 2.2 gm/dL (4.2-5.5) L 05/09/17 06:00 Globulin 3.8 gm/dL 05/09/17 06:00 Albumin/Globulin Ratio 0.6 (1.0-1.8) L 05/09/17 06:00 Lipase 24 U/L (11-82) 05/08/17 08:40 Vitamin B12 1438 pg/mL (232-1245) H 05/03/17 05:20 Folic Acid 13.3 ng/mL (>3.0) 05/03/17 05:20 Stool Occult Blood NEGATIVE (NEGATIVE) 05/07/17 10:00 Blood Type O POSITIVE 05/02/17 09:20 Antibody Screen NEGATIVE 05/02/17 09:20 Crossmatch See Detail 05/02/17 09:20 - Physical Exam Vitals and I&O: Vital Signs Temp 97.4 F 05/10/17 04:00 Pulse 103 05/10/17 09:12 Resp 22 05/10/17 07:33 BP 165/78 05/10/17 09:12 Pulse Ox 98 05/10/17 07:33 Intake & Output 05/09/17 05/10/17 05/10/17 18:59 06:59 18:59 Intake Total 50 100 Balance 50 100 Weight (lbs) 87.09 kg 87.09 kg Intake: Intake, IV Amount 50 100 Piperacillin Sodium/ 50 100 Tazobact 3.375 gm In Sodium Chloride 0.9% 50 ml @ 100 mls/hr IV Q6HR [facility] Rx#:[id number] Other: # Voids 2 3 # Bowel Movements 2 1 Active Medications: Current Medications Acetaminophen (Tylenol) 500 mg PO Q6H PRN PRN Reason: Pain (Moderate) Stop: 07/01/17 02:48 Last Admin: 05/08/17 11:00 Dose: 500 mg Albuterol/Ipratropium (Duoneb Neb) 3 ml HHN Q6HRT [facility] Stop: 07/08/17 18:59 Last Admin: 05/10/17 07:30 Dose: 3 ml Amlodipine Besylate (Norvasc) 10 mg PO DAILY [facility] Stop: 07/04/17 08:59 Last Admin: 05/10/17 09:12 Dose: 10 mg Bisacodyl (Dulcolax 10 Mg Supp) 10 mg RC DAILY PRN PRN Reason: constipation Stop: 07/03/17 23:58 Last Admin: 05/05/17 00:20 Dose: 10 mg Carbamazepine (Tegretol) 200 mg PO TID CHARO PRN Reason: Protocol Stop: 07/01/17 08:59 Last Admin: 05/10/17 09:11 Dose: 200 mg Hydralazine HCl (Apresoline) 50 mg PO QID [facility] Stop: 07/05/17 12:59 Last Admin: 05/10/17 09:12 Dose: 50 mg Hydralazine HCl (Apresoline 20 Mg/Ml) 10 mg IV Q6HR PRN PRN Reason: SBP ABOVE 160 Stop: 07/06/17 17:33 Last Admin: 05/09/17 14:26 Dose: 10 mg Piperacillin Sod/Tazobactam (Sod 3.375 gm/ Sodium Chloride) 50 mls @ 100 mls/ hr IV Q6HR [facility] Stop: 07/08/17 17:59 Last Admin: 05/10/17 11:33 Dose: 100 mls/hr Dextrose/Sodium Chloride (D5-0.9%Ns) 1,000 mls @ 100 mls/hr IV .Q10H [facility] Stop: 07/09/17 12:44 Levetiracetam (Keppra) 500 mg PO BID [facility] Stop: 07/01/17 08:59 Last Admin: 05/10/17 09:12 Dose: 500 mg Lorazepam (Ativan) 0.5 mg IVP Q6HR PRN; Protocol PRN Reason: Agitation Stop: 07/07/17 16:10 Metoprolol Tartrate (Lopressor) 100 mg PO BID [facility] Stop: 07/01/17 08:59 Last Admin: 05/10/17 09:11 Dose: 100 mg Miscellaneous (Clinical Monitoring) 1 ea PRN PRN PRN Reason: RENAL Stop: 07/01/17 09:53 Miscellaneous (Vancomycin Iv Per Pharmacy) 1 ea PRN PRN PRN Reason: PROTOCOL Stop: 07/08/17 13:43 Ondansetron HCl (Zofran) 4 mg IV Q8H PRN PRN Reason: Nausea / Vomiting Stop: 07/09/17 12:20 Pantoprazole Sodium (Protonix) 40 mg PO DAILY [facility] Stop: 07/01/17 07:29 Last Admin: 05/10/17 09:12 Dose: 40 mg Pantoprazole Sodium (Protonix) 40 mg IVP DAILY [facility] Stop: 07/10/17 08:59 Senna (Senna) 8.6 mg PO DAILY [facility]O Stop: 07/04/17 08:59 Last Admin: 05/10/17 09:12 Dose: 8.6 mg Sodium Bicarbonate (Sodium Bicarbonate) 650 mg PO BID CHARO PRN Reason: Protocol Stop: 07/05/17 16:59 Last Admin: 05/10/17 09:11 Dose: 650 mg Temazepam (Restoril) 15 mg PO HS PRN; Protocol PRN Reason: Insomnia Stop: 07/03/17 23:57 Last Admin: 05/07/17 21:14 Dose: 15 mg General: demented HEENT: NC/AT, PERRLA, EOMI, anicteric sclerae, throat clear Neck: Supple, No JVD, No thyromegaly, +2 carotid pulse wo bruit, No LAD Lungs: CTAB Cardiovascular: RRR, Normal S1, Normal S2, without murmur Abdomen: soft, tender, non-distended Extremities: clear Neurological: no change - Procedures Procedures: Procedures Procedure Code Date BLOOD TRANSFUSION SERVICE 02561 05/01/17 DRAINAGE OF SKIN ABSCESS 71294 08/15/03 ELECTROCARDIOGRAM 89.52 01/27/00 ELECTROCARDIOGRAM COMPLETE 68703 01/27/00 INSERT NON-TUNNEL CV CATH 72869 12/13/03 MAGNETIC RESONANCE IMAGING OF BRAIN AND BRAIN STEM 88.91 01/27/00 MRI BRAIN STEM W/O DYE 47285 01/27/00 OTHER SKIN & SUBQ I D 86.04 08/15/03 TRANSFUSE NONAUT RED BLOOD CELLS IN PERIPH VEIN, PERC 45032Z9 05/01/17 VENOUS CATHETERIZATION NEC 38.93 12/13/03 Internal Medicine Assmt/Plan - Assessment Assessment: 1.SEVER ANEMIA. 2.DEHYDRATION. 3.CISCO. 4.CVA 5.ACUTE ABDONINAL PAIN. 6.UNCONTROLLED HTN. 7.SEVER EPISODES OF AGITATION. 8.GASTRITIS. 9.BILATERAL PLEURAL EFFUSION. 10.LEUKOCYTOSIS. - Plan Plan: CONTINUE ON CURRENT MEDICATION AND DIET.CONSULT DR BRANHAM AND OZ, UROLOGIST.CBC AND CMP IN AM. Nutritional Asmnt/Malnutr-PDOC - Dietary Evaluation Malnutrition Findings (Please click <Entered> for more info): Nutritional Asmnt/Malnutrition Start: 05/02/17 15: 58 Text: Status: Complete Freq: Document 05/02/17 15:58 ALLISONG (Rec: 05/02/17 16:14 LCRUBIN [email or web address]) Nutritional Asmnt/Malnutrition Patient General Information Nutritional Screening High Risk Consult Diagnosis severe anemia, dehydration, CISCO Pertinent Medical Hx/Surgical Hx CVA, seizure disorder, dementia, psychosis, CKD Subjective Information Consult received for BS 215 at adm and wound. Pt seen lying in bed at time of visit, awake and alert at time of visit. Hard to understand pt. Pt said no when dietitian asked about food related questions. Per nurse notes, pt refused lunch althought RN and ACCESS ANALYST tried multiple times. Current Diet Order/ Nutrition Support Renal, mech soft chopped Pertinent Medications D5-0.45ns, protonix Pertinent Labs / Na 141, K 4.2, Cl 118, BUN 91, Cr 2.5, Glucose 180, POC 215, AST 11, Alb 2.5 Nutritional Hx/Data Height 1.57 m Height (Calculated Centimeters) 157.5 Current Weight (lbs) 78.018 kg Weight (Calculated Kilograms) 78.0 Weight (Calculated Grams) 29295.9 [place] Body Weight 118 Body Mass Index (BMI) 31.4 Weight Status Obese GI Symptoms GI Symptoms None Last BM none Difficult in: None Skin Integrity/Comment: per wound care note: Distal aspect of Gluteal Sulcus - Moisture lesion, present on admission. reddened to sacrum, potential skin problem to bilateral legs Estimated Nutritional Goals BEE in Kcals: Adj wt of IBW Calories/Kcals/Kg 25-30 Kcals Calculated 5862-6972 Protein: Adj wt of IBW Protein g/k-1.2 Protein Calculated 60-72 Fluid: ml 1500-1800ml (1ml/kcal) or per MD Nutritional Problem 1. Problem Problem altered nutrition related lab values Etiology hx of CKD, dx of CISCO, endocrine dysfunction Signs/Symptoms: BUN 91, Cr 2.5, Glucose 180, POC 215 Malnutrition Alert Protein-Calorie Malnutrition N/A Is there a minimum of two criteria No selected? Query Text:Check all the applicable criteria. A minimum of two criteria are recommended for diagnosis of either severe or non-severe malnutrition. Intervention/Recommendation Comments 1. Monitor glucose and check a1c level. If glucose continue high, will consider adding CCHO diet for optimal glycemic control 2. Monitor PO intake, wt, labs and skin integrity 3. F/U as high risk in 2-3 days, 05/04-05/05 Expected Outcomes/Goals Expected Outcomes/Goals 1. PO intake to meet at least 75% of nutritional needs. 2. Wt stability, skin to remain intact, labs to approach WNL.
--- NOTE | 2017-05-10 13:20 | GI Progress Note ---
Subjective - Review of Systems Subjective: STILL HAS SOME NAUSEA EGD YESTERDAY Objective - Results Result Diagrams: 05/10/17 08:30 05/10/17 08:30 Recent Labs: Laboratory Last Values WBC 14.1 Th/cmm (4.8-10.8) H 05/10/17 08:30 RBC 3.54 Mil/cmm (4.30-5.70) L 05/10/17 08:30 Hgb 10.3 gm/dL (12-16) L 05/10/17 08:30 Hct 30.9 % (41.0-60) L 05/10/17 08:30 MCV 87.2 fl (80-99) 05/10/17 08:30 MCH 29.1 pg (26.0-30.0) 05/10/17 08:30 MCHC Differential 33.4 pg (28.0-36.0) 05/10/17 08:30 RDW 13.4 % (11.5-20.0) 05/10/17 08:30 Plt Count 332 Th/cmm (150-400) 05/10/17 08:30 MPV 7.8 fl 05/10/17 08:30 Neutrophils % 78.8 % (40.0-80.0) 05/10/17 08:30 Lymphocytes % 15.7 % (20.0-50.0) L 05/10/17 08:30 Monocytes % 4.0 % (2.0-10.0) 05/10/17 08:30 Eosinophils % 1.5 % (0.0-5.0) 05/10/17 08:30 Basophils % 0.0 % (0.0-2.0) 05/10/17 08:30 PT 13.2 SECONDS (9.5-11.5) H 05/09/17 06:00 INR 1.25 (0.5-1.4) 05/09/17 06:00 PTT (Actin FS) 36.0 SECONDS (26.0-38.0) 05/09/17 06:00 Sodium 131 mEq/L (136-145) L 05/10/17 08:30 Potassium 3.7 mEq/L (3.5-5.1) 05/10/17 08:30 Chloride 113 mEq/L (98-107) H 05/10/17 08:30 Carbon Dioxide 10.8 mEq/L (21.0-31.0) L 05/10/17 08:30 Anion Gap 10.9 (7.0-16.0) 05/10/17 08:30 BUN 40 mg/dL (7-25) H 05/10/17 08:30 Creatinine 2.2 mg/dL (0.7-1.3) H 05/10/17 08:30 Est GFR ( Amer) 40.3 ml/min (>90) 05/10/17 08:30 Est GFR (Non-Af Amer) 33.3 ml/min 05/10/17 08:30 BUN/Creatinine Ratio 18.2 05/10/17 08:30 Glucose 159 mg/dL (70-105) H 05/10/17 08:30 POC Glucose 215 MG/DL (70 - 105) H 05/02/17 01:25 Hemoglobin A1c % 5.6 % (4.0-6.0) 05/02/17 06:00 Calcium 8.6 mg/dL (8.6-10.3) 05/10/17 08:30 Iron 21 ug/dL (38-169) L 05/03/17 05:20 TIBC 155 ug/dL (250-450) L 05/03/17 05:20 Iron Saturation 14 % (15-55) L 05/03/17 05:20 Unsaturated IBC 134 ug/dL (111-343) 05/03/17 05:20 Ferritin 488 ng/mL (30-400) H 05/03/17 05:20 Total Bilirubin 0.2 mg/dL (0.3-1.0) L 05/09/17 06:00 AST 13 U/L (13-39) 05/09/17 06:00 ALT 10 U/L (7-52) 05/09/17 06:00 Alkaline Phosphatase 80 U/L (34-104) 05/09/17 06:00 Total Protein 6.0 gm/dL (6.0-8.3) 05/09/17 06:00 Albumin 2.2 gm/dL (4.2-5.5) L 05/09/17 06:00 Globulin 3.8 gm/dL 05/09/17 06:00 Albumin/Globulin Ratio 0.6 (1.0-1.8) L 05/09/17 06:00 Lipase 24 U/L (11-82) 05/08/17 08:40 Vitamin B12 1438 pg/mL (232-1245) H 05/03/17 05:20 Folic Acid 13.3 ng/mL (>3.0) 05/03/17 05:20 Stool Occult Blood NEGATIVE (NEGATIVE) 05/07/17 10:00 Blood Type O POSITIVE 05/02/17 09:20 Antibody Screen NEGATIVE 05/02/17 09:20 Crossmatch See Detail 05/02/17 09:20 - Physical Exam Vitals and I&O: Vital Signs Temp 97.4 F 05/10/17 04:00 Pulse 103 05/10/17 09:12 Resp 22 05/10/17 07:33 BP 165/78 05/10/17 09:12 Pulse Ox 98 05/10/17 07:33 Intake & Output 05/09/17 05/10/17 05/10/17 18:59 06:59 18:59 Intake Total 50 100 Balance 50 100 Weight (lbs) 87.09 kg 87.09 kg Intake: Intake, IV Amount 50 100 Piperacillin Sodium/ 50 100 Tazobact 3.375 gm In Sodium Chloride 0.9% 50 ml @ 100 mls/hr IV Q6HR [facility] Rx#:[id number] Other: # Voids 2 3 # Bowel Movements 2 1 Active Medications: Current Medications Acetaminophen (Tylenol) 500 mg PO Q6H PRN PRN Reason: Pain (Moderate) Stop: 07/01/17 02:48 Last Admin: 05/08/17 11:00 Dose: 500 mg Albuterol/Ipratropium (Duoneb Neb) 3 ml HHN Q6HRT [facility] Stop: 07/08/17 18:59 Last Admin: 05/10/17 07:30 Dose: 3 ml Amlodipine Besylate (Norvasc) 10 mg PO DAILY [facility] Stop: 07/04/17 08:59 Last Admin: 05/10/17 09:12 Dose: 10 mg Bisacodyl (Dulcolax 10 Mg Supp) 10 mg RC DAILY PRN PRN Reason: constipation Stop: 07/03/17 23:58 Last Admin: 05/05/17 00:20 Dose: 10 mg Carbamazepine (Tegretol) 200 mg PO TID [facility] PRN Reason: Protocol Stop: 07/01/17 08:59 Last Admin: 05/10/17 09:11 Dose: 200 mg Hydralazine HCl (Apresoline) 50 mg PO QID [facility]O Stop: 07/05/17 12:59 Last Admin: 05/10/17 09:12 Dose: 50 mg Hydralazine HCl (Apresoline 20 Mg/Ml) 10 mg IV Q6HR PRN PRN Reason: SBP ABOVE 160 Stop: 07/06/17 17:33 Last Admin: 05/09/17 14:26 Dose: 10 mg Piperacillin Sod/Tazobactam (Sod 3.375 gm/ Sodium Chloride) 50 mls @ 100 mls/ hr IV Q6HR [facility] Stop: 07/08/17 17:59 Last Admin: 05/10/17 11:33 Dose: 100 mls/hr Dextrose/Sodium Chloride (D5-0.9%Ns) 1,000 mls @ 100 mls/hr IV .Q10H [facility] Stop: 07/09/17 12:44 Levetiracetam (Keppra) 500 mg PO BID [facility] Stop: 07/01/17 08:59 Last Admin: 05/10/17 09:12 Dose: 500 mg Lorazepam (Ativan) 0.5 mg IVP Q6HR PRN; Protocol PRN Reason: Agitation Stop: 07/07/17 16:10 Metoprolol Tartrate (Lopressor) 100 mg PO BID [facility] Stop: 07/01/17 08:59 Last Admin: 05/10/17 09:11 Dose: 100 mg Miscellaneous (Clinical Monitoring) 1 ea PRN PRN PRN Reason: RENAL Stop: 07/01/17 09:53 Miscellaneous (Vancomycin Iv Per Pharmacy) 1 ea PRN PRN PRN Reason: PROTOCOL Stop: 07/08/17 13:43 Ondansetron HCl (Zofran) 4 mg IV Q8H PRN PRN Reason: Nausea / Vomiting Stop: 07/09/17 12:20 Pantoprazole Sodium (Protonix) 40 mg PO DAILY [facility] Stop: 07/01/17 07:29 Last Admin: 05/10/17 09:12 Dose: 40 mg Pantoprazole Sodium (Protonix) 40 mg IVP DAILY [facility] Stop: 07/10/17 08:59 Senna (Senna) 8.6 mg PO DAILY [facility] Stop: 07/04/17 08:59 Last Admin: 05/10/17 09:12 Dose: 8.6 mg Sodium Bicarbonate (Sodium Bicarbonate) 650 mg PO BID [facility]O PRN Reason: Protocol Stop: 07/05/17 16:59 Last Admin: 05/10/17 09:11 Dose: 650 mg Temazepam (Restoril) 15 mg PO HS PRN; Protocol PRN Reason: Insomnia Stop: 07/03/17 23:57 Last Admin: 05/07/17 21:14 Dose: 15 mg General: Cooperative, No acute distress HEENT: Atraumatic Neck: Supple Cardiovascular: Regular rate, Normal S1, Normal S2 Lungs: Clear to auscultation Abdomen: Bowel sounds Extremities: Cyanosis - Procedures Procedures: Procedures Procedure Code Date BLOOD TRANSFUSION SERVICE 48832 05/01/17 DRAINAGE OF SKIN ABSCESS 77090 08/15/03 ELECTROCARDIOGRAM 89.52 01/27/00 ELECTROCARDIOGRAM COMPLETE 42695 01/27/00 INSERT NON-TUNNEL CV CATH 79630 12/13/03 MAGNETIC RESONANCE IMAGING OF BRAIN AND BRAIN STEM 88.91 01/27/00 MRI BRAIN STEM W/O DYE 27572 01/27/00 OTHER SKIN & SUBQ I D 86.04 08/15/03 TRANSFUSE NONAUT RED BLOOD CELLS IN PERIPH VEIN, PERC 03100R1 05/01/17 VENOUS CATHETERIZATION NEC 38.93 12/13/03 Assessment/Plan - Assessment Assessment: 56 YO MALE WITH ABD PAIN AND N/V LFTS AND LIPASE NORMAL HAS ANEMIA LIKELY CHRONIC DZ STOOL OB NEG EGD SHOWED HIATAL HERNIA AND GASTRITIS CT SHOWED PERINEPHRIC STRANDING AND PLEURAL EFFUSION 1.AWAIT BX 2.CONT SUPP CARE 3.CONT PROTONIX AND ADD ZOFRAN 4.CHECK UA
[2017-05-10] MEDS: D5-0.9%NS 1,000 ML IV SCH (13:21)
[2017-05-10 13:55] LABS: URINE MICROSCOPIC INDICATED? YES; URINE SOURCE RANDOM
[2017-05-10 14:02] LABS: URINE BILIRUBIN SMALL (NEGATIVE); URINE BLOOD MODERATE (NEGATIVE); URINE GLUCOSE (UA) 100 mg/dL (NEGATIVE); URINE KETONE TRACE mg/dL (NEGATIVE); URINE LEUKOCYTE ESTERASE NEGATIVE (NEGATIVE); URINE NITRATE NEGATIVE (NEGATIVE); URINE PH 5.5 (4.6 - 8.0); URINE PROTEIN >=300 mg/dL (NEGATIVE); URINE UROBILINOGEN 0.2 E.U./dL (0.2 - 1.0)
--- NOTE | 2017-05-10 14:18 | Pathology Report ---
[id number] Collection Date: 05/09/2017 Surgeon: Dr. Hossein Wood Specimen Description: 1. Duodenum biopsy 2. Antrum biopsy Gross Description: Part I: Received in formalin are three tolliver soft tissue fragments ranging from 0.1 to 0.2 cm in greatest dimension. Totally submitted in one cassette labeled A. Gross Description: Part II: Received in formalin are two tolliver soft tissue fragments ranging from 0.1 to 0.2 cm in greatest dimension. Totally submitted in one cassette labeled B. Microscopic Description: Part I: The histologic sections show duodenal mucosa with intact intestinal villi, showing no evidence for villous abnormality. Diagnosis: Part I: No evidence for celiac disease/sprue, duodenal biopsy. Microscopic Description: Part II: The histologic sections show gastric mucosa with chronic inflammation present, consisting of increased numbers of lymphocytes and plasma cells. The Giemsa stain shows no evidence for Helicobacter pylori. Diagnosis: Part II: 1. Chronic gastritis, antrum biopsy. 2. The Giemsa stain is negative for Helicobacter pylori. [facility]# [id number]
[2017-05-10 14:30] LABS: URINE CLARITY HAZY (CLEAR); URINE COLOR YELLOW
[2017-05-10 14:32] LABS: URINE BACTERIA NONE SEEN /hpf (NONE SEEN); URINE EPITHELIAL CELLS FEW /lpf (FEW)
[2017-05-10] MEDS ORDERED: Ketamine 50 mg/mL 10mL Vial ONE (21:35)
[2017-05-10] MEDS ORDERED: Levetiracetam 500 mg/5mL 5mL Vial IV ONE (21:57)
[2017-05-11] MEDS: Albuterol/Ipratropium Neb 3 ML AERS HHN SCH ×4 (00:40→18:53)
[2017-05-11] MEDS: D5-0.9%NS 1,000 ML IV SCH ×3 (02:00→18:59)
[2017-05-11 08:09] LABS: % BASOPHILS 3.7 % (0.0-2.0); % EOSINOPHILS 2.3 % (0.0-5.0); % LYMPHOCYTES 14.1 % (20.0-50.0); % MONOCYTES 7.5 % (2.0-10.0); % NEUTROPHILS 72.4 % (40.0-80.0); BASOPHILE ABSOLUTE 0.4 Th/cumm (0-0.2); EOSINOPHILE ABSOLUTE 0.3 Th/cmm (0.1-0.4); HEMATOCRIT 31.6 % (41.0-60); HEMOGLOBIN 10.7 gm/dL (12-16); LYMPHOCYTE ABSOLUTE 1.6 Th/cmm (1.5-3.0); MEAN CELL VOLUME 88.1 fl (80-99); MEAN CORPUSCULAR HEMOGLOBIN 29.9 pg (26.0-30.0); MEAN PLATELET VOLUME 7.7 fl; MONOCYTE ABSOLUTE 0.9 Th/cmm (0.3-1.0); NEUTROPHILE ABSOLUTE 8.3 Th/cmm (1.8-8.0); RED BLOOD COUNT 3.58 Mil/cmm (4.30-5.70); RED CELL DISTRIBUTION WIDTH 13.7 % (11.5-20.0); WHITE BLOOD COUNT 11.5 Th/cmm (4.8-10.8)
[2017-05-11 08:11] LABS: PLATELET COUNT 478 Th/cmm (150-400)
[2017-05-11] MEDS: Pantoprazole 40 mg EC Tab PO SCH (10:03)
--- NOTE | 2017-05-11 10:28 | Diagnostic Imaging Report ---
Thoracic/abdominal ultrasound (Limited) HISTORY: Pleural effusion Sonographic sector images were obtained about the right and left chest regions. The exam demonstrates a relatively large right pleural effusion. Smaller left pleural effusion is seen. IMPRESSION: 1. Findings consistent with a relatively large right and smaller left pleural effusion.
--- NOTE | 2017-05-11 11:43 | General Progress Note ---
Subjective - Review of Systems Service Date: 05/11/17 Subjective: pt seen and examined BP on and off high pt confused pt not eating Objective - Results Result Diagrams: 05/11/17 07:40 05/10/17 08:30 Recent Labs: Laboratory Last Values WBC 11.5 Th/cmm (4.8-10.8) H 05/11/17 07:40 RBC 3.58 Mil/cmm (4.30-5.70) L 05/11/17 07:40 Hgb 10.7 gm/dL (12-16) L 05/11/17 07:40 Hct 31.6 % (41.0-60) L 05/11/17 07:40 MCV 88.1 fl (80-99) 05/11/17 07:40 MCH 29.9 pg (26.0-30.0) 05/11/17 07:40 MCHC Differential 34.0 pg (28.0-36.0) 05/11/17 07:40 RDW 13.7 % (11.5-20.0) 05/11/17 07:40 Plt Count 478 Th/cmm (150-400) H D 05/11/17 07:40 MPV 7.7 fl 05/11/17 07:40 Neutrophils % 72.4 % (40.0-80.0) 05/11/17 07:40 Lymphocytes % 14.1 % (20.0-50.0) L 05/11/17 07:40 Monocytes % 7.5 % (2.0-10.0) 05/11/17 07:40 Eosinophils % 2.3 % (0.0-5.0) 05/11/17 07:40 Basophils % 3.7 % (0.0-2.0) H 05/11/17 07:40 PT 13.2 SECONDS (9.5-11.5) H 05/09/17 06:00 INR 1.25 (0.5-1.4) 05/09/17 06:00 PTT (Actin FS) 36.0 SECONDS (26.0-38.0) 05/09/17 06:00 Sodium 131 mEq/L (136-145) L 05/10/17 08:30 Potassium 3.7 mEq/L (3.5-5.1) 05/10/17 08:30 Chloride 113 mEq/L (98-107) H 05/10/17 08:30 Carbon Dioxide 10.8 mEq/L (21.0-31.0) L 05/10/17 08:30 Anion Gap 10.9 (7.0-16.0) 05/10/17 08:30 BUN 40 mg/dL (7-25) H 05/10/17 08:30 Creatinine 2.2 mg/dL (0.7-1.3) H 05/10/17 08:30 Est GFR ( Amer) 40.3 ml/min (>90) 05/10/17 08:30 Est GFR (Non-Af Amer) 33.3 ml/min 05/10/17 08:30 BUN/Creatinine Ratio 18.2 05/10/17 08:30 Glucose 159 mg/dL (70-105) H 05/10/17 08:30 POC Glucose 215 MG/DL (70 - 105) H 05/02/17 01:25 Hemoglobin A1c % 5.6 % (4.0-6.0) 05/02/17 06:00 Calcium 8.6 mg/dL (8.6-10.3) 05/10/17 08:30 Iron 21 ug/dL (38-169) L 05/03/17 05:20 TIBC 155 ug/dL (250-450) L 05/03/17 05:20 Iron Saturation 14 % (15-55) L 05/03/17 05:20 Unsaturated IBC 134 ug/dL (111-343) 05/03/17 05:20 Ferritin 488 ng/mL (30-400) H 05/03/17 05:20 Total Bilirubin 0.2 mg/dL (0.3-1.0) L 05/09/17 06:00 AST 13 U/L (13-39) 05/09/17 06:00 ALT 10 U/L (7-52) 05/09/17 06:00 Alkaline Phosphatase 80 U/L (34-104) 05/09/17 06:00 Total Protein 6.0 gm/dL (6.0-8.3) 05/09/17 06:00 Albumin 2.2 gm/dL (4.2-5.5) L 05/09/17 06:00 Globulin 3.8 gm/dL 05/09/17 06:00 Albumin/Globulin Ratio 0.6 (1.0-1.8) L 05/09/17 06:00 Lipase 24 U/L (11-82) 05/08/17 08:40 Vitamin B12 1438 pg/mL (232-1245) H 05/03/17 05:20 Folic Acid 13.3 ng/mL (>3.0) 05/03/17 05:20 Urine Source RANDOM 05/10/17 13:35 Urine Color YELLOW 05/10/17 13:35 Urine Clarity HAZY (CLEAR) 05/10/17 13:35 Urine pH 5.5 (4.6 - 8.0) 05/10/17 13:35 Ur Specific Agency >= 1.030 (1.005-1.030) 05/10/17 13:35 Urine Protein >=300 mg/dL (NEGATIVE) 05/10/17 13:35 Urine Glucose (UA) 100 mg/dL (NEGATIVE) H 05/10/17 13:35 Urine Ketones TRACE mg/dL (NEGATIVE) 05/10/17 13:35 Urine Blood MODERATE (NEGATIVE) H 05/10/17 13:35 Urine Nitrate NEGATIVE (NEGATIVE) 05/10/17 13:35 Urine Bilirubin SMALL (NEGATIVE) H 05/10/17 13:35 Urine Urobilinogen 0.2 E.U./dL (0.2 - 1.0) 05/10/17 13:35 Ur Leukocyte Esterase NEGATIVE (NEGATIVE) 05/10/17 13:35 Urine RBC 5-10 /hpf (0-5) H 05/10/17 13:35 Urine WBC 2-5 /hpf (0-5) 05/10/17 13:35 Ur Epithelial Cells FEW /lpf (FEW) 05/10/17 13:35 Urine Bacteria NONE SEEN /hpf (NONE SEEN) 05/10/17 13:35 Stool Occult Blood NEGATIVE (NEGATIVE) 05/07/17 10:00 Random Vancomycin 19.9 ug/mL (5.0-40.0) 05/11/17 07:40 Blood Type O POSITIVE 05/02/17 09:20 Antibody Screen NEGATIVE 05/02/17 09:20 Crossmatch See Detail 05/02/17 09:20 - Physical Exam Vitals and I&O: Vital Signs Temp 98.3 F 05/11/17 04:00 Pulse 112 03/15/18 10:02 Resp 20 05/11/17 07:28 BP 142/75 05/11/17 10:02 Pulse Ox 97 05/11/17 07:28 Intake & Output 05/10/17 05/11/17 05/11/17 18:59 06:59 18:59 Intake Total 340 1610 513.333 Balance 340 1610 513.333 Weight (lbs) 87.09 kg 87.09 kg Intake: Intake, IV Amount 100 1610 513.333 D5-0.9%Ns 1,000 ml @ 100 1400 408.333 mls/hr IV .Q10H FORMERLY [facility], [facility]–1983 Rx#: [id number] Levetiracetam 500 mg In 105 Sodium Chloride 0.9% 100 ml @ 400 mls/hr IV BID FORMERLY [facility], [facility]–1983 Rx#:[id number] Piperacillin Sodium/ 100 100 Tazobact 3.375 gm In Sodium Chloride 0.9% 50 ml @ 100 mls/hr IV Q6HR FOR[facility]LY [facility], [facility]–1983 Rx#:[id number] Oral 240 0 Other: # Voids 3 2 # Bowel Movements 1 0 Active Medications: Current Medications Acetaminophen (Tylenol) 500 mg PO Q6H PRN PRN Reason: Pain (Moderate) Stop: 07/01/17 02:48 Last Admin: 05/08/17 11:00 Dose: 500 mg Albuterol/Ipratropium (Duoneb Neb) 3 ml HHN Q6HRT [facility], [facility]1983 Stop: 07/08/17 18:59 Last Admin: 05/11/17 07:25 Dose: 3 ml Amlodipine Besylate (Norvasc) 10 mg PO DAILY [facility], [facility]1983 Stop: 07/04/17 08:59 Last Admin: 05/11/17 10:02 Dose: 10 mg Bisacodyl (Dulcolax 10 Mg Supp) 10 mg RC DAILY PRN PRN Reason: constipation Stop: 07/03/17 23:58 Last Admin: 05/05/17 00:20 Dose: 10 mg Carbamazepine (Tegretol) 200 mg PO TID CHARO PRN Reason: Protocol Stop: 07/01/17 08:59 Last Admin: 05/11/17 10:00 Dose: 200 mg Hydralazine HCl (Apresoline) 50 mg PO QID [facility]1983 Stop: 07/05/17 12:59 Last Admin: 05/11/17 10:00 Dose: 50 mg Hydralazine HCl (Apresoline 20 Mg/Ml) 10 mg IV Q6HR PRN PRN Reason: SBP ABOVE 160 Stop: 07/06/17 17:33 Last Admin: 05/11/17 00:39 Dose: 10 mg Piperacillin Sod/Tazobactam (Sod 3.375 gm/ Sodium Chloride) 50 mls @ 100 mls/ hr IV Q6HR CHARO Stop: 07/08/17 17:59 Last Infusion: 05/11/17 06:20 Dose: Infused Dextrose/Sodium Chloride (D5-0.9%Ns) 1,000 mls @ 100 mls/hr IV .Q10H CHARO Stop: 07/09/17 12:44 Last Admin: 05/11/17 10:06 Dose: 100 mls/hr Levetiracetam 500 mg/ Sodium (Chloride) 105 mls @ 400 mls/hr IV BID CHARO Stop: 07/10/17 08:59 Last Infusion: 05/11/17 09:20 Dose: Infused Vancomycin HCl 1 gm/ Sodium (Chloride) 250 mls @ 165 mls/hr IV 1600 ONE Stop: 05/11/17 17:30 Lorazepam (Ativan) 0.5 mg IVP Q6HR PRN; Protocol PRN Reason: Agitation Stop: 07/07/17 16:10 Last Admin: 05/11/17 01:55 Dose: 0.5 mg Metoprolol Tartrate (Lopressor) 100 mg PO BID CHARO Stop: 07/01/17 08:59 Last Admin: 05/11/17 10:02 Dose: 100 mg Miscellaneous (Clinical Monitoring) 1 ea PRN PRN PRN Reason: RENAL Stop: 07/01/17 09:53 Miscellaneous (Vancomycin Iv Per Pharmacy) 1 ea PRN PRN PRN Reason: PROTOCOL Stop: 07/08/17 13:43 Ondansetron HCl (Zofran) 4 mg IV Q8H PRN PRN Reason: Nausea / Vomiting Stop: 07/09/17 12:20 Last Admin: 05/10/17 17:19 Dose: 4 mg Pantoprazole Sodium (Protonix) 40 mg PO DAILY CHARO Stop: 07/01/17 07:29 Last Admin: 05/11/17 10:03 Dose: Not Given Pantoprazole Sodium (Protonix) 40 mg IVP DAILY CHARO Stop: 07/10/17 08:59 Last Admin: 05/11/17 10:02 Dose: 40 mg Senna (Senna) 8.6 mg PO DAILY CHARO Stop: 07/04/17 08:59 Last Admin: 05/11/17 10:01 Dose: 8.6 mg Sodium Bicarbonate (Sodium Bicarbonate) 650 mg PO BID CHARO PRN Reason: Protocol Stop: 07/05/17 16:59 Last Admin: 05/11/17 10:01 Dose: 650 mg Temazepam (Restoril) 15 mg PO HS PRN; Protocol PRN Reason: Insomnia Stop: 07/03/17 23:57 Last Admin: 05/07/17 21:14 Dose: 15 mg General: Cooperative, No acute distress HEENT: Atraumatic Neck: Supple Cardiovascular: Regular rate, Normal S1, Normal S2 Lungs: Clear to auscultation Abdomen: Bowel sounds Extremities: Cyanosis - Procedures Procedures: Procedures Procedure Code Date BLOOD TRANSFUSION SERVICE 66210 05/01/17 DRAINAGE OF SKIN ABSCESS 67546 08/15/03 ELECTROCARDIOGRAM 89.52 01/27/00 ELECTROCARDIOGRAM COMPLETE 11564 01/27/00 INSERT NON-TUNNEL CV CATH 65883 12/13/03 MAGNETIC RESONANCE IMAGING OF BRAIN AND BRAIN STEM 88.91 01/27/00 MRI BRAIN STEM W/O DYE 33931 01/27/00 OTHER SKIN & SUBQ I D 86.04 08/15/03 TRANSFUSE NONAUT RED BLOOD CELLS IN PERIPH VEIN, PERC 23906X4 05/01/17 VENOUS CATHETERIZATION NEC 38.93 12/13/03 Assessment/Plan - Assessment Assessment: ACUTE ANEMIA ACUTE RENAL FAILURE SECONDARY TO ATN SECONDARY TO SEVERE ANEMIA ACUTE TUBULAR NECROSIS CVA SEIZURE PSYCHOSIS DEMENTIA - Plan Plan: BP NEEDS BETTER CONTROL RENAL FUNCTION IMPROVING HGB stable add bicarb start IVF pt wbc up creat up on vanco and zosyn check urine eosinophils Nutritional Asmnt/Malnutr-PDOC - Dietary Evaluation Malnutrition Findings (Please click <Entered> for more info): Nutritional Asmnt/Malnutrition Start: 05/02/17 15: 58 Text: Status: Complete Freq: Document 05/02/17 15:58 LCHENG (Rec: 05/02/17 16:14 LCHENG [id number]) Nutritional Asmnt/Malnutrition Patient General Information Nutritional Screening High Risk Consult Diagnosis severe anemia, dehydration, CISCO Pertinent Medical Hx/Surgical Hx CVA, seizure disorder, dementia, psychosis, CKD Subjective Information Consult received for BS 215 at adm and wound. Pt seen lying in bed at time of visit, awake and alert at time of visit. Hard to understand pt. Pt said no when dietitian asked about food related questions. Per nurse notes, pt refused lunch althought RN and [employer] tried multiple times. Current Diet Order/ Nutrition Support Renal, mech soft chopped Pertinent Medications D5-0.45ns, protonix Pertinent Labs 05/02 Na 141, K 4.2, Cl 118, BUN 91, Cr 2.5, Glucose 180, POC 215, AST 11, Alb 2.5 Nutritional Hx/Data Height 1.57 m Height (Calculated Centimeters) 157.5 Current Weight (lbs) 78.018 kg Weight (Calculated Kilograms) 78.0 Weight (Calculated Grams) 42738.9 [place] Body Weight 118 Body Mass Index (BMI) 31.4 Weight Status Obese GI Symptoms GI Symptoms None Last BM none Difficult in: None Skin Integrity/Comment: per wound care note: Distal aspect of Gluteal Sulcus - Moisture lesion, present on admission. reddened to sacrum, potential skin problem to bilateral legs Estimated Nutritional Goals BEE in Kcals: Adj wt of IBW Calories/Kcals/Kg 25-30 Kcals Calculated 1334-5646 Protein: Adj wt of IBW Protein g/k-1.2 Protein Calculated 60-72 Fluid: ml 1500-1800ml (1ml/kcal) or per MD Nutritional Problem 1. Problem Problem altered nutrition related lab values Etiology hx of CKD, dx of CISCO, endocrine dysfunction Signs/Symptoms: BUN 91, Cr 2.5, Glucose 180, POC 215 Malnutrition Alert Protein-Calorie Malnutrition N/A Is there a minimum of two criteria No selected? Query Text:Check all the applicable criteria. A minimum of two criteria are recommended for diagnosis of either severe or non-severe malnutrition. Intervention/Recommendation Comments 1. Monitor glucose and check a1c level. If glucose continue high, will consider adding CCHO diet for optimal glycemic control 2. Monitor PO intake, wt, labs and skin integrity 3. F/U as high risk in 2-3 days, 05/04-05/05 Expected Outcomes/Goals Expected Outcomes/Goals 1. PO intake to meet at least 75% of nutritional needs. 2. Wt stability, skin to remain intact, labs to approach WNL.
[2017-05-11 12:47] LABS: URINE MICROSCOPIC INDICATED? YES; URINE SOURCE CATH
[2017-05-11 13:03] LABS: URINE BLOOD MODERATE (NEGATIVE); URINE GLUCOSE (UA) 100 mg/dL (NEGATIVE); URINE KETONE TRACE mg/dL (NEGATIVE); URINE LEUKOCYTE ESTERASE NEGATIVE (NEGATIVE); URINE NITRATE NEGATIVE (NEGATIVE); URINE PH 5.5 (4.6 - 8.0); URINE PROTEIN >=300 mg/dL (NEGATIVE); URINE UROBILINOGEN 0.2 E.U./dL (0.2 - 1.0)
[2017-05-11 13:34] LABS: URINE BILIRUBIN NEGATIVE (NEGATIVE); URINE CLARITY SLIGHTLY HAZY (CLEAR); URINE COLOR YELLOW
[2017-05-11 13:35] LABS: URINE BACTERIA FEW /hpf (NONE SEEN); URINE EPITHELIAL CELLS RARE /lpf (FEW); URINE WBC 0-2 /hpf (0-5)
[2017-05-11 13:36] LABS: URINE AMORPHOUS SEDIMENT MANY URATES (NONE SEEN)
--- NOTE | 2017-05-11 14:57 | Consultation ---
DATE OF CONSULTATION: 05/11/2017 UROLOGY CONSULTATION REASON FOR CONSULTATION: Seen for perirenal inflammation, thickening of the bladder, and renal insufficiency as well as inability to place the Canela. HISTORY OF PRESENT ILLNESS: The patient is a 56-year-old male from a senior living or assisted living facility for multiple problems including dementia, seizure disorder, history of stroke, and some type of undefined psychosis, as well as developmental disability. He was admitted with anemia and dehydration, failure to thrive. He has had GI workup that has found him to have hiatal hernia and gastritis. His anemia has been corrected somewhat with transfusions. He has continued to refuse food and has pulled out his NG tube because he most likely has abdominal pain or discomfort according to his family members. This is the time he refuses to eat since he cannot verbalize his problems very well. During his workup, CT scan showed this perirenal inflammation with trace amount of fluid tracking around the kidneys down into the pelvis and thickening of the bladder with rising creatinine, lowest being 1.05 going up to 2.3 or so presently. He has been incontinent of urine, but we have not been able to assess any degree of retention. We have not been able to obtain a sample for culture as well. Nurses attempted to Canela catheter placement, but were unsuccessful and felt resistance in the penile urethra. We do not have any known urologic history due to the above problems. PAST MEDICAL HISTORY: Significant for stroke. He also has seizure disorder and had one yesterday because of which he was transferred to the ICU. He has dementia and poorly defined psychosis as well as developmental disability. ALLERGIES: To DILANTIN. PAST SURGICAL HISTORY: Unknown and unavailable. SOCIAL HISTORY: As described with above medical problems committing him to a senior care home living. PREADMISSION MEDICATIONS: Hydralazine, Tegretol, Neurontin, insulin, isosorbide, Keppra, metoprolol, minoxidil, valproic acid. MEDICAL HISTORY: Would therefore include hypertension, diabetes, seizure disorder, anemia. REVIEW OF SYSTEMS: Failure to thrive, anemia, and dehydration. GI discomfort and pain, refusing to eat because of that. Urinary incontinence. We are not sure if he has dysuria or infection. No skin disorder so far that we know of. No chest pain or coughing. He had a seizure as mentioned earlier. PHYSICAL EXAMINATION: GENERAL: On exam, he is restrained in the ICU. He is not combative. He is cooperative and allowed exam as well as insertion of the Canela. VITAL SIGNS: Temperature 98.3, heart rate 115, blood pressure 147/66. HEAD AND NECK: Normocephalic. Trachea central. Pupils equal and reactive. No jaundice. Thyroid and lymph nodes not palpable. Carotid bruit absent. CHEST: Symmetrical. LUNGS: Clear. No rales or rhonchi. HEART: Sounds normal in sinus rhythm, no murmur. ABDOMEN: Soft, generalized nonspecific mild tenderness and guarding. No rigidity or rebound. GENITALIA: Normal male. Penis somewhat smaller in size, not circumcised with significant balanitis and phimosis. EXTREMITIES: No edema or lymphadenopathy. NEUROLOGIC: Unable to test, but seems to move all limbs. LABORATORY DATA: White count 11.5, maximum was 15.2 without any documented bands. Hemoglobin was as low as 7.0 on admission, now 10.7 after 2 units of blood. Platelets are normal. PT, PTT are normal. Sodium is low at 131, chloride 113, and CO2 10.8, both abnormal. BUN 40, creatinine 2.2, up from a low of 1.5, glucose levels have been around 120-150. In general, the liver functions have been normal. UA was taken in a condom catheter after Canela was attempted and is therefore not very accurate in report and the renal ultrasound did not show any hydronephrosis or masses or stones and CT scan was already described earlier by me. IMPRESSION: 1. Some type of neurogenic bladder and possibly cystitis and may have some element of retention or hyperactive bladder that is causing the x-ray pictures or x-ray appearance that was reported and the elevated creatinine. However, the creatinine can also be elevated from dehydration and ATN and UTI if he has one. I placed a Canela catheter at the bedside, a size 16 without much difficulty after preparing and injecting a lot of K-Y jelly in his urethra. We will get a urine culture and see how he responds to the Canela. 2. Seizure disorder, recently active. 3. History of stroke, no recurrence. 4. Dementia and developmental disorder, chronic condition. 5. Renal insufficiency. We will have to follow. 6. Anemia, slightly improved. 7. Gastritis and hiatal hernia, recently diagnosed. JOB# [id number]
--- NOTE | 2017-05-11 15:03 | Internal Medicine Prog Note ---
Internal Medicine Subjective - Subjective Service Date: 05/11/17 Patient seen and examined:: with staff (HE IS REFUSING HIS FOOD AND MEDICIN.I TALKED TO HIS SISTER AND AGREE TO PUT GT.) Patient is:: awake, verbal, confused Per staff patient has:: no adverse event Internal Medicine Objective - Results Result Diagrams: 05/11/17 07:40 05/10/17 08:30 Recent Labs: Laboratory Last Values WBC 11.5 Th/cmm (4.8-10.8) H 05/11/17 07:40 RBC 3.58 Mil/cmm (4.30-5.70) L 05/11/17 07:40 Hgb 10.7 gm/dL (12-16) L 05/11/17 07:40 Hct 31.6 % (41.0-60) L 05/11/17 07:40 MCV 88.1 fl (80-99) 05/11/17 07:40 MCH 29.9 pg (26.0-30.0) 05/11/17 07:40 MCHC Differential 34.0 pg (28.0-36.0) 05/11/17 07:40 RDW 13.7 % (11.5-20.0) 05/11/17 07:40 Plt Count 478 Th/cmm (150-400) H D 05/11/17 07:40 MPV 7.7 fl 05/11/17 07:40 Neutrophils % 72.4 % (40.0-80.0) 05/11/17 07:40 Lymphocytes % 14.1 % (20.0-50.0) L 05/11/17 07:40 Monocytes % 7.5 % (2.0-10.0) 05/11/17 07:40 Eosinophils % 2.3 % (0.0-5.0) 05/11/17 07:40 Basophils % 3.7 % (0.0-2.0) H 05/11/17 07:40 PT 13.2 SECONDS (9.5-11.5) H 05/09/17 06:00 INR 1.25 (0.5-1.4) 05/09/17 06:00 PTT (Actin FS) 36.0 SECONDS (26.0-38.0) 05/09/17 06:00 Sodium 131 mEq/L (136-145) L 05/10/17 08:30 Potassium 3.7 mEq/L (3.5-5.1) 05/10/17 08:30 Chloride 113 mEq/L (98-107) H 05/10/17 08:30 Carbon Dioxide 10.8 mEq/L (21.0-31.0) L 05/10/17 08:30 Anion Gap 10.9 (7.0-16.0) 05/10/17 08:30 BUN 40 mg/dL (7-25) H 05/10/17 08:30 Creatinine 2.2 mg/dL (0.7-1.3) H 05/10/17 08:30 Est GFR ( Amer) 40.3 ml/min (>90) 05/10/17 08:30 Est GFR (Non-Af Amer) 33.3 ml/min 05/10/17 08:30 BUN/Creatinine Ratio 18.2 05/10/17 08:30 Glucose 159 mg/dL (70-105) H 05/10/17 08:30 POC Glucose 215 MG/DL (70 - 105) H 05/02/17 01:25 Hemoglobin A1c % 5.6 % (4.0-6.0) 05/02/17 06:00 Calcium 8.6 mg/dL (8.6-10.3) 05/10/17 08:30 Iron 21 ug/dL (38-169) L 05/03/17 05:20 TIBC 155 ug/dL (250-450) L 05/03/17 05:20 Iron Saturation 14 % (15-55) L 05/03/17 05:20 Unsaturated IBC 134 ug/dL (111-343) 05/03/17 05:20 Ferritin 488 ng/mL (30-400) H 05/03/17 05:20 Total Bilirubin 0.2 mg/dL (0.3-1.0) L 05/09/17 06:00 AST 13 U/L (13-39) 05/09/17 06:00 ALT 10 U/L (7-52) 05/09/17 06:00 Alkaline Phosphatase 80 U/L (34-104) 05/09/17 06:00 Total Protein 6.0 gm/dL (6.0-8.3) 05/09/17 06:00 Albumin 2.2 gm/dL (4.2-5.5) L 05/09/17 06:00 Globulin 3.8 gm/dL 05/09/17 06:00 Albumin/Globulin Ratio 0.6 (1.0-1.8) L 05/09/17 06:00 Lipase 24 U/L (11-82) 05/08/17 08:40 Vitamin B12 1438 pg/mL (232-1245) H 05/03/17 05:20 Folic Acid 13.3 ng/mL (>3.0) 05/03/17 05:20 Urine Source CATH 05/11/17 12:30 Urine Color YELLOW 05/11/17 12:30 Urine Clarity SLIGHTLY HAZY (CLEAR) 05/11/17 12:30 Urine pH 5.5 (4.6 - 8.0) 05/11/17 12:30 Ur Specific [place] >= 1.030 (1.005-1.030) 05/11/17 12:30 Urine Protein >=300 mg/dL (NEGATIVE) 05/11/17 12:30 Urine Glucose (UA) 100 mg/dL (NEGATIVE) H 05/11/17 12:30 Urine Ketones TRACE mg/dL (NEGATIVE) 05/11/17 12:30 Urine Blood MODERATE (NEGATIVE) H 05/11/17 12:30 Urine Nitrate NEGATIVE (NEGATIVE) 05/11/17 12:30 Urine Bilirubin NEGATIVE (NEGATIVE) 05/11/17 12:30 Urine Urobilinogen 0.2 E.U./dL (0.2 - 1.0) 05/11/17 12:30 Ur Leukocyte Esterase NEGATIVE (NEGATIVE) 05/11/17 12:30 Urine RBC 5-10 /hpf (0-5) H 05/11/17 12:30 Urine WBC 0-2 /hpf (0-5) 05/11/17 12:30 Ur Epithelial Cells RARE /lpf (FEW) 05/11/17 12:30 Amorphous Sediment MANY URATES (NONE SEEN) 05/11/17 12:30 Urine Bacteria FEW /hpf (NONE SEEN) 05/11/17 12:30 Stool Occult Blood NEGATIVE (NEGATIVE) 05/07/17 10:00 Random Vancomycin 19.9 ug/mL (5.0-40.0) 05/11/17 07:40 Blood Type O POSITIVE 05/02/17 09:20 Antibody Screen NEGATIVE 05/02/17 09:20 Crossmatch See Detail 05/02/17 09:20 - Physical Exam Vitals and I&O: Vital Signs Temp 97.7 F 05/11/17 13:00 Pulse 112 05/11/17 14:08 Resp 20 05/11/17 13:27 BP 166/84 05/11/17 14:08 Pulse Ox 96 05/11/17 13:27 Intake & Output 05/10/17 05/11/17 05/11/17 18:59 06:59 18:59 Intake Total 340 1610 563.333 Balance 340 1610 563.333 Weight (lbs) 87.09 kg 87.09 kg Intake: Intake, IV Amount 100 1610 563.333 D5-0.9%Ns 1,000 ml @ 100 1400 408.333 mls/hr IV .Q10H [facility] Rx#: [id number] Levetiracetam 500 mg In 105 Sodium Chloride 0.9% 100 ml @ 400 mls/hr IV BID [facility] Rx#:[id number] Piperacillin Sodium/ 100 100 50 Tazobact 3.375 gm In Sodium Chloride 0.9% 50 ml @ 100 mls/hr IV Q6HR [facility] Rx#:[id number] Oral 240 0 Other: # Voids 3 2 # Bowel Movements 1 0 Active Medications: Current Medications Acetaminophen (Tylenol) 500 mg PO Q6H PRN PRN Reason: Pain (Moderate) Stop: 07/01/17 02:48 Last Admin: 05/08/17 11:00 Dose: 500 mg Albuterol/Ipratropium (Duoneb Neb) 3 ml HHN Q6HRT [facility] Stop: 07/08/17 18:59 Last Admin: 05/11/17 13:26 Dose: 3 ml Amlodipine Besylate (Norvasc) 10 mg PO DAILY [facility] Stop: 07/04/17 08:59 Last Admin: 05/11/17 10:02 Dose: 10 mg Bisacodyl (Dulcolax 10 Mg Supp) 10 mg RC DAILY PRN PRN Reason: constipation Stop: 07/03/17 23:58 Last Admin: 05/05/17 00:20 Dose: 10 mg Carbamazepine (Tegretol) 200 mg PO TID [facility]O PRN Reason: Protocol Stop: 07/01/17 08:59 Last Admin: 05/11/17 14:09 Dose: Not Given Hydralazine HCl (Apresoline) 50 mg PO QID [facility] Stop: 07/05/17 12:59 Last Admin: 05/11/17 12:29 Dose: Not Given Hydralazine HCl (Apresoline 20 Mg/Ml) 10 mg IV Q6HR PRN PRN Reason: SBP ABOVE 160 Stop: 07/06/17 17:33 Last Admin: 05/11/17 14:08 Dose: 10 mg Piperacillin Sod/Tazobactam (Sod 3.375 gm/ Sodium Chloride) 50 mls @ 100 mls/ hr IV Q6HR [facility] Stop: 07/08/17 17:59 Last Infusion: 05/11/17 13:00 Dose: Infused Dextrose/Sodium Chloride (D5-0.9%Ns) 1,000 mls @ 100 mls/hr IV .Q10H [facility] Stop: 07/09/17 12:44 Last Admin: 05/11/17 10:06 Dose: 100 mls/hr Levetiracetam 500 mg/ Sodium (Chloride) 105 mls @ 400 mls/hr IV BID [facility] Stop: 07/10/17 08:59 Last Infusion: 05/11/17 09:20 Dose: Infused Vancomycin HCl 1 gm/ Sodium (Chloride) 250 mls @ 165 mls/hr IV 1600 ONE Stop: 05/11/17 17:30 Lorazepam (Ativan) 0.5 mg IVP Q6HR PRN; Protocol PRN Reason: Agitation Stop: 07/07/17 16:10 Last Admin: 05/11/17 01:55 Dose: 0.5 mg Metoprolol Tartrate (Lopressor) 100 mg PO BID [facility] Stop: 07/01/17 08:59 Last Admin: 05/11/17 10:02 Dose: 100 mg Miscellaneous (Clinical Monitoring) 1 ea PRN PRN PRN Reason: RENAL Stop: 07/01/17 09:53 Miscellaneous (Vancomycin Iv Per Pharmacy) 1 ea PRN PRN PRN Reason: PROTOCOL Stop: 07/08/17 13:43 Ondansetron HCl (Zofran) 4 mg IV Q8H PRN PRN Reason: Nausea / Vomiting Stop: 07/09/17 12:20 Last Admin: 05/10/17 17:19 Dose: 4 mg Pantoprazole Sodium (Protonix) 40 mg PO DAILY [facility] Stop: 07/01/17 07:29 Last Admin: 05/11/17 10:03 Dose: Not Given Pantoprazole Sodium (Protonix) 40 mg IVP DAILY [facility] Stop: 07/10/17 08:59 Last Admin: 05/11/17 10:02 Dose: 40 mg Senna (Senna) 8.6 mg PO DAILY [facility] Stop: 07/04/17 08:59 Last Admin: 05/11/17 10:01 Dose: 8.6 mg Sodium Bicarbonate (Sodium Bicarbonate) 650 mg PO BID [facility] PRN Reason: Protocol Stop: 07/05/17 16:59 Last Admin: 05/11/17 10:01 Dose: 650 mg Temazepam (Restoril) 15 mg PO HS PRN; Protocol PRN Reason: Insomnia Stop: 07/03/17 23:57 Last Admin: 05/07/17 21:14 Dose: 15 mg General: demented HEENT: NC/AT, PERRLA, EOMI, anicteric sclerae, throat clear Neck: Supple, No JVD, No thyromegaly, +2 carotid pulse wo bruit, No LAD Lungs: CTAB Cardiovascular: RRR, Normal S1, Normal S2, without murmur Abdomen: soft, tender, non-distended Extremities: clear Neurological: no change - Procedures Procedures: Procedures Procedure Code Date BLOOD TRANSFUSION SERVICE 82530 05/01/17 DRAINAGE OF SKIN ABSCESS 39265 08/15/03 ELECTROCARDIOGRAM 89.52 01/27/00 ELECTROCARDIOGRAM COMPLETE 19984 01/27/00 INSERT NON-TUNNEL CV CATH 46493 12/13/03 MAGNETIC RESONANCE IMAGING OF BRAIN AND BRAIN STEM 88.91 01/27/00 MRI BRAIN STEM W/O DYE 67743 01/27/00 OTHER SKIN & SUBQ I D 86.04 08/15/03 TRANSFUSE NONAUT RED BLOOD CELLS IN PERIPH VEIN, PERC 56990Z5 05/01/17 VENOUS CATHETERIZATION NEC 38.93 12/13/03 Internal Medicine Assmt/Plan - Assessment Assessment: 1.SEVER ANEMIA. 2.DEHYDRATION. 3.CISCO. 4.CVA 5.ACUTE ABDONINAL PAIN. 6.UNCONTROLLED HTN. 7.SEVER EPISODES OF AGITATION. 8.GASTRITIS. 9.BILATERAL PLEURAL EFFUSION. 10.LEUKOCYTOSIS. - Plan Plan: CONTINUE ON CURRENT MEDICATION AND DIET.CONSENT FOR B\GT PLACEMENT. Nutritional Asmnt/Malnutr-PDOC - Dietary Evaluation Malnutrition Findings (Please click <Entered> for more info): Nutritional Asmnt/Malnutrition Start: 05/02/17 15: 58 Text: Status: Complete Freq: Document 05/02/17 15:58 [email or web address] (Rec: 05/02/17 16:14 ALLISON [email or web address]) Nutritional Asmnt/Malnutrition Patient General Information Nutritional Screening High Risk Consult Diagnosis severe anemia, dehydration, CISCO Pertinent Medical Hx/Surgical Hx CVA, seizure disorder, dementia, psychosis, CKD Subjective Information Consult received for BS 215 at adm and wound. Pt seen lying in bed at time of visit, awake and alert at time of visit. Hard to understand pt. Pt said no when dietitian asked about food related questions. Per nurse notes, pt refused lunch althought RN and MARITIME GUARD tried multiple times. Current Diet Order/ Nutrition Support Renal, mech soft chopped Pertinent Medications D5-0.45ns, protonix Pertinent Labs / Na 141, K 4.2, Cl 118, BUN 91, Cr 2.5, Glucose 180, POC 215, AST 11, Alb 2.5 Nutritional Hx/Data Height 1.57 m Height (Calculated Centimeters) 157.5 Current Weight (lbs) 78.018 kg Weight (Calculated Kilograms) 78.0 Weight (Calculated Grams) 55021.9 [place] Body Weight 118 Body Mass Index (BMI) 31.4 Weight Status Obese GI Symptoms GI Symptoms None Last BM none Difficult in: None Skin Integrity/Comment: per wound care note: Distal aspect of Gluteal Sulcus - Moisture lesion, present on admission. reddened to sacrum, potential skin problem to bilateral legs Estimated Nutritional Goals BEE in Kcals: Adj wt of IBW Calories/Kcals/Kg 25-30 Kcals Calculated 4881-1761 Protein: Adj wt of IBW Protein g/k-1.2 Protein Calculated 60-72 Fluid: ml 1500-1800ml (1ml/kcal) or per MD Nutritional Problem 1. Problem Problem altered nutrition related lab values Etiology hx of CKD, dx of CISCO, endocrine dysfunction Signs/Symptoms: BUN 91, Cr 2.5, Glucose 180, POC 215 Malnutrition Alert Protein-Calorie Malnutrition N/A Is there a minimum of two criteria No selected? Query Text:Check all the applicable criteria. A minimum of two criteria are recommended for diagnosis of either severe or non-severe malnutrition. Intervention/Recommendation Comments 1. Monitor glucose and check a1c level. If glucose continue high, will consider adding CCHO diet for optimal glycemic control 2. Monitor PO intake, wt, labs and skin integrity 3. F/U as high risk in 2-3 days, 05/04-05/05 Expected Outcomes/Goals Expected Outcomes/Goals 1. PO intake to meet at least 75% of nutritional needs. 2. Wt stability, skin to remain intact, labs to approach WNL.
[2017-05-11 15:09] LABS: EOSINOPHIL SMEAR SOURCE URINE; EOSINOPHILS SMEAR COUNT NONE SEEN (NONE SEEN)
--- NOTE | 2017-05-11 16:45 | GI Progress Note ---
Subjective - Review of Systems Subjective: NOT ABLE TO AKANKSHA PO Objective - Results Result Diagrams: 05/11/17 07:40 05/10/17 08:30 Recent Labs: Laboratory Last Values WBC 11.5 Th/cmm (4.8-10.8) H 05/11/17 07:40 RBC 3.58 Mil/cmm (4.30-5.70) L 05/11/17 07:40 Hgb 10.7 gm/dL (12-16) L 05/11/17 07:40 Hct 31.6 % (41.0-60) L 05/11/17 07:40 MCV 88.1 fl (80-99) 05/11/17 07:40 MCH 29.9 pg (26.0-30.0) 05/11/17 07:40 MCHC Differential 34.0 pg (28.0-36.0) 05/11/17 07:40 RDW 13.7 % (11.5-20.0) 05/11/17 07:40 Plt Count 478 Th/cmm (150-400) H D 05/11/17 07:40 MPV 7.7 fl 05/11/17 07:40 Neutrophils % 72.4 % (40.0-80.0) 05/11/17 07:40 Lymphocytes % 14.1 % (20.0-50.0) L 05/11/17 07:40 Monocytes % 7.5 % (2.0-10.0) 05/11/17 07:40 Eosinophils % 2.3 % (0.0-5.0) 05/11/17 07:40 Basophils % 3.7 % (0.0-2.0) H 05/11/17 07:40 Eos Smear Source URINE 05/11/17 12:30 Eos Smear Total Cells NONE SEEN (NONE SEEN) 05/11/17 12:30 PT 13.2 SECONDS (9.5-11.5) H 05/09/17 06:00 INR 1.25 (0.5-1.4) 05/09/17 06:00 PTT (Actin FS) 36.0 SECONDS (26.0-38.0) 05/09/17 06:00 Sodium 131 mEq/L (136-145) L 05/10/17 08:30 Potassium 3.7 mEq/L (3.5-5.1) 05/10/17 08:30 Chloride 113 mEq/L (98-107) H 05/10/17 08:30 Carbon Dioxide 10.8 mEq/L (21.0-31.0) L 05/10/17 08:30 Anion Gap 10.9 (7.0-16.0) 05/10/17 08:30 BUN 40 mg/dL (7-25) H 05/10/17 08:30 Creatinine 2.2 mg/dL (0.7-1.3) H 05/10/17 08:30 Est GFR ( Amer) 40.3 ml/min (>90) 05/10/17 08:30 Est GFR (Non-Af Amer) 33.3 ml/min 05/10/17 08:30 BUN/Creatinine Ratio 18.2 05/10/17 08:30 Glucose 159 mg/dL (70-105) H 05/10/17 08:30 POC Glucose 215 MG/DL (70 - 105) H 05/02/17 01:25 Hemoglobin A1c % 5.6 % (4.0-6.0) 05/02/17 06:00 Calcium 8.6 mg/dL (8.6-10.3) 05/10/17 08:30 Iron 21 ug/dL (38-169) L 05/03/17 05:20 TIBC 155 ug/dL (250-450) L 05/03/17 05:20 Iron Saturation 14 % (15-55) L 05/03/17 05:20 Unsaturated IBC 134 ug/dL (111-343) 05/03/17 05:20 Ferritin 488 ng/mL (30-400) H 05/03/17 05:20 Total Bilirubin 0.2 mg/dL (0.3-1.0) L 05/09/17 06:00 AST 13 U/L (13-39) 05/09/17 06:00 ALT 10 U/L (7-52) 05/09/17 06:00 Alkaline Phosphatase 80 U/L (34-104) 05/09/17 06:00 Total Protein 6.0 gm/dL (6.0-8.3) 05/09/17 06:00 Albumin 2.2 gm/dL (4.2-5.5) L 05/09/17 06:00 Globulin 3.8 gm/dL 05/09/17 06:00 Albumin/Globulin Ratio 0.6 (1.0-1.8) L 05/09/17 06:00 Lipase 24 U/L (11-82) 05/08/17 08:40 Vitamin B12 1438 pg/mL (232-1245) H 05/03/17 05:20 Folic Acid 13.3 ng/mL (>3.0) 05/03/17 05:20 Urine Source CATH 05/11/17 12:30 Urine Color YELLOW 05/11/17 12:30 Urine Clarity SLIGHTLY HAZY (CLEAR) 05/11/17 12:30 Urine pH 5.5 (4.6 - 8.0) 05/11/17 12:30 Ur Specific [employer] >= 1.030 (1.005-1.030) 05/11/17 12:30 Urine Protein >=300 mg/dL (NEGATIVE) 05/11/17 12:30 Urine Glucose (UA) 100 mg/dL (NEGATIVE) H 05/11/17 12:30 Urine Ketones TRACE mg/dL (NEGATIVE) 05/11/17 12:30 Urine Blood MODERATE (NEGATIVE) H 05/11/17 12:30 Urine Nitrate NEGATIVE (NEGATIVE) 05/11/17 12:30 Urine Bilirubin NEGATIVE (NEGATIVE) 05/11/17 12:30 Urine Urobilinogen 0.2 E.U./dL (0.2 - 1.0) 05/11/17 12:30 Ur Leukocyte Esterase NEGATIVE (NEGATIVE) 05/11/17 12:30 Urine RBC 5-10 /hpf (0-5) H 05/11/17 12:30 Urine WBC 0-2 /hpf (0-5) 05/11/17 12:30 Ur Epithelial Cells RARE /lpf (FEW) 05/11/17 12:30 Amorphous Sediment MANY URATES (NONE SEEN) 05/11/17 12:30 Urine Bacteria FEW /hpf (NONE SEEN) 05/11/17 12:30 Stool Occult Blood NEGATIVE (NEGATIVE) 05/07/17 10:00 Random Vancomycin 19.9 ug/mL (5.0-40.0) 05/11/17 07:40 Blood Type O POSITIVE 05/02/17 09:20 Antibody Screen NEGATIVE 05/02/17 09:20 Crossmatch See Detail 05/02/17 09:20 - Physical Exam Vitals and I&O: Vital Signs Temp 97.7 F 05/11/17 13:00 Pulse 112 05/11/17 14:08 Resp 20 05/11/17 13:27 BP 166/84 05/11/17 14:08 Pulse Ox 97 05/11/17 14:00 Intake & Output 05/10/17 05/11/17 05/11/17 18:59 06:59 18:59 Intake Total 340 1610 563.333 Balance 340 1610 563.333 Weight (lbs) 87.09 kg 87.09 kg Intake: Intake, IV Amount 100 1610 563.333 D5-0.9%Ns 1,000 ml @ 100 1400 408.333 mls/hr IV .Q10H [facility] Rx#: [id number] Levetiracetam 500 mg In 105 Sodium Chloride 0.9% 100 ml @ 400 mls/hr IV BID [facility] Rx#:[id number] Piperacillin Sodium/ 100 100 50 Tazobact 3.375 gm In Sodium Chloride 0.9% 50 ml @ 100 mls/hr IV Q6HR [facility] Rx#:[id number] Oral 240 0 Other: # Voids 3 2 # Bowel Movements 1 0 Active Medications: Current Medications Acetaminophen (Tylenol) 500 mg PO Q6H PRN PRN Reason: Pain (Moderate) Stop: 07/01/17 02:48 Last Admin: 05/08/17 11:00 Dose: 500 mg Albuterol/Ipratropium (Duoneb Neb) 3 ml HHN Q6HRT [facility] Stop: 07/08/17 18:59 Last Admin: 05/11/17 13:26 Dose: 3 ml Amlodipine Besylate (Norvasc) 10 mg PO DAILY [facility] Stop: 07/04/17 08:59 Last Admin: 05/11/17 10:02 Dose: 10 mg Bisacodyl (Dulcolax 10 Mg Supp) 10 mg RC DAILY PRN PRN Reason: constipation Stop: 07/03/17 23:58 Last Admin: 05/05/17 00:20 Dose: 10 mg Carbamazepine (Tegretol) 200 mg PO TID [facility]O PRN Reason: Protocol Stop: 07/01/17 08:59 Last Admin: 05/11/17 14:09 Dose: Not Given Hydralazine HCl (Apresoline) 50 mg PO QID [facility] Stop: 07/05/17 12:59 Last Admin: 05/11/17 12:29 Dose: Not Given Hydralazine HCl (Apresoline 20 Mg/Ml) 10 mg IV Q6HR PRN PRN Reason: SBP ABOVE 160 Stop: 07/06/17 17:33 Last Admin: 05/11/17 14:08 Dose: 10 mg Piperacillin Sod/Tazobactam (Sod 3.375 gm/ Sodium Chloride) 50 mls @ 100 mls/ hr IV Q6HR [facility] Stop: 07/08/17 17:59 Last Infusion: 05/11/17 13:00 Dose: Infused Dextrose/Sodium Chloride (D5-0.9%Ns) 1,000 mls @ 100 mls/hr IV .Q10H [facility] Stop: 07/09/17 12:44 Last Admin: 05/11/17 10:06 Dose: 100 mls/hr Levetiracetam 500 mg/ Sodium (Chloride) 105 mls @ 400 mls/hr IV BID [facility] Stop: 07/10/17 08:59 Last Infusion: 05/11/17 09:20 Dose: Infused Vancomycin HCl 1 gm/ Sodium (Chloride) 250 mls @ 165 mls/hr IV 1600 ONE Stop: 05/11/17 17:30 Lorazepam (Ativan) 0.5 mg IVP Q6HR PRN; Protocol PRN Reason: Agitation Stop: 07/07/17 16:10 Last Admin: 05/11/17 01:55 Dose: 0.5 mg Metoprolol Tartrate (Lopressor) 100 mg PO BID [facility] Stop: 07/01/17 08:59 Last Admin: 05/11/17 10:02 Dose: 100 mg Miscellaneous (Clinical Monitoring) 1 ea PRN PRN PRN Reason: RENAL Stop: 07/01/17 09:53 Miscellaneous (Vancomycin Iv Per Pharmacy) 1 ea PRN PRN PRN Reason: PROTOCOL Stop: 07/08/17 13:43 Ondansetron HCl (Zofran) 4 mg IV Q8H PRN PRN Reason: Nausea / Vomiting Stop: 07/09/17 12:20 Last Admin: 05/10/17 17:19 Dose: 4 mg Pantoprazole Sodium (Protonix) 40 mg PO DAILY [facility] Stop: 07/01/17 07:29 Last Admin: 05/11/17 10:03 Dose: Not Given Pantoprazole Sodium (Protonix) 40 mg IVP DAILY [facility] Stop: 07/10/17 08:59 Last Admin: 05/11/17 10:02 Dose: 40 mg Senna (Senna) 8.6 mg PO DAILY [facility] Stop: 07/04/17 08:59 Last Admin: 05/11/17 10:01 Dose: 8.6 mg Sodium Bicarbonate (Sodium Bicarbonate) 650 mg PO BID [facility] PRN Reason: Protocol Stop: 07/05/17 16:59 Last Admin: 05/11/17 10:01 Dose: 650 mg Temazepam (Restoril) 15 mg PO HS PRN; Protocol PRN Reason: Insomnia Stop: 07/03/17 23:57 Last Admin: 05/07/17 21:14 Dose: 15 mg General: Cooperative, No acute distress HEENT: Atraumatic Neck: Supple Cardiovascular: Regular rate, Normal S1, Normal S2 Lungs: Clear to auscultation Abdomen: Bowel sounds Extremities: Cyanosis - Procedures Procedures: Procedures Procedure Code Date BLOOD TRANSFUSION SERVICE 38538 05/01/17 DRAINAGE OF SKIN ABSCESS 06263 08/15/03 ELECTROCARDIOGRAM 89.52 01/27/00 ELECTROCARDIOGRAM COMPLETE 09385 01/27/00 INSERT NON-TUNNEL CV CATH 14168 12/13/03 MAGNETIC RESONANCE IMAGING OF BRAIN AND BRAIN STEM 88.91 01/27/00 MRI BRAIN STEM W/O DYE 43029 01/27/00 OTHER SKIN & SUBQ I D 86.04 08/15/03 TRANSFUSE NONAUT RED BLOOD CELLS IN PERIPH VEIN, PERC 08562P8 05/01/17 VENOUS CATHETERIZATION NEC 38.93 12/13/03 Assessment/Plan - Assessment Assessment: 56 YO MALE WITH ABD PAIN AND N/V LFTS AND LIPASE NORMAL HAS ANEMIA LIKELY CHRONIC DZ STOOL OB NEG EGD SHOWED HIATAL HERNIA AND GASTRITIS CT SHOWED PERINEPHRIC STRANDING AND PLEURAL EFFUSION 1.PEG 2.CONT SUPP CARE 3.CONT PROTONIX AND ADD ZOFRAN
--- NOTE | 2017-05-11 21:19 | Consultation ---
DATE OF CONSULTATION: 05/10/2017 PRIMARY PHYSICIAN: Dr. Lopez. REASON FOR CONSULTATION: Leukocytosis. HISTORY OF PRESENT ILLNESS: This is a 56-year-old male, was brought to the Emergency Room because of severe anemia. The patient also was found to have renal failure and admitted to the hospital. The patient has persistent leukocytosis. Infectious disease consultation was called for further treatment. The patient is unable to provide any meaningful history. Old chart reviewed, pertinent information obtained. PAST MEDICAL HISTORY: Seizures, CVA, chronic kidney disease, and depression. FAMILY HISTORY: Negative. ALLERGY: DILANTIN. REVIEW OF SYSTEMS: A 14-point review of system negative except above. PHYSICAL EXAMINATION: DICTATION ENDS HERE. JOB# [id number]
[2017-05-12] MEDS: Albuterol/Ipratropium Neb 3 ML AERS HHN SCH ×4 (01:39→19:48)
[2017-05-12] MEDS: D5-0.9%NS 1,000 ML IV SCH (05:17)
[2017-05-12 07:10] LABS: % EOSINOPHILS 2.7 % (0.0-5.0); % LYMPHOCYTES 12.1 % (20.0-50.0); % MONOCYTES 7.6 % (2.0-10.0); % NEUTROPHILS 76.6 % (40.0-80.0); BASOPHILE ABSOLUTE 0.1 Th/cumm (0-0.2); EOSINOPHILE ABSOLUTE 0.3 Th/cmm (0.1-0.4); HEMATOCRIT 28.8 % (41.0-60); HEMOGLOBIN 9.8 gm/dL (12-16); LYMPHOCYTE ABSOLUTE 1.5 Th/cmm (1.5-3.0); MEAN CELL VOLUME 87.2 fl (80-99); MEAN CORPUSCULAR HEMOGLOBIN 29.6 pg (26.0-30.0); MEAN CORPUSCULAR HGB CONC 33.9 pg (28.0-36.0); MEAN PLATELET VOLUME 7.2 fl; MONOCYTE ABSOLUTE 0.9 Th/cmm (0.3-1.0); NEUTROPHILE ABSOLUTE 9.6 Th/cmm (1.8-8.0); PLATELET COUNT 441 Th/cmm (150-400); RED CELL DISTRIBUTION WIDTH 13.5 % (11.5-20.0)
[2017-05-12 07:11] LABS: WHITE BLOOD COUNT 12.4 Th/cmm (4.8-10.8)
[2017-05-12] MEDS ORDERED: Albuterol/Ipratropium Neb 3 ML AERS HHN ONE (07:24)
[2017-05-12 07:26] LABS: ALB/GLOB RATIO 0.6 (1.0-1.8); ALBUMIN 2.1 gm/dL (4.2-5.5); ANION GAP 12.7 (7.0-16.0); BILIRUBIN,TOTAL 0.3 mg/dL (0.3-1.0); CALCIUM SERUM 8.4 mg/dL (8.6-10.3); CARBON DIOXIDE 10.8 mEq/L (21.0-31.0); GFR NON AFRICAN-AMERICAN 37.2 ml/min; POTASSIUM SERUM 3.5 mEq/L (3.5-5.1); TOTAL PROTEIN,SERUM 5.9 gm/dL (6.0-8.3)
[2017-05-12] MEDS: Pantoprazole 40 mg EC Tab PO SCH (09:03)
--- NOTE | 2017-05-12 11:19 | Operative Report ---
DATE OF SURGERY: 05/12/2017 INPATIENT EGD WITH PEG PLACEMENT endoscopist: Mauricio Pompa M.D. PREOPERATIVE DIAGNOSIS: Failure to thrive, anorexia. POSTOPERATIVE DIAGNOSIS: Successful placement of a percutaneous gastrostomy tube. INDICATION: The patient is a 56-year-old male with multiple medical problems who has been demonstrated not to be eating his meals and has been losing weight. It has been recommended by his hospitalist and heater mechanic to have enteral feeding given the patient is not voluntarily eating; thus, GI is asked for G-tube placement and the family has been in agreement with this plan. CONSENT: Informed consent was obtained from the patient's healthcare proxy. DESCRIPTION OF PROCEDURE: The risks and benefits of this procedure were discussed and included but not limited to infection, bleeding, perforation, need for surgery, cardiopulmonary complications, missed pathology, G-tube site infection, early G-tube site removal, G-tube site related peritonitis, G-tube site related perforation of the stomach, and . The patient's healthcare proxy indicated that they understood these risks and wished to go for the procedure and signed a consent form. ANESTHESIA: The patient's procedure was performed under the care of the general anesthesiologist with general anesthesia. PROCEDURE IN DETAIL: The patient was hooked to the appropriate monitoring devices and was kept in the supine position. After the initiation of general anesthesia, a gastroscope was introduced into the mouth and guided under direct visualization into the esophagus, stomach, and then duodenum. Again noted was mild gastritis, which was seen on the previous EGD. Also noted was hiatal hernia in the distal esophagus. Next, an appropriate place for a G-tube site insertion was found by insufflating the stomach maximally and using a single poke method from the skin side. This spot was confirmed by transillumination in the light was easily seen from outside on the skin. Next, this area was anesthetized with a small amount of lidocaine using the subcutaneous needle. This needle was then used to enter the stomach and was observed into the stomach freely by the endoscopist using the scope. After this, a small incision was made in this area using a scalpel. A trocar was then placed through the incision and was directly observed to enter into the stomach with ease from the endoscopy side. The trocar was secured with the snare device through the scope. After this, the needle was removed and a guidewire was inserted through the trocar and was grasped with the snare. The guidewire was then removed along with the scope and a G-tube 20-Faroese in size was fixed to this guidewire securely. Next, using the pull method, the guidewire and G-tube were pulled down through the mouth, through the esophagus and stomach to the abdominal wall. At this point, antibiotic ointment was placed on the skin and an external bumper was placed at approximately the three marker on the G-tube. The scope was then reinserted into the mouth to confirm the correct location of the internal bumper that freely twisted. At this point, the procedure was complete. RECOMMENDATIONS: 1. The G-tube can be used immediately for medications and water flushes. 2. G-tube feeding can be started in 8 hours' time at 10 mL an hour and increase by 10 mL per hour until the goal rate is reached. 3. Please hold for any residuals greater than 150 mL. 4. Flush the G-tube with 100 mL of water every 6 hours. 5. Apply an abdominal binder to prevent the patient from pulling the G-tube prematurely. Thank you for allowing me to participate in this patient's care. Please call with any further questions. JOB# [id number]
--- NOTE | 2017-05-12 15:42 | General Progress Note ---
Subjective - Review of Systems Service Date: 05/12/17 Subjective: pt seen and examined BP on and off high pt confused pt not eating s/p PEG Objective - Results Result Diagrams: 05/12/17 06:50 05/12/17 06:50 Recent Labs: Laboratory Last Values WBC 12.4 Th/cmm (4.8-10.8) H 05/12/17 06:50 RBC 3.30 Mil/cmm (4.30-5.70) L 05/12/17 06:50 Hgb 9.8 gm/dL (12-16) L 05/12/17 06:50 Hct 28.8 % (41.0-60) L 05/12/17 06:50 MCV 87.2 fl (80-99) 05/12/17 06:50 MCH 29.6 pg (26.0-30.0) 05/12/17 06:50 MCHC Differential 33.9 pg (28.0-36.0) 05/12/17 06:50 RDW 13.5 % (11.5-20.0) 05/12/17 06:50 Plt Count 441 Th/cmm (150-400) H 05/12/17 06:50 MPV 7.2 fl 05/12/17 06:50 Neutrophils % 76.6 % (40.0-80.0) 05/12/17 06:50 Lymphocytes % 12.1 % (20.0-50.0) L 05/12/17 06:50 Monocytes % 7.6 % (2.0-10.0) 05/12/17 06:50 Eosinophils % 2.7 % (0.0-5.0) 05/12/17 06:50 Basophils % 1.0 % (0.0-2.0) 05/12/17 06:50 Eos Smear Source URINE 05/11/17 12:30 Eos Smear Total Cells NONE SEEN (NONE SEEN) 05/11/17 12:30 PT 13.2 SECONDS (9.5-11.5) H 05/09/17 06:00 INR 1.25 (0.5-1.4) 05/09/17 06:00 PTT (Actin FS) 36.0 SECONDS (26.0-38.0) 05/09/17 06:00 Sodium 142 mEq/L (136-145) 05/12/17 06:50 Potassium 3.5 mEq/L (3.5-5.1) 05/12/17 06:50 Chloride 122 mEq/L (98-107) H 05/12/17 06:50 Carbon Dioxide 10.8 mEq/L (21.0-31.0) L 05/12/17 06:50 Anion Gap 12.7 (7.0-16.0) 05/12/17 06:50 BUN 33 mg/dL (7-25) H 05/12/17 06:50 Creatinine 2.0 mg/dL (0.7-1.3) H 05/12/17 06:50 Est GFR ( Amer) 45.0 ml/min (>90) 05/12/17 06:50 Est GFR (Non-Af Amer) 37.2 ml/min 05/12/17 06:50 BUN/Creatinine Ratio 16.5 05/12/17 06:50 Glucose 143 mg/dL (70-105) H 05/12/17 06:50 POC Glucose 215 MG/DL (70 - 105) H 05/02/17 01:25 Hemoglobin A1c % 5.6 % (4.0-6.0) 05/02/17 06:00 Calcium 8.4 mg/dL (8.6-10.3) L 05/12/17 06:50 Iron 21 ug/dL (38-169) L 05/03/17 05:20 TIBC 155 ug/dL (250-450) L 05/03/17 05:20 Iron Saturation 14 % (15-55) L 05/03/17 05:20 Unsaturated IBC 134 ug/dL (111-343) 05/03/17 05:20 Ferritin 488 ng/mL (30-400) H 05/03/17 05:20 Total Bilirubin 0.3 mg/dL (0.3-1.0) 05/12/17 06:50 AST 11 U/L (13-39) L 05/12/17 06:50 ALT 8 U/L (7-52) 05/12/17 06:50 Alkaline Phosphatase 91 U/L (34-104) 05/12/17 06:50 Total Protein 5.9 gm/dL (6.0-8.3) L 05/12/17 06:50 Albumin 2.1 gm/dL (4.2-5.5) L 05/12/17 06:50 Globulin 3.8 gm/dL 05/12/17 06:50 Albumin/Globulin Ratio 0.6 (1.0-1.8) L 05/12/17 06:50 Lipase 24 U/L (11-82) 05/08/17 08:40 Vitamin B12 1438 pg/mL (232-1245) H 05/03/17 05:20 Folic Acid 13.3 ng/mL (>3.0) 05/03/17 05:20 Urine Source CATH 05/11/17 12:30 Urine Color YELLOW 05/11/17 12:30 Urine Clarity SLIGHTLY HAZY (CLEAR) 05/11/17 12:30 Urine pH 5.5 (4.6 - 8.0) 05/11/17 12:30 Ur Specific [place] >= 1.030 (1.005-1.030) 05/11/17 12:30 Urine Protein >=300 mg/dL (NEGATIVE) 05/11/17 12:30 Urine Glucose (UA) 100 mg/dL (NEGATIVE) H 05/11/17 12:30 Urine Ketones TRACE mg/dL (NEGATIVE) 05/11/17 12:30 Urine Blood MODERATE (NEGATIVE) H 05/11/17 12:30 Urine Nitrate NEGATIVE (NEGATIVE) 05/11/17 12:30 Urine Bilirubin NEGATIVE (NEGATIVE) 05/11/17 12:30 Urine Urobilinogen 0.2 E.U./dL (0.2 - 1.0) 05/11/17 12:30 Ur Leukocyte Esterase NEGATIVE (NEGATIVE) 05/11/17 12:30 Urine RBC 5-10 /hpf (0-5) H 05/11/17 12:30 Urine WBC 0-2 /hpf (0-5) 05/11/17 12:30 Ur Epithelial Cells RARE /lpf (FEW) 05/11/17 12:30 Amorphous Sediment MANY URATES (NONE SEEN) 05/11/17 12:30 Urine Bacteria FEW /hpf (NONE SEEN) 05/11/17 12:30 Stool Occult Blood NEGATIVE (NEGATIVE) 05/07/17 10:00 Random Vancomycin 26.9 ug/mL (5.0-40.0) 05/12/17 06:50 Blood Type O POSITIVE 05/02/17 09:20 Antibody Screen NEGATIVE 05/02/17 09:20 Crossmatch See Detail 05/02/17 09:20 - Physical Exam Vitals and I&O: Vital Signs Temp 97.7 F 05/12/17 12:00 Pulse 98 05/12/17 13:00 Resp 20 05/12/17 12:45 BP 130/65 05/12/17 13:00 Pulse Ox 97 05/12/17 12:45 Intake & Output 05/11/17 05/12/17 05/12/17 18:59 06:59 18:59 Intake Total 6540.240 7419 Output Total 280 250 Balance 6089.114 7437 Weight (lbs) 87.231 kg 98.021 kg Intake: Intake, IV Amount 4204.132 5119 D5-0.9%Ns 1,000 ml @ 100 2739.497 7646 mls/hr IV .Q10H [facility] Rx#: [id number] Levetiracetam 500 mg In 210 Sodium Chloride 0.9% 100 ml @ 400 mls/hr IV BID [facility] Rx#:[id number] Piperacillin Sodium/ 50 150 Tazobact 3.375 gm In Sodium Chloride 0.9% 50 ml @ 100 mls/hr IV Q6HR [facility] Rx#:[id number] Vancomycin HCl 1 gm In 250 Sodium Chloride 0.9% 250 ml @ 165 mls/hr IV 1600 ONE Rx#:[id number] Oral 20 Output: Urine 280 250 Other: # Bowel Movements 0 1 Active Medications: Current Medications Acetaminophen (Tylenol) 500 mg PO Q6H PRN PRN Reason: Pain (Moderate) Stop: 07/01/17 02:48 Last Admin: 05/08/17 11:00 Dose: 500 mg Albuterol/Ipratropium (Duoneb Neb) 3 ml HHN Q6HRT [facility] Stop: 07/08/17 18:59 Last Admin: 05/12/17 12:44 Dose: 3 ml Amlodipine Besylate (Norvasc) 10 mg PO DAILY [facility] Stop: 07/04/17 08:59 Last Admin: 05/12/17 09:01 Dose: Not Given Bisacodyl (Dulcolax 10 Mg Supp) 10 mg RC DAILY PRN PRN Reason: constipation Stop: 07/03/17 23:58 Last Admin: 05/05/17 00:20 Dose: 10 mg Carbamazepine (Tegretol) 200 mg PO TID CHARO PRN Reason: Protocol Stop: 07/01/17 08:59 Last Admin: 05/12/17 13:00 Dose: 200 mg Hydralazine HCl (Apresoline) 50 mg PO QID [facility] Stop: 07/05/17 12:59 Last Admin: 05/12/17 13:00 Dose: 50 mg Hydralazine HCl (Apresoline 20 Mg/Ml) 10 mg IV Q6HR PRN PRN Reason: SBP ABOVE 160 Stop: 07/06/17 17:33 Last Admin: 05/11/17 14:08 Dose: 10 mg Piperacillin Sod/Tazobactam (Sod 3.375 gm/ Sodium Chloride) 50 mls @ 100 mls/ hr IV Q6HR [facility] Stop: 07/08/17 17:59 Last Admin: 05/12/17 12:52 Dose: 100 mls/hr Dextrose/Sodium Chloride (D5-0.9%Ns) 1,000 mls @ 100 mls/hr IV .Q10H [facility] Stop: 07/09/17 12:44 Last Admin: 05/12/17 05:17 Dose: 100 mls/hr Levetiracetam 500 mg/ Sodium (Chloride) 105 mls @ 400 mls/hr IV BID [facility] Stop: 07/10/17 08:59 Last Admin: 05/12/17 11:05 Dose: 400 mls/hr Lorazepam (Ativan) 0.5 mg IVP Q6HR PRN; Protocol PRN Reason: Agitation Stop: 07/07/17 16:10 Last Admin: 05/11/17 21:02 Dose: 0.5 mg Metoprolol Tartrate (Lopressor) 100 mg PO BID [facility] Stop: 07/01/17 08:59 Last Admin: 05/12/17 09:03 Dose: Not Given Miscellaneous (Clinical Monitoring) 1 ea MC PRN PRN PRN Reason: RENAL Stop: 07/01/17 09:53 Miscellaneous (Vancomycin Iv Per Pharmacy) 1 ea MC PRN PRN PRN Reason: VANCOMYCIN PER RX Stop: 07/11/17 07:40 Ondansetron HCl (Zofran) 4 mg IV Q8H PRN PRN Reason: Nausea / Vomiting Stop: 07/09/17 12:20 Last Admin: 05/10/17 17:19 Dose: 4 mg Pantoprazole Sodium (Protonix) 40 mg PO DAILY CHARO Stop: 07/01/17 07:29 Last Admin: 05/12/17 09:03 Dose: Not Given Pantoprazole Sodium (Protonix) 40 mg IVP DAILY CHARO Stop: 07/10/17 08:59 Last Admin: 05/12/17 09:04 Dose: Not Given Senna (Senna) 8.6 mg PO DAILY CHARO Stop: 07/04/17 08:59 Last Admin: 05/12/17 09:04 Dose: Not Given Sodium Bicarbonate (Sodium Bicarbonate) 650 mg PO BID CHARO PRN Reason: Protocol Stop: 07/05/17 16:59 Last Admin: 05/12/17 09:04 Dose: Not Given Temazepam (Restoril) 15 mg PO HS PRN; Protocol PRN Reason: Insomnia Stop: 07/03/17 23:57 Last Admin: 05/07/17 21:14 Dose: 15 mg General: Cooperative, No acute distress HEENT: Atraumatic Neck: Supple Cardiovascular: Regular rate, Normal S1, Normal S2 Lungs: Clear to auscultation Abdomen: Bowel sounds Extremities: Cyanosis - Procedures Procedures: Procedures Procedure Code Date BLOOD TRANSFUSION SERVICE 35241 05/01/17 DRAINAGE OF SKIN ABSCESS 29368 08/15/03 ELECTROCARDIOGRAM 89.52 01/27/00 ELECTROCARDIOGRAM COMPLETE 38552 01/27/00 INSERT NON-TUNNEL CV CATH 40197 12/13/03 MAGNETIC RESONANCE IMAGING OF BRAIN AND BRAIN STEM 88.91 01/27/00 MRI BRAIN STEM W/O DYE 95227 01/27/00 OTHER SKIN & SUBQ I D 86.04 08/15/03 TRANSFUSE NONAUT RED BLOOD CELLS IN PERIPH VEIN, PERC 73704Y4 05/01/17 VENOUS CATHETERIZATION NEC 38.93 12/13/03 Assessment/Plan - Assessment Assessment: ACUTE ANEMIA ACUTE RENAL FAILURE SECONDARY TO ATN SECONDARY TO SEVERE ANEMIA ACUTE TUBULAR NECROSIS CVA SEIZURE PSYCHOSIS DEMENTIA S/P PEG - Plan Plan: BP NEEDS BETTER CONTROL RENAL FUNCTION IMPROVING HGB stable add bicarb start IVF pt wbc up creat slowly improving on vanco and zosyn Nutritional Asmnt/Malnutr-PDOC - Dietary Evaluation Malnutrition Findings (Please click <Entered> for more info): Nutritional Asmnt/Malnutrition Start: 05/02/17 15: 58 Text: Status: Complete Freq: Document 05/02/17 15:58 LCHENG (Rec: 05/02/17 16:14 LCHENG [email or web address]) Nutritional Asmnt/Malnutrition Patient General Information Nutritional Screening High Risk Consult Diagnosis severe anemia, dehydration, CISCO Pertinent Medical Hx/Surgical Hx CVA, seizure disorder, dementia, psychosis, CKD Subjective Information Consult received for BS 215 at adm and wound. Pt seen lying in bed at time of visit, awake and alert at time of visit. Hard to understand pt. Pt said no when dietitian asked about food related questions. Per nurse notes, pt refused lunch althought RN and [employer] tried multiple times. Current Diet Order/ Nutrition Support Renal, mech soft chopped Pertinent Medications D5-0.45ns, protonix Pertinent Labs 05/02 Na 141, K 4.2, Cl 118, BUN 91, Cr 2.5, Glucose 180, POC 215, AST 11, Alb 2.5 Nutritional Hx/Data Height 1.57 m Height (Calculated Centimeters) 157.5 Current Weight (lbs) 78.018 kg Weight (Calculated Kilograms) 78.0 Weight (Calculated Grams) 87311.9 [place] Body Weight 118 Body Mass Index (BMI) 31.4 Weight Status Obese GI Symptoms GI Symptoms None Last BM none Difficult in: None Skin Integrity/Comment: per wound care note: Distal aspect of Gluteal Sulcus - Moisture lesion, present on admission. reddened to sacrum, potential skin problem to bilateral legs Estimated Nutritional Goals BEE in Kcals: Adj wt of IBW Calories/Kcals/Kg 25-30 Kcals Calculated 5502-5609 Protein: Adj wt of IBW Protein g/k-1.2 Protein Calculated 60-72 Fluid: ml 1500-1800ml (1ml/kcal) or per MD Nutritional Problem 1. Problem Problem altered nutrition related lab values Etiology hx of CKD, dx of CISCO, endocrine dysfunction Signs/Symptoms: BUN 91, Cr 2.5, Glucose 180, POC 215 Malnutrition Alert Protein-Calorie Malnutrition N/A Is there a minimum of two criteria No selected? Query Text:Check all the applicable criteria. A minimum of two criteria are recommended for diagnosis of either severe or non-severe malnutrition. Intervention/Recommendation Comments 1. Monitor glucose and check a1c level. If glucose continue high, will consider adding CCHO diet for optimal glycemic control 2. Monitor PO intake, wt, labs and skin integrity 3. F/U as high risk in 2-3 days, 05/04-05/05 Expected Outcomes/Goals Expected Outcomes/Goals 1. PO intake to meet at least 75% of nutritional needs. 2. Wt stability, skin to remain intact, labs to approach WNL.
--- NOTE | 2017-05-12 17:34 | Internal Medicine Prog Note ---
Internal Medicine Subjective - Subjective Service Date: 05/12/17 Patient seen and examined:: with staff (HE HAD GT PLACEMENT) Patient is:: awake, verbal, confused Per staff patient has:: no adverse event Internal Medicine Objective - Results Result Diagrams: 05/12/17 06:50 05/12/17 06:50 Recent Labs: Laboratory Last Values WBC 12.4 Th/cmm (4.8-10.8) H 05/12/17 06:50 RBC 3.30 Mil/cmm (4.30-5.70) L 05/12/17 06:50 Hgb 9.8 gm/dL (12-16) L 05/12/17 06:50 Hct 28.8 % (41.0-60) L 05/12/17 06:50 MCV 87.2 fl (80-99) 05/12/17 06:50 MCH 29.6 pg (26.0-30.0) 05/12/17 06:50 MCHC Differential 33.9 pg (28.0-36.0) 05/12/17 06:50 RDW 13.5 % (11.5-20.0) 05/12/17 06:50 Plt Count 441 Th/cmm (150-400) H 05/12/17 06:50 MPV 7.2 fl 05/12/17 06:50 Neutrophils % 76.6 % (40.0-80.0) 05/12/17 06:50 Lymphocytes % 12.1 % (20.0-50.0) L 05/12/17 06:50 Monocytes % 7.6 % (2.0-10.0) 05/12/17 06:50 Eosinophils % 2.7 % (0.0-5.0) 05/12/17 06:50 Basophils % 1.0 % (0.0-2.0) 05/12/17 06:50 Eos Smear Source URINE 05/11/17 12:30 Eos Smear Total Cells NONE SEEN (NONE SEEN) 05/11/17 12:30 PT 13.2 SECONDS (9.5-11.5) H 05/09/17 06:00 INR 1.25 (0.5-1.4) 05/09/17 06:00 PTT (Actin FS) 36.0 SECONDS (26.0-38.0) 05/09/17 06:00 Sodium 142 mEq/L (136-145) 05/12/17 06:50 Potassium 3.5 mEq/L (3.5-5.1) 05/12/17 06:50 Chloride 122 mEq/L (98-107) H 05/12/17 06:50 Carbon Dioxide 10.8 mEq/L (21.0-31.0) L 05/12/17 06:50 Anion Gap 12.7 (7.0-16.0) 05/12/17 06:50 BUN 33 mg/dL (7-25) H 05/12/17 06:50 Creatinine 2.0 mg/dL (0.7-1.3) H 05/12/17 06:50 Est GFR ( Amer) 45.0 ml/min (>90) 05/12/17 06:50 Est GFR (Non-Af Amer) 37.2 ml/min 05/12/17 06:50 BUN/Creatinine Ratio 16.5 05/12/17 06:50 Glucose 143 mg/dL (70-105) H 05/12/17 06:50 POC Glucose 215 MG/DL (70 - 105) H 05/02/17 01:25 Hemoglobin A1c % 5.6 % (4.0-6.0) 05/02/17 06:00 Calcium 8.4 mg/dL (8.6-10.3) L 05/12/17 06:50 Iron 21 ug/dL (38-169) L 05/03/17 05:20 TIBC 155 ug/dL (250-450) L 05/03/17 05:20 Iron Saturation 14 % (15-55) L 05/03/17 05:20 Unsaturated IBC 134 ug/dL (111-343) 05/03/17 05:20 Ferritin 488 ng/mL (30-400) H 05/03/17 05:20 Total Bilirubin 0.3 mg/dL (0.3-1.0) 05/12/17 06:50 AST 11 U/L (13-39) L 05/12/17 06:50 ALT 8 U/L (7-52) 05/12/17 06:50 Alkaline Phosphatase 91 U/L (34-104) 05/12/17 06:50 Total Protein 5.9 gm/dL (6.0-8.3) L 05/12/17 06:50 Albumin 2.1 gm/dL (4.2-5.5) L 05/12/17 06:50 Globulin 3.8 gm/dL 05/12/17 06:50 Albumin/Globulin Ratio 0.6 (1.0-1.8) L 05/12/17 06:50 Lipase 24 U/L (11-82) 05/08/17 08:40 Vitamin B12 1438 pg/mL (232-1245) H 05/03/17 05:20 Folic Acid 13.3 ng/mL (>3.0) 05/03/17 05:20 Urine Source CATH 05/11/17 12:30 Urine Color YELLOW 05/11/17 12:30 Urine Clarity SLIGHTLY HAZY (CLEAR) 05/11/17 12:30 Urine pH 5.5 (4.6 - 8.0) 05/11/17 12:30 Ur Specific [place] >= 1.030 (1.005-1.030) 05/11/17 12:30 Urine Protein >=300 mg/dL (NEGATIVE) 05/11/17 12:30 Urine Glucose (UA) 100 mg/dL (NEGATIVE) H 05/11/17 12:30 Urine Ketones TRACE mg/dL (NEGATIVE) 05/11/17 12:30 Urine Blood MODERATE (NEGATIVE) H 05/11/17 12:30 Urine Nitrate NEGATIVE (NEGATIVE) 05/11/17 12:30 Urine Bilirubin NEGATIVE (NEGATIVE) 05/11/17 12:30 Urine Urobilinogen 0.2 E.U./dL (0.2 - 1.0) 05/11/17 12:30 Ur Leukocyte Esterase NEGATIVE (NEGATIVE) 05/11/17 12:30 Urine RBC 5-10 /hpf (0-5) H 05/11/17 12:30 Urine WBC 0-2 /hpf (0-5) 05/11/17 12:30 Ur Epithelial Cells RARE /lpf (FEW) 05/11/17 12:30 Amorphous Sediment MANY URATES (NONE SEEN) 05/11/17 12:30 Urine Bacteria FEW /hpf (NONE SEEN) 05/11/17 12:30 Stool Occult Blood NEGATIVE (NEGATIVE) 05/07/17 10:00 Random Vancomycin 26.9 ug/mL (5.0-40.0) 05/12/17 06:50 Blood Type O POSITIVE 05/02/17 09:20 Antibody Screen NEGATIVE 05/02/17 09:20 Crossmatch See Detail 05/02/17 09:20 - Physical Exam Vitals and I&O: Vital Signs Temp 97.7 F 05/12/17 12:00 Pulse 56 05/12/17 16:43 Resp 20 05/12/17 12:45 BP 143/85 05/12/17 16:43 Pulse Ox 97 05/12/17 12:45 Intake & Output 05/11/17 05/12/17 05/12/17 18:59 06:59 18:59 Intake Total 3201.800 3166 155 Output Total 280 250 Balance 8799.984 8221 155 Weight (lbs) 87.231 kg 98.021 kg Intake: Intake, IV Amount 5348.471 8476 155 D5-0.9%Ns 1,000 ml @ 100 5258.352 5637 mls/hr IV .Q10H [facility] Rx#: [id number] Levetiracetam 500 mg In 210 105 Sodium Chloride 0.9% 100 ml @ 400 mls/hr IV BID [facility] Rx#:[id number] Piperacillin Sodium/ 50 150 50 Tazobact 3.375 gm In Sodium Chloride 0.9% 50 ml @ 100 mls/hr IV Q6HR [facility] Rx#:[id number] Vancomycin HCl 1 gm In 250 Sodium Chloride 0.9% 250 ml @ 165 mls/hr IV 1600 ONE Rx#:[id number] Oral 20 Output: Urine 280 250 Other: # Bowel Movements 0 1 Active Medications: Current Medications Acetaminophen (Tylenol) 500 mg PO Q6H PRN PRN Reason: Pain (Moderate) Stop: 07/01/17 02:48 Last Admin: 05/08/17 11:00 Dose: 500 mg Albuterol/Ipratropium (Duoneb Neb) 3 ml HHN Q6HRT [facility] Stop: 07/08/17 18:59 Last Admin: 05/12/17 12:44 Dose: 3 ml Amlodipine Besylate (Norvasc) 10 mg PO DAILY [facility] Stop: 07/04/17 08:59 Last Admin: 05/12/17 09:01 Dose: Not Given Bisacodyl (Dulcolax 10 Mg Supp) 10 mg RC DAILY PRN PRN Reason: constipation Stop: 07/03/17 23:58 Last Admin: 05/05/17 00:20 Dose: 10 mg Carbamazepine (Tegretol) 200 mg PO TID CHARO PRN Reason: Protocol Stop: 07/01/17 08:59 Last Admin: 05/12/17 13:00 Dose: 200 mg Hydralazine HCl (Apresoline) 50 mg PO QID [facility] Stop: 07/05/17 12:59 Last Admin: 05/12/17 16:43 Dose: 50 mg Hydralazine HCl (Apresoline 20 Mg/Ml) 10 mg IV Q6HR PRN PRN Reason: SBP ABOVE 160 Stop: 07/06/17 17:33 Last Admin: 05/11/17 14:08 Dose: 10 mg Piperacillin Sod/Tazobactam (Sod 3.375 gm/ Sodium Chloride) 50 mls @ 100 mls/ hr IV Q6HR [facility] Stop: 07/08/17 17:59 Last Admin: 05/12/17 17:10 Dose: 100 mls/hr Dextrose/Sodium Chloride (D5-0.9%Ns) 1,000 mls @ 100 mls/hr IV .Q10H [facility] Stop: 07/09/17 12:44 Last Admin: 05/12/17 05:17 Dose: 100 mls/hr Levetiracetam 500 mg/ Sodium (Chloride) 105 mls @ 400 mls/hr IV BID [facility] Stop: 07/10/17 08:59 Last Admin: 05/12/17 16:36 Dose: 400 mls/hr Lorazepam (Ativan) 0.5 mg IVP Q6HR PRN; Protocol PRN Reason: Agitation Stop: 07/07/17 16:10 Last Admin: 05/11/17 21:02 Dose: 0.5 mg Metoprolol Tartrate (Lopressor) 100 mg PO BID [facility] Stop: 07/01/17 08:59 Last Admin: 05/12/17 16:42 Dose: 100 mg Miscellaneous (Clinical Monitoring) 1 ea MC PRN PRN PRN Reason: RENAL Stop: 07/01/17 09:53 Miscellaneous (Vancomycin Iv Per Pharmacy) 1 ea MC PRN PRN PRN Reason: VANCOMYCIN PER RX Stop: 07/11/17 07:40 Ondansetron HCl (Zofran) 4 mg IV Q8H PRN PRN Reason: Nausea / Vomiting Stop: 07/09/17 12:20 Last Admin: 05/10/17 17:19 Dose: 4 mg Pantoprazole Sodium (Protonix) 40 mg PO DAILY [facility]O Stop: 07/01/17 07:29 Last Admin: 05/12/17 09:03 Dose: Not Given Pantoprazole Sodium (Protonix) 40 mg IVP DAILY [facility] Stop: 07/10/17 08:59 Last Admin: 05/12/17 09:04 Dose: Not Given Senna (Senna) 8.6 mg PO DAILY [facility] Stop: 07/04/17 08:59 Last Admin: 05/12/17 09:04 Dose: Not Given Sodium Bicarbonate (Sodium Bicarbonate) 650 mg PO BID CHARO PRN Reason: Protocol Stop: 07/05/17 16:59 Last Admin: 05/12/17 16:43 Dose: 650 mg Temazepam (Restoril) 15 mg PO HS PRN; Protocol PRN Reason: Insomnia Stop: 07/03/17 23:57 Last Admin: 05/07/17 21:14 Dose: 15 mg General: demented HEENT: NC/AT, PERRLA, EOMI, anicteric sclerae, throat clear Neck: Supple, No JVD, No thyromegaly, +2 carotid pulse wo bruit, No LAD Lungs: CTAB Cardiovascular: RRR, Normal S1, Normal S2, without murmur Abdomen: soft, tender, non-distended Extremities: clear Neurological: no change - Procedures Procedures: Procedures Procedure Code Date BLOOD TRANSFUSION SERVICE 44676 05/01/17 DRAINAGE OF SKIN ABSCESS 56054 08/15/03 ELECTROCARDIOGRAM 89.52 01/27/00 ELECTROCARDIOGRAM COMPLETE 16357 01/27/00 INSERT NON-TUNNEL CV CATH 77566 12/13/03 MAGNETIC RESONANCE IMAGING OF BRAIN AND BRAIN STEM 88.91 01/27/00 MRI BRAIN STEM W/O DYE 80959 01/27/00 OTHER SKIN & SUBQ I D 86.04 08/15/03 TRANSFUSE NONAUT RED BLOOD CELLS IN PERIPH VEIN, PERC 17145T4 05/01/17 VENOUS CATHETERIZATION NEC 38.93 12/13/03 Internal Medicine Assmt/Plan - Assessment Assessment: 1.SEVER ANEMIA. 2.DEHYDRATION. 3.CISCO. 4.CVA 5.ACUTE ABDONINAL PAIN. 6.UNCONTROLLED HTN. 7.SEVER EPISODES OF AGITATION. 8.GASTRITIS. 9.BILATERAL PLEURAL EFFUSION. 10.LEUKOCYTOSIS. 11.SP GT PLACEMENT. - Plan Plan: CONTINUE ON CURRENT MEDICATION AND DIET.CONSENT FOR B\GT PLACEMENT. Nutritional Asmnt/Malnutr-PDOC - Dietary Evaluation Malnutrition Findings (Please click <Entered> for more info): Nutritional Asmnt/Malnutrition Start: 05/02/17 15: 58 Text: Status: Complete Freq: Document 05/02/17 15:58 ALLISON (Rec: 05/02/17 16:14 LCHEN [email or web address]) Nutritional Asmnt/Malnutrition Patient General Information Nutritional Screening High Risk Consult Diagnosis severe anemia, dehydration, CISCO Pertinent Medical Hx/Surgical Hx CVA, seizure disorder, dementia, psychosis, CKD Subjective Information Consult received for BS 215 at adm and wound. Pt seen lying in bed at time of visit, awake and alert at time of visit. Hard to understand pt. Pt said no when dietitian asked about food related questions. Per nurse notes, pt refused lunch althought RN and [employer] INTERIOR DESIGNER tried multiple times. Current Diet Order/ Nutrition Support Renal, mech soft chopped Pertinent Medications D5-0.45ns, protonix Pertinent Labs / Na 141, K 4.2, Cl 118, BUN 91, Cr 2.5, Glucose 180, POC 215, AST 11, Alb 2.5 Nutritional Hx/Data Height 1.57 m Height (Calculated Centimeters) 157.5 Current Weight (lbs) 78.018 kg Weight (Calculated Kilograms) 78.0 Weight (Calculated Grams) 74992.9 [place] Body Weight 118 Body Mass Index (BMI) 31.4 Weight Status Obese GI Symptoms GI Symptoms None Last BM none Difficult in: None Skin Integrity/Comment: per wound care note: Distal aspect of Gluteal Sulcus - Moisture lesion, present on admission. reddened to sacrum, potential skin problem to bilateral legs Estimated Nutritional Goals BEE in Kcals: Adj wt of IBW Calories/Kcals/Kg 25-30 Kcals Calculated 5806-1518 Protein: Adj wt of IBW Protein g/k-1.2 Protein Calculated 60-72 Fluid: ml 1500-1800ml (1ml/kcal) or per MD Nutritional Problem 1. Problem Problem altered nutrition related lab values Etiology hx of CKD, dx of CISCO, endocrine dysfunction Signs/Symptoms: BUN 91, Cr 2.5, Glucose 180, POC 215 Malnutrition Alert Protein-Calorie Malnutrition N/A Is there a minimum of two criteria No selected? Query Text:Check all the applicable criteria. A minimum of two criteria are recommended for diagnosis of either severe or non-severe malnutrition. Intervention/Recommendation Comments 1. Monitor glucose and check a1c level. If glucose continue high, will consider adding CCHO diet for optimal glycemic control 2. Monitor PO intake, wt, labs and skin integrity 3. F/U as high risk in 2-3 days, 05/04-05/05 Expected Outcomes/Goals Expected Outcomes/Goals 1. PO intake to meet at least 75% of nutritional needs. 2. Wt stability, skin to remain intact, labs to approach WNL.
--- NOTE | 2017-05-12 19:34 | Progress Notes ---
DATE: 05/12/2017 HOSPITAL COURSE: The patient is out of the unit. He had a gastrostomy or PEG placement for feeding and to treat his malnutrition and failure to thrive. He has refused to eat so far. Canela catheter has functioned well, but he has not had any significant change in the renal function. Urine output recorded last 24 hours is only 530 mL. On exam, he remains confused, noncommunicative. PHYSICAL EXAMINATION: VITAL SIGNS: Temperature 97.7, heart rate 98, blood pressure 130/65. ABDOMEN: Soft, post-G tube or PEG placement and postsurgical changes. EXTREMITIES: No edema. Canela catheter. No blood. CHEST: Heart and lung sounds normal. LABORATORY DATA: Urinalysis obtained with the Canela showed some amount of blood, but nothing else and the culture was negative. All pointing to Canela related abnormality, but nothing else of concern. Blood cultures have been negative. White count 12.4. Infectious Disease has been consulted to evaluate this. Platelets are normal. Hemoglobin 9.8 and stable. Sodium and potassium are normal. BUN 33, creatinine 2.0, has not moved significantly after the Canela was placed. Occult blood in the stool is negative. IMPRESSION: 1. Cystitis and possibly bilateral pyelonephritis, which shows up on the x-ray as mild inflammation, but is not diagnostic. Canela catheter has not helped in improvement of the function and the urine has not showed significant infection. These findings go against the clinical diagnosis and assumption. 2. Seizure disorder, recently recurred 2 days ago. 3. Diabetes. Glucose levels 143, 159, and 106 over the last 3 days, reasonably well controlled. 4. History of stroke. No change. 5. History of dementia and mental retardation, stable. 6. Failure to thrive, status post PEG placement. JOB# [id number]
[2017-05-13] MEDS: Albuterol/Ipratropium Neb 3 ML AERS HHN SCH ×4 (01:04→18:37)
[2017-05-13] MEDS: D5-0.9%NS 1,000 ML IV SCH ×2 (01:04→13:09)
[2017-05-13 06:23] LABS: % BASOPHILS 1.4 % (0.0-2.0); % EOSINOPHILS 4.9 % (0.0-5.0); % LYMPHOCYTES 18.5 % (20.0-50.0); % MONOCYTES 7.3 % (2.0-10.0); % NEUTROPHILS 67.9 % (40.0-80.0); BASOPHILE ABSOLUTE 0.1 Th/cumm (0-0.2); EOSINOPHILE ABSOLUTE 0.5 Th/cmm (0.1-0.4); HEMATOCRIT 27.5 % (41.0-60); HEMOGLOBIN 9.2 gm/dL (12-16); LYMPHOCYTE ABSOLUTE 1.8 Th/cmm (1.5-3.0); MEAN CELL VOLUME 87.3 fl (80-99); MEAN CORPUSCULAR HEMOGLOBIN 29.3 pg (26.0-30.0); MEAN CORPUSCULAR HGB CONC 33.6 pg (28.0-36.0); MEAN PLATELET VOLUME 7.5 fl; MONOCYTE ABSOLUTE 0.7 Th/cmm (0.3-1.0); NEUTROPHILE ABSOLUTE 6.8 Th/cmm (1.8-8.0); PLATELET COUNT 401 Th/cmm (150-400); RED BLOOD COUNT 3.15 Mil/cmm (4.30-5.70); RED CELL DISTRIBUTION WIDTH 14.1 % (11.5-20.0); WHITE BLOOD COUNT 9.9 Th/cmm (4.8-10.8)
[2017-05-13 06:53] LABS: ALB/GLOB RATIO 0.6 (1.0-1.8); ALBUMIN 2.1 gm/dL (4.2-5.5); ANION GAP 10.1 (7.0-16.0); BILIRUBIN,TOTAL 0.2 mg/dL (0.3-1.0); CALCIUM SERUM 8.3 mg/dL (8.6-10.3); CARBON DIOXIDE 11.3 mEq/L (21.0-31.0); CREATININE - SERUM 1.8 mg/dL (0.7-1.3); GFR AFRICAN-AMERICAN 50.8 ml/min (>90); POTASSIUM SERUM 3.4 mEq/L (3.5-5.1); TOTAL PROTEIN,SERUM 5.9 gm/dL (6.0-8.3)
--- NOTE | 2017-05-13 08:01 | GI Progress Note ---
Subjective - Review of Systems Service Date: 05/13/17 Subjective: tube feeds at 20cc/hr, pt with some abd pain. Had a green BM Objective - Results Result Diagrams: 05/13/17 05:35 05/13/17 05:35 Recent Labs: Laboratory Last Values WBC 9.9 Th/cmm (4.8-10.8) 05/13/17 05:35 RBC 3.15 Mil/cmm (4.30-5.70) L 05/13/17 05:35 Hgb 9.2 gm/dL (12-16) L 05/13/17 05:35 Hct 27.5 % (41.0-60) L 05/13/17 05:35 MCV 87.3 fl (80-99) 05/13/17 05:35 MCH 29.3 pg (26.0-30.0) 05/13/17 05:35 MCHC Differential 33.6 pg (28.0-36.0) 05/13/17 05:35 RDW 14.1 % (11.5-20.0) 05/13/17 05:35 Plt Count 401 Th/cmm (150-400) H 05/13/17 05:35 MPV 7.5 fl 05/13/17 05:35 Neutrophils % 67.9 % (40.0-80.0) 05/13/17 05:35 Lymphocytes % 18.5 % (20.0-50.0) L 05/13/17 05:35 Monocytes % 7.3 % (2.0-10.0) 05/13/17 05:35 Eosinophils % 4.9 % (0.0-5.0) 05/13/17 05:35 Basophils % 1.4 % (0.0-2.0) 05/13/17 05:35 Eos Smear Source URINE 05/11/17 12:30 Eos Smear Total Cells NONE SEEN (NONE SEEN) 05/11/17 12:30 PT 13.2 SECONDS (9.5-11.5) H 05/09/17 06:00 INR 1.25 (0.5-1.4) 05/09/17 06:00 PTT (Actin FS) 36.0 SECONDS (26.0-38.0) 05/09/17 06:00 Sodium 144 mEq/L (136-145) 05/13/17 05:35 Potassium 3.4 mEq/L (3.5-5.1) L 05/13/17 05:35 Chloride 126 mEq/L (98-107) H 05/13/17 05:35 Carbon Dioxide 11.3 mEq/L (21.0-31.0) L 05/13/17 05:35 Anion Gap 10.1 (7.0-16.0) 05/13/17 05:35 BUN 29 mg/dL (7-25) H 05/13/17 05:35 Creatinine 1.8 mg/dL (0.7-1.3) H 05/13/17 05:35 Est GFR ( Amer) 50.8 ml/min (>90) 05/13/17 05:35 Est GFR (Non-Af Amer) 42.0 ml/min 05/13/17 05:35 BUN/Creatinine Ratio 16.1 05/13/17 05:35 Glucose 143 mg/dL (70-105) H 05/13/17 05:35 POC Glucose 215 MG/DL (70 - 105) H 05/02/17 01:25 Hemoglobin A1c % 5.6 % (4.0-6.0) 05/02/17 06:00 Calcium 8.3 mg/dL (8.6-10.3) L 05/13/17 05:35 Iron 21 ug/dL (38-169) L 05/03/17 05:20 TIBC 155 ug/dL (250-450) L 05/03/17 05:20 Iron Saturation 14 % (15-55) L 05/03/17 05:20 Unsaturated IBC 134 ug/dL (111-343) 05/03/17 05:20 Ferritin 488 ng/mL (30-400) H 05/03/17 05:20 Total Bilirubin 0.2 mg/dL (0.3-1.0) L 05/13/17 05:35 AST 13 U/L (13-39) 05/13/17 05:35 ALT 9 U/L (7-52) 05/13/17 05:35 Alkaline Phosphatase 89 U/L (34-104) 05/13/17 05:35 Total Protein 5.9 gm/dL (6.0-8.3) L 05/13/17 05:35 Albumin 2.1 gm/dL (4.2-5.5) L 05/13/17 05:35 Globulin 3.8 gm/dL 05/13/17 05:35 Albumin/Globulin Ratio 0.6 (1.0-1.8) L 05/13/17 05:35 Lipase 24 U/L (11-82) 05/08/17 08:40 Vitamin B12 1438 pg/mL (232-1245) H 05/03/17 05:20 Folic Acid 13.3 ng/mL (>3.0) 05/03/17 05:20 Urine Source CATH 05/11/17 12:30 Urine Color YELLOW 05/11/17 12:30 Urine Clarity SLIGHTLY HAZY (CLEAR) 05/11/17 12:30 Urine pH 5.5 (4.6 - 8.0) 05/11/17 12:30 Ur Specific [place] >= 1.030 (1.005-1.030) 05/11/17 12:30 Urine Protein >=300 mg/dL (NEGATIVE) 05/11/17 12:30 Urine Glucose (UA) 100 mg/dL (NEGATIVE) H 05/11/17 12:30 Urine Ketones TRACE mg/dL (NEGATIVE) 05/11/17 12:30 Urine Blood MODERATE (NEGATIVE) H 05/11/17 12:30 Urine Nitrate NEGATIVE (NEGATIVE) 05/11/17 12:30 Urine Bilirubin NEGATIVE (NEGATIVE) 05/11/17 12:30 Urine Urobilinogen 0.2 E.U./dL (0.2 - 1.0) 05/11/17 12:30 Ur Leukocyte Esterase NEGATIVE (NEGATIVE) 05/11/17 12:30 Urine RBC 5-10 /hpf (0-5) H 05/11/17 12:30 Urine WBC 0-2 /hpf (0-5) 05/11/17 12:30 Ur Epithelial Cells RARE /lpf (FEW) 05/11/17 12:30 Amorphous Sediment MANY URATES (NONE SEEN) 05/11/17 12:30 Urine Bacteria FEW /hpf (NONE SEEN) 05/11/17 12:30 Stool Occult Blood NEGATIVE (NEGATIVE) 05/07/17 10:00 Vancomycin Trough 20.7 ug/mL (10-20) H 05/13/17 05:35 Random Vancomycin 26.9 ug/mL (5.0-40.0) 05/12/17 06:50 Blood Type O POSITIVE 05/02/17 09:20 Antibody Screen NEGATIVE 05/02/17 09:20 Crossmatch See Detail 05/02/17 09:20 - Physical Exam Vitals and I&O: Vital Signs Temp 97.9 F 05/12/17 16:00 Pulse 88 05/13/17 07:16 Resp 18 05/13/17 07:16 BP 149/87 05/12/17 21:49 Pulse Ox 98 05/13/17 07:16 Intake & Output 05/12/17 05/13/17 05/13/17 18:59 06:59 18:59 Intake Total 1605 50 Output Total 1000 Balance 605 50 Weight (lbs) 97.976 kg Intake: Intake, IV Amount 1205 50 D5-0.9%Ns 1,000 ml @ 100 1000 mls/hr IV .Q10H [facility] Rx#: [id number] Levetiracetam 500 mg In 105 Sodium Chloride 0.9% 100 ml @ 400 mls/hr IV BID [facility] Rx#:[id number] Piperacillin Sodium/ 100 50 Tazobact 3.375 gm In Sodium Chloride 0.9% 50 ml @ 100 mls/hr IV Q6HR [facility] Rx#:[id number] Oral 0 Other 400 Output: Urine 1000 Other: # Bowel Movements 0 Active Medications: Current Medications Acetaminophen (Tylenol) 500 mg PO Q6H PRN PRN Reason: Pain (Moderate) Stop: 07/01/17 02:48 Last Admin: 05/13/17 02:54 Dose: 500 mg Albuterol/Ipratropium (Duoneb Neb) 3 ml HHN Q6HRT [facility] Stop: 07/08/17 18:59 Last Admin: 05/13/17 07:16 Dose: 3 ml Amlodipine Besylate (Norvasc) 10 mg PO DAILY [facility] Stop: 07/04/17 08:59 Last Admin: 05/12/17 09:01 Dose: Not Given Bisacodyl (Dulcolax 10 Mg Supp) 10 mg RC DAILY PRN PRN Reason: constipation Stop: 07/03/17 23:58 Last Admin: 05/05/17 00:20 Dose: 10 mg Carbamazepine (Tegretol) 200 mg PO TID [facility] PRN Reason: Protocol Stop: 07/01/17 08:59 Last Admin: 05/12/17 21:49 Dose: 200 mg Hydralazine HCl (Apresoline) 50 mg PO QID [facility] Stop: 07/05/17 12:59 Last Admin: 05/12/17 21:49 Dose: 50 mg Hydralazine HCl (Apresoline 20 Mg/Ml) 10 mg IV Q6HR PRN PRN Reason: SBP ABOVE 160 Stop: 07/06/17 17:33 Last Admin: 05/11/17 14:08 Dose: 10 mg Piperacillin Sod/Tazobactam (Sod 3.375 gm/ Sodium Chloride) 50 mls @ 100 mls/ hr IV Q6HR [facility] Stop: 07/08/17 17:59 Last Admin: 05/13/17 06:18 Dose: 100 mls/hr Dextrose/Sodium Chloride (D5-0.9%Ns) 1,000 mls @ 100 mls/hr IV .Q10H [facility] Stop: 07/09/17 12:44 Last Admin: 05/13/17 01:04 Dose: 100 mls/hr Levetiracetam 500 mg/ Sodium (Chloride) 105 mls @ 400 mls/hr IV BID [facility] Stop: 07/10/17 08:59 Last Admin: 05/12/17 16:36 Dose: 400 mls/hr Lorazepam (Ativan) 0.5 mg IVP Q6HR PRN; Protocol PRN Reason: Agitation Stop: 07/07/17 16:10 Last Admin: 05/11/17 21:02 Dose: 0.5 mg Metoprolol Tartrate (Lopressor) 100 mg PO BID [facility] Stop: 07/01/17 08:59 Last Admin: 05/12/17 16:42 Dose: 100 mg Miscellaneous (Clinical Monitoring) 1 ea MC PRN PRN PRN Reason: RENAL Stop: 07/01/17 09:53 Miscellaneous (Vancomycin Iv Per Pharmacy) 1 ea [facility] PRN PRN PRN Reason: VANCOMYCIN PER RX Stop: 07/11/17 07:40 Ondansetron HCl (Zofran) 4 mg IV Q8H PRN PRN Reason: Nausea / Vomiting Stop: 07/09/17 12:20 Last Admin: 05/10/17 17:19 Dose: 4 mg Pantoprazole Sodium (Protonix) 40 mg PO DAILY [facility] Stop: 07/01/17 07:29 Last Admin: 05/12/17 09:03 Dose: Not Given Pantoprazole Sodium (Protonix) 40 mg IVP DAILY [facility] Stop: 07/10/17 08:59 Last Admin: 05/12/17 09:04 Dose: Not Given Senna (Senna) 8.6 mg PO DAILY [facility] Stop: 07/04/17 08:59 Last Admin: 05/12/17 09:04 Dose: Not Given Sodium Bicarbonate (Sodium Bicarbonate) 650 mg PO BID [facility] PRN Reason: Protocol Stop: 07/05/17 16:59 Last Admin: 05/12/17 16:43 Dose: 650 mg Temazepam (Restoril) 15 mg PO HS PRN; Protocol PRN Reason: Insomnia Stop: 07/03/17 23:57 Last Admin: 05/07/17 21:14 Dose: 15 mg General: Cooperative, No acute distress HEENT: Atraumatic Neck: Supple Cardiovascular: Regular rate, Normal S1, Normal S2 Lungs: Clear to auscultation Abdomen: Bowel sounds Extremities: Cyanosis - Procedures Procedures: Procedures Procedure Code Date BLOOD TRANSFUSION SERVICE 26132 05/01/17 DRAINAGE OF SKIN ABSCESS 22504 08/15/03 ELECTROCARDIOGRAM 89.52 01/27/00 ELECTROCARDIOGRAM COMPLETE 85760 01/27/00 INSERT NON-TUNNEL CV CATH 36837 12/13/03 MAGNETIC RESONANCE IMAGING OF BRAIN AND BRAIN STEM 88.91 01/27/00 MRI BRAIN STEM W/O DYE 98529 01/27/00 OTHER SKIN & SUBQ I D 86.04 08/15/03 TRANSFUSE NONAUT RED BLOOD CELLS IN PERIPH VEIN, PERC 02536K3 05/01/17 VENOUS CATHETERIZATION NEC 38.93 12/13/03 Assessment/Plan - Assessment Assessment: 56 YO MALE WITH ABD PAIN AND N/V LFTS AND LIPASE NORMAL HAS ANEMIA LIKELY CHRONIC DZ STOOL OB NEG EGD SHOWED HIATAL HERNIA AND GASTRITIS CT SHOWED PERINEPHRIC STRANDING AND PLEURAL EFFUSION PEG placed on 05/12 given failure to thrive. 1. Uptitrate tube feeds to goal rate. Hold for residuals > 100cc 2.CONT SUPP CARE 3.CONT PROTONIX AND ADD ZOFRAN 4. Has some incisional site pain, expected to improve to baseline 5. Bowel regimen
[2017-05-13] MEDS: Pantoprazole 40 mg EC Tab PO SCH (08:31)
[2017-05-13] MEDS: POLYETHYLENE GLYCOL 3350 17 GM PACK PO SCH (10:09)
--- NOTE | 2017-05-13 14:37 | General Progress Note ---
Subjective - Review of Systems Service Date: 05/13/17 Subjective: awake, confused, non verbal no distress Objective - Results Result Diagrams: 05/13/17 05:35 05/13/17 05:35 Recent Labs: Laboratory Last Values WBC 9.9 Th/cmm (4.8-10.8) 05/13/17 05:35 RBC 3.15 Mil/cmm (4.30-5.70) L 05/13/17 05:35 Hgb 9.2 gm/dL (12-16) L 05/13/17 05:35 Hct 27.5 % (41.0-60) L 05/13/17 05:35 MCV 87.3 fl (80-99) 05/13/17 05:35 MCH 29.3 pg (26.0-30.0) 05/13/17 05:35 MCHC Differential 33.6 pg (28.0-36.0) 05/13/17 05:35 RDW 14.1 % (11.5-20.0) 05/13/17 05:35 Plt Count 401 Th/cmm (150-400) H 05/13/17 05:35 MPV 7.5 fl 05/13/17 05:35 Neutrophils % 67.9 % (40.0-80.0) 05/13/17 05:35 Lymphocytes % 18.5 % (20.0-50.0) L 05/13/17 05:35 Monocytes % 7.3 % (2.0-10.0) 05/13/17 05:35 Eosinophils % 4.9 % (0.0-5.0) 05/13/17 05:35 Basophils % 1.4 % (0.0-2.0) 05/13/17 05:35 Eos Smear Source URINE 05/11/17 12:30 Eos Smear Total Cells NONE SEEN (NONE SEEN) 05/11/17 12:30 PT 13.2 SECONDS (9.5-11.5) H 05/09/17 06:00 INR 1.25 (0.5-1.4) 05/09/17 06:00 PTT (Actin FS) 36.0 SECONDS (26.0-38.0) 05/09/17 06:00 Sodium 144 mEq/L (136-145) 05/13/17 05:35 Potassium 3.4 mEq/L (3.5-5.1) L 05/13/17 05:35 Chloride 126 mEq/L (98-107) H 05/13/17 05:35 Carbon Dioxide 11.3 mEq/L (21.0-31.0) L 05/13/17 05:35 Anion Gap 10.1 (7.0-16.0) 05/13/17 05:35 BUN 29 mg/dL (7-25) H 05/13/17 05:35 Creatinine 1.8 mg/dL (0.7-1.3) H 05/13/17 05:35 Est GFR ( Amer) 50.8 ml/min (>90) 05/13/17 05:35 Est GFR (Non-Af Amer) 42.0 ml/min 05/13/17 05:35 BUN/Creatinine Ratio 16.1 05/13/17 05:35 Glucose 143 mg/dL (70-105) H 05/13/17 05:35 POC Glucose 215 MG/DL (70 - 105) H 05/02/17 01:25 Hemoglobin A1c % 5.6 % (4.0-6.0) 05/02/17 06:00 Calcium 8.3 mg/dL (8.6-10.3) L 05/13/17 05:35 Iron 21 ug/dL (38-169) L 05/03/17 05:20 TIBC 155 ug/dL (250-450) L 05/03/17 05:20 Iron Saturation 14 % (15-55) L 05/03/17 05:20 Unsaturated IBC 134 ug/dL (111-343) 05/03/17 05:20 Ferritin 488 ng/mL (30-400) H 05/03/17 05:20 Total Bilirubin 0.2 mg/dL (0.3-1.0) L 05/13/17 05:35 AST 13 U/L (13-39) 05/13/17 05:35 ALT 9 U/L (7-52) 05/13/17 05:35 Alkaline Phosphatase 89 U/L (34-104) 05/13/17 05:35 Total Protein 5.9 gm/dL (6.0-8.3) L 05/13/17 05:35 Albumin 2.1 gm/dL (4.2-5.5) L 05/13/17 05:35 Globulin 3.8 gm/dL 05/13/17 05:35 Albumin/Globulin Ratio 0.6 (1.0-1.8) L 05/13/17 05:35 Lipase 24 U/L (11-82) 05/08/17 08:40 Vitamin B12 1438 pg/mL (232-1245) H 05/03/17 05:20 Folic Acid 13.3 ng/mL (>3.0) 05/03/17 05:20 Urine Source CATH 05/11/17 12:30 Urine Color YELLOW 05/11/17 12:30 Urine Clarity SLIGHTLY HAZY (CLEAR) 05/11/17 12:30 Urine pH 5.5 (4.6 - 8.0) 05/11/17 12:30 Ur Specific [place] >= 1.030 (1.005-1.030) 05/11/17 12:30 Urine Protein >=300 mg/dL (NEGATIVE) 05/11/17 12:30 Urine Glucose (UA) 100 mg/dL (NEGATIVE) H 05/11/17 12:30 Urine Ketones TRACE mg/dL (NEGATIVE) 05/11/17 12:30 Urine Blood MODERATE (NEGATIVE) H 05/11/17 12:30 Urine Nitrate NEGATIVE (NEGATIVE) 05/11/17 12:30 Urine Bilirubin NEGATIVE (NEGATIVE) 05/11/17 12:30 Urine Urobilinogen 0.2 E.U./dL (0.2 - 1.0) 05/11/17 12:30 Ur Leukocyte Esterase NEGATIVE (NEGATIVE) 05/11/17 12:30 Urine RBC 5-10 /hpf (0-5) H 05/11/17 12:30 Urine WBC 0-2 /hpf (0-5) 05/11/17 12:30 Ur Epithelial Cells RARE /lpf (FEW) 05/11/17 12:30 Amorphous Sediment MANY URATES (NONE SEEN) 05/11/17 12:30 Urine Bacteria FEW /hpf (NONE SEEN) 05/11/17 12:30 Stool Occult Blood NEGATIVE (NEGATIVE) 05/07/17 10:00 Vancomycin Trough 20.7 ug/mL (10-20) H 05/13/17 05:35 Random Vancomycin 26.9 ug/mL (5.0-40.0) 05/12/17 06:50 Blood Type O POSITIVE 03/06/18 09:20 Antibody Screen NEGATIVE 05/02/17 09:20 Crossmatch See Detail 05/02/17 09:20 - Physical Exam Vitals and I&O: Vital Signs Temp 96.7 F 05/13/17 04:00 Pulse 93 05/13/17 13:28 Resp 20 05/13/17 13:28 BP 156/96 05/13/17 13:20 Pulse Ox 99 05/13/17 13:28 Intake & Output 05/12/17 05/13/17 05/13/17 18:59 06:59 18:59 Intake Total 2710 735 3814 Output Total 1000 Balance 091 574 0319 Weight (lbs) 97.976 kg 97.976 kg Intake: Intake, IV Amount 1310 50 1155 D5-0.9%Ns 1,000 ml @ 100 1000 1000 mls/hr IV .Q10H [facility] Rx#: [id number] Levetiracetam 500 mg In 210 105 Sodium Chloride 0.9% 100 ml @ 400 mls/hr IV BID [facility] Rx#:[id number] Piperacillin Sodium/ 100 50 50 Tazobact 3.375 gm In Sodium Chloride 0.9% 50 ml @ 100 mls/hr IV Q6HR [facility] Rx#:[id number] Oral 0 Tube Feeding 100 Other 400 Output: Urine 1000 Other: # Voids 3 # Bowel Movements 0 Stool Characteristics Soft Active Medications: Current Medications Acetaminophen (Tylenol) 500 mg PO Q6H PRN PRN Reason: Pain (Moderate) Stop: 07/01/17 02:48 Last Admin: 05/13/17 13:09 Dose: 500 mg Albuterol/Ipratropium (Duoneb Neb) 3 ml HHN Q6HRT [facility] Stop: 07/08/17 18:59 Last Admin: 05/13/17 13:28 Dose: 3 ml Amlodipine Besylate (Norvasc) 10 mg PO DAILY [facility] Stop: 07/04/17 08:59 Last Admin: 05/13/17 08:32 Dose: 10 mg Bisacodyl (Dulcolax 10 Mg Supp) 10 mg RC DAILY PRN PRN Reason: constipation Stop: 07/03/17 23:58 Last Admin: 05/05/17 00:20 Dose: 10 mg Carbamazepine (Tegretol) 200 mg PO TID [facility] PRN Reason: Protocol Stop: 07/01/17 08:59 Last Admin: 05/13/17 13:20 Dose: 200 mg Hydralazine HCl (Apresoline) 50 mg PO QID [facility] Stop: 07/05/17 12:59 Last Admin: 05/13/17 13:20 Dose: 50 mg Hydralazine HCl (Apresoline 20 Mg/Ml) 10 mg IV Q6HR PRN PRN Reason: SBP ABOVE 160 Stop: 07/06/17 17:33 Last Admin: 05/11/17 14:08 Dose: 10 mg Piperacillin Sod/Tazobactam (Sod 3.375 gm/ Sodium Chloride) 50 mls @ 100 mls/ hr IV Q6HR [facility] Stop: 07/08/17 17:59 Last Admin: 05/13/17 13:20 Dose: 100 mls/hr Dextrose/Sodium Chloride (D5-0.9%Ns) 1,000 mls @ 100 mls/hr IV .Q10H [facility] Stop: 07/09/17 12:44 Last Admin: 05/13/17 13:09 Dose: 100 mls/hr Levetiracetam 500 mg/ Sodium (Chloride) 105 mls @ 400 mls/hr IV BID [facility] Stop: 07/10/17 08:59 Last Infusion: 05/13/17 09:00 Dose: Infused Vancomycin HCl 1 gm/ Sodium (Chloride) 250 mls @ 165 mls/hr IV NOW [facility] Stop: 07/12/17 13:59 Lorazepam (Ativan) 0.5 mg IVP Q6HR PRN; Protocol PRN Reason: Agitation Stop: 07/07/17 16:10 Last Admin: 05/11/17 21:02 Dose: 0.5 mg Metoprolol Tartrate (Lopressor) 100 mg PO BID [facility] Stop: 07/01/17 08:59 Last Admin: 05/13/17 08:31 Dose: 100 mg Miscellaneous (Clinical Monitoring) 1 ea MC PRN PRN PRN Reason: RENAL Stop: 07/01/17 09:53 Miscellaneous (Vancomycin Iv Per Pharmacy) 1 ea [facility] PRN PRN PRN Reason: VANCOMYCIN PER RX Stop: 07/11/17 07:40 Ondansetron HCl (Zofran) 4 mg IV Q8H PRN PRN Reason: Nausea / Vomiting Stop: 07/09/17 12:20 Last Admin: 05/10/17 17:19 Dose: 4 mg Pantoprazole Sodium (Protonix) 40 mg PO DAILY [facility] Stop: 07/01/17 07:29 Last Admin: 05/13/17 08:31 Dose: 40 mg Pantoprazole Sodium (Protonix) 40 mg IVP DAILY [facility] Stop: 07/10/17 08:59 Last Admin: 05/13/17 08:31 Dose: 40 mg Polyethylene Glycol (Miralax) 17 gm PO DAILY [facility] Stop: 07/12/17 08:59 Last Admin: 05/13/17 10:09 Dose: 17 gm Senna (Senna) 8.6 mg PO DAILY [facility] Stop: 07/04/17 08:59 Last Admin: 05/13/17 08:32 Dose: 8.6 mg Sodium Bicarbonate (Sodium Bicarbonate) 650 mg PO BID [facility] PRN Reason: Protocol Stop: 07/05/17 16:59 Last Admin: 05/13/17 08:32 Dose: 650 mg Temazepam (Restoril) 15 mg PO HS PRN; Protocol PRN Reason: Insomnia Stop: 07/03/17 23:57 Last Admin: 05/07/17 21:14 Dose: 15 mg General: Cooperative, No acute distress HEENT: Atraumatic Neck: Supple Cardiovascular: Regular rate, Normal S1, Normal S2 Lungs: Clear to auscultation Abdomen: Bowel sounds Extremities: Edema - Procedures Procedures: Procedures Procedure Code Date BLOOD TRANSFUSION SERVICE 55932 05/01/17 DRAINAGE OF SKIN ABSCESS 36495 08/15/03 ELECTROCARDIOGRAM 89.52 01/27/00 ELECTROCARDIOGRAM COMPLETE 18349 01/27/00 INSERT NON-TUNNEL CV CATH 43189 12/13/03 MAGNETIC RESONANCE IMAGING OF BRAIN AND BRAIN STEM 88.91 01/27/00 MRI BRAIN STEM W/O DYE 11784 01/27/00 OTHER SKIN & SUBQ I D 86.04 08/15/03 TRANSFUSE NONAUT RED BLOOD CELLS IN PERIPH VEIN, PERC 57368K7 05/01/17 VENOUS CATHETERIZATION NEC 38.93 12/13/03 Assessment/Plan - Assessment Assessment: Anemia Acute renal failure Dementia CVA Seizure disorder s/p GT placement - Plan Plan: cont current treatment Nutritional Asmnt/Malnutr-PDOC - Dietary Evaluation Malnutrition Findings (Please click <Entered> for more info): Nutritional Asmnt/Malnutrition Start: 05/02/17 15: 58 Text: Status: Complete Freq: Document 05/02/17 15:58 BERRY (Rec: 05/02/17 16:14 BERRY [email or web address]) Nutritional Asmnt/Malnutrition Patient General Information Nutritional Screening High Risk Consult Diagnosis severe anemia, dehydration, CISCO Pertinent Medical Hx/Surgical Hx CVA, seizure disorder, dementia, psychosis, CKD Subjective Information Consult received for BS 215 at adm and wound. Pt seen lying in bed at time of visit, awake and alert at time of visit. Hard to understand pt. Pt said no when dietitian asked about food related questions. Per nurse notes, pt refused lunch althought RN and MARK UP DESIGNER tried multiple times. Current Diet Order/ Nutrition Support Renal, mech soft chopped Pertinent Medications D5-0.45ns, protonix Pertinent Labs / Na 141, K 4.2, Cl 118, BUN 91, Cr 2.5, Glucose 180, POC 215, AST 11, Alb 2.5 Nutritional Hx/Data Height 1.57 m Height (Calculated Centimeters) 157.5 Current Weight (lbs) 78.018 kg Weight (Calculated Kilograms) 78.0 Weight (Calculated Grams) 33275.9 [place] Body Weight 118 Body Mass Index (BMI) 31.4 Weight Status Obese GI Symptoms GI Symptoms None Last BM none Difficult in: None Skin Integrity/Comment: per wound care note: Distal aspect of Gluteal Sulcus - Moisture lesion, present on admission. reddened to sacrum, potential skin problem to bilateral legs Estimated Nutritional Goals BEE in Kcals: Adj wt of IBW Calories/Kcals/Kg 25-30 Kcals Calculated 1399-3822 Protein: Adj wt of IBW Protein g/k-1.2 Protein Calculated 60-72 Fluid: ml 1500-1800ml (1ml/kcal) or per MD Nutritional Problem 1. Problem Problem altered nutrition related lab values Etiology hx of CKD, dx of CISCO, endocrine dysfunction Signs/Symptoms: BUN 91, Cr 2.5, Glucose 180, POC 215 Malnutrition Alert Protein-Calorie Malnutrition N/A Is there a minimum of two criteria No selected? Query Text:Check all the applicable criteria. A minimum of two criteria are recommended for diagnosis of either severe or non-severe malnutrition. Intervention/Recommendation Comments 1. Monitor glucose and check a1c level. If glucose continue high, will consider adding CCHO diet for optimal glycemic control 2. Monitor PO intake, wt, labs and skin integrity 3. F/U as high risk in 2-3 days, 05/04-05/05 Expected Outcomes/Goals Expected Outcomes/Goals 1. PO intake to meet at least 75% of nutritional needs. 2. Wt stability, skin to remain intact, labs to approach WNL.
--- NOTE | 2017-05-13 14:40 | General Progress Note ---
Subjective - Review of Systems Service Date: 05/13/17 Events since last encounter: No new event. Objective - Results Result Diagrams: 05/13/17 05:35 05/13/17 05:35 Recent Labs: Laboratory Last Values WBC 9.9 Th/cmm (4.8-10.8) 05/13/17 05:35 RBC 3.15 Mil/cmm (4.30-5.70) L 05/13/17 05:35 Hgb 9.2 gm/dL (12-16) L 05/13/17 05:35 Hct 27.5 % (41.0-60) L 05/13/17 05:35 MCV 87.3 fl (80-99) 05/13/17 05:35 MCH 29.3 pg (26.0-30.0) 05/13/17 05:35 MCHC Differential 33.6 pg (28.0-36.0) 05/13/17 05:35 RDW 14.1 % (11.5-20.0) 05/13/17 05:35 Plt Count 401 Th/cmm (150-400) H 05/13/17 05:35 MPV 7.5 fl 05/13/17 05:35 Neutrophils % 67.9 % (40.0-80.0) 05/13/17 05:35 Lymphocytes % 18.5 % (20.0-50.0) L 05/13/17 05:35 Monocytes % 7.3 % (2.0-10.0) 05/13/17 05:35 Eosinophils % 4.9 % (0.0-5.0) 05/13/17 05:35 Basophils % 1.4 % (0.0-2.0) 05/13/17 05:35 Eos Smear Source URINE 05/11/17 12:30 Eos Smear Total Cells NONE SEEN (NONE SEEN) 05/11/17 12:30 PT 13.2 SECONDS (9.5-11.5) H 05/09/17 06:00 INR 1.25 (0.5-1.4) 05/09/17 06:00 PTT (Actin FS) 36.0 SECONDS (26.0-38.0) 05/09/17 06:00 Sodium 144 mEq/L (136-145) 05/13/17 05:35 Potassium 3.4 mEq/L (3.5-5.1) L 05/13/17 05:35 Chloride 126 mEq/L (98-107) H 05/13/17 05:35 Carbon Dioxide 11.3 mEq/L (21.0-31.0) L 05/13/17 05:35 Anion Gap 10.1 (7.0-16.0) 05/13/17 05:35 BUN 29 mg/dL (7-25) H 05/13/17 05:35 Creatinine 1.8 mg/dL (0.7-1.3) H 05/13/17 05:35 Est GFR ( Amer) 50.8 ml/min (>90) 05/13/17 05:35 Est GFR (Non-Af Amer) 42.0 ml/min 05/13/17 05:35 BUN/Creatinine Ratio 16.1 05/13/17 05:35 Glucose 143 mg/dL (70-105) H 05/13/17 05:35 POC Glucose 215 MG/DL (70 - 105) H 05/02/17 01:25 Hemoglobin A1c % 5.6 % (4.0-6.0) 05/02/17 06:00 Calcium 8.3 mg/dL (8.6-10.3) L 05/13/17 05:35 Iron 21 ug/dL (38-169) L 05/03/17 05:20 TIBC 155 ug/dL (250-450) L 05/03/17 05:20 Iron Saturation 14 % (15-55) L 05/03/17 05:20 Unsaturated IBC 134 ug/dL (111-343) 05/03/17 05:20 Ferritin 488 ng/mL (30-400) H 05/03/17 05:20 Total Bilirubin 0.2 mg/dL (0.3-1.0) L 05/13/17 05:35 AST 13 U/L (13-39) 05/13/17 05:35 ALT 9 U/L (7-52) 05/13/17 05:35 Alkaline Phosphatase 89 U/L (34-104) 05/13/17 05:35 Total Protein 5.9 gm/dL (6.0-8.3) L 05/13/17 05:35 Albumin 2.1 gm/dL (4.2-5.5) L 05/13/17 05:35 Globulin 3.8 gm/dL 05/13/17 05:35 Albumin/Globulin Ratio 0.6 (1.0-1.8) L 05/13/17 05:35 Lipase 24 U/L (11-82) 05/08/17 08:40 Vitamin B12 1438 pg/mL (232-1245) H 05/03/17 05:20 Folic Acid 13.3 ng/mL (>3.0) 05/03/17 05:20 Urine Source CATH 05/11/17 12:30 Urine Color YELLOW 05/11/17 12:30 Urine Clarity SLIGHTLY HAZY (CLEAR) 05/11/17 12:30 Urine pH 5.5 (4.6 - 8.0) 05/11/17 12:30 Ur Specific [place] >= 1.030 (1.005-1.030) 05/11/17 12:30 Urine Protein >=300 mg/dL (NEGATIVE) 05/11/17 12:30 Urine Glucose (UA) 100 mg/dL (NEGATIVE) H 05/11/17 12:30 Urine Ketones TRACE mg/dL (NEGATIVE) 05/11/17 12:30 Urine Blood MODERATE (NEGATIVE) H 05/11/17 12:30 Urine Nitrate NEGATIVE (NEGATIVE) 05/11/17 12:30 Urine Bilirubin NEGATIVE (NEGATIVE) 05/11/17 12:30 Urine Urobilinogen 0.2 E.U./dL (0.2 - 1.0) 05/11/17 12:30 Ur Leukocyte Esterase NEGATIVE (NEGATIVE) 05/11/17 12:30 Urine RBC 5-10 /hpf (0-5) H 05/11/17 12:30 Urine WBC 0-2 /hpf (0-5) 05/11/17 12:30 Ur Epithelial Cells RARE /lpf (FEW) 05/11/17 12:30 Amorphous Sediment MANY URATES (NONE SEEN) 05/11/17 12:30 Urine Bacteria FEW /hpf (NONE SEEN) 05/11/17 12:30 Stool Occult Blood NEGATIVE (NEGATIVE) 05/07/17 10:00 Vancomycin Trough 20.7 ug/mL (10-20) H 05/13/17 05:35 Random Vancomycin 26.9 ug/mL (5.0-40.0) 03/16/18 06:50 Blood Type O POSITIVE 05/02/17 09:20 Antibody Screen NEGATIVE 05/02/17 09:20 Crossmatch See Detail 05/02/17 09:20 - Physical Exam Vitals and I&O: Vital Signs Temp 96.7 F 05/13/17 04:00 Pulse 93 05/13/17 13:28 Resp 20 05/13/17 13:28 BP 156/96 05/13/17 13:20 Pulse Ox 99 05/13/17 13:28 Intake & Output 05/12/17 05/13/17 05/13/17 18:59 06:59 18:59 Intake Total 9239 142 6295 Output Total 1000 Balance 450 901 0396 Weight (lbs) 97.976 kg 97.976 kg Intake: Intake, IV Amount 1310 50 1155 D5-0.9%Ns 1,000 ml @ 100 1000 1000 mls/hr IV .Q10H [facility] Rx#: [id number] Levetiracetam 500 mg In 210 105 Sodium Chloride 0.9% 100 ml @ 400 mls/hr IV BID [facility] Rx#:[id number] Piperacillin Sodium/ 100 50 50 Tazobact 3.375 gm In Sodium Chloride 0.9% 50 ml @ 100 mls/hr IV Q6HR [facility] Rx#:[id number] Oral 0 Tube Feeding 100 Other 400 Output: Urine 1000 Other: # Voids 3 # Bowel Movements 0 Stool Characteristics Soft Active Medications: Current Medications Acetaminophen (Tylenol) 500 mg PO Q6H PRN PRN Reason: Pain (Moderate) Stop: 07/01/17 02:48 Last Admin: 05/13/17 13:09 Dose: 500 mg Albuterol/Ipratropium (Duoneb Neb) 3 ml HHN Q6HRT [facility] Stop: 07/08/17 18:59 Last Admin: 05/13/17 13:28 Dose: 3 ml Amlodipine Besylate (Norvasc) 10 mg PO DAILY [facility] Stop: 07/04/17 08:59 Last Admin: 05/13/17 08:32 Dose: 10 mg Bisacodyl (Dulcolax 10 Mg Supp) 10 mg RC DAILY PRN PRN Reason: constipation Stop: 07/03/17 23:58 Last Admin: 05/05/17 00:20 Dose: 10 mg Carbamazepine (Tegretol) 200 mg PO TID [facility] PRN Reason: Protocol Stop: 07/01/17 08:59 Last Admin: 05/13/17 13:20 Dose: 200 mg Hydralazine HCl (Apresoline) 50 mg PO QID [facility] Stop: 07/05/17 12:59 Last Admin: 05/13/17 13:20 Dose: 50 mg Hydralazine HCl (Apresoline 20 Mg/Ml) 10 mg IV Q6HR PRN PRN Reason: SBP ABOVE 160 Stop: 07/06/17 17:33 Last Admin: 05/11/17 14:08 Dose: 10 mg Piperacillin Sod/Tazobactam (Sod 3.375 gm/ Sodium Chloride) 50 mls @ 100 mls/ hr IV Q6HR [facility] Stop: 07/08/17 17:59 Last Admin: 05/13/17 13:20 Dose: 100 mls/hr Dextrose/Sodium Chloride (D5-0.9%Ns) 1,000 mls @ 100 mls/hr IV .Q10H [facility] Stop: 07/09/17 12:44 Last Admin: 05/13/17 13:09 Dose: 100 mls/hr Levetiracetam 500 mg/ Sodium (Chloride) 105 mls @ 400 mls/hr IV BID [facility] Stop: 07/10/17 08:59 Last Infusion: 05/13/17 09:00 Dose: Infused Vancomycin HCl 1 gm/ Sodium (Chloride) 250 mls @ 165 mls/hr IV NOW [facility] Stop: 07/12/17 13:59 Lorazepam (Ativan) 0.5 mg IVP Q6HR PRN; Protocol PRN Reason: Agitation Stop: 07/07/17 16:10 Last Admin: 05/11/17 21:02 Dose: 0.5 mg Metoprolol Tartrate (Lopressor) 100 mg PO BID [facility] Stop: 07/01/17 08:59 Last Admin: 05/13/17 08:31 Dose: 100 mg Miscellaneous (Clinical Monitoring) 1 ea MC PRN PRN PRN Reason: RENAL Stop: 07/01/17 09:53 Miscellaneous (Vancomycin Iv Per Pharmacy) 1 ea MC PRN PRN PRN Reason: VANCOMYCIN PER RX Stop: 07/11/17 07:40 Ondansetron HCl (Zofran) 4 mg IV Q8H PRN PRN Reason: Nausea / Vomiting Stop: 07/09/17 12:20 Last Admin: 05/10/17 17:19 Dose: 4 mg Pantoprazole Sodium (Protonix) 40 mg PO DAILY [facility] Stop: 07/01/17 07:29 Last Admin: 05/13/17 08:31 Dose: 40 mg Pantoprazole Sodium (Protonix) 40 mg IVP DAILY [facility] Stop: 07/10/17 08:59 Last Admin: 05/13/17 08:31 Dose: 40 mg Polyethylene Glycol (Miralax) 17 gm PO DAILY [facility] Stop: 07/12/17 08:59 Last Admin: 05/13/17 10:09 Dose: 17 gm Senna (Senna) 8.6 mg PO DAILY [facility] Stop: 07/04/17 08:59 Last Admin: 05/13/17 08:32 Dose: 8.6 mg Sodium Bicarbonate (Sodium Bicarbonate) 650 mg PO BID [facility] PRN Reason: Protocol Stop: 07/05/17 16:59 Last Admin: 05/13/17 08:32 Dose: 650 mg Temazepam (Restoril) 15 mg PO HS PRN; Protocol PRN Reason: Insomnia Stop: 07/03/17 23:57 Last Admin: 05/07/17 21:14 Dose: 15 mg General: No acute distress (confused. Has mittens on.) HEENT: Atraumatic Neck: Supple Cardiovascular: Regular rate, Normal S1, Normal S2 Lungs: Clear to auscultation Abdomen: Bowel sounds Extremities: Cyanosis - Procedures Procedures: Procedures Procedure Code Date BLOOD TRANSFUSION SERVICE 80357 05/01/17 DRAINAGE OF SKIN ABSCESS 74624 08/15/03 ELECTROCARDIOGRAM 89.52 01/27/00 ELECTROCARDIOGRAM COMPLETE 03205 01/27/00 INSERT NON-TUNNEL CV CATH 38065 12/13/03 MAGNETIC RESONANCE IMAGING OF BRAIN AND BRAIN STEM 88.91 01/27/00 MRI BRAIN STEM W/O DYE 80642 01/27/00 OTHER SKIN & SUBQ I D 86.04 08/15/03 TRANSFUSE NONAUT RED BLOOD CELLS IN PERIPH VEIN, PERC 00726B0 05/01/17 VENOUS CATHETERIZATION NEC 38.93 12/13/03 Assessment/Plan - Assessment Assessment: ACUTE ANEMIA ACUTE RENAL FAILURE SECONDARY TO ATN SECONDARY TO SEVERE ANEMIA ACUTE TUBULAR NECROSIS CVA SEIZURE PSYCHOSIS DEMENTIA S/P PEG - Plan Plan: - Plan Plan: BP NEEDS BETTER CONTROL RENAL FUNCTION IMPROVING HGB stable Still acidotic. Add NaHCO3. start IVF pt wbc up creat slowly improving on vanco and zosyn Nutritional Asmnt/Malnutr-PDOC - Dietary Evaluation Malnutrition Findings (Please click <Entered> for more info): Nutritional Asmnt/Malnutrition Start: 05/02/17 15: 58 Text: Status: Complete Freq: Document 05/02/17 15:58 ALLISON (Rec: 05/02/17 16:14 LCHENG [email or web address]) Nutritional Asmnt/Malnutrition Patient General Information Nutritional Screening High Risk Consult Diagnosis severe anemia, dehydration, CISCO Pertinent Medical Hx/Surgical Hx CVA, seizure disorder, dementia, psychosis, CKD Subjective Information Consult received for BS 215 at adm and wound. Pt seen lying in bed at time of visit, awake and alert at time of visit. Hard to understand pt. Pt said no when dietitian asked about food related questions. Per nurse notes, pt refused lunch althought RN and SAP CRM DEVELOPER tried multiple times. Current Diet Order/ Nutrition Support Renal, mech soft chopped Pertinent Medications D5-0.45ns, protonix Pertinent Labs / Na 141, K 4.2, Cl 118, BUN 91, Cr 2.5, Glucose 180, POC 215, AST 11, Alb 2.5 Nutritional Hx/Data Height 1.57 m Height (Calculated Centimeters) 157.5 Current Weight (lbs) 78.018 kg Weight (Calculated Kilograms) 78.0 Weight (Calculated Grams) 20006.9 [place] Body Weight 118 Body Mass Index (BMI) 31.4 Weight Status Obese GI Symptoms GI Symptoms None Last BM none Difficult in: None Skin Integrity/Comment: per wound care note: Distal aspect of Gluteal Sulcus - Moisture lesion, present on admission. reddened to sacrum, potential skin problem to bilateral legs Estimated Nutritional Goals BEE in Kcals: Adj wt of IBW Calories/Kcals/Kg 25-30 Kcals Calculated 9498-8665 Protein: Adj wt of IBW Protein g/k-1.2 Protein Calculated 60-72 Fluid: ml 1500-1800ml (1ml/kcal) or per MD Nutritional Problem 1. Problem Problem altered nutrition related lab values Etiology hx of CKD, dx of CISCO, endocrine dysfunction Signs/Symptoms: BUN 91, Cr 2.5, Glucose 180, POC 215 Malnutrition Alert Protein-Calorie Malnutrition N/A Is there a minimum of two criteria No selected? Query Text:Check all the applicable criteria. A minimum of two criteria are recommended for diagnosis of either severe or non-severe malnutrition. Intervention/Recommendation Comments 1. Monitor glucose and check a1c level. If glucose continue high, will consider adding CCHO diet for optimal glycemic control 2. Monitor PO intake, wt, labs and skin integrity 3. F/U as high risk in 2-3 days, 05/04-05/05 Expected Outcomes/Goals Expected Outcomes/Goals 1. PO intake to meet at least 75% of nutritional needs. 2. Wt stability, skin to remain intact, labs to approach WNL.
[2017-05-13] MEDS ORDERED: Potassium Chloride Elixir 20 mEq /15 mL UDC GT ONE (14:43)
--- NOTE | 2017-05-13 15:55 | General Progress Note ---
Subjective - Review of Systems Service Date: 05/13/17 Subjective: refusing to eat abd pain Objective - Results Result Diagrams: 05/13/17 05:35 05/13/17 05:35 Recent Labs: Laboratory Last Values WBC 9.9 Th/cmm (4.8-10.8) 05/13/17 05:35 RBC 3.15 Mil/cmm (4.30-5.70) L 05/13/17 05:35 Hgb 9.2 gm/dL (12-16) L 05/13/17 05:35 Hct 27.5 % (41.0-60) L 05/13/17 05:35 MCV 87.3 fl (80-99) 05/13/17 05:35 MCH 29.3 pg (26.0-30.0) 05/13/17 05:35 MCHC Differential 33.6 pg (28.0-36.0) 05/13/17 05:35 RDW 14.1 % (11.5-20.0) 05/13/17 05:35 Plt Count 401 Th/cmm (150-400) H 05/13/17 05:35 MPV 7.5 fl 05/13/17 05:35 Neutrophils % 67.9 % (40.0-80.0) 05/13/17 05:35 Lymphocytes % 18.5 % (20.0-50.0) L 05/13/17 05:35 Monocytes % 7.3 % (2.0-10.0) 05/13/17 05:35 Eosinophils % 4.9 % (0.0-5.0) 05/13/17 05:35 Basophils % 1.4 % (0.0-2.0) 05/13/17 05:35 Eos Smear Source URINE 05/11/17 12:30 Eos Smear Total Cells NONE SEEN (NONE SEEN) 05/11/17 12:30 PT 13.2 SECONDS (9.5-11.5) H 05/09/17 06:00 INR 1.25 (0.5-1.4) 05/09/17 06:00 PTT (Actin FS) 36.0 SECONDS (26.0-38.0) 05/09/17 06:00 Sodium 144 mEq/L (136-145) 05/13/17 05:35 Potassium 3.4 mEq/L (3.5-5.1) L 05/13/17 05:35 Chloride 126 mEq/L (98-107) H 05/13/17 05:35 Carbon Dioxide 11.3 mEq/L (21.0-31.0) L 05/13/17 05:35 Anion Gap 10.1 (7.0-16.0) 05/13/17 05:35 BUN 29 mg/dL (7-25) H 05/13/17 05:35 Creatinine 1.8 mg/dL (0.7-1.3) H 05/13/17 05:35 Est GFR ( Amer) 50.8 ml/min (>90) 05/13/17 05:35 Est GFR (Non-Af Amer) 42.0 ml/min 05/13/17 05:35 BUN/Creatinine Ratio 16.1 05/13/17 05:35 Glucose 143 mg/dL (70-105) H 05/13/17 05:35 POC Glucose 215 MG/DL (70 - 105) H 05/02/17 01:25 Hemoglobin A1c % 5.6 % (4.0-6.0) 05/02/17 06:00 Calcium 8.3 mg/dL (8.6-10.3) L 05/13/17 05:35 Iron 21 ug/dL (38-169) L 05/03/17 05:20 TIBC 155 ug/dL (250-450) L 05/03/17 05:20 Iron Saturation 14 % (15-55) L 05/03/17 05:20 Unsaturated IBC 134 ug/dL (111-343) 05/03/17 05:20 Ferritin 488 ng/mL (30-400) H 05/03/17 05:20 Total Bilirubin 0.2 mg/dL (0.3-1.0) L 05/13/17 05:35 AST 13 U/L (13-39) 05/13/17 05:35 ALT 9 U/L (7-52) 05/13/17 05:35 Alkaline Phosphatase 89 U/L (34-104) 05/13/17 05:35 Total Protein 5.9 gm/dL (6.0-8.3) L 05/13/17 05:35 Albumin 2.1 gm/dL (4.2-5.5) L 05/13/17 05:35 Globulin 3.8 gm/dL 05/13/17 05:35 Albumin/Globulin Ratio 0.6 (1.0-1.8) L 05/13/17 05:35 Lipase 24 U/L (11-82) 05/08/17 08:40 Vitamin B12 1438 pg/mL (232-1245) H 05/03/17 05:20 Folic Acid 13.3 ng/mL (>3.0) 05/03/17 05:20 Urine Source CATH 05/11/17 12:30 Urine Color YELLOW 05/11/17 12:30 Urine Clarity SLIGHTLY HAZY (CLEAR) 05/11/17 12:30 Urine pH 5.5 (4.6 - 8.0) 05/11/17 12:30 Ur Specific [place] >= 1.030 (1.005-1.030) 05/11/17 12:30 Urine Protein >=300 mg/dL (NEGATIVE) 05/11/17 12:30 Urine Glucose (UA) 100 mg/dL (NEGATIVE) H 05/11/17 12:30 Urine Ketones TRACE mg/dL (NEGATIVE) 05/11/17 12:30 Urine Blood MODERATE (NEGATIVE) H 05/11/17 12:30 Urine Nitrate NEGATIVE (NEGATIVE) 05/11/17 12:30 Urine Bilirubin NEGATIVE (NEGATIVE) 05/11/17 12:30 Urine Urobilinogen 0.2 E.U./dL (0.2 - 1.0) 05/11/17 12:30 Ur Leukocyte Esterase NEGATIVE (NEGATIVE) 05/11/17 12:30 Urine RBC 5-10 /hpf (0-5) H 05/11/17 12:30 Urine WBC 0-2 /hpf (0-5) 05/11/17 12:30 Ur Epithelial Cells RARE /lpf (FEW) 05/11/17 12:30 Amorphous Sediment MANY URATES (NONE SEEN) 05/11/17 12:30 Urine Bacteria FEW /hpf (NONE SEEN) 05/11/17 12:30 Stool Occult Blood NEGATIVE (NEGATIVE) 05/07/17 10:00 Vancomycin Trough 20.7 ug/mL (10-20) H 05/13/17 05:35 Random Vancomycin 26.9 ug/mL (5.0-40.0) 05/12/17 06:50 Blood Type O POSITIVE 05/02/17 09:20 Antibody Screen NEGATIVE 05/02/17 09:20 Crossmatch See Detail 05/02/17 09:20 - Physical Exam Vitals and I&O: Vital Signs Temp 97.9 F 05/13/17 12:00 Pulse 93 05/13/17 13:28 Resp 20 05/13/17 13:28 BP 156/96 05/13/17 13:20 Pulse Ox 99 05/13/17 13:28 Intake & Output 05/12/17 05/13/17 05/13/17 18:59 06:59 18:59 Intake Total 8126 777 1354 Output Total 1000 Balance 457 673 1261 Weight (lbs) 97.976 kg 97.976 kg Intake: Intake, IV Amount 1310 50 1205 D5-0.9%Ns 1,000 ml @ 100 1000 1000 mls/hr IV .Q10H [facility] Rx#: [id number] Levetiracetam 500 mg In 210 105 Sodium Chloride 0.9% 100 ml @ 400 mls/hr IV BID [facility] Rx#:[id number] Piperacillin Sodium/ 100 50 100 Tazobact 3.375 gm In Sodium Chloride 0.9% 50 ml @ 100 mls/hr IV Q6HR [facility] Rx#:[id number] Oral 0 Tube Feeding 100 Other 400 Output: Urine 1000 Other: # Voids 3 # Bowel Movements 0 Stool Characteristics Soft Active Medications: Current Medications Acetaminophen (Tylenol) 500 mg PO Q6H PRN PRN Reason: Pain (Moderate) Stop: 07/01/17 02:48 Last Admin: 05/13/17 13:09 Dose: 500 mg Albuterol/Ipratropium (Duoneb Neb) 3 ml HHN Q6HRT [facility] Stop: 07/08/17 18:59 Last Admin: 05/13/17 13:28 Dose: 3 ml Amlodipine Besylate (Norvasc) 10 mg PO DAILY [facility] Stop: 07/04/17 08:59 Last Admin: 05/13/17 08:32 Dose: 10 mg Bisacodyl (Dulcolax 10 Mg Supp) 10 mg RC DAILY PRN PRN Reason: constipation Stop: 07/03/17 23:58 Last Admin: 05/05/17 00:20 Dose: 10 mg Carbamazepine (Tegretol) 200 mg PO TID [facility] PRN Reason: Protocol Stop: 07/01/17 08:59 Last Admin: 05/13/17 13:20 Dose: 200 mg Hydralazine HCl (Apresoline) 50 mg PO QID [facility] Stop: 07/05/17 12:59 Last Admin: 05/13/17 13:20 Dose: 50 mg Hydralazine HCl (Apresoline 20 Mg/Ml) 10 mg IV Q6HR PRN PRN Reason: SBP ABOVE 160 Stop: 07/06/17 17:33 Last Admin: 05/11/17 14:08 Dose: 10 mg Piperacillin Sod/Tazobactam (Sod 3.375 gm/ Sodium Chloride) 50 mls @ 100 mls/ hr IV Q6HR [facility] Stop: 07/08/17 17:59 Last Infusion: 05/13/17 13:50 Dose: Infused Levetiracetam 500 mg/ Sodium (Chloride) 105 mls @ 400 mls/hr IV BID [facility] Stop: 07/10/17 08:59 Last Infusion: 05/13/17 09:00 Dose: Infused Vancomycin HCl 1 gm/ Sodium (Chloride) 250 mls @ 165 mls/hr IV NOW [facility] Stop: 07/12/17 13:59 Last Admin: 05/13/17 14:49 Dose: 165 mls/hr Sodium Bicarbonate 150 meq/ (Dextrose) 1,150 mls @ 50 mls/hr IV .Q23H [facility] Stop: 05/15/17 12:59 Lorazepam (Ativan) 0.5 mg IVP Q6HR PRN; Protocol PRN Reason: Agitation Stop: 07/07/17 16:10 Last Admin: 05/11/17 21:02 Dose: 0.5 mg Metoprolol Tartrate (Lopressor) 100 mg PO BID [facility] Stop: 07/01/17 08:59 Last Admin: 05/13/17 08:31 Dose: 100 mg Miscellaneous (Clinical Monitoring) 1 ea MC PRN PRN PRN Reason: RENAL Stop: 07/01/17 09:53 Miscellaneous (Vancomycin Iv Per Pharmacy) 1 ea MC PRN PRN PRN Reason: VANCOMYCIN PER RX Stop: 07/11/17 07:40 Ondansetron HCl (Zofran) 4 mg IV Q8H PRN PRN Reason: Nausea / Vomiting Stop: 07/09/17 12:20 Last Admin: 05/10/17 17:19 Dose: 4 mg Pantoprazole Sodium (Protonix) 40 mg PO DAILY [facility] Stop: 07/01/17 07:29 Last Admin: 05/13/17 08:31 Dose: 40 mg Pantoprazole Sodium (Protonix) 40 mg IVP DAILY [facility] Stop: 07/10/17 08:59 Last Admin: 05/13/17 08:31 Dose: 40 mg Polyethylene Glycol (Miralax) 17 gm PO DAILY [facility] Stop: 07/12/17 08:59 Last Admin: 05/13/17 10:09 Dose: 17 gm Senna (Senna) 8.6 mg PO DAILY [facility] Stop: 07/04/17 08:59 Last Admin: 05/13/17 08:32 Dose: 8.6 mg Sodium Bicarbonate (Sodium Bicarbonate) 650 mg PO BID [facility] PRN Reason: Protocol Stop: 07/05/17 16:59 Last Admin: 05/13/17 08:32 Dose: 650 mg Temazepam (Restoril) 15 mg PO HS PRN; Protocol PRN Reason: Insomnia Stop: 07/03/17 23:57 Last Admin: 05/07/17 21:14 Dose: 15 mg General: No acute distress (confused. Has mittens on.) HEENT: Atraumatic Neck: Supple Cardiovascular: Regular rate, Normal S1, Normal S2 Lungs: Clear to auscultation Abdomen: Bowel sounds Extremities: Cyanosis - Procedures Procedures: Procedures Procedure Code Date BLOOD TRANSFUSION SERVICE 87970 05/01/17 DRAINAGE OF SKIN ABSCESS 77493 08/15/03 ELECTROCARDIOGRAM 89.52 01/27/00 ELECTROCARDIOGRAM COMPLETE 11508 01/27/00 INSERT NON-TUNNEL CV CATH 62389 12/13/03 MAGNETIC RESONANCE IMAGING OF BRAIN AND BRAIN STEM 88.91 01/27/00 MRI BRAIN STEM W/O DYE 68814 01/27/00 OTHER SKIN & SUBQ I D 86.04 08/15/03 TRANSFUSE NONAUT RED BLOOD CELLS IN PERIPH VEIN, PERC 27606W9 05/01/17 VENOUS CATHETERIZATION NEC 38.93 12/13/03 Assessment/Plan - Assessment Assessment: 05/13:start epogen, continue folate, 05/10: Anemia of chronic kidney disease, monitor for now 05/09: s/p EGD, gastritis; CT ABD noted; pleural effusion. hgb is stable 05/08: poor intake, Anemia of chronic disease. awaiting CT ABD 05/07: hgb is stable. Anemia of chronic kidney disease 05/06:No clinical bleeding. Anemia of chronic kidney disease 05/05: Hgb remains stable, continue monitoring; Anemia chauhan is consistent with anemia of CKD * 05/04: hgb stable; follow anemia chauhan results and cbc * 05/03: hgb better after transfusion; follow anemia chauhan * 05/02: Severe normocytic anemia. The patient will need comprehensive anemia workup with iron studies, B12, folic acid and stool occult blood. 2. Acute kidney injury on top of chronic kidney disease. 3. Dementia. 4. History of cerebrovascular accident and seizure disorder. Nutritional Asmnt/Malnutr-PDOC - Dietary Evaluation Malnutrition Findings (Please click <Entered> for more info): Nutritional Asmnt/Malnutrition Start: 05/02/17 15: 58 Text: Status: Complete Freq: Document 05/02/17 15:58 [facility] (Rec: 05/02/17 16:14 ALLISON [email or web address]) Nutritional Asmnt/Malnutrition Patient General Information Nutritional Screening High Risk Consult Diagnosis severe anemia, dehydration, CISCO Pertinent Medical Hx/Surgical Hx CVA, seizure disorder, dementia, psychosis, CKD Subjective Information Consult received for BS 215 at adm and wound. Pt seen lying in bed at time of visit, awake and alert at time of visit. Hard to understand pt. Pt said no when dietitian asked about food related questions. Per nurse notes, pt refused lunch althought RN and SAFETY ENGINEER tried multiple times. Current Diet Order/ Nutrition Support Renal, mech soft chopped Pertinent Medications D5-0.45ns, protonix Pertinent Labs 05/02 Na 141, K 4.2, Cl 118, BUN 91, Cr 2.5, Glucose 180, POC 215, AST 11, Alb 2.5 Nutritional Hx/Data Height 1.57 m Height (Calculated Centimeters) 157.5 Current Weight (lbs) 78.018 kg Weight (Calculated Kilograms) 78.0 Weight (Calculated Grams) 42531.9 [place] Body Weight 118 Body Mass Index (BMI) 31.4 Weight Status Obese GI Symptoms GI Symptoms None Last BM none Difficult in: None Skin Integrity/Comment: per wound care note: Distal aspect of Gluteal Sulcus - Moisture lesion, present on admission. reddened to sacrum, potential skin problem to bilateral legs Estimated Nutritional Goals BEE in Kcals: Adj wt of IBW Calories/Kcals/Kg 25-30 Kcals Calculated 6765-5212 Protein: Adj wt of IBW Protein g/k-1.2 Protein Calculated 60-72 Fluid: ml 1500-1800ml (1ml/kcal) or per MD Nutritional Problem 1. Problem Problem altered nutrition related lab values Etiology hx of CKD, dx of CISCO, endocrine dysfunction Signs/Symptoms: BUN 91, Cr 2.5, Glucose 180, POC 215 Malnutrition Alert Protein-Calorie Malnutrition N/A Is there a minimum of two criteria No selected? Query Text:Check all the applicable criteria. A minimum of two criteria are recommended for diagnosis of either severe or non-severe malnutrition. Intervention/Recommendation Comments 1. Monitor glucose and check a1c level. If glucose continue high, will consider adding CCHO diet for optimal glycemic control 2. Monitor PO intake, wt, labs and skin integrity 3. F/U as high risk in 2-3 days, 05/04-05/05 Expected Outcomes/Goals Expected Outcomes/Goals 1. PO intake to meet at least 75% of nutritional needs. 2. Wt stability, skin to remain intact, labs to approach WNL.
[2017-05-13] MEDS ORDERED: Epoetin Alfa 20000 Units/mL Vial SUBQ SCH (16:00)
[2017-05-14] MEDS: Albuterol/Ipratropium Neb 3 ML AERS HHN SCH ×4 (00:29→18:45)
[2017-05-14 07:02] LABS: % BASOPHILS 1.2 % (0.0-2.0); % EOSINOPHILS 6.5 % (0.0-5.0); % LYMPHOCYTES 19.1 % (20.0-50.0); % NEUTROPHILS 67.2 % (40.0-80.0); BASOPHILE ABSOLUTE 0.1 Th/cumm (0-0.2); EOSINOPHILE ABSOLUTE 0.6 Th/cmm (0.1-0.4); HEMATOCRIT 32.4 % (41.0-60); HEMOGLOBIN 10.9 gm/dL (12-16); LYMPHOCYTE ABSOLUTE 1.9 Th/cmm (1.5-3.0); MEAN CELL VOLUME 88.5 fl (80-99); MEAN CORPUSCULAR HEMOGLOBIN 29.7 pg (26.0-30.0); MEAN CORPUSCULAR HGB CONC 33.5 pg (28.0-36.0); MEAN PLATELET VOLUME 7.5 fl; MONOCYTE ABSOLUTE 0.6 Th/cmm (0.3-1.0); NEUTROPHILE ABSOLUTE 6.6 Th/cmm (1.8-8.0); PLATELET COUNT 420 Th/cmm (150-400); RED BLOOD COUNT 3.66 Mil/cmm (4.30-5.70); RED CELL DISTRIBUTION WIDTH 14.1 % (11.5-20.0); WHITE BLOOD COUNT 9.8 Th/cmm (4.8-10.8)
[2017-05-14 07:09] LABS: ALB/GLOB RATIO 0.5 (1.0-1.8); ALBUMIN 2.1 gm/dL (4.2-5.5); ANION GAP 9.4 (7.0-16.0); BILIRUBIN,TOTAL 0.2 mg/dL (0.3-1.0); CALCIUM SERUM 8.4 mg/dL (8.6-10.3); CARBON DIOXIDE 13.2 mEq/L (21.0-31.0); CREATININE - SERUM 1.6 mg/dL (0.7-1.3); GFR AFRICAN-AMERICAN 58.2 ml/min (>90); GFR NON AFRICAN-AMERICAN 48.1 ml/min; POTASSIUM SERUM 3.6 mEq/L (3.5-5.1); TOTAL PROTEIN,SERUM 6.1 gm/dL (6.0-8.3)
[2017-05-14] MEDS: POLYETHYLENE GLYCOL 3350 17 GM PACK PO SCH (09:15)
[2017-05-14] MEDS: Pantoprazole 40 mg EC Tab PO SCH (09:18)
--- NOTE | 2017-05-14 11:07 | General Progress Note ---
Subjective - Review of Systems Service Date: 05/14/17 Subjective: awake, confused, non verbal episode of tachycardia and SOB this morning now appears calm and comfortable Objective - Results Result Diagrams: 05/14/17 06:15 05/14/17 06:15 Recent Labs: Laboratory Last Values WBC 9.8 Th/cmm (4.8-10.8) 05/14/17 06:15 RBC 3.66 Mil/cmm (4.30-5.70) L 05/14/17 06:15 Hgb 10.9 gm/dL (12-16) L 05/14/17 06:15 Hct 32.4 % (41.0-60) L 05/14/17 06:15 MCV 88.5 fl (80-99) 05/14/17 06:15 MCH 29.7 pg (26.0-30.0) 05/14/17 06:15 MCHC Differential 33.5 pg (28.0-36.0) 05/14/17 06:15 RDW 14.1 % (11.5-20.0) 05/14/17 06:15 Plt Count 420 Th/cmm (150-400) H 05/14/17 06:15 MPV 7.5 fl 05/14/17 06:15 Neutrophils % 67.2 % (40.0-80.0) 05/14/17 06:15 Lymphocytes % 19.1 % (20.0-50.0) L 05/14/17 06:15 Monocytes % 6.0 % (2.0-10.0) 05/14/17 06:15 Eosinophils % 6.5 % (0.0-5.0) H 05/14/17 06:15 Basophils % 1.2 % (0.0-2.0) 05/14/17 06:15 Eos Smear Source URINE 05/11/17 12:30 Eos Smear Total Cells NONE SEEN (NONE SEEN) 05/11/17 12:30 PT 13.2 SECONDS (9.5-11.5) H 05/09/17 06:00 INR 1.25 (0.5-1.4) 05/09/17 06:00 PTT (Actin FS) 36.0 SECONDS (26.0-38.0) 05/09/17 06:00 Sodium 144 mEq/L (136-145) 05/14/17 06:15 Potassium 3.6 mEq/L (3.5-5.1) 05/14/17 06:15 Chloride 125 mEq/L (98-107) H 05/14/17 06:15 Carbon Dioxide 13.2 mEq/L (21.0-31.0) L 05/14/17 06:15 Anion Gap 9.4 (7.0-16.0) 05/14/17 06:15 BUN 28 mg/dL (7-25) H 05/14/17 06:15 Creatinine 1.6 mg/dL (0.7-1.3) H 05/14/17 06:15 Est GFR ( Amer) 58.2 ml/min (>90) 05/14/17 06:15 Est GFR (Non-Af Amer) 48.1 ml/min 05/14/17 06:15 BUN/Creatinine Ratio 17.5 05/14/17 06:15 Glucose 168 mg/dL (70-105) H 05/14/17 06:15 POC Glucose 215 MG/DL (70 - 105) H 05/02/17 01:25 Hemoglobin A1c % 5.6 % (4.0-6.0) 05/02/17 06:00 Calcium 8.4 mg/dL (8.6-10.3) L 05/14/17 06:15 Iron 21 ug/dL (38-169) L 05/03/17 05:20 TIBC 155 ug/dL (250-450) L 05/03/17 05:20 Iron Saturation 14 % (15-55) L 05/03/17 05:20 Unsaturated IBC 134 ug/dL (111-343) 05/03/17 05:20 Ferritin 488 ng/mL (30-400) H 05/03/17 05:20 Total Bilirubin 0.2 mg/dL (0.3-1.0) L 05/14/17 06:15 AST 14 U/L (13-39) 05/14/17 06:15 ALT 10 U/L (7-52) 05/14/17 06:15 Alkaline Phosphatase 98 U/L (34-104) 05/14/17 06:15 Total Protein 6.1 gm/dL (6.0-8.3) 05/14/17 06:15 Albumin 2.1 gm/dL (4.2-5.5) L 05/14/17 06:15 Globulin 4.0 gm/dL 05/14/17 06:15 Albumin/Globulin Ratio 0.5 (1.0-1.8) L 05/14/17 06:15 Lipase 24 U/L (11-82) 05/08/17 08:40 Vitamin B12 1438 pg/mL (232-1245) H 05/03/17 05:20 Folic Acid 13.3 ng/mL (>3.0) 05/03/17 05:20 Urine Source CATH 05/11/17 12:30 Urine Color YELLOW 05/11/17 12:30 Urine Clarity SLIGHTLY HAZY (CLEAR) 05/11/17 12:30 Urine pH 5.5 (4.6 - 8.0) 05/11/17 12:30 Ur Specific [place] >= 1.030 (1.005-1.030) 05/11/17 12:30 Urine Protein >=300 mg/dL (NEGATIVE) 05/11/17 12:30 Urine Glucose (UA) 100 mg/dL (NEGATIVE) H 05/11/17 12:30 Urine Ketones TRACE mg/dL (NEGATIVE) 05/11/17 12:30 Urine Blood MODERATE (NEGATIVE) H 05/11/17 12:30 Urine Nitrate NEGATIVE (NEGATIVE) 05/11/17 12:30 Urine Bilirubin NEGATIVE (NEGATIVE) 05/11/17 12:30 Urine Urobilinogen 0.2 E.U./dL (0.2 - 1.0) 05/11/17 12:30 Ur Leukocyte Esterase NEGATIVE (NEGATIVE) 05/11/17 12:30 Urine RBC 5-10 /hpf (0-5) H 05/11/17 12:30 Urine WBC 0-2 /hpf (0-5) 05/11/17 12:30 Ur Epithelial Cells RARE /lpf (FEW) 05/11/17 12:30 Amorphous Sediment MANY URATES (NONE SEEN) 05/11/17 12:30 Urine Bacteria FEW /hpf (NONE SEEN) 05/11/17 12:30 Stool Occult Blood NEGATIVE (NEGATIVE) 05/07/17 10:00 Vancomycin Trough 20.7 ug/mL (10-20) H 05/13/17 05:35 Random Vancomycin 23.5 ug/mL (5.0-40.0) 05/14/17 06:15 Blood Type O POSITIVE 05/02/17 09:20 Antibody Screen NEGATIVE 05/02/17 09:20 Crossmatch See Detail 05/02/17 09:20 - Physical Exam Vitals and I&O: Vital Signs Temp 97.9 F 05/14/17 08:00 Pulse 130 05/14/17 09:19 Resp 18 05/14/17 08:00 BP 177/84 05/14/17 09:19 Pulse Ox 95 05/14/17 08:00 Intake & Output 05/13/17 05/14/17 05/14/17 18:59 06:59 18:59 Intake Total 1610 530 50 Output Total 400 Balance 1610 130 50 Weight (lbs) 103.464 kg Intake: Intake, IV Amount 1610 50 50 D5-0.9%Ns 1,000 ml @ 100 1000 mls/hr IV .Q10H [facility] Rx#: [id number] Levetiracetam 500 mg In 210 Sodium Chloride 0.9% 100 ml @ 400 mls/hr IV BID [facility] Rx#:[id number] Piperacillin Sodium/ 150 50 50 Tazobact 3.375 gm In Sodium Chloride 0.9% 50 ml @ 100 mls/hr IV Q6HR [facility] Rx#:[id number] Vancomycin HCl 1 gm In 250 Sodium Chloride 0.9% 250 ml @ 165 mls/hr IV NOW [facility] Rx#:[id number] Tube Feeding 480 Output: Urine 400 Other: Stool Characteristics Soft Active Medications: Current Medications Acetaminophen (Tylenol) 500 mg PO Q6H PRN PRN Reason: Pain (Moderate) Stop: 07/01/17 02:48 Last Admin: 05/13/17 13:09 Dose: 500 mg Albuterol/Ipratropium (Duoneb Neb) 3 ml HHN Q6HRT [facility] Stop: 07/08/17 18:59 Last Admin: 05/14/17 07:05 Dose: 3 ml Amlodipine Besylate (Norvasc) 10 mg PO DAILY [facility] Stop: 07/04/17 08:59 Last Admin: 05/14/17 09:18 Dose: 10 mg Bisacodyl (Dulcolax 10 Mg Supp) 10 mg RC DAILY PRN PRN Reason: constipation Stop: 07/03/17 23:58 Last Admin: 05/05/17 00:20 Dose: 10 mg Carbamazepine (Tegretol) 200 mg PO TID CHARO PRN Reason: Protocol Stop: 07/01/17 08:59 Last Admin: 05/14/17 09:19 Dose: 200 mg Epoetin Ulisses (Epogen) 5,000 units SUBQ TuThSa@1600 [facility] Stop: 07/12/17 15:59 Last Admin: 05/13/17 16:22 Dose: 5,000 units Folic Acid (Folate) 1 mg PO DAILY [facility] Stop: 07/13/17 08:59 Last Admin: 05/14/17 09:19 Dose: 1 mg Furosemide (Lasix) 20 mg IVP X1 ONE Stop: 05/14/17 11:04 Hydralazine HCl (Apresoline) 50 mg PO QID [facility] Stop: 07/05/17 12:59 Last Admin: 05/14/17 09:19 Dose: 50 mg Hydralazine HCl (Apresoline 20 Mg/Ml) 10 mg IV Q6HR PRN PRN Reason: SBP ABOVE 160 Stop: 07/06/17 17:33 Last Admin: 05/14/17 07:41 Dose: 10 mg Piperacillin Sod/Tazobactam (Sod 3.375 gm/ Sodium Chloride) 50 mls @ 100 mls/ hr IV Q6HR [facility] Stop: 07/08/17 17:59 Last Infusion: 05/14/17 08:18 Dose: Infused Levetiracetam 500 mg/ Sodium (Chloride) 105 mls @ 400 mls/hr IV BID [facility] Stop: 07/10/17 08:59 Last Admin: 05/14/17 09:22 Dose: 400 mls/hr Sodium Bicarbonate 150 meq/ (Dextrose) 1,150 mls @ 50 mls/hr IV .Q23H [facility] Stop: 05/15/17 12:59 Last Admin: 05/13/17 17:38 Dose: 50 mls/hr Vancomycin HCl 1 gm/ Sodium (Chloride) 250 mls @ 165 mls/hr IV 1400 ONE Stop: 05/14/17 15:30 Lorazepam (Ativan) 0.5 mg IVP Q6HR PRN; Protocol PRN Reason: Agitation Stop: 07/07/17 16:10 Last Admin: 05/11/17 21:02 Dose: 0.5 mg Metoprolol Tartrate (Lopressor) 100 mg PO BID [facility] Stop: 07/01/17 08:59 Last Admin: 05/14/17 09:19 Dose: 100 mg Miscellaneous (Clinical Monitoring) 1 ea PRN PRN PRN Reason: RENAL Stop: 07/01/17 09:53 Miscellaneous (Vancomycin Iv Per Pharmacy) 1 ea PRN PRN PRN Reason: VANCOMYCIN PER RX Stop: 07/11/17 07:40 Ondansetron HCl (Zofran) 4 mg IV Q8H PRN PRN Reason: Nausea / Vomiting Stop: 07/09/17 12:20 Last Admin: 05/10/17 17:19 Dose: 4 mg Pantoprazole Sodium (Protonix) 40 mg PO DAILY [facility] Stop: 07/01/17 07:29 Last Admin: 05/14/17 09:18 Dose: 40 mg Pantoprazole Sodium (Protonix) 40 mg IVP DAILY [facility] Stop: 07/10/17 08:59 Last Admin: 05/14/17 09:15 Dose: 40 mg Polyethylene Glycol (Miralax) 17 gm PO DAILY [facility] Stop: 07/12/17 08:59 Last Admin: 05/14/17 09:15 Dose: 17 gm Senna (Senna) 8.6 mg PO DAILY [facility] Stop: 07/04/17 08:59 Last Admin: 05/14/17 09:18 Dose: 8.6 mg Sodium Bicarbonate (Sodium Bicarbonate) 650 mg PO BID [facility]O PRN Reason: Protocol Stop: 07/05/17 16:59 Last Admin: 05/14/17 09:19 Dose: 650 mg Temazepam (Restoril) 15 mg PO HS PRN; Protocol PRN Reason: Insomnia Stop: 07/03/17 23:57 Last Admin: 05/07/17 21:14 Dose: 15 mg General: No acute distress (confused. Has mittens on.) HEENT: Atraumatic Neck: Supple Cardiovascular: Regular rate, Normal S1, Normal S2 Lungs: Other (fine crackles bilat) Abdomen: Bowel sounds Extremities: Cyanosis - Procedures Procedures: Procedures Procedure Code Date BLOOD TRANSFUSION SERVICE 78396 05/01/17 DRAINAGE OF SKIN ABSCESS 52951 08/15/03 ELECTROCARDIOGRAM 89.52 01/27/00 ELECTROCARDIOGRAM COMPLETE 88882 01/27/00 INSERT NON-TUNNEL CV CATH 60912 12/13/03 MAGNETIC RESONANCE IMAGING OF BRAIN AND BRAIN STEM 88.91 01/27/00 MRI BRAIN STEM W/O DYE 46278 01/27/00 OTHER SKIN & SUBQ I D 86.04 08/15/03 TRANSFUSE NONAUT RED BLOOD CELLS IN PERIPH VEIN, PERC 38724H0 05/01/17 VENOUS CATHETERIZATION NEC 38.93 12/13/03 Assessment/Plan - Assessment Assessment: Anemia Acute renal failure Dementia CVA Seizure disorder s/p GT placement - Plan Plan: cont current treatment CXR Lasix Nutritional Asmnt/Malnutr-PDOC - Dietary Evaluation Malnutrition Findings (Please click <Entered> for more info): Nutritional Asmnt/Malnutrition Start: 05/02/17 15: 58 Text: Status: Complete Freq: Document 05/02/17 15:58 BERRY (Rec: 05/02/17 16:14 LCRUBIN [id number]) Nutritional Asmnt/Malnutrition Patient General Information Nutritional Screening High Risk Consult Diagnosis severe anemia, dehydration, CISCO Pertinent Medical Hx/Surgical Hx CVA, seizure disorder, dementia, psychosis, CKD Subjective Information Consult received for BS 215 at adm and wound. Pt seen lying in bed at time of visit, awake and alert at time of visit. Hard to understand pt. Pt said no when dietitian asked about food related questions. Per nurse notes, pt refused lunch althought RN and CERTIFIED MIDWIFE tried multiple times. Current Diet Order/ Nutrition Support Renal, mech soft chopped Pertinent Medications D5-0.45ns, protonix Pertinent Labs / Na 141, K 4.2, Cl 118, BUN 91, Cr 2.5, Glucose 180, POC 215, AST 11, Alb 2.5 Nutritional Hx/Data Height 1.57 m Height (Calculated Centimeters) 157.5 Current Weight (lbs) 78.018 kg Weight (Calculated Kilograms) 78.0 Weight (Calculated Grams) 39793.9 [place] Body Weight 118 Body Mass Index (BMI) 31.4 Weight Status Obese GI Symptoms GI Symptoms None Last BM none Difficult in: None Skin Integrity/Comment: per wound care note: Distal aspect of Gluteal Sulcus - Moisture lesion, present on admission. reddened to sacrum, potential skin problem to bilateral legs Estimated Nutritional Goals BEE in Kcals: Adj wt of IBW Calories/Kcals/Kg 25-30 Kcals Calculated 7746-7812 Protein: Adj wt of IBW Protein g/k-1.2 Protein Calculated 60-72 Fluid: ml 1500-1800ml (1ml/kcal) or per MD Nutritional Problem 1. Problem Problem altered nutrition related lab values Etiology hx of CKD, dx of CISCO, endocrine dysfunction Signs/Symptoms: BUN 91, Cr 2.5, Glucose 180, POC 215 Malnutrition Alert Protein-Calorie Malnutrition N/A Is there a minimum of two criteria No selected? Query Text:Check all the applicable criteria. A minimum of two criteria are recommended for diagnosis of either severe or non-severe malnutrition. Intervention/Recommendation Comments 1. Monitor glucose and check a1c level. If glucose continue high, will consider adding CCHO diet for optimal glycemic control 2. Monitor PO intake, wt, labs and skin integrity 3. F/U as high risk in 2-3 days, 05/04-05/05 Expected Outcomes/Goals Expected Outcomes/Goals 1. PO intake to meet at least 75% of nutritional needs. 2. Wt stability, skin to remain intact, labs to approach WNL.
--- NOTE | 2017-05-14 11:51 | GI Progress Note ---
Subjective - Review of Systems Service Date: 05/14/17 Subjective: Tolerating G tube feeds at 40cc/hr Objective - Results Result Diagrams: 05/14/17 06:15 05/14/17 06:15 Recent Labs: Laboratory Last Values WBC 9.8 Th/cmm (4.8-10.8) 05/14/17 06:15 RBC 3.66 Mil/cmm (4.30-5.70) L 05/14/17 06:15 Hgb 10.9 gm/dL (12-16) L 05/14/17 06:15 Hct 32.4 % (41.0-60) L 05/14/17 06:15 MCV 88.5 fl (80-99) 05/14/17 06:15 MCH 29.7 pg (26.0-30.0) 05/14/17 06:15 MCHC Differential 33.5 pg (28.0-36.0) 05/14/17 06:15 RDW 14.1 % (11.5-20.0) 05/14/17 06:15 Plt Count 420 Th/cmm (150-400) H 05/14/17 06:15 MPV 7.5 fl 05/14/17 06:15 Neutrophils % 67.2 % (40.0-80.0) 05/14/17 06:15 Lymphocytes % 19.1 % (20.0-50.0) L 05/14/17 06:15 Monocytes % 6.0 % (2.0-10.0) 05/14/17 06:15 Eosinophils % 6.5 % (0.0-5.0) H 05/14/17 06:15 Basophils % 1.2 % (0.0-2.0) 05/14/17 06:15 Eos Smear Source URINE 05/11/17 12:30 Eos Smear Total Cells NONE SEEN (NONE SEEN) 05/11/17 12:30 PT 13.2 SECONDS (9.5-11.5) H 05/09/17 06:00 INR 1.25 (0.5-1.4) 05/09/17 06:00 PTT (Actin FS) 36.0 SECONDS (26.0-38.0) 05/09/17 06:00 Sodium 144 mEq/L (136-145) 03/18/18 06:15 Potassium 3.6 mEq/L (3.5-5.1) 05/14/17 06:15 Chloride 125 mEq/L (98-107) H 05/14/17 06:15 Carbon Dioxide 13.2 mEq/L (21.0-31.0) L 05/14/17 06:15 Anion Gap 9.4 (7.0-16.0) 05/14/17 06:15 BUN 28 mg/dL (7-25) H 05/14/17 06:15 Creatinine 1.6 mg/dL (0.7-1.3) H 05/14/17 06:15 Est GFR ( Amer) 58.2 ml/min (>90) 05/14/17 06:15 Est GFR (Non-Af Amer) 48.1 ml/min 05/14/17 06:15 BUN/Creatinine Ratio 17.5 05/14/17 06:15 Glucose 168 mg/dL (70-105) H 05/14/17 06:15 POC Glucose 215 MG/DL (70 - 105) H 05/02/17 01:25 Hemoglobin A1c % 5.6 % (4.0-6.0) 05/02/17 06:00 Calcium 8.4 mg/dL (8.6-10.3) L 05/14/17 06:15 Iron 21 ug/dL (38-169) L 05/03/17 05:20 TIBC 155 ug/dL (250-450) L 05/03/17 05:20 Iron Saturation 14 % (15-55) L 05/03/17 05:20 Unsaturated IBC 134 ug/dL (111-343) 05/03/17 05:20 Ferritin 488 ng/mL (30-400) H 05/03/17 05:20 Total Bilirubin 0.2 mg/dL (0.3-1.0) L 05/14/17 06:15 AST 14 U/L (13-39) 05/14/17 06:15 ALT 10 U/L (7-52) 05/14/17 06:15 Alkaline Phosphatase 98 U/L (34-104) 05/14/17 06:15 Total Protein 6.1 gm/dL (6.0-8.3) 05/14/17 06:15 Albumin 2.1 gm/dL (4.2-5.5) L 05/14/17 06:15 Globulin 4.0 gm/dL 05/14/17 06:15 Albumin/Globulin Ratio 0.5 (1.0-1.8) L 05/14/17 06:15 Lipase 24 U/L (11-82) 05/08/17 08:40 Vitamin B12 1438 pg/mL (232-1245) H 05/03/17 05:20 Folic Acid 13.3 ng/mL (>3.0) 05/03/17 05:20 Urine Source CATH 05/11/17 12:30 Urine Color YELLOW 05/11/17 12:30 Urine Clarity SLIGHTLY HAZY (CLEAR) 05/11/17 12:30 Urine pH 5.5 (4.6 - 8.0) 05/11/17 12:30 Ur Specific [place] >= 1.030 (1.005-1.030) 05/11/17 12:30 Urine Protein >=300 mg/dL (NEGATIVE) 05/11/17 12:30 Urine Glucose (UA) 100 mg/dL (NEGATIVE) H 05/11/17 12:30 Urine Ketones TRACE mg/dL (NEGATIVE) 05/11/17 12:30 Urine Blood MODERATE (NEGATIVE) H 05/11/17 12:30 Urine Nitrate NEGATIVE (NEGATIVE) 05/11/17 12:30 Urine Bilirubin NEGATIVE (NEGATIVE) 05/11/17 12:30 Urine Urobilinogen 0.2 E.U./dL (0.2 - 1.0) 05/11/17 12:30 Ur Leukocyte Esterase NEGATIVE (NEGATIVE) 05/11/17 12:30 Urine RBC 5-10 /hpf (0-5) H 05/11/17 12:30 Urine WBC 0-2 /hpf (0-5) 05/11/17 12:30 Ur Epithelial Cells RARE /lpf (FEW) 05/11/17 12:30 Amorphous Sediment MANY URATES (NONE SEEN) 05/11/17 12:30 Urine Bacteria FEW /hpf (NONE SEEN) 05/11/17 12:30 Stool Occult Blood NEGATIVE (NEGATIVE) 05/07/17 10:00 Vancomycin Trough 20.7 ug/mL (10-20) H 05/13/17 05:35 Random Vancomycin 23.5 ug/mL (5.0-40.0) 05/14/17 06:15 Blood Type O POSITIVE 05/02/17 09:20 Antibody Screen NEGATIVE 05/02/17 09:20 Crossmatch See Detail 05/02/17 09:20 - Physical Exam Vitals and I&O: Vital Signs Temp 97.9 F 05/14/17 08:00 Pulse 130 05/14/17 09:19 Resp 18 05/14/17 08:00 BP 146/73 05/14/17 11:45 Pulse Ox 95 05/14/17 08:00 Intake & Output 05/13/17 05/14/17 05/14/17 18:59 06:59 18:59 Intake Total 1610 530 155 Output Total 400 Balance 1610 130 155 Weight (lbs) 103.464 kg Intake: Intake, IV Amount 1610 50 155 D5-0.9%Ns 1,000 ml @ 100 1000 mls/hr IV .Q10H [facility] Rx#: [id number] Levetiracetam 500 mg In 210 105 Sodium Chloride 0.9% 100 ml @ 400 mls/hr IV BID [facility] Rx#:[id number] Piperacillin Sodium/ 150 50 50 Tazobact 3.375 gm In Sodium Chloride 0.9% 50 ml @ 100 mls/hr IV Q6HR [facility] Rx#:[id number] Vancomycin HCl 1 gm In 250 Sodium Chloride 0.9% 250 ml @ 165 mls/hr IV NOW [facility] Rx#:[id number] Tube Feeding 480 Output: Urine 400 Other: Stool Characteristics Soft Active Medications: Current Medications Acetaminophen (Tylenol) 500 mg PO Q6H PRN PRN Reason: Pain (Moderate) Stop: 07/01/17 02:48 Last Admin: 05/13/17 13:09 Dose: 500 mg Albuterol/Ipratropium (Duoneb Neb) 3 ml HHN Q6HRT [facility] Stop: 07/08/17 18:59 Last Admin: 05/14/17 07:05 Dose: 3 ml Amlodipine Besylate (Norvasc) 10 mg PO DAILY [facility] Stop: 07/04/17 08:59 Last Admin: 05/14/17 09:18 Dose: 10 mg Bisacodyl (Dulcolax 10 Mg Supp) 10 mg RC DAILY PRN PRN Reason: constipation Stop: 07/03/17 23:58 Last Admin: 05/05/17 00:20 Dose: 10 mg Carbamazepine (Tegretol) 200 mg PO TID CHARO PRN Reason: Protocol Stop: 07/01/17 08:59 Last Admin: 05/14/17 09:19 Dose: 200 mg Epoetin Ulisses (Epogen) 5,000 units SUBQ TuThSa@1600 [facility] Stop: 07/12/17 15:59 Last Admin: 05/13/17 16:22 Dose: 5,000 units Folic Acid (Folate) 1 mg PO DAILY [facility] Stop: 07/13/17 08:59 Last Admin: 05/14/17 09:19 Dose: 1 mg Hydralazine HCl (Apresoline) 50 mg PO QID [facility] Stop: 07/05/17 12:59 Last Admin: 05/14/17 09:19 Dose: 50 mg Hydralazine HCl (Apresoline 20 Mg/Ml) 10 mg IV Q6HR PRN PRN Reason: SBP ABOVE 160 Stop: 07/06/17 17:33 Last Admin: 05/14/17 07:41 Dose: 10 mg Piperacillin Sod/Tazobactam (Sod 3.375 gm/ Sodium Chloride) 50 mls @ 100 mls/ hr IV Q6HR [facility] Stop: 07/08/17 17:59 Last Admin: 05/14/17 11:23 Dose: 100 mls/hr Levetiracetam 500 mg/ Sodium (Chloride) 105 mls @ 400 mls/hr IV BID [facility] Stop: 07/10/17 08:59 Last Infusion: 05/14/17 09:40 Dose: Infused Sodium Bicarbonate 150 meq/ (Dextrose) 1,150 mls @ 50 mls/hr IV .Q23H [facility] Stop: 05/15/17 12:59 Last Admin: 05/13/17 17:38 Dose: 50 mls/hr Vancomycin HCl 1 gm/ Sodium (Chloride) 250 mls @ 165 mls/hr IV 1400 ONE Stop: 05/14/17 15:30 Lorazepam (Ativan) 0.5 mg IVP Q6HR PRN; Protocol PRN Reason: Agitation Stop: 07/07/17 16:10 Last Admin: 05/11/17 21:02 Dose: 0.5 mg Metoprolol Tartrate (Lopressor) 100 mg PO BID [facility] Stop: 07/01/17 08:59 Last Admin: 03/18/18 09:19 Dose: 100 mg Miscellaneous (Clinical Monitoring) 1 ea [facility] PRN PRN PRN Reason: RENAL Stop: 07/01/17 09:53 Miscellaneous (Vancomycin Iv Per Pharmacy) 1 ea [facility] PRN PRN PRN Reason: VANCOMYCIN PER RX Stop: 07/11/17 07:40 Ondansetron HCl (Zofran) 4 mg IV Q8H PRN PRN Reason: Nausea / Vomiting Stop: 07/09/17 12:20 Last Admin: 05/10/17 17:19 Dose: 4 mg Pantoprazole Sodium (Protonix) 40 mg PO DAILY [facility] Stop: 07/01/17 07:29 Last Admin: 05/14/17 09:18 Dose: 40 mg Pantoprazole Sodium (Protonix) 40 mg IVP DAILY [facility] Stop: 07/10/17 08:59 Last Admin: 05/14/17 09:15 Dose: 40 mg Polyethylene Glycol (Miralax) 17 gm PO DAILY [facility] Stop: 07/12/17 08:59 Last Admin: 05/14/17 09:15 Dose: 17 gm Senna (Senna) 8.6 mg PO DAILY [facility] Stop: 07/04/17 08:59 Last Admin: 05/14/17 09:18 Dose: 8.6 mg Sodium Bicarbonate (Sodium Bicarbonate) 650 mg PO BID [facility] PRN Reason: Protocol Stop: 07/05/17 16:59 Last Admin: 05/14/17 09:19 Dose: 650 mg Temazepam (Restoril) 15 mg PO HS PRN; Protocol PRN Reason: Insomnia Stop: 07/03/17 23:57 Last Admin: 05/07/17 21:14 Dose: 15 mg General: No acute distress (confused. Has mittens on.) HEENT: Atraumatic Neck: Supple Cardiovascular: Regular rate, Normal S1, Normal S2 Lungs: Other (fine crackles bilat) Abdomen: Bowel sounds Extremities: Cyanosis - Procedures Procedures: Procedures Procedure Code Date BLOOD TRANSFUSION SERVICE 02697 05/01/17 DRAINAGE OF SKIN ABSCESS 37173 08/15/03 ELECTROCARDIOGRAM 89.52 01/27/00 ELECTROCARDIOGRAM COMPLETE 33174 01/27/00 INSERT NON-TUNNEL CV CATH 33980 12/13/03 MAGNETIC RESONANCE IMAGING OF BRAIN AND BRAIN STEM 88.91 01/27/00 MRI BRAIN STEM W/O DYE 15012 11/30/00 OTHER SKIN & SUBQ I D 86.04 08/15/03 TRANSFUSE NONAUT RED BLOOD CELLS IN PERIPH VEIN, PERC 57028W3 05/01/17 VENOUS CATHETERIZATION NEC 38.93 12/13/03 Assessment/Plan - Assessment Assessment: 56 YO MALE WITH ABD PAIN AND N/V LFTS AND LIPASE NORMAL HAS ANEMIA LIKELY CHRONIC DZ STOOL OB NEG EGD SHOWED HIATAL HERNIA AND GASTRITIS CT SHOWED PERINEPHRIC STRANDING AND PLEURAL EFFUSION PEG placed on 05/12 given failure to thrive. 1. Cont tube feeds. Hold for residuals > 100cc 2.CONT SUPP CARE 3.CONT PROTONIX AND ADD ZOFRAN 4. Has some incisional site pain, expected to improve to baseline 5. Bowel regimen GI to see as needed, please call with questions
--- NOTE | 2017-05-14 15:35 | General Progress Note ---
Subjective - Review of Systems Service Date: 05/14/17 Events since last encounter: No new events Objective - Results Result Diagrams: 05/14/17 06:15 05/14/17 06:15 Recent Labs: Laboratory Last Values WBC 9.8 Th/cmm (4.8-10.8) 05/14/17 06:15 RBC 3.66 Mil/cmm (4.30-5.70) L 05/14/17 06:15 Hgb 10.9 gm/dL (12-16) L 05/14/17 06:15 Hct 32.4 % (41.0-60) L 05/14/17 06:15 MCV 88.5 fl (80-99) 05/14/17 06:15 MCH 29.7 pg (26.0-30.0) 05/14/17 06:15 MCHC Differential 33.5 pg (28.0-36.0) 05/14/17 06:15 RDW 14.1 % (11.5-20.0) 05/14/17 06:15 Plt Count 420 Th/cmm (150-400) H 05/14/17 06:15 MPV 7.5 fl 05/14/17 06:15 Neutrophils % 67.2 % (40.0-80.0) 05/14/17 06:15 Lymphocytes % 19.1 % (20.0-50.0) L 05/14/17 06:15 Monocytes % 6.0 % (2.0-10.0) 05/14/17 06:15 Eosinophils % 6.5 % (0.0-5.0) H 05/14/17 06:15 Basophils % 1.2 % (0.0-2.0) 05/14/17 06:15 Eos Smear Source URINE 05/11/17 12:30 Eos Smear Total Cells NONE SEEN (NONE SEEN) 05/11/17 12:30 PT 13.2 SECONDS (9.5-11.5) H 05/09/17 06:00 INR 1.25 (0.5-1.4) 05/09/17 06:00 PTT (Actin FS) 36.0 SECONDS (26.0-38.0) 05/09/17 06:00 Sodium 144 mEq/L (136-145) 05/14/17 06:15 Potassium 3.6 mEq/L (3.5-5.1) 05/14/17 06:15 Chloride 125 mEq/L (98-107) H 05/14/17 06:15 Carbon Dioxide 13.2 mEq/L (21.0-31.0) L 05/14/17 06:15 Anion Gap 9.4 (7.0-16.0) 05/14/17 06:15 BUN 28 mg/dL (7-25) H 05/14/17 06:15 Creatinine 1.6 mg/dL (0.7-1.3) H 05/14/17 06:15 Est GFR ( Amer) 58.2 ml/min (>90) 05/14/17 06:15 Est GFR (Non-Af Amer) 48.1 ml/min 05/14/17 06:15 BUN/Creatinine Ratio 17.5 05/14/17 06:15 Glucose 168 mg/dL (70-105) H 05/14/17 06:15 POC Glucose 215 MG/DL (70 - 105) H 05/02/17 01:25 Hemoglobin A1c % 5.6 % (4.0-6.0) 05/02/17 06:00 Calcium 8.4 mg/dL (8.6-10.3) L 05/14/17 06:15 Iron 21 ug/dL (38-169) L 05/03/17 05:20 TIBC 155 ug/dL (250-450) L 05/03/17 05:20 Iron Saturation 14 % (15-55) L 05/03/17 05:20 Unsaturated IBC 134 ug/dL (111-343) 05/03/17 05:20 Ferritin 488 ng/mL (30-400) H 05/03/17 05:20 Total Bilirubin 0.2 mg/dL (0.3-1.0) L 05/14/17 06:15 AST 14 U/L (13-39) 05/14/17 06:15 ALT 10 U/L (7-52) 05/14/17 06:15 Alkaline Phosphatase 98 U/L (34-104) 05/14/17 06:15 Total Protein 6.1 gm/dL (6.0-8.3) 05/14/17 06:15 Albumin 2.1 gm/dL (4.2-5.5) L 05/14/17 06:15 Globulin 4.0 gm/dL 05/14/17 06:15 Albumin/Globulin Ratio 0.5 (1.0-1.8) L 05/14/17 06:15 Lipase 24 U/L (11-82) 05/08/17 08:40 Vitamin B12 1438 pg/mL (232-1245) H 05/03/17 05:20 Folic Acid 13.3 ng/mL (>3.0) 05/03/17 05:20 Urine Source CATH 05/11/17 12:30 Urine Color YELLOW 05/11/17 12:30 Urine Clarity SLIGHTLY HAZY (CLEAR) 05/11/17 12:30 Urine pH 5.5 (4.6 - 8.0) 05/11/17 12:30 Ur Specific [place] >= 1.030 (1.005-1.030) 05/11/17 12:30 Urine Protein >=300 mg/dL (NEGATIVE) 05/11/17 12:30 Urine Glucose (UA) 100 mg/dL (NEGATIVE) H 05/11/17 12:30 Urine Ketones TRACE mg/dL (NEGATIVE) 05/11/17 12:30 Urine Blood MODERATE (NEGATIVE) H 05/11/17 12:30 Urine Nitrate NEGATIVE (NEGATIVE) 05/11/17 12:30 Urine Bilirubin NEGATIVE (NEGATIVE) 05/11/17 12:30 Urine Urobilinogen 0.2 E.U./dL (0.2 - 1.0) 05/11/17 12:30 Ur Leukocyte Esterase NEGATIVE (NEGATIVE) 05/11/17 12:30 Urine RBC 5-10 /hpf (0-5) H 05/11/17 12:30 Urine WBC 0-2 /hpf (0-5) 05/11/17 12:30 Ur Epithelial Cells RARE /lpf (FEW) 05/11/17 12:30 Amorphous Sediment MANY URATES (NONE SEEN) 05/11/17 12:30 Urine Bacteria FEW /hpf (NONE SEEN) 05/11/17 12:30 Stool Occult Blood NEGATIVE (NEGATIVE) 05/07/17 10:00 Vancomycin Trough 20.7 ug/mL (10-20) H 05/13/17 05:35 Random Vancomycin 23.5 ug/mL (5.0-40.0) 05/14/17 06:15 Blood Type O POSITIVE 05/02/17 09:20 Antibody Screen NEGATIVE 05/02/17 09:20 Crossmatch See Detail 05/02/17 09:20 - Physical Exam Vitals and I&O: Vital Signs Temp 97.5 F 05/14/17 12:00 Pulse 84 05/14/17 14:07 Resp 19 05/14/17 12:15 BP 146/73 05/14/17 14:07 Pulse Ox 98 05/14/17 12:15 Intake & Output 05/13/17 05/14/17 05/14/17 18:59 06:59 18:59 Intake Total 1610 530 155 Output Total 400 Balance 1610 130 155 Weight (lbs) 103.464 kg Intake: Intake, IV Amount 1610 50 155 D5-0.9%Ns 1,000 ml @ 100 1000 mls/hr IV .Q10H [facility] Rx#: [id number] Levetiracetam 500 mg In 210 105 Sodium Chloride 0.9% 100 ml @ 400 mls/hr IV BID [facility] Rx#:[id number] Piperacillin Sodium/ 150 50 50 Tazobact 3.375 gm In Sodium Chloride 0.9% 50 ml @ 100 mls/hr IV Q6HR [facility] Rx#:[id number] Vancomycin HCl 1 gm In 250 Sodium Chloride 0.9% 250 ml @ 165 mls/hr IV NOW [facility] Rx#:[id number] Tube Feeding 480 Output: Urine 400 Other: Stool Characteristics Soft Active Medications: Current Medications Acetaminophen (Tylenol) 500 mg PO Q6H PRN PRN Reason: Pain (Moderate) Stop: 07/01/17 02:48 Last Admin: 05/13/17 13:09 Dose: 500 mg Albuterol/Ipratropium (Duoneb Neb) 3 ml HHN Q6HRT [facility] Stop: 07/08/17 18:59 Last Admin: 05/14/17 12:15 Dose: 3 ml Amlodipine Besylate (Norvasc) 10 mg PO DAILY [facility] Stop: 07/04/17 08:59 Last Admin: 05/14/17 09:18 Dose: 10 mg Bisacodyl (Dulcolax 10 Mg Supp) 10 mg RC DAILY PRN PRN Reason: constipation Stop: 07/03/17 23:58 Last Admin: 05/05/17 00:20 Dose: 10 mg Carbamazepine (Tegretol) 200 mg PO TID [facility]O PRN Reason: Protocol Stop: 07/01/17 08:59 Last Admin: 05/14/17 14:07 Dose: 200 mg Epoetin Ulisses (Epogen) 5,000 units SUBQ TuThSa@1600 [facility] Stop: 07/12/17 15:59 Last Admin: 05/13/17 16:22 Dose: 5,000 units Folic Acid (Folate) 1 mg PO DAILY [facility] Stop: 07/13/17 08:59 Last Admin: 05/14/17 09:19 Dose: 1 mg Hydralazine HCl (Apresoline) 50 mg PO QID [facility] Stop: 07/05/17 12:59 Last Admin: 05/14/17 14:07 Dose: 50 mg Hydralazine HCl (Apresoline 20 Mg/Ml) 10 mg IV Q6HR PRN PRN Reason: SBP ABOVE 160 Stop: 07/06/17 17:33 Last Admin: 05/14/17 07:41 Dose: 10 mg Piperacillin Sod/Tazobactam (Sod 3.375 gm/ Sodium Chloride) 50 mls @ 100 mls/ hr IV Q6HR [facility] Stop: 07/08/17 17:59 Last Admin: 05/14/17 11:23 Dose: 100 mls/hr Levetiracetam 500 mg/ Sodium (Chloride) 105 mls @ 400 mls/hr IV BID [facility] Stop: 07/10/17 08:59 Last Infusion: 05/14/17 09:40 Dose: Infused Sodium Bicarbonate 150 meq/ (Dextrose) 1,150 mls @ 50 mls/hr IV .Q23H [facility] Stop: 05/15/17 12:59 Last Admin: 05/13/17 17:38 Dose: 50 mls/hr Lorazepam (Ativan) 0.5 mg IVP Q6HR PRN; Protocol PRN Reason: Agitation Stop: 07/07/17 16:10 Last Admin: 05/11/17 21:02 Dose: 0.5 mg Metoprolol Tartrate (Lopressor) 100 mg PO BID [facility] Stop: 07/01/17 08:59 Last Admin: 05/14/17 09:19 Dose: 100 mg Miscellaneous (Clinical Monitoring) 1 ea MC PRN PRN PRN Reason: RENAL Stop: 07/01/17 09:53 Miscellaneous (Vancomycin Iv Per Pharmacy) 1 ea MC PRN PRN PRN Reason: VANCOMYCIN PER RX Stop: 07/11/17 07:40 Ondansetron HCl (Zofran) 4 mg IV Q8H PRN PRN Reason: Nausea / Vomiting Stop: 07/09/17 12:20 Last Admin: 05/10/17 17:19 Dose: 4 mg Pantoprazole Sodium (Protonix) 40 mg PO DAILY [facility] Stop: 07/01/17 07:29 Last Admin: 05/14/17 09:18 Dose: 40 mg Pantoprazole Sodium (Protonix) 40 mg IVP DAILY [facility] Stop: 07/10/17 08:59 Last Admin: 05/14/17 09:15 Dose: 40 mg Polyethylene Glycol (Miralax) 17 gm PO DAILY [facility] Stop: 07/12/17 08:59 Last Admin: 05/14/17 09:15 Dose: 17 gm Senna (Senna) 8.6 mg PO DAILY [facility] Stop: 07/04/17 08:59 Last Admin: 05/14/17 09:18 Dose: 8.6 mg Sodium Bicarbonate (Sodium Bicarbonate) 650 mg PO BID [facility] PRN Reason: Protocol Stop: 07/05/17 16:59 Last Admin: 05/14/17 09:19 Dose: 650 mg Temazepam (Restoril) 15 mg PO HS PRN; Protocol PRN Reason: Insomnia Stop: 07/03/17 23:57 Last Admin: 05/07/17 21:14 Dose: 15 mg General: No acute distress (confused. Has mittens on.) HEENT: Atraumatic Neck: Supple Cardiovascular: Regular rate, Normal S1, Normal S2 Lungs: Other (fine crackles bilat) Abdomen: Bowel sounds Extremities: Cyanosis - Procedures Procedures: Procedures Procedure Code Date BLOOD TRANSFUSION SERVICE 16126 05/01/17 DRAINAGE OF SKIN ABSCESS 05870 08/15/03 ELECTROCARDIOGRAM 89.52 01/27/00 ELECTROCARDIOGRAM COMPLETE 23576 01/27/00 INSERT NON-TUNNEL CV CATH 92982 12/13/03 MAGNETIC RESONANCE IMAGING OF BRAIN AND BRAIN STEM 88.91 01/27/00 MRI BRAIN STEM W/O DYE 43771 01/27/00 OTHER SKIN & SUBQ I D 86.04 08/15/03 TRANSFUSE NONAUT RED BLOOD CELLS IN PERIPH VEIN, PERC 37760S1 05/01/17 VENOUS CATHETERIZATION NEC 38.93 10/16/04 Assessment/Plan - Assessment Assessment: ACUTE ANEMIA ACUTE RENAL FAILURE SECONDARY TO ATN SECONDARY TO SEVERE ANEMIA ACUTE TUBULAR NECROSIS CVA SEIZURE PSYCHOSIS DEMENTIA S/P PEG Acidosis - Plan Plan: - Plan Plan: BP NEEDS BETTER CONTROL RENAL FUNCTION IMPROVING HGB stable Still acidotic but improving. On NaHCO3 IV. start IVF pt wbc up creat slowly improving on vanco and zosyn Nutritional Asmnt/Malnutr-PDOC - Dietary Evaluation Malnutrition Findings (Please click <Entered> for more info): Nutritional Asmnt/Malnutrition Start: 05/02/17 15: 58 Text: Status: Complete Freq: Document 05/02/17 15:58 HEN (Rec: 05/02/17 16:14 LCHENG [id number]) Nutritional Asmnt/Malnutrition Patient General Information Nutritional Screening High Risk Consult Diagnosis severe anemia, dehydration, CISCO Pertinent Medical Hx/Surgical Hx CVA, seizure disorder, dementia, psychosis, CKD Subjective Information Consult received for BS 215 at adm and wound. Pt seen lying in bed at time of visit, awake and alert at time of visit. Hard to understand pt. Pt said no when dietitian asked about food related questions. Per nurse notes, pt refused lunch althought RN and [employer] tried multiple times. Current Diet Order/ Nutrition Support Renal, mech soft chopped Pertinent Medications D5-0.45ns, protonix Pertinent Labs 05/02 Na 141, K 4.2, Cl 118, BUN 91, Cr 2.5, Glucose 180, POC 215, AST 11, Alb 2.5 Nutritional Hx/Data Height 1.57 m Height (Calculated Centimeters) 157.5 Current Weight (lbs) 78.018 kg Weight (Calculated Kilograms) 78.0 Weight (Calculated Grams) 01722.9 [place] Body Weight 118 Body Mass Index (BMI) 31.4 Weight Status Obese GI Symptoms GI Symptoms None Last BM none Difficult in: None Skin Integrity/Comment: per wound care note: Distal aspect of Gluteal Sulcus - Moisture lesion, present on admission. reddened to sacrum, potential skin problem to bilateral legs Estimated Nutritional Goals BEE in Kcals: Adj wt of IBW Calories/Kcals/Kg 25-30 Kcals Calculated 9796-9676 Protein: Adj wt of IBW Protein g/k-1.2 Protein Calculated 60-72 Fluid: ml 1500-1800ml (1ml/kcal) or per MD Nutritional Problem 1. Problem Problem altered nutrition related lab values Etiology hx of CKD, dx of CISCO, endocrine dysfunction Signs/Symptoms: BUN 91, Cr 2.5, Glucose 180, POC 215 Malnutrition Alert Protein-Calorie Malnutrition N/A Is there a minimum of two criteria No selected? Query Text:Check all the applicable criteria. A minimum of two criteria are recommended for diagnosis of either severe or non-severe malnutrition. Intervention/Recommendation Comments 1. Monitor glucose and check a1c level. If glucose continue high, will consider adding CCHO diet for optimal glycemic control 2. Monitor PO intake, wt, labs and skin integrity 3. F/U as high risk in 2-3 days, 05/04-05/05 Expected Outcomes/Goals Expected Outcomes/Goals 1. PO intake to meet at least 75% of nutritional needs. 2. Wt stability, skin to remain intact, labs to approach WNL.
--- NOTE | 2017-05-15 00:44 | Progress Notes ---
DATE: 05/14/2017 UROLOGY FOLLOWUP SUBJECTIVE: The patient is improved. Excellent urine output with the Canela and improving renal function and stable anemia. His blood pressure was quite high this morning, requiring additional treatment and Lasix. G-tube feeding tolerated at 40 mL per hour without difficulty. OBJECTIVE: VITAL SIGNS: Last temperature 97.5, heart rate 110 and blood pressure 168/91. ABDOMEN: Soft, nontender and nondistended. No masses. EXTREMITIES: No edema. GENITOURINARY: Canela catheter, no blood. CARDIOVASCULAR: Heart sounds, sinus rhythm. No murmur. LABORATORY DATA: White count 9.8, improved; hemoglobin 10.89 stable. Sodium 144, potassium 3.6, chloride remains elevated to 125, BUN 28, creatinine down to 1.6; the lowest it has been so far. Glucose 168 and 143. Blood cultures negative. MRSA also negative. Urine culture, no growth. IMPRESSION: 1. Cystitis and possible pyelonephritis by Radiology appearance, but no significant clinical correlation or white count elevation to support it. Cultures are also negative. This has improved with the Canela catheter. 2. Renal insufficiency has also improved with the Canela. 3. Seizure disorders, none for the last 2 days. 4. Borderline diabetes, seems to be stable with adequate glucose levels. 5. Hypertension, not very well controlled with sporadic high numbers. 6. Past history of stroke and dementia and mental retardation, no significant change. JOB# [id number]
[2017-05-15] MEDS: Albuterol/Ipratropium Neb 3 ML AERS HHN SCH ×4 (01:27→19:02)
[2017-05-15 06:07] LABS: % BASOPHILS 1.6 % (0.0-2.0); % EOSINOPHILS 6.5 % (0.0-5.0); % LYMPHOCYTES 18.2 % (20.0-50.0); % MONOCYTES 6.5 % (2.0-10.0); % NEUTROPHILS 67.2 % (40.0-80.0); BASOPHILE ABSOLUTE 0.2 Th/cumm (0-0.2); EOSINOPHILE ABSOLUTE 0.6 Th/cmm (0.1-0.4); HEMATOCRIT 30.7 % (41.0-60); LYMPHOCYTE ABSOLUTE 1.7 Th/cmm (1.5-3.0); MEAN CELL VOLUME 88.2 fl (80-99); MEAN CORPUSCULAR HEMOGLOBIN 28.9 pg (26.0-30.0); MEAN CORPUSCULAR HGB CONC 32.7 pg (28.0-36.0); MEAN PLATELET VOLUME 7.5 fl; MONOCYTE ABSOLUTE 0.6 Th/cmm (0.3-1.0); NEUTROPHILE ABSOLUTE 6.4 Th/cmm (1.8-8.0); PLATELET COUNT 395 Th/cmm (150-400); RED BLOOD COUNT 3.48 Mil/cmm (4.30-5.70); RED CELL DISTRIBUTION WIDTH 14.2 % (11.5-20.0); WHITE BLOOD COUNT 9.5 Th/cmm (4.8-10.8)
[2017-05-15 06:11] LABS: ANION GAP 9.9 (7.0-16.0); CALCIUM SERUM 8.5 mg/dL (8.6-10.3); CARBON DIOXIDE 16.7 mEq/L (21.0-31.0); CREATININE - SERUM 1.6 mg/dL (0.7-1.3); GFR AFRICAN-AMERICAN 58.2 ml/min (>90); GFR NON AFRICAN-AMERICAN 48.1 ml/min; POTASSIUM SERUM 3.6 mEq/L (3.5-5.1)
[2017-05-15] MEDS: Pantoprazole 40 mg EC Tab PO SCH (09:10)
[2017-05-15] MEDS: POLYETHYLENE GLYCOL 3350 17 GM PACK PO SCH (09:11)
--- NOTE | 2017-05-15 15:16 | General Progress Note ---
Subjective - Review of Systems Subjective: pt seen and examined pt confused s/p PEG Objective - Results Result Diagrams: 05/15/17 05:45 05/15/17 05:45 Recent Labs: Laboratory Last Values WBC 9.5 Th/cmm (4.8-10.8) 05/15/17 05:45 RBC 3.48 Mil/cmm (4.30-5.70) L 05/15/17 05:45 Hgb 10.0 gm/dL (12-16) L 05/15/17 05:45 Hct 30.7 % (41.0-60) L 05/15/17 05:45 MCV 88.2 fl (80-99) 05/15/17 05:45 MCH 28.9 pg (26.0-30.0) 05/15/17 05:45 MCHC Differential 32.7 pg (28.0-36.0) 05/15/17 05:45 RDW 14.2 % (11.5-20.0) 05/15/17 05:45 Plt Count 395 Th/cmm (150-400) 05/15/17 05:45 MPV 7.5 fl 05/15/17 05:45 Neutrophils % 67.2 % (40.0-80.0) 05/15/17 05:45 Lymphocytes % 18.2 % (20.0-50.0) L 05/15/17 05:45 Monocytes % 6.5 % (2.0-10.0) 05/15/17 05:45 Eosinophils % 6.5 % (0.0-5.0) H 05/15/17 05:45 Basophils % 1.6 % (0.0-2.0) 05/15/17 05:45 Eos Smear Source URINE 05/11/17 12:30 Eos Smear Total Cells NONE SEEN (NONE SEEN) 05/11/17 12:30 PT 13.2 SECONDS (9.5-11.5) H 05/09/17 06:00 INR 1.25 (0.5-1.4) 05/09/17 06:00 PTT (Actin FS) 36.0 SECONDS (26.0-38.0) 05/09/17 06:00 Sodium 145 mEq/L (136-145) 05/15/17 05:45 Potassium 3.6 mEq/L (3.5-5.1) 05/15/17 05:45 Chloride 122 mEq/L (98-107) H 05/15/17 05:45 Carbon Dioxide 16.7 mEq/L (21.0-31.0) L 05/15/17 05:45 Anion Gap 9.9 (7.0-16.0) 05/15/17 05:45 BUN 30 mg/dL (7-25) H 05/15/17 05:45 Creatinine 1.6 mg/dL (0.7-1.3) H 05/15/17 05:45 Est GFR ( Amer) 58.2 ml/min (>90) 05/15/17 05:45 Est GFR (Non-Af Amer) 48.1 ml/min 05/15/17 05:45 BUN/Creatinine Ratio 18.8 05/15/17 05:45 Glucose 161 mg/dL (70-105) H 05/15/17 05:45 POC Glucose 215 MG/DL (70 - 105) H 05/02/17 01:25 Hemoglobin A1c % 5.6 % (4.0-6.0) 05/02/17 06:00 Calcium 8.5 mg/dL (8.6-10.3) L 05/15/17 05:45 Iron 21 ug/dL (38-169) L 05/03/17 05:20 TIBC 155 ug/dL (250-450) L 05/03/17 05:20 Iron Saturation 14 % (15-55) L 05/03/17 05:20 Unsaturated IBC 134 ug/dL (111-343) 05/03/17 05:20 Ferritin 488 ng/mL (30-400) H 05/03/17 05:20 Total Bilirubin 0.2 mg/dL (0.3-1.0) L 05/14/17 06:15 AST 14 U/L (13-39) 05/14/17 06:15 ALT 10 U/L (7-52) 05/14/17 06:15 Alkaline Phosphatase 98 U/L (34-104) 05/14/17 06:15 Total Protein 6.1 gm/dL (6.0-8.3) 05/14/17 06:15 Albumin 2.1 gm/dL (4.2-5.5) L 05/14/17 06:15 Globulin 4.0 gm/dL 05/14/17 06:15 Albumin/Globulin Ratio 0.5 (1.0-1.8) L 05/14/17 06:15 Lipase 24 U/L (11-82) 05/08/17 08:40 Vitamin B12 1438 pg/mL (232-1245) H 05/03/17 05:20 Folic Acid 13.3 ng/mL (>3.0) 05/03/17 05:20 Urine Source CATH 05/11/17 12:30 Urine Color YELLOW 05/11/17 12:30 Urine Clarity SLIGHTLY HAZY (CLEAR) 05/11/17 12:30 Urine pH 5.5 (4.6 - 8.0) 05/11/17 12:30 Ur Specific Russell >= 1.030 (1.005-1.030) 05/11/17 12:30 Urine Protein >=300 mg/dL (NEGATIVE) 05/11/17 12:30 Urine Glucose (UA) 100 mg/dL (NEGATIVE) H 05/11/17 12:30 Urine Ketones TRACE mg/dL (NEGATIVE) 05/11/17 12:30 Urine Blood MODERATE (NEGATIVE) H 05/11/17 12:30 Urine Nitrate NEGATIVE (NEGATIVE) 05/11/17 12:30 Urine Bilirubin NEGATIVE (NEGATIVE) 05/11/17 12:30 Urine Urobilinogen 0.2 E.U./dL (0.2 - 1.0) 05/11/17 12:30 Ur Leukocyte Esterase NEGATIVE (NEGATIVE) 05/11/17 12:30 Urine RBC 5-10 /hpf (0-5) H 05/11/17 12:30 Urine WBC 0-2 /hpf (0-5) 05/11/17 12:30 Ur Epithelial Cells RARE /lpf (FEW) 05/11/17 12:30 Amorphous Sediment MANY URATES (NONE SEEN) 05/11/17 12:30 Urine Bacteria FEW /hpf (NONE SEEN) 05/11/17 12:30 Stool Occult Blood NEGATIVE (NEGATIVE) 05/07/17 10:00 Vancomycin Trough 20.7 ug/mL (10-20) H 05/13/17 05:35 Random Vancomycin 23.5 ug/mL (5.0-40.0) 05/14/17 06:15 Blood Type O POSITIVE 05/02/17 09:20 Antibody Screen NEGATIVE 05/02/17 09:20 Crossmatch See Detail 05/02/17 09:20 - Physical Exam Vitals and I&O: Vital Signs Temp 98.3 F 05/15/17 12:00 Pulse 89 05/15/17 13:38 Resp 20 05/15/17 13:38 BP 155/82 05/15/17 13:35 Pulse Ox 97 05/15/17 13:38 Intake & Output 05/14/17 05/15/17 05/15/17 18:59 06:59 18:59 Intake Total 1476.666 100 480 Output Total 1000 550 Balance 476.666 100 -70 Weight (lbs) 103.419 kg 103.419 kg Intake: Intake, IV Amount 1476.666 100 Levetiracetam 500 mg In 210 Sodium Chloride 0.9% 100 ml @ 400 mls/hr IV BID [facility] Rx#:[id number] Piperacillin Sodium/ 150 100 Tazobact 3.375 gm In Sodium Chloride 0.9% 50 ml @ 100 mls/hr IV Q6HR [facility] Rx#:[id number] Sodium Bicarbonate 8.4% 1116.666 0 150 meq In Dextrose 5% 1, 000 ml @ 50 mls/hr IV . Q23H [facility] Rx#:[id number] Oral 0 0 Tube Feeding 480 Output: Urine 1000 550 Other: # Bowel Movements 1 0 Stool Characteristics Soft Soft Active Medications: Current Medications Acetaminophen (Tylenol) 500 mg PO Q6H PRN PRN Reason: Pain (Moderate) Stop: 07/01/17 02:48 Last Admin: 05/13/17 13:09 Dose: 500 mg Albuterol/Ipratropium (Duoneb Neb) 3 ml HHN Q6HRT [facility] Stop: 07/08/17 18:59 Last Admin: 05/15/17 13:36 Dose: 3 ml Amlodipine Besylate (Norvasc) 10 mg PO DAILY [facility] Stop: 07/04/17 08:59 Last Admin: 05/15/17 09:10 Dose: 10 mg Bisacodyl (Dulcolax 10 Mg Supp) 10 mg RC DAILY PRN PRN Reason: constipation Stop: 07/03/17 23:58 Last Admin: 05/05/17 00:20 Dose: 10 mg Carbamazepine (Tegretol) 200 mg PO TID [facility]O PRN Reason: Protocol Stop: 07/01/17 08:59 Last Admin: 05/15/17 13:35 Dose: 200 mg Epoetin Ulisses (Epogen) 5,000 units SUBQ TuThSa@1600 [facility] Stop: 07/12/17 15:59 Last Admin: 05/13/17 16:22 Dose: 5,000 units Folic Acid (Folate) 1 mg PO DAILY [facility] Stop: 07/13/17 08:59 Last Admin: 05/15/17 09:10 Dose: 1 mg Hydralazine HCl (Apresoline) 50 mg PO QID [facility] Stop: 07/05/17 12:59 Last Admin: 05/15/17 13:35 Dose: 50 mg Hydralazine HCl (Apresoline 20 Mg/Ml) 10 mg IV Q6HR PRN PRN Reason: SBP ABOVE 160 Stop: 07/06/17 17:33 Last Admin: 05/14/17 07:41 Dose: 10 mg Piperacillin Sod/Tazobactam (Sod 3.375 gm/ Sodium Chloride) 50 mls @ 100 mls/ hr IV Q6HR [facility] Stop: 07/08/17 17:59 Last Admin: 05/15/17 12:39 Dose: 100 mls/hr Levetiracetam 500 mg/ Sodium (Chloride) 105 mls @ 400 mls/hr IV BID [facility] Stop: 07/10/17 08:59 Last Admin: 05/15/17 09:06 Dose: 400 mls/hr Vancomycin HCl 1 gm/ Sodium (Chloride) 250 mls @ 165 mls/hr IV Q24H [facility] Stop: 07/14/17 13:59 Last Admin: 05/15/17 13:35 Dose: 165 mls/hr Lorazepam (Ativan) 0.5 mg IVP Q6HR PRN; Protocol PRN Reason: Agitation Stop: 07/07/17 16:10 Last Admin: 05/11/17 21:02 Dose: 0.5 mg Metoprolol Tartrate (Lopressor) 100 mg PO BID [facility] Stop: 07/01/17 08:59 Last Admin: 05/15/17 09:09 Dose: 100 mg Miscellaneous (Clinical Monitoring) 1 ea MC PRN PRN PRN Reason: RENAL Stop: 07/01/17 09:53 Miscellaneous (Vancomycin Iv Per Pharmacy) 1 ea MC PRN PRN PRN Reason: VANCOMYCIN PER RX Stop: 07/11/17 07:40 Ondansetron HCl (Zofran) 4 mg IV Q8H PRN PRN Reason: Nausea / Vomiting Stop: 07/09/17 12:20 Last Admin: 05/10/17 17:19 Dose: 4 mg Pantoprazole Sodium (Protonix) 40 mg PO DAILY [facility] Stop: 07/01/17 07:29 Last Admin: 05/15/17 09:10 Dose: 40 mg Pantoprazole Sodium (Protonix) 40 mg IVP DAILY [facility] Stop: 07/10/17 08:59 Last Admin: 05/15/17 09:09 Dose: 40 mg Polyethylene Glycol (Miralax) 17 gm PO DAILY [facility] Stop: 07/12/17 08:59 Last Admin: 05/15/17 09:11 Dose: 17 gm Senna (Senna) 8.6 mg PO DAILY [facility] Stop: 07/04/17 08:59 Last Admin: 05/15/17 09:12 Dose: 8.6 mg Sodium Bicarbonate (Sodium Bicarbonate) 650 mg PO BID [facility] PRN Reason: Protocol Stop: 07/05/17 16:59 Last Admin: 05/15/17 09:10 Dose: 650 mg Temazepam (Restoril) 15 mg PO HS PRN; Protocol PRN Reason: Insomnia Stop: 07/03/17 23:57 Last Admin: 05/07/17 21:14 Dose: 15 mg General: No acute distress (confused. Has mittens on.) HEENT: Atraumatic Neck: Supple Cardiovascular: Regular rate, Normal S1, Normal S2 Lungs: Other (fine crackles bilat) Abdomen: Bowel sounds Extremities: Cyanosis - Procedures Procedures: Procedures Procedure Code Date BLOOD TRANSFUSION SERVICE 40976 05/01/17 DRAINAGE OF SKIN ABSCESS 53439 08/15/03 EGD BIOPSY SINGLE/MULTIPLE 51498 05/01/[address] GASTROSTOMY TUBE 95486 05/01/17 ELECTROCARDIOGRAM 89.52 01/27/00 ELECTROCARDIOGRAM COMPLETE 84290 01/27/00 EXCISION OF STOMACH, ENDO, DIAGN [id number] 05/01/17 INSERT NON-TUNNEL CV CATH 87954 12/13/03 INSERTION OF FEEDING DEVICE INTO STOMACH, PERC APPROACH [id number] 05/01/17 MAGNETIC RESONANCE IMAGING OF BRAIN AND BRAIN STEM 88.91 01/27/00 MRI BRAIN STEM W/O DYE 00980 01/27/00 OTHER SKIN & SUBQ I D 86.04 08/15/03 TRANSFUSE NONAUT RED BLOOD CELLS IN PERIPH VEIN, PERC 23458D7 05/01/17 VENOUS CATHETERIZATION NEC 38.93 12/13/03 Assessment/Plan - Assessment Assessment: ACUTE ANEMIA ACUTE RENAL FAILURE SECONDARY TO ATN SECONDARY TO SEVERE ANEMIA ACUTE TUBULAR NECROSIS CVA SEIZURE PSYCHOSIS DEMENTIA S/P PEG - Plan Plan: BP NEEDS BETTER CONTROL RENAL FUNCTION IMPROVING HGB stable Nutritional Asmnt/Malnutr-PDOC - Dietary Evaluation Malnutrition Findings (Please click <Entered> for more info): Nutritional Asmnt/Malnutrition Start: 05/02/17 15: 58 Text: Status: Complete Freq: Document 05/02/17 15:58 HEN (Rec: 05/02/17 16:14 LCHEN [email or web address]) Nutritional Asmnt/Malnutrition Patient General Information Nutritional Screening High Risk Consult Diagnosis severe anemia, dehydration, CISCO Pertinent Medical Hx/Surgical Hx CVA, seizure disorder, dementia, psychosis, CKD Subjective Information Consult received for BS 215 at adm and wound. Pt seen lying in bed at time of visit, awake and alert at time of visit. Hard to understand pt. Pt said no when dietitian asked about food related questions. 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 Current Diet Order/ Nutrition Support Renal, mech soft chopped Pertinent Medications D5-0.45ns, protonix Pertinent Labs 3/6 Na 141, K 4.2, Cl 118, BUN 91, Cr 2.5, Glucose 180, POC 215, AST 11, Alb 2.5 Nutritional Hx/Data Height 1.57 m Height (Calculated Centimeters) 157.5 Current Weight (lbs) 78.018 kg Weight (Calculated Kilograms) 78.0 Weight (Calculated Grams) 51063.9 [place] Body Weight 118 Body Mass Index (BMI) 31.4 Weight Status Obese GI Symptoms GI Symptoms None Last BM none Difficult in: None Skin Integrity/Comment: per wound care note: Distal aspect of Gluteal Sulcus - Moisture lesion, present on admission. reddened to sacrum, potential skin problem to bilateral legs Estimated Nutritional Goals BEE in Kcals: Adj wt of IBW Calories/Kcals/Kg 25-30 Kcals Calculated 3281-0905 Protein: Adj wt of IBW Protein g/k-1.2 Protein Calculated 60-72 Fluid: ml 1500-1800ml (1ml/kcal) or per MD Nutritional Problem 1. Problem Problem altered nutrition related lab values Etiology hx of CKD, dx of CISCO, endocrine dysfunction Signs/Symptoms: BUN 91, Cr 2.5, Glucose 180, POC 215 Malnutrition Alert Protein-Calorie Malnutrition N/A Is there a minimum of two criteria No selected? Query Text:Check all the applicable criteria. A minimum of two criteria are recommended for diagnosis of either severe or non-severe malnutrition. Intervention/Recommendation Comments 1. Monitor glucose and check a1c level. If glucose continue high, will consider adding CCHO diet for optimal glycemic control 2. Monitor PO intake, wt, labs and skin integrity 3. F/U as high risk in 2-3 days, 05/04-05/05 Expected Outcomes/Goals Expected Outcomes/Goals 1. PO intake to meet at least 75% of nutritional needs. 2. Wt stability, skin to remain intact, labs to approach WNL.
--- NOTE | 2017-05-16 00:07 | Progress Notes ---
DATE: 05/15/2017 SUBJECTIVE: The patient is doing better with good urine output and no major complaints. There has not been any recurrence of the seizures. OBJECTIVE: VITAL SIGNS: On exam, blood pressure 148/80, heart rate 90 and last temperature recorded is 98.3. ABDOMEN: Soft and nondistended. Bladder not palpable. Canela catheter draining well. EXTREMITIES: No edema. HEART AND LUNG: Sounds normal. LABORATORY DATA: White count 9.5, hemoglobin 10. BUN 30, creatinine 1.6, down to the lowest level it has been. IMPRESSION: 1. Possible urinary retention, cystitis and maybe pyelonephritis; however, cultures were negative; therefore, we will proceed to remove the Canela catheter and recommend bladder scan every 8 hours with in and out catheterization if needed for volumes more than 250 mL. 2. Renal insufficiency, now resolved. 3. Seizure disorders, currently stable. 4. Diabetes, sugar 161 and 168. 5. History of dementia, stroke and mental retardation. No change. [facility]# [id number]
--- NOTE | 2017-05-18 08:44 | Diagnostic Imaging Report ---
Exam: Chest portable HISTORY: Shortness of breath. Findings: Portable examination of the chest at 1002 hours reviewed and compared to prior study of 05/09/2017 demonstrates a almost complete opacification of right hemithorax. There is evidence for pneumonia and effusion most likely atelectasis present. Left lower lobe pneumonia and effusion of present. Mediastinal structures midline the heart is not enlarged. The NG tube is no longer visualized. The bony thorax is intact. IMPRESSION: almost complete opacification right hemithorax, most likely atelectasis with superimposed pneumonia and effusion Left lower lobe infiltrate and effusion. Follow-up examination is recommended.
== END 2017-05-15 20:20 | DRG 682 ==
LOC: MSI 23:20 → TELE 05-10 17:51 → ICU 05-11 03:46 → TELE 05-11 17:40
PROVIDERS: ADMIT Family Medicine; ATTEND Family Medicine
PROC: 30233N1 Transfusion of Nonautologous Red Blood Cells into Peripheral Vein, Percutaneous Approach (ICD-10-PCS; principal; 2017-05-02)
PROC: 05HY33Z Insertion of Infusion Device into Upper Vein, Percutaneous Approach (ICD-10-PCS; 2017-05-02)
PROC: 0DB68ZX Excision of Stomach, Via Natural or Artificial Opening Endoscopic, Diagnostic (ICD-10-PCS; 2017-05-09)
PROC: 0DB98ZX Excision of Duodenum, Via Natural or Artificial Opening Endoscopic, Diagnostic (ICD-10-PCS; 2017-05-09)
PROC: 0DH63UZ Insertion of Feeding Device into Stomach, Percutaneous Approach (ICD-10-PCS; 2017-05-12)
DX: N17.0 Acute kidney failure with tubular necrosis (principal); E43 Unspecified severe protein-calorie malnutrition; J90 Pleural effusion, not elsewhere classified; E87.2 Acidosis; Z68.41 Body mass index [BMI] 40.0-44.9, adult; E11.22 Type 2 diabetes mellitus with diabetic chronic kidney disease; I12.9 Hypertensive chronic kidney disease with stage 1 through stage 4 chronic kidney disease, or unspecified chronic kidney disease; N12 Tubulo-interstitial nephritis, not specified as acute or chronic; F03.90 Unspecified dementia, unspecified severity, without behavioral disturbance, psychotic disturbance, mood disturbance, and anxiety; E86.0 Dehydration; G40.909 Epilepsy, unspecified, not intractable, without status epilepticus; N30.90 Cystitis, unspecified without hematuria; N18.9 Chronic kidney disease, unspecified; D63.1 Anemia in chronic kidney disease; R33.9 Retention of urine, unspecified; R62.7 Adult failure to thrive; R10.9 Unspecified abdominal pain; R45.1 Restlessness and agitation; K44.9 Diaphragmatic hernia without obstruction or gangrene; K29.70 Gastritis, unspecified, without bleeding; E66.9 Obesity, unspecified; Z88.8 Allergy status to other drugs, medicaments and biological substances; Z86.73 Personal history of transient ischemic attack (TIA), and cerebral infarction without residual deficits
CPT/HCPCS: 36415-UA; 71045-TC; 76705-TC; 76770-TC; 80048-TC; 80053-TC; 80202-TC; 81001-TC; 81015-TC; 82270-TC; 82607-90; 82728-90; 82746-90; 82948-90; 83036-90; 83540-90; 83550-90; 83690-TC; 85025-TC; 85610-TC; 86850-TC; 86900-TC; 86901-TC; 86922-TC; 87070; 87086-90; 87230-TC; 88305-90; 88312-90; 90799; 93005; 94640; 94760; C9113; J0360; J0885; J1200; J1630; J1940; J1953; J2060; J2405; J2543; J2704; J3370; J7042; J7070; P9016; X6436; Z7506; Z7508; Z7610